=== PATIENT | male | born 1955 | race Caucasian/White ===

== ENCOUNTER 2024-03-26 14:03 | Outpatient (POV) | payer MEDICARE, SELFPAY ==
[2024-03-26 14:49] VITALS: BP 142/85; PULSE 70; RESP 18; O2SAT 97; BMI 36.3
--- NOTE | 2024-03-26 16:33 | EXP.PAIN.OV ---
HPI Data of Consult Patient: new to practice Consult date: 03/26/24 Requesting Physician: Janay Del Rio APRN Consult Narrative Reason for consult: Low back pain, left hip pain History of present illness: Mr. Torres is a 68 year old male who presents today as a new patient. He is a referral from Dr. Mcfadden office. Today he rates his pain a 4 out of 10. Patient does state that he has chronic pain throughout his low back and left hip. Patient does state that this has been going on for approximately 3 to 4 years and that initially it was so bad that he could not even walk. He states that at that time he ended up going to [facility] who started doing injection therapy with lumbar epidurals and it significantly helped and he was able to walk again. Patient does however state that he feels like the pain is a little bit different and that he describes it as an aching, throbbing sensation with occasional sharp shooting pains that does have numbness and tingling. Patient denies any prior surgery. He has tried oral medications, heat and ice, topicals with minimal relief. Patient is currently in physical therapy for his hip and has done chiropractor therapy about 2 months ago and stated it helped some. 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 He states that they really could not determine what initially started this but then thought that it caused pneumonia that went ARDS that then progressed to peripheral neuropathy. He states that he has constant numbness and tingling in his feet. Patient is interested in any help we may be able to provide. He does state that he has had recent x-rays of his low back and left hip however denies any advanced imaging on the hip. Patient did have significant findings on his lumbar MRI. He is prescribed Percocet from an outside provider. His Diego has been reviewed and is appropriate. CC: Janay Del Rio APRN [facility] Disclaimer: The information contained in this section may have been updated after the patient was seen, as this information can be updated by other users. Medical History (Updated 03/26/24 @ 16:38 by Janay Del Rio APRN) Elevated cholesterol Enlarged prostate Hypertension HIT (heparin-induced thrombocytopenia) Surgical History (Updated 03/26/24 @ 14:51 by Elisabeth Vogt, [facility]) H/O colectomy History of heart artery stent Social History (Updated 03/26/24 @ 15:29 by Elisabeth Vogt, [facility]) Smoking Status: Unknown if ever smoked alcohol intake: never current occupational status: retired Travel in the last 8 weeks: None Review of Systems Review of Systems Review of systems:: pertinent systems reviewed and negative unless documented below Review of systems (narrative): Review of Systems: General: No recent weight changes, no fever, no sleep disturbances Respiratory: No cough, no shortness of air, no recurring pulmonary infections Cardiovascular/peripheral vascular: No chest pain, no palpitations, no edema, no shortness of breath Gastrointestinal: No new onset incontinence, normal bowel movements reported Genitourinary: No new onset incontinence Musculoskeletal: Low back pain, left hip pain, bilateral feet neuropathy Psychiatric: [Normal mood/affect] Neurological: [Denies weakness in extremities], [denies balance issues] Meds Home Medications and Allergies Home Medications Medication Instructions Recorded Confirmed Type clopidogrel 75 mg tablet 75 mg PO DAILY heart stents 03/26/24 03/26/24 History doxazosin 8 mg tablet 8 mg PO DAILY prostate 03/26/24 03/26/24 History gabapentin 600 mg tablet 600 mg PO BID 03/26/24 03/26/24 History lisinopril 5 mg tablet 5 mg PO DAILY 03/26/24 03/26/24 History oxycodone-acetaminophen 7.5 mg-325 1 tab PO TID 03/26/24 03/26/24 History mg tablet rosuvastatin 20 mg tablet 20 mg PO DAILY Cholesterol 03/26/24 03/26/24 History New Prescriptions to Start Prescriptions: Allergies Allergy/AdvReac Type Severity Reaction Status Date / Time heparin AdvReac Severe Verified 03/26/24 14:59 Objective Vital signs: Pulse Resp BP Pulse Ox O2 Del Method 70 18 142/85 H 97 Room Air 03/26/24 14:49 03/26/24 14:49 03/26/24 14:49 03/26/24 14:49 03/26/24 14:49 Narrative: Physical Exam: General: Alert and oriented x3, no acute distress, pleasant and cooperative Lungs: Respirations even and unlabored, symmetrical chest expansion Eyes: PERRL Musculoskeletal: Flexion and extension of lumbar [spine] somewhat guarded secondary to pain, [antalgic gait noted] Neurological: Speech clear, no gross sensory deficit Assessment and Plan *Assessment and plan (1) Degenerative disc disease, lumbar: Status: Acute Category: Medical Code(s): M51.36 - Other intervertebral disc degeneration, lumbar region (2) Lumbar radiculopathy: Status: Acute Category: Medical Code(s): M54.16 - Radiculopathy, lumbar region (3) Lumbar spinal stenosis: Status: Acute Qualifiers: Neurogenic claudication status: with neurogenic claudication Qualified Code(s): M48.062 - Spinal stenosis, lumbar region with neurogenic claudication Category: Medical Code(s): M48.061 - Spinal stenosis, lumbar region without neurogenic claudication (4) Left hip pain: Status: Acute Category: Medical Code(s): M25.552 - Pain in left hip (5) Peripheral neuropathy: Status: Acute Qualifiers: Peripheral neuropathy type: polyneuropathy, unspecified Qualified Code(s): G62.9 - Polyneuropathy, unspecified Category: Medical Code(s): G62.9 - Polyneuropathy, unspecified Plan Patient is experiencing significant pain throughout multiple areas. Patient does already get injections for his low back symptoms and leg symptoms with some improvement. I did discuss with the patient in future he may benefit from a intrathecal pain pump or spinal cord stimulator trial. Risk and benefits and educational handouts were given on both of these devices and he would like to proceed forward with the psychological evaluation. I have counseled him if he is deemed an appropriate candidate from this appointment we will proceed forward with a trial at a later date. I will order the patient a compounded cream and I will also order an MRI of his left hip due to his continued worsening pain in this joint. Patient is agreeable to this plan of care. Patient has tried and failed conservative treatment. Patient will return to clinic in 1 month for reevaluation of symptoms and plan of care. Patient has been instructed to contact the clinic with any concerns before the next appointment. Dr. Funez has reviewed this note and agrees with this plan of care. This note was dictated using voice recognition software and make contain errors or omissions.
== END 2024-03-26 23:59 | disposition home or self-care (01) ==
LOC: SC.PAIN 14:11
PROVIDERS: Visit Provider Nurse Practitioner Family
DX: M51.36 Other intervertebral disc degeneration, lumbar region (principal); M54.16 Radiculopathy, lumbar region; M48.062 Spinal stenosis, lumbar region with neurogenic claudication; M25.552 Pain in left hip; G89.29 Other chronic pain
CPT/HCPCS: 99202; G0463

== ENCOUNTER 2024-04-26 13:06 | Outpatient (CLI) | payer MEDICARE, SELFPAY ==
--- NOTE | 2024-04-26 | MR_ITS ---
FINAL REPORT CLINICAL HISTORY: L HIP PAIN. nki COMPARISON: None FINDINGS: Multiplanar MR imaging of the left hip was performed without contrast. The hip joint spaces are preserved. Femoral heads have normal smooth contours. There is no evidence of fracture or dislocation. There is no evidence of avascular necrosis. There are no osteochondral lesions. No bony mass is identified. The acetabular labrum is intact. No labral tear is identified. No significant joint effusion is seen. The tendons are intact. The musculature is intact. No soft tissue mass or cyst is identified. No evidence of localized bursitis. IMPRESSION: Unremarkable exam. Reviewed, Interpreted and Dictated by Tay Romeo MD Transcribed by Dede Echevarria Authenticated and [facility]
== END 2024-04-26 23:59 | disposition home or self-care (01) ==
LOC: RAD 13:07
PROVIDERS: PCP Internal Medicine; Visit Provider Nurse Practitioner Family
DX: M25.552 Pain in left hip (principal)
CPT/HCPCS: 73721

== ENCOUNTER 2024-05-02 13:29 | Outpatient (POV) | payer MEDICARE, SELFPAY ==
[2024-05-02 13:50] VITALS: BP 120/71; PULSE 66; RESP 16; O2SAT 96; BMI 35.6
--- NOTE | 2024-05-02 14:33 | EXP.PAIN.SOA ---
[facility] Disclaimer: The information contained in this section may have been updated after the patient was seen, as this information can be updated by other users. Medical History (Updated 03/26/24 @ 16:38 by Janay Del Rio APRN) Elevated cholesterol Enlarged prostate Hypertension HIT (heparin-induced thrombocytopenia) Surgical History (Updated 03/26/24 @ 14:51 by Elisabeth Vogt RN) H/O colectomy History of heart artery stent Social History (Updated 03/26/24 @ 16:40 by Janay Del Rio APRN) Smoking Status: Unknown if ever smoked alcohol intake: never current occupational status: other Travel in the last 8 weeks: None PM Subjective & Objective Subjective Subjective:: Patient is a pleasant 68-year-old male who presents today for follow-up of left MRI. Today he rates his pain an 8 out of 10. He denies any new trauma or injury. He states he continues to have the chronic pain throughout his low back and does radiate more prominent along the left side down his left leg. He describes this as constant and interferes with his ability to perform activities of daily living such as cooking and cleaning. Patient does get lumbar epidurals from [facility] every 3 months and these do significantly help however he still has the chronic issue. Patient has tried and failed oral medications, heat and ice, topicals, physical therapy and chiropractor therapy. Patient does continue to do at home stretching exercise for longer than 6 weeks. He is prescribed Percocet from an outside provider. His Diego has been reviewed and is appropriate. Review of Systems: General: No recent weight changes, no fever, no sleep disturbances Respiratory: No cough, no shortness of air, no recurring pulmonary infections Cardiovascular/peripheral vascular: No chest pain, no palpitations, no edema, no shortness of breath Gastrointestinal: No new onset incontinence, normal bowel movements reported Genitourinary: No new onset incontinence Musculoskeletal: Low back pain, left hip pain Psychiatric: [Normal mood/affect] Neurological: [Denies weakness in extremities], [denies balance issues] Pain at rest (0-10 scale): 8 Objective Objective:: Physical Exam: General: Alert and oriented x3, no acute distress, pleasant and cooperative Lungs: Respirations even and unlabored, symmetrical chest expansion Eyes: PERRL Musculoskeletal: Flexion and extension of lumbar [spine] somewhat guarded secondary to pain, [antalgic gait noted] Neurological: Speech clear, no gross sensory deficit Has patient had previous pain injection?: No Conservative treatment options previously tried: Home exercise plan Length of treatment: Longer than 6 weeks Meds Home Medications and Allergies Home Medications ?Medication ?Instructions ?Recorded ?Confirmed ?Type clopidogrel 75 mg tablet 75 mg PO DAILY heart stents 03/26/24 05/02/24 History doxazosin 8 mg tablet 8 mg PO DAILY prostate 03/26/24 05/02/24 History gabapentin 600 mg tablet 600 mg PO BID 03/26/24 05/02/24 History lisinopril 5 mg tablet 5 mg PO DAILY 03/26/24 05/02/24 History oxycodone-acetaminophen 7.5 mg-325 1 tab PO TID 03/26/24 05/02/24 History mg tablet rosuvastatin 20 mg tablet 20 mg PO DAILY Cholesterol 03/26/24 05/02/24 History New Prescriptions to Start Prescriptions: Allergies Allergy/AdvReac Type Severity Reaction Status Date / Time heparin AdvReac Severe Verified 03/26/24 14:59 Assessment and Plan *Assessment and plan (1) Peripheral neuropathy: Status: Acute Qualifiers: Peripheral neuropathy type: polyneuropathy, unspecified Qualified Code(s): G62.9 - Polyneuropathy, unspecified Category: Medical Code(s): G62.9 - Polyneuropathy, unspecified (2) Left hip pain: Status: Acute Category: Medical Code(s): M25.552 - Pain in left hip (3) Lumbar spinal stenosis: Status: Acute Qualifiers: Neurogenic claudication status: with neurogenic claudication Qualified Code(s): M48.062 - Spinal stenosis, lumbar region with neurogenic claudication Category: Medical Code(s): M48.061 - Spinal stenosis, lumbar region without neurogenic claudication (4) Lumbar radiculopathy: Status: Acute Category: Medical Code(s): M54.16 - Radiculopathy, lumbar region (5) Degenerative disc disease, lumbar: Status: Acute Category: Medical Code(s): M51.36 - Other intervertebral disc degeneration, lumbar region Plan At our last visit the patient was ordered a psychological evaluation and he does state that he missed their phone call but is still planning on calling them back to proceed forward with this option. We did review over again the risk and benefits of both the pump and stimulator trial and he is stating that he thinks he would like to try the pump first. I have also recommended that this based off of his lumbar imaging would be more beneficial. I will make sure he has refills on his compounded cream as this did seem to improve some of his symptoms. Patient's hip imaging was reviewed over with no acute findings. Patient will return to clinic in 1 month following his psychological evaluation. Patient has been instructed to contact the clinic with any concerns before the next appointment. Dr. Funez has reviewed this note and agrees with this plan of care. This note was dictated using voice recognition software and make contain errors or omissions. All injections are used with Lidocaine or Bupivacaine and Depo Medrol.
== END 2024-05-02 23:59 | disposition home or self-care (01) ==
PROVIDERS: PCP Internal Medicine; Visit Provider Nurse Practitioner Family
DX: G62.9 Polyneuropathy, unspecified (principal); M25.552 Pain in left hip; M48.062 Spinal stenosis, lumbar region with neurogenic claudication; M51.16 Intervertebral disc disorders with radiculopathy, lumbar region; Z95.5 Presence of coronary angioplasty implant and graft; Z73.89 Other problems related to life management difficulty
CPT/HCPCS: 99212; G0463

== ENCOUNTER 2024-06-28 13:12 | Outpatient (POV) | payer MEDICARE, SELFPAY ==
[2024-06-28 14:42] VITALS: BP 134/83; PULSE 67; RESP 18; O2SAT 93; BMI 36.3
--- NOTE | 2024-06-28 14:50 | A.OFFVIS_ITS ---
[facility] Disclaimer: The information contained in this section may have been updated after the patient was seen, as this information can be updated by other users. Medical History (Updated 06/28/24 @ 14:52 by Janay Del Rio APRN) Elevated cholesterol Enlarged prostate Hypertension HIT (heparin-induced thrombocytopenia) Surgical History (Updated 03/26/24 @ 14:51 by Elisabeth Vogt RN) H/O colectomy History of heart artery stent Social History (Updated 03/26/24 @ 16:40 by Janay Del Rio APRN) Smoking Status: Unknown if ever smoked alcohol intake: never current occupational status: other Travel in the last 8 weeks: None PM Subjective & Objective Subjective Subjective:: Patient is a pleasant 68-year-old male who presents today for follow-up. Today he rates his pain a 7 out of 10. He denies any new trauma or injury. He does state that he continues to have the pain that is worse with walking or standing. Patient states overall he does well when he sitting however anytime he does any increased activity the pain is severe and interferes with his ability perform activities of daily living such as cooking and cleaning. Patient does state that he has not yet done his psych eval because he is waiting to decide what he wants to do. He does state that he went to see a neurosurgeon and that they did talk about doing a laminectomy and possible cyst removal on August 07. Patient states he is very hesitant regarding this procedure however is keeping his options open. Patient has tried and failed conservative therapy including ph ysical therapy, chiropractor therapy and continued at home stretching exercise for longer than 12 weeks. His Diego has been reviewed and is appropriate. Review of Systems: General: No recent weight changes, no fever, no sleep disturbances Respiratory: No cough, no shortness of air, no recurring pulmonary infections Cardiovascular/peripheral vascular: No chest pain, no palpitations, no edema, n o shortness of breath Gastrointestinal: No new onset incontinence, normal bowel movements reported Genitourinary: No new onset incontinence Musculoskeletal: Low back pain, leg pain Psychiatric: [Normal mood/affect] Neurological: [Denies weakness in extremities], [denies balance issues] Pain at rest (0-10 scale): 7 Objective Objective:: Physical Exam: General: Alert and oriented x3, no acute distress, pleasant and cooperative Lungs: Respirations even and unlabored, symmetrical chest expansion Eyes: PERRL Musculoskeletal: Flexion and extension of lumbar [spine] somewhat guarded secondary to pain, [antalgic gait noted] Neurological: Speech clear, no gross sensory deficit Has patient had previous pain injection?: No Conservative treatment options previously tried: Home exercise plan Length of treatment: Longer than 12 weeks Meds Home Medications and Allergies Home Medications ?Medication ?Instructions ?Recorded ?Confirmed ?Type clopidogrel 75 mg tablet 75 mg PO DAILY heart stents 03/26/24 06/28/24 History doxazosin 8 mg tablet 8 mg PO DAILY prostate 03/26/24 06/28/24 History gabapentin 600 mg tablet 600 mg PO BID 03/26/24 06/28/24 History lisinopril 5 mg tablet 5 mg PO DAILY 03/26/24 06/28/24 History oxycodone-acetaminophen 7.5 mg-325 1 tab PO TID 03/26/24 06/28/24 History mg tablet rosuvastatin 20 mg tablet 20 mg PO DAILY Cholesterol 03/26/24 06/28/24 History New Prescriptions to Start Prescriptions: Allergies Allergy/AdvReac Type Severity Reaction Status Date / Time heparin AdvReac Severe Verified 03/26/24 14:59 Assessment and Plan *Assessment and plan (1) Lumbar radiculopathy: Status: Acute Category: Medical Code(s): M54.16 - Radiculopathy, lumbar region (2) Degenerative disc disease, lumbar: Status: Acute Category: Medical Code(s): M51.36 - Other intervertebral disc degeneration, lumbar region (3) Lumbar spinal stenosis: Status: Acute Qualifiers: Neurogenic claudication status: with neurogenic claudication Qualified Code(s): M48.062 - Spinal stenosis, lumbar region with neurogenic claudication Category: Medical Code(s): M48.061 - Spinal stenosis, lumbar region without neurogenic claudication (4) Spinal stenosis, lumbar region with neurogenic claudication: Status: Acute Category: Medical Code(s): M48.062 - Spinal stenosis, lumbar region with neurogenic claudication Plan Patient does have symptoms consistent with spinal stenosis with neurogenic claudication symptoms. Patient did have a positive shopping cart sign. I did discuss with the patient in future he may also be a beneficial candidate of a minimally invasive lumbar decompression. Risk and benefits and educational handouts were given at today's visit. We did discuss at length regarding this option and he would like to proceed forward with the lumbar epidural with epidurogram. We will evaluate whether or not he is a potential candidate of the lumbar decompression following this procedure. I did also go over again the risk and benefits of the pump trial and he does state that he will still plan on proceeding forward with a psychological evaluation. We will follow-up with this at future visits. Patient has tried and failed conservative therapy including continued at home stretching exercise for longer than 12 weeks. Patient will be scheduled for an LESI L4-L5 with epidurogram. Patient is on blood thinners and we will reach out to Dr. Levy regarding his Plavix to confirm he can stop this medication prior to this procedure. Patient has been instructed to contact the clinic with any concerns before the next appointment. Dr. Fuenz has reviewed this note and agrees with this plan of care. This note was dictated using voice recognition software and make contain errors or omissions. All injections are used with Lidocaine or Bupivacaine and Depo Medrol.
== END 2024-06-28 23:59 | disposition home or self-care (01) ==
LOC: SC.PAIN 13:17
PROVIDERS: PCP Internal Medicine; Visit Provider Nurse Practitioner Family
DX: M48.062 Spinal stenosis, lumbar region with neurogenic claudication; M51.16 Intervertebral disc disorders with radiculopathy, lumbar region; Z73.89 Other problems related to life management difficulty
CPT/HCPCS: 99212; G0463

== ENCOUNTER 2024-07-24 08:20 | Day surgery (SDC) | payer MEDICARE, SELFPAY ==
[2024-07-24 08:49] VITALS: BP 116/69; BP 120/72; PULSE 65; PULSE 66; PULSE 71; RESP 16; RESP 18; TEMP 36.9; O2SAT 94; BMI 35.6
[2024-07-24] MEDS: IOPAMIDOL-200 (41%);10ML VIAL 10 ML IV (08:50)
[2024-07-24] MEDS: methylPREDNISolone ACETATE 80MG/ML VIAL 80 MG (08:57)
[2024-07-24 09:06] VITALS: BP 117/70; PULSE 64; RESP 16; O2SAT 92
--- NOTE | 2024-07-24 09:06 | EXP.PAIN.PRO ---
Procedure Date: 07/24/24 Time: 08:40 Anesthesiologist:: Keaton Wayne CRNA Complications:: None Pre-procedure Diagnosis:: Degenerative disc lumbar spine multilevels. Lumbar radiculopathy. Lumbar spondylosis. Lumbar spinal stenosis. Post-procedure Diagnosis:: Same. Indications for Procedure:: Patient is a very pleasant 68-year-old male who comes our clinic today for lumbar epidural steroid injection at the L4-5 level with epidurogram. Patient been having low lumbar back pain as well as bilateral hip and leg radicular symptoms. He is being treated at another facility with lumbar epidural steroid injections prior to entering our clinic. He reports having some success with previous injections in the lumbar spine. Procedure Details:: Informed consent was obtained and the risks and benefits of the procedure were explained to the patient. The patient was taken to the procedure room and noninvasive monitors placed, including noninvasive blood pressure cuff and pulse oximeter. The back was viewed using C-arm Fluoroscopy and prepped using Chloraprep as a cleansing solution and the L4-L5 interspace was palpated. Skin and subcutaneous tissues were anesthetized using lidocaine 1.5% and a 25-gauge needle. After this, an 18-gauge Touhy epidural needle was placed into the L4-L5 interspace and advanced using fluoroscopic guidance and loss of resistance to air until the epidural space was encountered. After confirmation of needle placement in the epidural space, with dye, a solution containing normal saline, 3 mL and Depo-Medrol 80 mg were incrementally injected into the lumbar epidural space. The patient tolerated the procedure well with no complications. Plan and Disposition:: Patient was discharged without incident.
== END 2024-07-24 09:06 | disposition home or self-care (01) ==
PROVIDERS: PCP Internal Medicine; Visit Provider Nurse Anesthetist, Certified Registered
DX: M51.16 Intervertebral disc disorders with radiculopathy, lumbar region (principal); M47.26 Other spondylosis with radiculopathy, lumbar region; M48.061 Spinal stenosis, lumbar region without neurogenic claudication
CPT/HCPCS: 62323; J1010; Q9966

== ENCOUNTER 2024-08-10 11:30 | Outpatient (POV) | payer MEDICARE, SELFPAY ==
[2024-08-10 11:51] VITALS: BP 109/60; PULSE 64; RESP 16; O2SAT 95; BMI 36.5
--- NOTE | 2024-08-10 12:20 | A.OFFVIS_ITS ---
[facility] Disclaimer: The information contained in this section may have been updated after the patient was seen, as this information can be updated by other users. Medical History Elevated cholesterol Enlarged prostate Hypertension HIT (heparin-induced thrombocytopenia) Surgical History H/O colectomy History of heart artery stent Social History Smoking Status: Unknown if ever smoked alcohol intake: never current occupational status: other Travel in the last 8 weeks: None PM Subjective & Objective Subjective Subjective:: Patient is a pleasant 68-year-old male who presents today for follow-up of lumbar epidural steroid injection L4-L5 with epidurogram on 07/24/2024. Today he does rate his pain a 4 out of 10. Patient states that he has had at least 60 to 65% improvement following this injection and feels like it is still helping some. Patient states he has been able to increase his activity with overall decreased pain and feels much more functional. Patient does state that he is still interested in proceeding forward with a lumbar decompression procedure. Patient states that most of his pain is all when he goes to stand or walk and does radiate down more prominently on the left side. His Diego has been reviewed and is appropriate. Review of Systems: General: No recent weight changes, no fever, no sleep disturbances Respiratory: No cough, no shortness of air, no recurring pulmonary infections Cardiovascular/peripheral vascular: No chest pain, no palpitations, no edema, no shortness of breath Gastrointestinal: No new onset incontinence, normal bowel movements reported Genitourinary: No new onset incontinence Musculoskeletal: Low back pain Psychiatric: [Normal mood/affect] Neurological: [Denies weakness in extremities], [denies balance issues] Pain at rest (0-10 scale): 4 Objective Objective:: Physical Exam: General: Alert and oriented x3, no acute distress, pleasant and cooperative Lungs: Respirations even and unlabored, symmetrical chest expansion Eyes: PERRL Musculoskeletal: Flexion and extension of lumbar [spine] somewhat guarded secondary to pain, [antalgic gait noted] Neurological: Speech clear, no gross sensory deficit Has patient had previous pain injection?: Yes Percent improvement in pain since last injection: 60 to 65% Conservative treatment options previously tried: Home exercise plan Length of treatment: Longer than 12 weeks Meds Home Medications and Allergies Home Medications ?Medication ?Instructions ?Recorded ?Confirmed ?Type clopidogrel 75 mg tablet 75 mg PO DAILY heart stents 03/26/24 08/10/24 History doxazosin 8 mg tablet 8 mg PO DAILY prostate 03/26/24 08/10/24 History gabapentin 600 mg tablet 600 mg PO BID 03/26/24 08/10/24 History lisinopril 5 mg tablet 5 mg PO DAILY 03/26/24 08/10/24 History oxycodone-acetaminophen 7.5 mg-325 1 tab PO TID 03/26/24 08/10/24 History mg tablet rosuvastatin 20 mg tablet 20 mg PO DAILY Cholesterol 03/26/24 08/10/24 History New Prescriptions to Start Prescriptions: Allergies Allergy/AdvReac Type Severity Reaction Status Date / Time heparin AdvReac Severe Verified 03/26/24 14:59 Assessment and Plan *Assessment and plan (1) Lumbar spinal stenosis: Status: Acute Qualifiers: Neurogenic claudication status: with neurogenic claudication Qualified Code(s): M48.062 - Spinal stenosis, lumbar region with neurogenic claudication Category: Medical Code(s): M48.061 - Spinal stenosis, lumbar region without neurogenic claudication (2) Lumbar radiculopathy: Status: Acute Category: Medical Code(s): M54.16 - Radiculopathy, lumbar region (3) Degenerative disc disease, lumbar: Status: Acute Category: Medical Code(s): M51.36 - Other intervertebral disc degeneration, lumbar region (4) Spinal stenosis, lumbar region with neurogenic claudication: Status: Acute Category: Medical Code(s): M48.062 - Spinal stenosis, lumbar region with neurogenic claudication Plan I did discuss with the patient that although we did do the epidurogram her provider did not make mention whether or not how narrowed the canal spacing was. I have discussed with the patient that I will review over his imaging as well as have requested if he can bring his MRI disc to our clinic so I can review the actual imaging and not just the written report to see if there is ligamentum flavum hypertrophy present. Patient agrees with this plan of care. Patient will return to clinic in 1 month for reevaluation of symptoms and plan of care. Patient has been instructed to contact the clinic with any concerns before the next appointment. Dr. Funez has reviewed this note and agrees with this plan of care. This note was dictated using voice recognition software and make contain errors or omissions. All injections are used with Lidocaine or Bupivacaine and Depo Medrol.
== END 2024-08-10 23:59 | disposition home or self-care (01) ==
PROVIDERS: PCP Internal Medicine; Visit Provider Nurse Practitioner Family
DX: M48.062 Spinal stenosis, lumbar region with neurogenic claudication (principal); M51.16 Intervertebral disc disorders with radiculopathy, lumbar region
CPT/HCPCS: 99212; G0463

== ENCOUNTER 2024-09-28 14:23 | Outpatient (POV) | payer MEDICARE, SELFPAY ==
[2024-09-28 14:33] VITALS: BP 186/72; PULSE 60; RESP 16; O2SAT 95; BMI 36.5
--- NOTE | 2024-09-28 15:33 | XR_ITS ---
FINAL REPORT CLINICAL HISTORY: LBP FINDINGS: LUMBAR SPINE Five views were obtained. There is no acute fracture. The disc spaces are well-preserved. There is moderate to advanced facet hypertrophy in the lower lumbar spine. There is no malalignment. IMPRESSION: Degenerative changes as above. Reviewed, Interpreted and Dictated by Tay Romeo MD Transcribed by Norma Gtz Authenticated and [facility]
--- NOTE | 2024-09-28 16:08 | EXP.PAIN.SOA ---
[facility] Disclaimer: The information contained in this section may have been updated after the patient was seen, as this information can be updated by other users. Medical History Elevated cholesterol Enlarged prostate Hypertension HIT (heparin-induced thrombocytopenia) Surgical History H/O colectomy History of heart artery stent Social History Smoking Status: Unknown if ever smoked alcohol intake: never current occupational status: other Travel in the last 8 weeks: None PM Subjective & Objective Subjective Subjective:: Patient is a pleasant 69-year-old male who presents today for follow-up. He rates his pain today a 5 out of 10. He does state that he overall he feels like the previous epidural that was in July is seeming to still work. Patient did have a LESI L4-L5 with epidurogram and is still very interested in the minimally invasive lumbar decompression procedure. Patient does state today that he did bring his previous MRI disc and to radiology and that they were supposed to downloaded into the system. He does have chronic pain throughout his low back that is fine while he is seated however as soon as he gets up and starts moving around the pain does significantly worsen causing him to stop and take multiple breaks. Patient does state when the pain is severe it does interfere with his ability perform activities of daily living such as cooking and cleaning. His Diego has been reviewed and is appropriate. Review of Systems: General: No recent weight changes, no fever, no sleep disturbances Respiratory: No cough, no shortness of air, no recurring pulmonary infections Cardiovascular/peripheral vascular: No chest pain, no palpitations, no edema, no shortness of breath Gastrointestinal: No new onset incontinence, normal bowel movements reported Genitourinary: No new onset incontinence Musculoskeletal: Low back pain, leg pain Psychiatric: [Normal mood/affect] Neurological: [Denies weakness in extremities], [denies balance issues] Pain at rest (0-10 scale): 5 Objective Objective:: Physical Exam: General: Alert and oriented x3, no acute distress, pleasant and cooperative Lungs: Respirations even and unlabored, symmetrical chest expansion Eyes: PERRL Musculoskeletal: Flexion and extension of lumbar [spine] somewhat guarded secondary to pain, [antalgic gait noted] Neurological: Speech clear, no gross sensory deficit Has patient had previous pain injection?: No Conservative treatment options previously tried: Home exercise plan Length of treatment: Longer than 12 weeks Meds Home Medications and Allergies Home Medications ?Medication ?Instructions ?Recorded ?Confirmed ?Type clopidogrel 75 mg tablet 75 mg PO DAILY heart stents 03/26/24 09/28/24 History doxazosin 8 mg tablet 8 mg PO DAILY prostate 03/26/24 09/28/24 History gabapentin 600 mg tablet 600 mg PO BID 03/26/24 09/28/24 History lisinopril 5 mg tablet 5 mg PO DAILY 03/26/24 09/28/24 History oxycodone-acetaminophen 7.5 mg-325 1 tab PO TID 03/26/24 09/28/24 History mg tablet rosuvastatin 20 mg tablet 20 mg PO DAILY Cholesterol 03/26/24 09/28/24 History New Prescriptions to Start Prescriptions: Allergies Allergy/AdvReac Type Severity Reaction Status Date / Time heparin AdvReac Severe Verified 03/26/24 14:59 Assessment and Plan *Assessment and plan (1) Spinal stenosis, lumbar region with neurogenic claudication: Status: Acute Category: Medical Code(s): M48.062 - Spinal stenosis, lumbar region with neurogenic claudication (2) Lumbar spinal stenosis: Status: Acute Qualifiers: Neurogenic claudication status: with neurogenic claudication Qualified Code(s): M48.062 - Spinal stenosis, lumbar region with neurogenic claudication Category: Medical Code(s): M48.061 - Spinal stenosis, lumbar region without neurogenic claudication (3) Lumbar radiculopathy: Status: Acute Category: Medical Code(s): M54.16 - Radiculopathy, lumbar region (4) Degenerative disc disease, lumbar: Status: Acute Category: Medical Code(s): M51.369 - Other intervertebral disc degeneration, lumbar region without mention of lumbar back pain or lower extremity pain Plan Patient continues to have symptoms consistent with spinal stenosis with neurogenic claudication. Patient's last imaging the radiologist did not specifically look or reference whether or not the patient did have hypertrophy of the ligament. I will order updated imaging. We will order x-ray and lumbar MRI without contrast and evaluate for ligamentum flavum hypertrophy due to the continued worsening pain with increased activity such as walking or standing. Patient does have a positive shopping cart sign. Patient will return to clinic in 1 month for reevaluation of symptoms and plan of care. Patient has been instructed to contact the clinic with any concerns before the next appointment. Dr. Funez has reviewed this note and agrees with this plan of care. This note was dictated using voice recognition software and make contain errors or omissions. All injections are used with Lidocaine, Bupivacaine and Depo Medrol. Occasionally urine drug screen is needed to verify patient's compliance with our office pain contract. This is ordered based off specific treatments related to chronic pain with the potential to abuse certain medications.
== END 2024-09-28 23:59 | disposition home or self-care (01) ==
PROVIDERS: PCP Internal Medicine; Visit Provider Nurse Practitioner Family
DX: M48.062 Spinal stenosis, lumbar region with neurogenic claudication (principal); M51.16 Intervertebral disc disorders with radiculopathy, lumbar region; Z73.89 Other problems related to life management difficulty
CPT/HCPCS: 72110; 99212; G0463

== ENCOUNTER 2024-10-15 16:50 | Outpatient (CLI) | payer MEDICARE, SELFPAY ==
--- NOTE | 2024-10-15 17:02 | MR_ITS ---
PROCEDURE INFORMATION: Exam: MR Lumbar Spine Without Contrast Exam date and time: 10/15/2024 5:15 PM Age: 69 years old Clinical indication: Low back pain; Additional info: Lbp with ble pain TECHNIQUE: Imaging protocol: Magnetic resonance imaging of the lumbar spine without contrast. COMPARISON: MR LUMBAR W/O CONTRAST 01/10/2024 5:15 PM FINDINGS: Bones/joints: The vertebral body heights the vertebral body heights are maintained. There is grade 1 anterolisthesis of L4 on L5. Otherwise alignment is maintained. Spinal cord: Visualized cord, conus medullaris and cauda equina are unremarkable without compression. L1-L2: There is a small left paracentral disc protrusion which partially effaces the anterior thecal sac. There is no significant spinal canal stenosis. There is [id number]-fk-[id number] left and mild right neural foraminal stenosis secondary to foraminal disc bulging and facet hypertrophy. L2-L3: There is mild spinal canal stenosis mainly secondary to prominent posterior epidural fat. There is mild bilateral neural foraminal stenosis secondary to foraminal disc bulging and facet hypertrophy. L3-L4: There is moderate to severe spinal canal stenosis mainly secondary to epidural lipomatosis. There is also a small central disc protrusion identified which causes minimal mass effect on the anterior thecal sac. There is [id number] right and mild left neural foraminal stenosis secondary to foraminal disc bulging and facet hypertrophy. L4-L5: There is severe spinal canal stenosis secondary to anterolisthesis of L4 on L5, epidural lipomatosis, ligamentum flavum/facet hypertrophy, and central disc osteophyte ridging. There is also a left-sided synovial cyst measuring 6 x 4 x 8 mm. Please see image 27 of series 5 and image 10 of series 2. There is moderate right and [id number] left neural foraminal stenosis secondary to foraminal disc osteophyte bulging and facet hypertrophy. L5-S1: There is mild central disc bulging noted and there is epidural lipomatosis which effaces the thecal sac. The neural foramina appear patent. Soft tissues: Unremarkable. IMPRESSION: 1. Grade 1 anterolisthesis of L4 on L5. 2. Multilevel spinal canal and neural foraminal stenosis with severe spinal canal stenosis at L4-L5. Please see above for specific findings at each level.
== END 2024-10-15 23:59 | disposition home or self-care (01) ==
LOC: RAD 16:57
PROVIDERS: PCP Internal Medicine; Visit Provider Nurse Practitioner Family
DX: M51.369 Other intervertebral disc degeneration, lumbar region without mention of lumbar back pain or lower extremity pain (principal); M54.16 Radiculopathy, lumbar region; M48.062 Spinal stenosis, lumbar region with neurogenic claudication
CPT/HCPCS: 72148

== ENCOUNTER 2024-10-29 15:16 | Outpatient (POV) | payer MEDICARE, SELFPAY ==
[2024-10-29 15:43] VITALS: BP 156/96; PULSE 72; RESP 14; O2SAT 94; BMI 37.5
--- NOTE | 2024-10-29 16:25 | A.OFFVIS_ITS ---
[facility] Disclaimer: The information contained in this section may have been updated after the patient was seen, as this information can be updated by other users. Medical History Elevated cholesterol Enlarged prostate Hypertension HIT (heparin-induced thrombocytopenia) Surgical History H/O colectomy History of heart artery stent Social History Smoking Status: Unknown if ever smoked alcohol intake: never current occupational status: other Travel in the last 8 weeks: None PM Subjective & Objective Subjective Subjective:: Patient is a pleasant 69-year-old male who presents today for follow-up of lumbar MRI. Today he rates his pain a 4 out of 10 there in his low back however does state that his feet are constantly a 5 or more. Patient does state that he has had neuropathy for years and it is progressively worsened. He states years ago that he ended up having a blood clot down around in his foot and ended up having allergic reaction to heparin. He states that he ended up waking up with both his feet looking as if he had frostbite and ever since has had worsening numbness and tingling bilaterally. He states it affects the bottom and sides of his feet and is constant and affects his ability perform activities of daily living such as cooking and cleaning. He does also state that he still has worsening pain in his legs that is prominent when he gets up and walks. Patient states that he is still very interested in proceeding forward with the mild procedure in future. He does however state that the low back has eased down just a little bit currently. Patient is prescribed gabapentin and Percocet from an outside provider. His Diego has been reviewed and is appropriate. Review of Systems: General: No recent weight changes, no fever, no sleep disturbances Respiratory: No cough, no shortness of air, no recurring pulmonary infections Cardiovascular/peripheral vascular: No chest pain, no palpitations, no edema, no shortness of breath Gastrointestinal: No new onset incontinence, normal bowel movements reported Genitourinary: No new onset incontinence Musculoskeletal: Bilateral feet pain, leg pain Psychiatric: [Normal mood/affect] Neurological: [Denies weakness in extremities], [denies balance issues] Pain at rest (0-10 scale): 5 Objective Objective:: Physical Exam: General: Alert and oriented x3, no acute distress, pleasant and cooperative Lungs: Respirations even and unlabored, symmetrical chest expansion Eyes: PERRL Musculoskeletal: Flexion and extension of lumbar spine somewhat guarded secondary to pain, [antalgic gait noted] decreased sensation to light touch along his feet bilaterally and decreased reflexes Neurological: Speech clear, no gross sensory deficit Has patient had previous pain injection?: No Conservative treatment options previously tried: Home exercise plan Length of treatment: Longer than 12 weeks Meds Home Medications and Allergies Home Medications ?Medication ?Instructions ?Recorded ?Confirmed ?Type clopidogrel 75 mg tablet 75 mg PO DAILY heart stents 03/26/24 10/29/24 History doxazosin 8 mg tablet 8 mg PO DAILY prostate 03/26/24 10/29/24 History gabapentin 600 mg tablet 600 mg PO BID 03/26/24 10/29/24 History lisinopril 5 mg tablet 5 mg PO DAILY 03/26/24 10/29/24 History oxycodone-acetaminophen 7.5 mg-325 1 tab PO TID 03/26/24 10/29/24 History mg tablet rosuvastatin 20 mg tablet 20 mg PO DAILY Cholesterol 03/26/24 10/29/24 History New Prescriptions to Start Prescriptions: Allergies Allergy/AdvReac Type Severity Reaction Status Date / Time heparin AdvReac Severe Verified 03/26/24 14:59 Assessment and Plan *Assessment and plan (1) Spinal stenosis, lumbar region with neurogenic claudication: Status: Acute Category: Medical Code(s): M48.062 - Spinal stenosis, lumbar region with neurogenic claudication (2) Lumbar spinal stenosis: Status: Acute Qualifiers: Neurogenic claudication status: with neurogenic claudication Qualified Code(s): M48.062 - Spinal stenosis, lumbar region with neurogenic claudication Category: Medical Code(s): M48.061 - Spinal stenosis, lumbar region without neurogenic claudication (3) Degenerative disc disease, lumbar: Status: Acute Category: Medical Code(s): M51.369 - Other intervertebral disc degeneration, lumbar region without mention of lumbar back pain or lower extremity pain (4) Lumbar radiculopathy: Status: Acute Category: Medical Code(s): M54.16 - Radiculopathy, lumbar region (5) Peripheral neuropathy: Status: Acute Qualifiers: Peripheral neuropathy type: polyneuropathy, unspecified Qualified Code(s): G62.9 - Polyneuropathy, unspecified Category: Medical Code(s): G62.9 - Polyneuropathy, unspecified Plan Patient is experiencing constant pain related to his peripheral neuropathy that does affect his feet bilaterally with decreased reflexes and decreased sensation to light touch. I did discuss with the patient that I do believe he would benefit from posterior tibial nerve blocks bilaterally. Risk and benefits were discussed with the patient and he would like to proceed forward with this plan of care. Patient is also a good candidate for the minimally invasive lumbar decompression and has had a lumbar epidural with epidurogram as well as updated lumbar imaging that did show ligamentum flavum hypertrophic present. Patient does have symptoms consistent with spinal stenosis with neurogenic claudication symptoms. I did again review over the risk and benefits of the minimally invasive lumbar decompression procedure and we will follow-up with him regarding this after his posterior tibial nerve blocks. Patient has tried and failed conservative therapy including oral medications, heat and ice, topicals, at home stretching exercise for longer than 12 weeks with minimal changes. Patient will be scheduled for bilateral posterior tibial nerve blocks. Patient has been instructed to contact the clinic with any concerns before the next appointment. Dr. Funez has reviewed this note and agrees with this plan of care. This note was dictated using voice recognition software and make contain errors or omissions. All injections are used with Lidocaine, Bupivacaine and Depo Medrol. Occasionally urine drug screen is needed to verify patient's compliance with our office pain contract. This is ordered based off specific treatments related to chronic pain with the potential to abuse certain medications.
== END 2024-10-29 23:59 | disposition home or self-care (01) ==
LOC: SC.PAIN 15:21
PROVIDERS: PCP Internal Medicine; Visit Provider Nurse Practitioner Family
DX: M48.062 Spinal stenosis, lumbar region with neurogenic claudication (principal); G62.9 Polyneuropathy, unspecified; M51.16 Intervertebral disc disorders with radiculopathy, lumbar region; Z95.5 Presence of coronary angioplasty implant and graft; Z73.89 Other problems related to life management difficulty
CPT/HCPCS: 99212; G0463

== ENCOUNTER 2024-11-20 13:55 | Day surgery (SDC) | payer MEDICARE, SELFPAY ==
[2024-11-20 14:09] VITALS: BP 130/77; PULSE 61; RESP 16; TEMP 37; O2SAT 95; BMI 36.3
[2024-11-20] MEDS: LIDOCAINE 1% 5ML PF VIAL 5 ML (14:39)
[2024-11-20 14:40] VITALS: BP 143/74; PULSE 59; RESP 18; O2SAT 93
[2024-11-20 14:41] VITALS: BP 131/77; PULSE 59; RESP 16; O2SAT 95
[2024-11-20 14:46] VITALS: BP 143/74; PULSE 59; RESP 18; O2SAT 93
--- NOTE | 2024-11-20 14:52 | P.PCN_ITS ---
Procedure Date: 11/20/24 Time: 14:50 Anesthesiologist:: Keaton Wayne CRNA Complications:: None Pre-procedure Diagnosis:: Lumbar neurogenic claudication. Bilateral feet neuropathy. Degenerative disc lumbar spine multilevels. Lumbar radiculopathy. Post-procedure Diagnosis:: Same. Indications for Procedure:: Patient is a very pleasant 69-year-old male who comes our clinic today for bilateral posterior tibial nerve blocks. Patient receives intermittent lumbar epidural steroid injections for lumbar degenerative disc with radicular symptoms. Patient has chronic bilateral feet neuropathy. Patient reports neuropathy pain increases at night. Patient currently taking gabapentin 1200 mg nightly. Patient reports gabapentin helps significantly. Procedure Details:: Details of the procedure explained to the patient. The patient taken procedure room placed in the sitting position. The area over the left lateral malleus was cleaned using chlorhexidine as a cleansing solution. Using a 25-gauge inch and half needle the left posterior tibial nerve was accessed with ease. After negative aspiration 4 cc of 1% lidocaine and 2 cc of 0.25% Marcaine +40 mg Depo- Medrol was injected. The same procedure was carried out on the right posterior tibial nerve. Patient tolerated procedure without difficulty. No complications. Plan and Disposition:: Patient was discharged without incident.
== END 2024-11-20 14:41 | disposition home or self-care (01) ==
LOC: SC.PAINP 13:56
PROVIDERS: PCP Internal Medicine; Visit Provider Nurse Anesthetist, Certified Registered
DX: M48.062 Spinal stenosis, lumbar region with neurogenic claudication (principal); G62.9 Polyneuropathy, unspecified; M51.16 Intervertebral disc disorders with radiculopathy, lumbar region
CPT/HCPCS: 64450; J1010

== ENCOUNTER 2024-12-07 15:31 | Outpatient (POV) | payer MEDICARE, SELFPAY ==
[2024-12-07 15:45] VITALS: BP 107/53; PULSE 68; RESP 14; O2SAT 96; BMI 36.5
--- NOTE | 2024-12-07 16:11 | A.OFFVIS_ITS ---
[facility] Disclaimer: The information contained in this section may have been updated after the patient was seen, as this information can be updated by other users. Medical History Elevated cholesterol Enlarged prostate Hypertension HIT (heparin-induced thrombocytopenia) Surgical History H/O colectomy History of heart artery stent Social History Smoking Status: Unknown if ever smoked alcohol intake: never current occupational status: other Travel in the last 8 weeks: None PM Subjective & Objective Subjective Subjective:: Patient is a pleasant 69-year-old male who presents today for follow-up of bilateral posterior tibial nerve blocks on 11/20/2024. He does rate his pain today as 6 out of 10. He denies any new trauma or injury. He does state his pain is still all related to his bilateral feet numbness and tingling. He states overall currently his back and hips are doing pretty good. Patient does state that the day of the procedure he did have about 70% improvements with the initial numbing medication. He does state that once this wore off he did have 2 days that were just really really painful. He states he was just very sore and tender. Patient does state then it may have helped some after that however he ended up becoming under the weather and is not really sure if he had COVID or the flu or something else. He states he was having bodyaches and other symptoms. Patient does state that he is finally starting to feel better now currently. Patient is prescribed compounded cream from our office and gabapentin from an outside provider. His [place] has been reviewed and is appropriate. Review of Systems: General: No recent weight changes, no fever, no sleep disturbances Respiratory: No cough, no shortness of air, no recurring pulmonary infections Cardiovascular/peripheral vascular: No chest pain, no palpitations, no edema, no shortness of breath Gastrointestinal: No new onset incontinence, normal bowel movements reported Genitourinary: No new onset incontinence Musculoskeletal: Bilateral feet numbness tingling Psychiatric: [Normal mood/affect] Neurological: [Denies weakness in extremities], [denies balance issues] Pain at rest (0-10 scale): 6 Objective Objective:: Physical Exam: General: Alert and oriented x3, no acute distress, pleasant and cooperative Lungs: Respirations even and unlabored, symmetrical chest expansion Eyes: PERRL Musculoskeletal: Flexion and extension of lumbar [spine] somewhat guarded secondary to pain, [antalgic gait noted] Neurological: Speech clear, no gross sensory deficit Has patient had previous pain injection?: Yes Percent improvement in pain since last injection: 70% Conservative treatment options previously tried: Home exercise plan Length of treatment: Longer than 12 weeks Meds Home Medications and Allergies Home Medications ?Medication ?Instructions ?Recorded ?Confirmed ?Type clopidogrel 75 mg tablet 75 mg PO DAILY heart stents 03/26/24 12/07/24 History doxazosin 8 mg tablet 8 mg PO DAILY prostate 03/26/24 12/07/24 History gabapentin 600 mg tablet 600 mg PO BID 03/26/24 12/07/24 History lisinopril 5 mg tablet 5 mg PO DAILY 03/26/24 12/07/24 History oxycodone-acetaminophen 7.5 mg-325 1 tab PO TID 03/26/24 12/07/24 History mg tablet rosuvastatin 20 mg tablet 20 mg PO DAILY Cholesterol 03/26/24 12/07/24 History New Prescriptions to Start Prescriptions: Allergies Allergy/AdvReac Type Severity Reaction Status Date / Time heparin AdvReac Severe Verified 03/26/24 14:59 Assessment and Plan *Assessment and plan (1) Lumbar radiculopathy: Status: Acute Category: Medical Code(s): M54.16 - Radiculopathy, lumbar region (2) Degenerative disc disease, lumbar: Status: Acute Category: Medical Code(s): M51.369 - Other intervertebral disc degeneration, lumbar region without mention of lumbar back pain or lower extremity pain (3) Peripheral neuropathy: Status: Acute Qualifiers: Peripheral neuropathy type: polyneuropathy, unspecified Qualified Code(s): G62.9 - Polyneuropathy, unspecified Category: Medical Code(s): G62.9 - Polyneuropathy, unspecified Plan Patient was counseled that due to his continued peripheral neuropathy that I would recommend we do an EMG bilaterally. Patient did have significant injury years ago when he had a side effect to heparin. I have counseled the patient that I do believe that may be playing a role as well as chronic lumbar radiculopathies due to the spinal stenosis and ligamentum flavum hypertrophy. I will refer him to Dr. Perez for this testing. I did also discuss with the patient that we will increase his concentration of his compounded cream. Patient will return to clinic in 1 month for reevaluation of symptoms and plan of care. I did also discuss with patient in future I do believe he would still benefit from the stimulator as well as the minimally invasive lumbar decompression. We will follow-up with these in future. Patient has been instructed to contact the clinic with any concerns before the next appointment. Dr. Funez has reviewed this note and agrees with this plan of care. This note was dictated using voice recognition software and make contain errors or omissions. All injections are used with Lidocaine, Bupivacaine and Depo Medrol. Occasionally urine drug screen is needed to verify patient's compliance with our office pain contract. This is ordered based off specific treatments related to chronic pain with the potential to abuse certain medications.
== END 2024-12-07 23:59 | disposition home or self-care (01) ==
LOC: SC.PAIN 15:33
PROVIDERS: PCP Internal Medicine; Visit Provider Nurse Practitioner Family
DX: M51.16 Intervertebral disc disorders with radiculopathy, lumbar region (principal); G62.9 Polyneuropathy, unspecified
CPT/HCPCS: 99212; G0463

== ENCOUNTER 2025-02-13 11:21 | Outpatient (POV) | payer MEDICARE, SELFPAY ==
--- OUTSIDE RECORDS SUMMARY | 2024-12-25 15:00 | XMS_ITS | Encounter Summary ---
Author Organization [employer] Address [address] [place] [address] Care Team Providers Care Melter Supervisor Electric Arc Furnace Name Role Phone Yvan Coffey MD Primary Care Provider [phone] Reason for Referral * Durable Medical Equipment (Routine) - Closed Specialty Diagnoses / Procedures Referred By Contjoo t Referred To Contact Respiratory Therapy Diagnoses ADITYA (obstructive sleep apnea) Procedures DME Sleep Supplies Elton Faust MD [address] [place] [address] Phone: tel: fax: Referral ID Status Reason Start Date Expiration Date Visits Re quested Visits Authorized [id number] Closed 12/25/2024 12/25/2025 1 1 Reason for Visit * Reason Comments Sleep Apnea Encounter Details Date Type Department Care Team (Late st Contact Info) Description 12/25/2024 3:00 PM EDT Office Visit [facility] [address] [place] [phone] Elton Faust MD [address] [place] [address] ADITYA (obstructive sleep apnea) (Primary Dx) Social History Tobacco Use Types Packs/Day Years Used Date Smoking Tobacco: Never Smokeless Tobacco: Never Alcohol Use Standard Drinks/Week Comments Not Currently 0 (1 standard drink = 0.6 oz pur e alcohol) Interpersonal Safety Answer Date Record ed Family or friends hurt you Not on file 09/23 Family or friends insult you Not on file Family or friends threaten you Not on file 0 09/23/2023 Family or friends scream or curse at you Not on file 09/23/2023 Housing Stability Answer Date Recorded Living situation today Not on file Living situation problems Not on file 2023 Employment Answer Date Recorded Help finding and keeping a job Not on file 0 09/23/2023 Family and Community Support Answer Jair e Recorded Help with Day to Day Activities Not on file 09/23/2023 Feeling Lonely or Isolated Not on file 09/23 Educational Attainment Answer Date Alejandro rded Speak language other than French at home Not on file 09/23/2023 Want help with school or training Not on file 09/23/2023 Depression Answer Date Recorded PHQ-2 Risk Not on file 09/23/2023 Disabilities Answer Date Recorded Difficulty concentrating Not on file 024 Difficulty doing errands alone Not on file 0 09/23/2023 Substance Use Answer Date Recorded Used prescription meds for non-medical reasons N ot on file 09/23/2023 Used illegal drugs past 12 months Not on file 09/23/2023 Sex and Gender Information Value Date Recorded Sex Assigned at Not on file Legal Sex Male 3:58 PM CDT Gender Identity Not on file Sexual Orientation Not on file documented as of this encounter Last Filed Vital Signs Vital Sign Reading Time Taken Comments Blood Pressure 121/76 12/25/2024 3:48 PM EDT Pulse 58 12/25/2024 3:48 PM EDT Temperature - - Respiratory Rate 20 12/25/2024 3:48 PM EDT Oxygen Saturation 95% 12/25/2024 3:48 PM EDT Inhaled Oxygen Concentration - - Weight 105.6 kg (232 lb 14.4 oz) 12/25/2024 3:48 PM EDT Height 172.7 cm (5' 8 ) 12/25/2024 3:48 PM EDT Body Mass Index 35.41 12/25/2024 3:48 PM EDT documented in this encounter Progress Notes * Elton Faust MD - 12/25/2024 3:00 PM EDT [facility] Follow Up HPI: Patient presents for follow-up of obstructive Sleep Apnea. Patient was last seen 1 year ago on12/20/2023... During that visit his AHI was significantly elevated at 13.1 however it was significantly better than almost all of his previous clinic visits where his AHI had remained significantly elevated. Today in clinic he remains at a fixed CPAP pressure of 11 cm of H2O. He his AHI content has continued to trend down and he is doing well today in clinic is down to 6.9. He reports continued clinical benefit from CPAP therapy. His compliance is nearly 100% he uses it every [facility] with [facility]. No other significant sleep-related complaints today in clinic. Mask: FFM DME: [facility] Current Outpatient Medications on File Prior to Visit Medication Sig Dispense Refill carvediloL (COREG) 12.5 MG tablet TAKE 1 TABLET TWICE DAILY 180 tablet 3 clopidogreL (PLAVIX) 75 mg tablet TAKE 1 TABLET EVERY DAY 90 tablet 3 doxazosin (CARDURA) 4 MG tablet Take 1 tablet (4 mg total) by mouth nightly. gabapentin (NEURONTIN) 600 MG tablet Take 1 tablet (600 mg total) by mouth 2 (two) times daily. lisinopriL (ZESTRIL) 5 MG tablet TAKE 1 TABLET EVERY DAY 90 tablet 3 oxyCODONE-acetaminophen (PERCOCET) 7.5-325 mg per tablet Take 1 tablet by mouth. pantoprazole (PROTONIX) 40 MG tablet Take 1 tablet (40 mg total) by mouth daily. polyethylene glycol (GLYCOLAX) 17 gram packet Miralax 17 gram oral powder packet Take by oral route. promethazine (PHENERGAN) 25 MG tablet Take 1 tablet (25 mg total) by mouth every 8 (eight) hours asneeded. rosuvastatin (CRESTOR) 20 MG tablet TAKE 1 TABLET EVERY NIGHT 90 tablet 3 No current facility-administered medications on file prior to visit. Vitals: 12/25/24 1548 BP: 121/76 Pulse: 58 Resp: 20 SpO2: 95% Weight: 105.6 kg (232 lb 14.4 oz) Height: 1.727 m (5' 8 ) Body mass index is 35.41 kg/m??. EPWORTH SLEEPINESS SCALE: 4 Physical Exam Constitutional: Appearance: Normal appearance. He is obese. HENT: Head: Normocephalic and atraumatic. Eyes: Extraocular Movements: Extraocular movements intact. Conjunctiva/sclera: Conjunctivae normal. Cardiovascular: Rate and Rhythm: Normal rate and regular rhythm. Pulmonary: Effort: Pulmonary effort is normal. Breath sounds: Normal breath sounds. Skin: General: Skin is warm and dry. Neurological: General: No focal deficit present. Mental Status: He is alert. Mental status is at baseline. Psychiatric: Mood and Affect: Mood normal. Assessment/Plan ADITYA: Based on patent's history and download today in clinic their ADITYA is well controlled. Continue Current PAP settings and Mask. I am re-ordering supplies today. The patient knows to contact their DME ifthere is equipment issues or contact the sleep lab if there are other sleep related concerns. Elton Faust MD documented in this encounter Plan of Treatment Upcoming Encounters Date Type Department Care Team (Late st Contact Info) Description 12/24/2025 3:00 PM EDT Office Visit [facility] [address] [place] [phone] Elton Faust MD [address] [place] [phone] documented as of this encounter Visit Diagnoses Diagnosis ADITYA (obstructive sleep apnea)- Primary Obstructive sleep apnea (adult) (pediatric) documented in this encounter Care Teams Melter Supervisor Electric Arc Furnace Relationship Specialty Start Date End Date Yvan Coffey MD [address] [facility] [address] [place] [address] PCP - General Internal Medicine 08/13/22 documented as of this encounter
--- OUTSIDE RECORDS SUMMARY | 2025-02-13 11:27 | XMS_ITS | Encounter Summary ---
Author Organization [employer] Address [address] [place] [address] Care Team Providers Care Buffer Inflated Pad Name Role Phone Yvan Coffey MD Primary Care Provider [phone] Encounter Details Date Type Department Care Team (Late st Contact Info) Description 06/10/2020 Transcribed Document [facility] [place] [facility] [place] [address] ProviderYahir MD [address] [place] [phone] Social History Tobacco Use Types Packs/Day Years Used Date Smoking Tobacco: Never Assessed Sex and Gender Information Value Date Recorded Sex Assigned at Not on file Legal Sex Male 3:58 PM CDT Gender Identity Not on file Sexual Orientation Not on file documented as of this encounter Miscellaneous Notes * Cerner Conversion Note - Yahir ProviderMD - 06/10/2020 12:09 PM CDT Nursing Discharge Summary Entered On: 06/10/2020 12:10 EDT Performed On: 06/10/2020 12:09 EDT by DONOVAN SAMUELS RN Discharge Documentation Discharge Date/Time : 06/10/2020 13:00 EDT Patient Disposition, General : Discharge Discharge To : Home with ambulatory/outpatient follow-up Mode Of Departure, General Discharge : Private vehicle, Wheelchair Accompanied By, Discharge : Other: family IV Discontinued : Yes Personal Belongings With Patient : Yes Discharge Instructions Reviewed With, Opportunity For Questions Given : Patient Patient Education Completed : Yes Teaching Method : Printed materials Teaching Evaluation : Verbalizes understanding Education Comment : DONOVAN Santana RN - 06/10/2020 12:09 EDT documented in this encounter Plan of Treatment Upcoming Encounters Date Type Department Care Team (Late st Contact Info) Description 12/24/2025 3:00 PM EDT Office Visit [address] [phone] Elton Faust MD [address] [place], [place] [phone] documented as of this encounter Visit Diagnoses Not on filedocumented in this encounter Care Teams Buffer Inflated Pad Relationship Specialty Start Date End Date Yvan Coffey MD [address] [address] PCP - General Internal Medicine 08/13/22 documented as of this encounter
--- OUTSIDE RECORDS SUMMARY | 2025-02-13 11:27 | XMS_ITS | Encounter Summary ---
Author Organization [employer] Address [address] [place] [address] Care Team Providers Care Bean Snapper Name Role Phone Yvan Coffey MD Primary Care Provider [phone] Encounter Details Date Type Department Care Team (Late st Contact Info) Description 06/10/2020 Transcribed Document [facility] [place] [address] ProviderYahir MD [address] [place] [phone] Social History Tobacco Use Types Packs/Day Years Used Date Smoking Tobacco: Never Assessed Sex and Gender Information Value Date Recorded Sex Assigned at Not on file Legal Sex Male 3:58 PM CDT Gender Identity Not on file Sexual Orientation Not on file documented as of this encounter Miscellaneous Notes * Cerner Conversion Note - Yahir ProviderMD - 06/10/2020 1:57 PM CDT Nursing Discharge Summary Entered On: 06/10/2020 13:57 EDT Performed On: 06/10/2020 13:57 EDT by ERASMO BLUE, motor racer Documentation Discharge Date/Time : 06/10/2020 13:45 EDT Patient Disposition, General : Discharge Discharge To : Home with ambulatory/outpatient follow-up Education Comment : ERASMO Forde, RN - 06/10/2020 13:57 EDT Electronically signed by [facility] Conversion Assistant Womens Volleyball Coach Cerner at 12/21/2022 4:38 PM CDT documented in this encounter Plan of Treatment Upcoming Encounters Date Type Department Care Team (Late st Contact Info) Description 12/24/2025 3:00 PM EDT Office Visit [address] [phone] Elton Faust MD [address] [place] [address] documented as of this encounter Visit Diagnoses Not on filedocumented in this encounter Care Teams Bean Snapper Relationship Specialty Start Date End Date Yvan Coffey MD [address] [address] PCP - General Internal Medicine 08/13/22 documented as of this encounter
--- OUTSIDE RECORDS SUMMARY | 2025-02-13 11:27 | XMS_ITS | Encounter Summary ---
Author Organization [employer] Address [address] [place] [address] Care Team Providers Care Train Crew Member Name Role Phone Yvan Coffey MD Primary Care Provider [phone] Encounter Details Date Type Department Care Team (Late st Contact Info) Description 06/10/2020 Transcribed Document [facility] [place] [address] ProviderYahir MD [address] [place] [phone] Social History Tobacco Use Types Packs/Day Years Used Date Smoking Tobacco: Never Assessed Sex and Gender Information Value Date Recorded Sex Assigned at Not on file Legal Sex Male 3:58 PM CDT Gender Identity Not on file Sexual Orientation Not on file documented as of this encounter Miscellaneous Notes * Cerner Conversion Note - Historical ProviderMD - 06/10/2020 4:00 AM CDT Height and Weight, Routine Entered On: 06/10/2020 6:30 EDT Performed On: 06/10/2020 4:00 EDT by Elaine Phillips RN Height and Weight, Routine Routine Weight Source : Bed scale Routine Weight Entry Format : Metric Routine Weight, Kilograms : 109 kg(Converted to: 240 lb 5 oz) Routine Weight Calculation : 109 kg Height Source : Stated Height Entry Format : [place] Height, Feet : 5 ft Height, Inches : 8 Inch Clinical Height : 172.72 cm Body Surface Area (BSA), Routine : 2.21 m2 Body Mass Index (BMI), Routine : 36.54 kg/m2 Elaine Phillips RN - 06/10/2020 6:30 EDT Electronically signed by Interface, Sjh Conversion Director Of Sales And Marketing Cerner at 12/21/2022 4:44 PM CDT documented in this encounter Plan of Treatment Upcoming Encounters Date Type Department Care Team (Late st Contact Info) Description 12/24/2025 3:00 PM EDT Office Visit [address] [phone] Elton Faust MD [address] [place], [place] [phone] documented as of this encounter Visit Diagnoses Not on filedocumented in this encounter Care Teams Train Crew Member Relationship Specialty Start Date End Date Yvan Coffey MD [address] [address] PCP - General Internal Medicine 08/13/22 documented as of this encounter
--- OUTSIDE RECORDS SUMMARY | 2025-02-13 11:27 | XMS_ITS | Encounter Summary ---
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 Name Role Phone Tom Coffey MD Primary Care Provider [phone] Encounter Details Date Type Department Care Team (Late st Contact Info) Description 06/10/2020 Transcribed Document [facility] [place] [facility] [place] [address] ProviderYahir MD [address] [place] [id number] Social History Tobacco Use Types Packs/Day Years Used Date Smoking Tobacco: Never Assessed Sex and Gender Information Value Date Recorded Sex Assigned at Not on file Legal Sex Male 3:58 PM CDT Gender Identity Not on file Sexual Orientation Not on file documented as of this encounter Miscellaneous Notes * Cerner Conversion Note - Yahir Bullard MD - 06/10/2020 12:42 PM CDT [facility] [place] [address] CJ TORRES :1955 Visit Time:06/09/2020 Your Visit Summary Your Care Team Admitting Physician - JAMMIE ALVAREZ MD-INT Attending Physician - JAMMIE ALVAREZ MD-INT Primary Care Physician - TOM COFFEY MD-INT Referring Physician - AMAURY JAMES MD-EMR Your Diagnosis Chest pain, Chest pain Chest pain Hypertension Non-ST elevation (NSTEMI) myocardial infarction, Non-ST elevation (NSTEMI) myocardial infarction, Non-ST elevation NJ (NSTEMI) Discharge Vitals Temperature 37.1 ??C Heart Rate (Monitored) 62 Respiratory Rate 16 Blood Pressure 122/66 What to do next Instructions From Your Care Team Please STOP taking the home medication doxazosin. Discharge Activity: Discharge Activity: Activity as tolerated Diet: Discharge Diet: Heart healthy diet Follow-Up Appointments Follow Up with KOFI BAXTER When 07/01/2020 11:00 AM EDT Comments with JENNIFER Hernandez Where: [address] [facility] [address] [place] [address]- Business (1) Follow Up with TOM COFFEY When 06/18/2020 02:15 PM EDT Where: [address] [place] [address]- [phone] Business (1) Follow Up with [facility] When Within 6 weeks Comments Office to call with appoint/instructions Where: [address] [facility] [place] [address]- Medications What How Much When Instructions Next Dose aspirin (aspirin 81 mg oral tablet, chewable) 1 Tablet(s) Oral Every Day Purchase over the counter atorvastatin (atorvastatin 80 mg oral tablet) 1 Tablet(s) Oral At Bedtime Duration: 30 Day(s) Printed Prescription carvedilol (Coreg 12.5 mg oral tablet) 1 Tablet(s) Oral Two Times A Day Duration: 30 Day(s) Printed Prescription clopidogrel (Plavix 75 mg oral tablet) 1 Tablet(s) Oral Every Day Duration: 30 Day(s) Printed Prescription lisinopril (lisinopril 5 mg oral tablet) 1 Tablet(s) Oral Every 12 hours Duration: 30 Day(s) Printed Prescription acetaminophen-oxyCODONE (acetaminophen-oxyCODONE 325 mg-10 mg oral tablet) 1 Tablet(s) Oral Three Times A Day as needed for for pain gabapentin (gabapentin 600 mg oral tablet) 1 Tablet(s) Oral Two Times A Day pantoprazole (pantoprazole 40 mg oral delayed release tablet) 1 Tablet(s) Oral Every Day promethazine (promethazine 25 mg oral tablet) 1 Tablet(s) Oral Every 8 Hours as needed for for nausea/vomiting Take your medications faithfully. Do NOT skip medication. Do NOT stop taking medications without the direction of a physician. Carry a list of your medications with you at all times, and take this medication list with you to your first follow up visit. Report any side effects. Avoid herbal remedies unless discussed with your physician. As part of your treatment plan, your physician may have prescribed a limited course of a controlled substance. This medication may be given to help people with moderate or severe pain or for other medical conditions, but there are risks involved with treatment. Common side effects may include nausea, constipation, drowsiness, sweating, itching, dry mouth, and rash. More serious side effects may include cognitive and motor impairment, like problems with thinking, concentrating, alertness, and movement (e.g. slowed reflexes), and driving and operating heavy machinery can be dangerous. It is important for you to talk to your physician if you have these side effects or questions. These controlled substances can produce physical dependence and be habit-forming if taken for an extended period of time, which means that the body has gotten used to them and may experience withdrawal symptoms if they are abruptly stopped. Withdrawal symptoms can include runny nose, sweating, goose bumps, diarrhea, abdominal cramping, rapid heartbeat, difficulty sleeping, and nervousness. Please dispose of unused and medications per your retail pharmacy guidance. Allergies heparin (Heparin-induced thrombocytopenia with thrombosis, Heparin-induced thrombocytopenia with thrombosis) Brilinta (SOB - Shortness of breath) Immunizations This Visit No Immunizations Found Education Materials Heart Attack The heart is a muscle that needs oxygen to survive. A heart attack is a condition that occurs when your heart does not get enough oxygen. When this happens, the heart muscle begins to . This can cause permanent damage if not treated right away. A heart attack is a medical emergency. This condition may be called a myocardial infarction, or NJ. It is also known as acute coronary syndrome (ACS). ACS is a term used to describe a group of conditions that affect blood flow to the heart. What are the causes? This condition may be caused by: ??? Atherosclerosis. This occurs when a fatty substance called plaque builds up in the arteries and blocks or reduces blood supply to the heart. ??? A blood clot. A blood clot can develop suddenly when plaque breaks up within an artery and blocks blood flow to the heart. ??? Low blood pressure. ??? An abnormal heartbeat (arrhythmia). ??? Conditions that cause a decrease of oxygen to the heart, such as anemiaorrespiratory failure. ??? A spasm, or severe tightening, of a blood vessel that cuts off blood flow to the heart. ??? Tearing of a coronary artery (spontaneous coronary artery dissection). ??? High blood pressure. What increases the risk? The following factors may make you more likely to develop this condition: ??? Aging. The older you are, the higher your risk. ??? Having a personal or family history of chest pain, heart attack, stroke, or narrowing of the arteries in the legs, arms, head, or stomach (peripheral artery disease). ??? Being male. ??? Smoking. ??? Not getting regular exercise. ??? Being overweight or obese. ??? Having high blood pressure. ??? Having high cholesterol (hypercholesterolemia). ??? Having diabetes. ??? Drinking too much alcohol. ??? Using illegal drugs, such as cocaine or methamphetamine. What are the signs or symptoms? Symptoms of this condition may vary, depending on factors like gender and age. Symptoms may include: ??? Chest pain. It may feel like: ? Crushing or squeezing. ? Tightness, pressure, fullness, or heaviness. ??? Pain in the arm, neck, jaw, back, or upper body. ??? Shortness of breath. ??? Heartburn or upset stomach. ??? Nausea. ??? Sudden cold sweats. ??? Feeling tired. ??? Sudden light-headedness. How is this diagnosed? This condition may be diagnosed through tests, such as: ??? Electrocardiogram (ECG) to measure the electrical activity of your heart. ??? Blood tests to check for cardiac markers. These chemicals are released by a damaged heart muscle. ??? A test to evaluate blood flow and heart function (coronary angiogram). ??? CT scan to see the heart more clearly. ??? A test to evaluate the pumping action of the heart (echocardiogram). How is this treated? A heart attack must be treated as soon as possible. Treatment may include: ??? Medicines to: ? Break up or dissolve blood clots (fibrinolytic therapy). ? Thin blood and help prevent blood clots. ? Treat blood pressure. ? Improve blood flow to the heart. ? Reduce pain. ? Reduce cholesterol. ??? Angioplasty and stent placement. These are procedures to widen a blocked artery and keep it open. ??? Coronary artery bypass graft, CABG, or open heart surgery. This enables blood to flow to the heart by going around the blocked part of the artery. ??? Oxygen therapy if needed. ??? Cardiac rehabilitation. This improves your health and well-being through exercise, education, and counseling. Follow these instructions at home: Medicines ??? Take jtks-cif-ppuyolt and prescription medicines only as told by your health care provider. ??? Do not take the following medicines unless your health care provider says it is okay to take them: ? NSAIDs, such as ibuprofen. ? Supplements that contain vitamin A, vitamin E, or both. ? Hormone replacement therapy that contains estrogen with or without progestin. Lifestyle ??? Do not use any products that contain nicotine or tobacco, such as cigarettes, e-cigarettes, and chewing tobacco. If you need help quitting, ask your health care provider. ??? Avoid secondhand smoke. ??? Exercise regularly. Ask your health care provider about participating in a cardiac rehabilitation program that helps you start exercising safely after a heart attack. ??? Eat a heart-healthy diet. Your health care provider will tell you what foods to eat. ??? Maintain a healthy weight. ??? Learn ways to manage stress. ??? Do not use illegal drugs. Alcohol use ??? Do not drink alcohol if: ? Your health care provider tells you not to drink. ? You are , may be , or are planning to become . ??? If you drink alcohol: ? Limit how much you use to: ? 0???1 drink a day for women. ? 0???2 drinks a day for men. ? Be aware of how much alcohol is in your drink. In the [place] one drink equals one 12 oz bottle of beer (355 mL), one 5 oz glass of wine (148 mL), or one 1?? oz glass of hard liquor (44 mL). General instructions ??? Work with your health care provider to manage any other conditions you have, such as high blood pressure or diabetes. These conditions affect your heart. ??? Get screened for depression, and seek treatment if needed. ??? Keep your vaccinations up to date. Get the flu vaccine every year. ??? Keep all follow-up visits as told by your health care provider. This is important. Contact a health care provider if: ??? You feel overwhelmed or sad. ??? You have trouble doing your daily activities. Get help right away if: ??? You have sudden, unexplained discomfort in your chest, arms, back, neck, jaw, or upper body. ??? You have shortness of breath. ??? You suddenly start to sweat or your skin gets clammy. ??? You feel nauseous or you vomit. ??? You have unexplained tiredness or weakness. ??? You suddenly feel light-headed or dizzy. ??? You notice your heart starts to beat fast or feels like it is skipping beats. ??? You have blood pressure that is higher than 180/120. These symptoms may represent a serious problem that is an emergency. Do not wait to see if the symptoms will go away. Get medical help right away. Call your local emergency services (911 in the [place] Do not drive yourself to the hospital. Summary ??? A heart attack, also called myocardial infarction, is a condition that occurs when your heart does not get enough oxygen. This is caused by anything that blocks or reduces blood flow to the heart. ??? Treatment is a combination of medicines and surgeries, if needed, to open the blocked arteries and restore blood flow to the heart. ??? A heart attack is an emergency. Get help right away if you have sudden discomfort in your chest, arms, back, neck, jaw, or upper body. Seek help if you feel nauseous, you vomit, or you feel light-headed or dizzy. This information is not intended to replace advice given to you by your health care provider. Make sure you discuss any questions you have with your health care provider. Document Released: 08/22/2006 Document Revised: 11/29/2019 Document Reviewed: 12/03/2019 [employer] Patient Education ?? 2020 [employer] Angiogram, Care After This sheet gives you information about how to care for yourself after your procedure. Your health care provider may also give you more specific instructions. If you have problems or questions, contact your health care provider. What can I expect after the procedure? After the procedure, it is common to have bruising and tenderness at the catheter insertion area. Follow these instructions at home: Insertion site care ??? Follow instructions from your health care provider about how to take care of your insertion site. Make sure you: ? Wash your hands with soap and water before you change your bandage (dressing). If soap and water are not available, use hand anesthesiology technologist. ? Change your dressing as told by your health care provider. ? Leave stitches (sutures), skin glue, or adhesive strips in place. These skin closures may need to stay in place for 2 weeks or longer. If adhesive strip edges start to loosen and curl up, you may trim the loose edges. Do not remove adhesive strips completely unless your health care provider tells you to do that. ??? Do not take baths, swim, or use a hot tub until your health care provider approves. ??? You may shower 24???48 hours after the procedure or as told by your health care provider. ? Gently wash the site with plain soap and water. ? Pat the area dry with a clean towel. ? Do not rub the site. This may cause bleeding. ??? Do not apply powder or lotion to the site. Keep the site clean and dry. ??? Check your insertion site every day for signs of infection. Check for: ? Redness, swelling, or pain. ? Fluid or blood. ? Warmth. ? Pus or a bad smell. Activity ??? Rest as told by your health care provider, usually for 1???2 days. ??? Do not lift anything that is heavier than 10 lbs. (4.5 kg) or as told by your health care provider. ??? Do not drive for 24 hours if you were given a medicine to help you relax (sedative). ??? Do not drive or use heavy machinery while taking prescription pain medicine. General instructions ??? Return to your normal activities as told by your health care provider, usually in about a week. Ask your health care provider what activities are safe for you. ??? If the catheter site starts bleeding, lie flat and put pressure on the site. If the bleeding does not stop, get help right away. This is a medical emergency. ??? Drink enough fluid to keep your urine clear or pale yellow. This helps flush the contrast dye from your body. ??? Take jpqy-bcx-apvicim and prescription medicines only as told by your health care provider. ??? Keep all follow-up visits as told by your health care provider. This is important. Contact a health care provider if: ??? You have a fever or chills. ??? You have redness, swelling, or pain around your insertion site. ??? You have fluid or blood coming from your insertion site. ??? The insertion site feels warm to the touch. ??? You have pus or a bad smell coming from your insertion site. ??? You have bruising around the insertion site. ??? You notice blood collecting in the tissue around the catheter site (hematoma). The hematoma may be painful to the touch. Get help right away if: ??? You have severe pain at the catheter insertion area. ??? The catheter insertion area swells very fast. ??? The catheter insertion area is bleeding, and the bleeding does not stop when you hold steady pressure on the area. ??? The area near or just beyond the catheter insertion site becomes pale, cool, tingly, or numb. These symptoms may represent a serious problem that is an emergency. Do not wait to see if the symptoms will go away. Get medical help right away. Call your local emergency services (911 in the [place] Do not drive yourself to the hospital. Summary ??? After the procedure, it is common to have bruising and tenderness at the catheter insertion area. ??? After the procedure, it is important to rest and drink plenty of fluids. ??? Do not take baths, swim, or use a hot tub until your health care provider says it is okay to do so. You may shower 24???48 hours after the procedure or as told by your health care provider. ??? If the catheter site starts bleeding, lie flat and put pressure on the site. If the bleeding does not stop, get help right away. This is a medical emergency. This information is not intended to replace advice given to you by your health care provider. Make sure you discuss any questions you have with your health care provider. Document Released: 03/10/2006 Document Revised: 08/04/2018 Document Reviewed: 07/27/2017 [employer] Patient Education ?? 2020 [employer] Heart-Healthy Eating Plan Many factors influence your heart (coronary) health, including eating and exercise habits. Coronary risk increases with abnormal blood fat (lipid) levels. Heart-healthy meal planning includes limiting unhealthy fats, increasing healthy fats, and making other diet and lifestyle changes. What is my plan? Your health care provider may recommend that you: ??? Limit your fat intake to % or less of your total calories each day. ??? Limit your saturated fat intake to % or less of your total calories each day. ??? Limit the amount of cholesterol in your diet to less than mg per day. What are tips for following this plan? Cooking Cook foods using methods other than frying. Baking, boiling, grilling, and broiling are all good options. Other ways to reduce fat include: ??? Removing the skin from poultry. ??? Removing all visible fats from meats. ??? Steaming vegetables in water or broth. Meal planning ??? At meals, imagine dividing your plate into fourths: ? Fill one-half of your plate with vegetables and green salads. ? Fill one-fourth of your plate with whole grains. ? Fill one-fourth of your plate with lean protein foods. ??? Eat 4???5 servings of vegetables per day. One serving equals 1 cup raw or cooked vegetable, or 2 cups raw leafy greens. ??? Eat 4???5 servings of fruit per day. One serving equals 1 medium whole fruit, ?? cup dried fruit, ?? cup fresh, frozen, or canned fruit, or ?? cup 100% fruit juice. ??? Eat more foods that contain soluble fiber. Examples include apples, broccoli, carrots, beans, peas, and barley. Aim to get 25???30 g of fiber per day. ??? Increase your consumption of legumes, nuts, and seeds to 4???5 servings per week. One serving of dried beans or legumes equals ?? cup cooked, 1 serving of nuts is ?? cup, and 1 serving of seeds equals 1 tablespoon. Fats ??? Choose healthy fats more often. Choose monounsaturated and polyunsaturated fats, such as olive and canola oils, flaxseeds, walnuts, almonds, and seeds. ??? Eat more omega-3 fats. Choose salmon, mackerel, sardines, tuna, flaxseed oil, and ground flaxseeds. Aim to eat fish at least 2 times each week. ??? Check food labels carefully to identify foods with trans fats or high amounts of saturated fat. ??? Limit saturated fats. These are found in animal products, such as meats, butter, and cream. Plant sources of saturated fats include palm oil, palm kernel oil, and coconut oil. ??? Avoid foods with partially hydrogenated oils in them. These contain trans fats. Examples are stick margarine, some tub margarines, cookies, crackers, and other baked goods. ??? Avoid fried foods. General information ??? Eat more home-cooked food and less restaurant, buffet, and fast food. ??? Limit or avoid alcohol. ??? Limit foods that are high in starch and sugar. ??? Lose weight if you are overweight. Losing just 5???10% of your body weight can help your overall health and prevent diseases such as diabetes and heart disease. ??? Monitor your salt (sodium) intake, especially if you have high blood pressure. Talk with your health care provider about your sodium intake. ??? Try to incorporate more vegetarian meals weekly. What foods can I eat? Fruits All fresh, canned (in natural juice), or frozen fruits. Vegetables Fresh or frozen vegetables (raw, steamed, roasted, or grilled). Green salads. Grains Most grains. Choose whole wheat and whole grains most of the time. Rice and pasta, including brown rice and pastas made with whole wheat. Meats and other proteins Lean, well-trimmed beef, veal, pork, and falcon. Chicken and turkey without skin. All fish and shellfish. Wild duck, rabbit, pheasant, and venison. Egg whites or low-cholesterol egg substitutes. Dried beans, peas, lentils, and tofu. Seeds and most nuts. Dairy Low-fat or nonfat cheeses, including ricotta and mozzarella. Skim or 1% milk (liquid, powdered, or evaporated). Buttermilk made with low-fat milk. Nonfat or low-fat yogurt. Fats and oils Non-hydrogenated (trans-free) margarines. Vegetable oils, including soybean, sesame, sunflower, olive, peanut, safflower, corn, canola, and cottonseed. Salad dressings or mayonnaise made with a vegetable oil. Beverages Water (mineral or sparkling). Coffee and tea. Diet carbonated beverages. Sweets and desserts Sherbet, gelatin, and fruit ice. Small amounts of dark chocolate. Limit all sweets and desserts. Seasonings and condiments All seasonings and condiments. The items listed above may not be a complete list of foods and beverages you can eat. Contact a dietitian for more options. What foods are not recommended? Fruits Canned fruit in heavy syrup. Fruit in cream or butter sauce. Fried fruit. Limit coconut. Vegetables Vegetables cooked in cheese, cream, or butter sauce. Fried vegetables. Grains Breads made with saturated or trans fats, oils, or whole milk. Croissants. Sweet rolls. Donuts. High-fat crackers, such as cheese crackers. Meats and other proteins Fatty meats, such as hot dogs, ribs, sausage, hernandez, rib-eye roast or steak. High-fat deli meats, such as salami and bologna. Caviar. Domestic duck and goose. Organ meats, such as liver. Dairy Cream, sour cream, cream cheese, and creamed cottage cheese. Whole milk cheeses. Whole or 2% milk (liquid, evaporated, or condensed). Whole buttermilk. Cream sauce or high-fat cheese sauce. Whole-milk yogurt. Fats and oils Meat fat, or shortening. Chandler butter, hydrogenated oils, palm oil, coconut oil, palm kernel oil. Solid fats and shortenings, including hernandez fat, salt pork, lard, and butter. Nondairy cream substitutes. Salad dressings with cheese or sour cream. Beverages Regular sodas and any drinks with added sugar. Sweets and desserts Frosting. Pudding. Cookies. Cakes. Pies. Milk chocolate or white chocolate. Buttered syrups. Full-fat ice cream or ice cream drinks. The items listed above may not be a complete list of foods and beverages to avoid. Contact a dietitian for more information. Summary ??? Heart-healthy meal planning includes limiting unhealthy fats, increasing healthy fats, and making other diet and lifestyle changes. ??? Lose weight if you are overweight. Losing just 5???10% of your body weight can help your overall health and prevent diseases such as diabetes and heart disease. ??? Focus on eating a balance of foods, including fruits and vegetables, low-fat or nonfat dairy, lean protein, nuts and legumes, whole grains, and heart-healthy oils and fats. This information is not intended to replace advice given to you by your health care provider. Make sure you discuss any questions you have with your health care provider. Document Released: 05/31/2009 Document Revised: 09/29/2018 Document Reviewed: 09/29/2018 [employer] Patient Education ?? 2020 [employer]. Radial Site Care This sheet gives you information about how to care for yourself after your procedure. Your health care provider may also give you more specific instructions. If you have problems or questions, contact your health care provider. What can I expect after the procedure? After the procedure, it is common to have: ??? Bruising and tenderness at the catheter insertion area. Follow these instructions at home: Medicines ??? Take tewe-rrs-txdzjsx and prescription medicines only as told by your health care provider. Insertion site care ??? Follow instructions from your health care provider about how to take care of your insertion site. Make sure you: ? Wash your hands with soap and water before you change your bandage (dressing). If soap and water are not available, use hand anesthesiology technologist. ? Change your dressing as told by your health care provider. ? Leave stitches (sutures), skin glue, or adhesive strips in place. These skin closures may need to stay in place for 2 weeks or longer. If adhesive strip edges start to loosen and curl up, you may trim the loose edges. Do not remove adhesive strips completely unless your health care provider tells you to do that. ??? Check your insertion site every day for signs of infection. Check for: ? Redness, swelling, or pain. ? Fluid or blood. ? Pus or a bad smell. ? Warmth. ??? Do not take baths, swim, or use a hot tub until your health care provider approves. ??? You may shower 24???48 hours after the procedure, or as directed by your health care provider. ? Remove the dressing and gently wash the site with plain soap and water. ? Pat the area dry with a clean towel. ? Do not rub the site. That could cause bleeding. ??? Do not apply powder or lotion to the site. Activity ??? For 24 hours after the procedure, or as directed by your health care provider: ? Do not flex or bend the affected arm. ? Do not push or pull heavy objects with the affected arm. ? Do not drive yourself home from the hospital or clinic. You may drive 24 hours after the procedure unless your health care provider tells you not to. ? Do not operate machinery or power tools. ??? Do not lift anything that is heavier than 10 lb (4.5 kg), or the limit that you are told, until your health care provider says that it is safe. ??? Ask your health care provider when it is okay to: ? Return to work or school. ? Resume usual physical activities or sports. ? Resume sexual activity. General instructions ??? If the catheter site starts to bleed, raise your arm and put firm pressure on the site. If the bleeding does not stop, get help right away. This is a medical emergency. ??? If you went home on the same day as your procedure, a responsible adult should be with you for the first 24 hours after you arrive home. ??? Keep all follow-up visits as told by your health care provider. This is important. Contact a health care provider if: ??? You have a fever. ??? You have redness, swelling, or yellow drainage around your insertion site. Get help right away if: ??? You have unusual pain at the radial site. ??? The catheter insertion area swells very fast. ??? The insertion area is bleeding, and the bleeding does not stop when you hold steady pressure on the area. ??? Your arm or hand becomes pale, cool, tingly, or numb. These symptoms may represent a serious problem that is an emergency. Do not wait to see if the symptoms will go away. Get medical help right away. Call your local emergency services (911 in the [place] Do not drive yourself to the hospital. Summary ??? After the procedure, it is common to have bruising and tenderness at the site. ??? Follow instructions from your health care provider about how to take care of your radial site wound. Check the wound every day for signs of infection. ??? Do not lift anything that is heavier than 10 lb (4.5 kg), or the limit that you are told, until your health care provider says that it is safe. This information is not intended to replace advice given to you by your health care provider. Make sure you discuss any questions you have with your health care provider. Document Released: 09/24/2011 Document Revised: 09/27/2018 Document Reviewed: 09/27/2018 [employer] Patient Education ?? 2020 [employer]. carvedilol (DIANA ve dil ole) Coreg, Coreg CR What is the most important information I should know about carvedilol? You should not take carvedilol if you have asthma, bronchitis, emphysema, severe liver disease, or a serious heart condition such as heart block, 'sick sinus syndrome,' or slow heart rate (unless you have a pacemaker). What is carvedilol? Carvedilol is a beta-reji that is used to treat heart failure and hypertension (high blood pressure). Carvedilol is also used after a heart attack that has caused your heart not to pump as well. Carvedilol may also be used for purposes not listed in this medication guide. What should I discuss with my healthcare provider before taking carvedilol? You should not take carvedilol if you are allergic to it, or if you have: ?? asthma, bronchitis, emphysema; ?? severe liver disease; or ?? a serious heart condition such as severe heart failure, heart block, 'sick sinus syndrome,' or slow heart rate (unless you have a pacemaker). Tell your doctor if you have ever had: ?? coronary artery disease (clogged arteries); ?? slow heartbeats that have caused you to faint; ?? fluid retention; ?? asthma or other lung problems; ?? angina (chest pain); ?? diabetes (taking carvedilol can make it harder for you to tell when you have low blood sugar); ?? a thyroid disorder; ?? kidney disease; ?? circulation problems (such as Raynaud's syndrome); or ?? pheochromocytoma (tumor of the adrenal gland). Tell your doctor if you are or . Carvedilol is not approved for use by anyone younger than 18 years old. How should I take carvedilol? Follow all directions on your prescription label and read all medication guides or instruction sheets. Your doctor may occasionally change your dose. Use the medicine exactly as directed. Carvedilol works best if you take it with food, at the same time every day. Swallow the extended-release capsule whole and do not crush, chew, break, or open it. If you cannot swallow a capsule whole, open it and sprinkle the medicine into a spoonful of cold applesauce. Swallow the mixture right away without chewing. Do not save it for later use. If you are switched from carvedilol tablets to carvedilol extended-release capsules (Coreg CR), your daily total dose of this medicine may be higher or lower than before. Older adults may be more likely to become dizzy or feel faint when switching from tablets to extended-release capsules. Follow your doctor's instructions. Your blood pressure will need to be checked often. If you need surgery (including cataract surgery), tell your surgeon you currently use this medicine. You may need to stop for a short time. You should not stop using carvedilol suddenly. Stopping suddenly may cause chest pain or a heart attack. Follow your doctor's instructions about tapering your dose. If you are being treated for high blood pressure, keep using this medication even if you feel well. High blood pressure often has no symptoms. You may need to use blood pressure medication for the rest of your life. Carvedilol is only part of a complete treatment program that may also include diet, exercise, and weight control. Follow your doctor's instructions very closely. Store at room temperature away from moisture and heat. What happens if I miss a dose? Take the medicine as soon as you can, but skip the missed dose if it is almost time for your next dose. Do not take two doses at one time. What happens if I overdose? Seek emergency medical attention or call the Poison Help line at . Overdose symptoms may include uneven heartbeats, shortness of breath, bluish-colored fingernails, dizziness, weakness, fainting, and seizure (convulsions). What should I avoid while taking carvedilol? Avoid driving or hazardous activity until you know how this medicine will affect you. Your reactions could be impaired. Avoid getting up too fast from a sitting or lying position, or you may feel dizzy. What are the possible side effects of carvedilol? Get emergency medical help if you have signs of an allergic reaction: hives; difficulty breathing; swelling of your face, lips, tongue, or throat. Call your doctor at once if you have: ?? a light-headed feeling, like you might pass out; ?? slow or uneven heartbeats; ?? cold feeling or numbness in your fingers or toes; ?? chest pain, dry cough, wheezing, chest tightness; ?? heart problems--swelling, rapid weight gain, feeling short of breath; or ?? high blood sugar--increased thirst, increased urination, dry mouth, fruity breath odor. Common side effects may include: ?? dizziness; ?? slow heartbeats; ?? diarrhea; ?? weight gain; ?? dry eyes; or ?? problems wearing contact lenses. This is not a complete list of side effects and others may occur. Call your doctor for medical advice about side effects. You may report side effects to FDA at 5-799-JRA-8938. What other drugs will affect carvedilol? Sometimes it is not safe to use certain medications at the same time. Some drugs can affect your blood levels of other drugs you take, which may increase side effects or make the medications less effective. Other drugs may affect carvedilol, including prescription and peed-izl-lshotmq medicines, vitamins, and herbal products. Tell your doctor about all your current medicines and any medicine you start or stop using. Where can I get more information? Your pharmacist can provide more information about carvedilol. Remember, keep this and all other medicines out of the reach of children, never share your medicines with others, and use this medication only for the indication prescribed. Every effort has been made to ensure that the information provided by [employer]. ('[employer]') is accurate, up-to-date, and complete, but no guarantee is made to that effect. Drug information contained herein may be time sensitive. [employer] information has been compiled for use by healthcare practitioners and consumers in the [place] and therefore [employer] does not warrant that uses outside of the [place] are appropriate, unless specifically indicated otherwise. [employer] drug information does not endorse drugs, diagnose patients or recommend therapy. [employer] drug information is an informational resource designed to assist licensed healthcare practitioners in caring for their patients and/or to serve consumers viewing this service as a supplement to, and not a substitute for, the expertise, skill, knowledge and judgment of healthcare practitioners. The absence of a warning for a given drug or drug combination in no way should be construed to indicate that the drug or drug combination is safe, effective or appropriate for any given patient. [employer] does not assume any responsibility for any aspect of healthcare administered with the aid of information [employer] provides. The information contained herein is not intended to cover all possible uses, directions, precautions, warnings, drug interactions, allergic reactions, or adverse effects. If you have questions about the drugs you are taking, check with your doctor, nurse or pharmacist. Copyright 7255-2930 [employer]. Version: 16.01. Revision Date: 12/28/2018. lisinopril (lyse [place] oh pril) Blessing, Silvia, Zestril What is the most important information I should know about lisinopril? Do not use if you are , and tell your doctor right away if you become . If you have diabetes, do not use lisinopril together with any medication that contains aliskiren (a blood pressure medicine). Do not take lisinopril within 36 hours before or after taking medicine that contains sacubitril (such as Entresto). What is lisinopril? Lisinopril is an YEHUDA inhibitor that is used to treat high blood pressure (hypertension) in adults and children who are at least 6 years old. Lisinopril is also used to treat congestive heart failure in adults, or to improve survival after a heart attack. Lisinopril may also be used for purposes not listed in this medication guide. What should I discuss with my healthcare provider before taking lisinopril? You should not use lisinopril if you are allergic to it, or if you: ?? have a history of angioedema; ?? recently took a heart medicine called sacubitril; or ?? are allergic to any other YEHUDA inhibitor, such as benazepril, captopril, enalapril, fosinopril, moexipril, perindopril, quinapril, ramipril, or trandolapril. Do not take lisinopril within 36 hours before or after taking medicine that contains sacubitril (such as Entresto). If you have diabetes, do not use lisinopril together with any medication that contains aliskiren (a blood pressure medicine). You may also need to avoid taking lisinopril with aliskiren if you have kidney disease. Tell your doctor if you have ever had: ?? kidney disease (or if you are on dialysis); ?? liver disease; or ?? high levels of potassium in your blood. Do not use if you are , and tell your doctor right away if you become . Lisinopril can cause injury or to the unborn baby if you take the medicine during your second or third trimester. You should not breastfeed while using this medicine. How should I take lisinopril? Follow all directions on your prescription label and read all medication guides or instruction sheets. Your doctor may occasionally change your dose. Use the medicine exactly as directed. Drink plenty of water each day while you are taking this medicine. Lisinopril can be taken with or without food. Measure liquid medicine carefully. Use the dosing syringe provided, or use a medicine dose-measuring device (not a kitchen spoon). Your blood pressure will need to be checked often. Your kidney function and electrolytes may also need to be checked. Call your doctor if you are sick with vomiting or diarrhea, or if you are sweating more than usual. You can easily become dehydrated while taking lisinopril. This can lead to very low blood pressure, a serious electrolyte imbalance, or kidney failure. If you need surgery, tell the surgeon ahead of time that you are using lisinopril. If you have high blood pressure, keep using this medicine even if you feel well. High blood pressure often has no symptoms. You may need to use blood pressure medicine for the rest of your life. Store at room temperature away from moisture and heat. Do not freeze the oral liquid. What happens if I miss a dose? Take the medicine as soon as you can, but skip the missed dose if it is almost time for your next dose. Do not take two doses at one time. What happens if I overdose? Seek emergency medical attention or call the Poison Help line at . What should I avoid while taking lisinopril? Drinking alcohol can further lower your blood pressure and may increase certain side effects of lisinopril. Avoid becoming overheated or dehydrated during exercise, in hot weather, or by not drinking enough fluids. Lisinopril can decrease sweating and you may be more prone to heat stroke. Do not use potassium supplements or salt substitutes, unless your doctor has told you to. Avoid getting up too fast from a sitting or lying position, or you may feel dizzy. What are the possible side effects of lisinopril? Get emergency medical help if you have signs of an allergic reaction: hives; severe stomach pain; difficulty breathing; swelling of your face, lips, tongue, or throat. You may be more likely to have an allergic reaction if you are -[place]. Call your doctor at once if you have: ?? a light-headed feeling, like you might pass out; ?? fever, sore throat; ?? high potassium--nausea, weakness, tingly feeling, chest pain, irregular heartbeats, loss of movement; ?? kidney problems--little or no urination, swelling in your feet or ankles, feeling tired or short of breath; or ?? liver problems--nausea, upper stomach pain, itching, tired feeling, loss of appetite, dark urine, sofia-colored stools, jaundice (yellowing of the skin or eyes). Common side effects may include: ?? headache, dizziness; ?? cough; or ?? chest pain. This is not a complete list of side effects and others may occur. Call your doctor for medical advice about side effects. You may report side effects to FDA at 0-213-KYG-4889. What other drugs will affect lisinopril? Tell your doctor about all your other medicines, especially: ?? a diuretic or 'water pill'; ?? lithium; ?? gold injections to treat arthritis; ?? insulin or oral diabetes medicine; ?? a potassium supplement; ?? medicine to prevent organ transplant rejection--everolimus, sirolimus, tacrolimus, temsirolimus; or ?? NSAIDs (nonsteroidal anti-inflammatory drugs)--aspirin, ibuprofen (Advil, Motrin), naproxen (Aleve), celecoxib, diclofenac, indomethacin, meloxicam, and others. This list is not complete. Other drugs may affect lisinopril, including prescription and eaqa-glx-cnrwydr medicines, vitamins, and herbal products. Not all possible drug interactions are listed here. Where can I get more information? Your pharmacist can provide more information about lisinopril. Remember, keep this and all other medicines out of the reach of children, never share your medicines with others, and use this medication only for the indication prescribed. Every effort has been made to ensure that the information provided by [employer]. [employer]') is accurate, up-to-date, and complete, but no guarantee is made to that effect. Drug information contained herein may be time sensitive. [employer] information has been compiled for use by healthcare practitioners and consumers in the [place] and therefore [employer] does not warrant that uses outside of the [place] are appropriate, unless specifically indicated otherwise. [employer] drug information does not endorse drugs, diagnose patients or recommend therapy. [employer] drug information is an informational resource designed to assist licensed healthcare practitioners in caring for their patients and/or to serve consumers viewing this service as a supplement to, and not a substitute for, the expertise, skill, knowledge and judgment of healthcare practitioners. The absence of a warning for a given drug or drug combination in no way should be construed to indicate that the drug or drug combination is safe, effective or appropriate for any given patient. [employer] does not assume any responsibility for any aspect of healthcare administered with the aid of information [employer] provides. The information contained herein is not intended to cover all possible uses, directions, precautions, warnings, drug interactions, allergic reactions, or adverse effects. If you have questions about the drugs you are taking, check with your doctor, nurse or pharmacist. Copyright 0660-9676 [employer]. Version: 15.03. Revision Date: 06/26/2019. atorvastatin (a TOR va sta tin) Lipitor What is the most important information I should know about atorvastatin? You should not take atorvastatin if you are or breast-feeding, or if you have liver disease. Stop taking this medication and tell your doctor right away if you become . Tell your doctor about all your current medicines and any you start or stop using. Many drugs can interact, and some drugs should not be used together. Atorvastatin can cause the breakdown of muscle tissue, which can lead to kidney failure. Call your doctor right away if you have unexplained muscle pain, tenderness, or weakness especially if you also have fever, unusual tiredness, or dark urine. What is atorvastatin? Atorvastatin is used together with diet to lower blood levels of 'bad' cholesterol (low-density lipoprotein, or LDL), to increase levels of 'good' cholesterol (high-density lipoprotein, or HDL), and to lower triglycerides (a type of fat in the blood). Atorvastatin is used to treat high cholesterol, and to lower the risk of stroke, heart attack, or other heart complications in people with type 2 diabetes, coronary heart disease, or other risk factors. Atorvastatin is used in adults and children who are at least 10 years old. Atorvastatin may also be used for purposes not listed in this medication guide. What should I discuss with my healthcare provider before taking atorvastatin? You should not use atorvastatin if you are allergic to it, or if you have: ?? liver disease; or ?? if you are or breast-feeding. This medicine can harm an unborn baby or cause defects. Do not use if you are . Stop taking atorvastatin and tell your doctor right away if you become Use effective control to prevent while you are taking this medicine. Do not breast-feed while you are taking atorvastatin. Tell your doctor if you have ever had: ?? liver problems; ?? muscle pain or weakness; ?? kidney disease; ?? diabetes; ?? a thyroid disorder; or ?? if you drink more than 2 alcoholic beverages daily. Atorvastatin can cause the breakdown of muscle tissue, which can lead to kidney failure. This happens more often in women, in older adults, or people who have kidney disease or poorly controlled hypothyroidism (underactive thyroid). Atorvastatin is not approved for use by anyone younger than 10 years old. How should I take atorvastatin? Follow all directions on your prescription label and read all medication guides or instruction sheets. Your doctor may occasionally change your dose. Use the medicine exactly as directed. Take the medicine at the same time each day, with or without food. Do not break an atorvastatin tablet before taking it. You may need to stop using atorvastatin for a short time if you have: ?? uncontrolled seizures; ?? an electrolyte imbalance (such as high or low potassium levels in your blood); ?? severely low blood pressure; ?? a severe infection or illness; or ?? surgery or a medical emergency. It may take up to 2 weeks before your cholesterol levels improve, and you may need frequent blood tests. Even if you have no symptoms, tests can help your doctor determine if this medicine is effective. Atorvastatin is only part of a complete treatment program that may also include diet, exercise, and weight control. Follow your doctor's instructions very closely. Store at room temperature away from moisture, heat, and light. What happens if I miss a dose? Use the medicine as soon as you can, but skip the missed dose if you are more than 12 hours late for the dose. Do not use two doses at one time. What happens if I overdose? Seek emergency medical attention or call the Poison Help line at . What should I avoid while taking atorvastatin? Avoid eating foods high in fat or cholesterol, or atorvastatin will not be as effective. Avoid drinking alcohol. It can raise triglyceride levels and may increase your risk of liver damage. Grapefruit may interact with atorvastatin and lead to unwanted side effects. Avoid drinking more than 1 liter of grapefruit juice while taking atorvastatin. What are the possible side effects of atorvastatin? Get emergency medical help if you have signs of an allergic reaction: hives; difficulty breathing; swelling of your face, lips, tongue, or throat. In rare cases, atorvastatin can cause a condition that results in the breakdown of skeletal muscle tissue, leading to kidney failure. Call your doctor right away if you have unexplained muscle pain, tenderness, or weakness especially if you also have fever, unusual tiredness, and dark colored urine. Also call your doctor at once if you have: ?? pain or burning when you urinate; ?? liver problems--upper stomach pain, weakness, tired feeling, loss of appetite, dark urine, jaundice (yellowing of the skin or eyes); or ?? kidney problems--little or no urinating, swelling in your feet or ankles, feeling tired or short of breath. Common side effects may include: ?? joint pain; ?? stuffy nose, sore throat; ?? diarrhea; or ?? pain in your arms or legs. This is not a complete list of side effects and others may occur. Call your doctor for medical advice about side effects. You may report side effects to FDA at 0-133-OYP-2855. What other drugs will affect atorvastatin? Certain other drugs can increase your risk of serious muscle problems, and it is very important that your doctor knows if you are using any of them. Tell your doctor about all your current medicines and any you start or stop using, especially: ?? antibiotic or antifungal medicine; ?? control pills; ?? other cholesterol-lowering medication; ?? heart medication; or ?? medicine to treat HIV or AIDS. This list is not complete. Other drugs may affect atorvastatin, including prescription and athf-rze-uxyoszz medicines, vitamins, and herbal products. Not all possible drug interactions are listed here. Where can I get more information? Your pharmacist can provide more information about atorvastatin. Remember, keep this and all other medicines out of the reach of children, never share your medicines with others, and use this medication only for the indication prescribed. Every effort has been made to ensure that the information provided by [employer]. ('[employer]') is accurate, up-to-date, and complete, but no guarantee is made to that effect. Drug information contained herein may be time sensitive. [employer] information has been compiled for use by healthcare practitioners and consumers in the [place] and therefore [employer] does not warrant that uses outside of the [place] are appropriate, unless specifically indicated otherwise. [employer] drug information does not endorse drugs, diagnose patients or recommend therapy. [employer] drug information is an informational resource designed to assist licensed healthcare practitioners in caring for their patients and/or to serve consumers viewing this service as a supplement to, and not a substitute for, the expertise, skill, knowledge and judgment of healthcare practitioners. The absence of a warning for a given drug or drug combination in no way should be construed to indicate that the drug or drug combination is safe, effective or appropriate for any given patient. [employer] does not assume any responsibility for any aspect of healthcare administered with the aid of information [employer] provides. The information contained herein is not intended to cover all possible uses, directions, precautions, warnings, drug interactions, allergic reactions, or adverse effects. If you have questions about the drugs you are taking, check with your doctor, nurse or pharmacist. Copyright 2990-6921 [employer]. Version: 20.02. Revision Date: 06/01/2019. clopidogrel (kloe PID oh grel) Plavix What is the most important information I should know about clopidogrel? You should not use this medicine if you have any active bleeding such as a stomach ulcer or bleeding in the brain. Clopidogrel increases your risk of bleeding, which can be severe or life-threatening. Call your doctor or seek emergency medical attention if you have bleeding that will not stop, if you have blood in your urine, black or bloody stools, or if you cough up blood or vomit that looks like coffee grounds. Do not stop taking clopidogrel without first talking to your doctor, even if you have signs of bleeding. Stopping clopidogrel may increase your risk of a heart attack or stroke. What is clopidogrel? Clopidogrel is used to lower your risk of having a stroke, blood clot, or serious heart problem after you've had a heart attack, severe chest pain (angina), or circulation problems. Clopidogrel may also be used for purposes not listed in this medication guide. What should I discuss with my healthcare provider before taking clopidogrel? You should not use clopidogrel if you are allergic to it, or if you have: ?? any active bleeding; or ?? a stomach ulcer or bleeding in the brain (such as from a head injury). Tell your doctor if you have ever had: ?? an ulcer in your stomach or intestines; or ?? a bleeding disorder or blood clotting disorder. Clopidogrel may not work as well if you have certain genetic factors that affect the breakdown of this medicine in your body. Your doctor may perform a blood test to make sure clopidogrel is right for you. This medicine is not expected to harm an unborn baby. However, taking clopidogrel within 1 week before childbirth can cause bleeding in the mother. Tell your doctor if you are or plan to become . You should not breastfeed while using this medicine. How should I take clopidogrel? Follow all directions on your prescription label and read all medication guides or instruction sheets. Use these medicines exactly as directed. Clopidogrel can be taken with or without food. Clopidogrel is sometimes taken together with aspirin. Take aspirin only if your doctor tells you to. Clopidogrel keeps your blood from coagulating (clotting) and can make it easier for you to bleed, even from a minor injury. Contact your doctor or seek emergency medical attention if you have any bleeding that will not stop. You may need to stop using clopidogrel for a short time before a surgery, medical procedure, or dental work. Any healthcare provider who treats you should know that you are taking clopidogrel. Do not stop taking clopidogrel without first talking to your doctor, even if you have signs of bleeding. Stopping the medicine could increase your risk of a heart attack or stroke. Store at room temperature away from moisture and heat. What happens if I miss a dose? Take the medicine as soon as you can, but skip the missed dose if it is almost time for your next dose. Do not take two doses at one time. What happens if I overdose? Seek emergency medical attention or call the Poison Help line at . Overdose can cause excessive bleeding. What should I avoid while taking clopidogrel? Avoid alcohol. It can increase your risk of stomach bleeding. Avoid activities that may increase your risk of bleeding or injury. Use extra care to prevent bleeding while shaving or brushing your teeth. If you also take aspirin: Ask a doctor or pharmacist before using medicines for pain, fever, swelling, or cold/flu symptoms. They may contain ingredients similar to aspirin (such as salicylates, ibuprofen, ketoprofen, or naproxen). Taking these products together can increase your risk of bleeding. What are the possible side effects of clopidogrel? Get emergency medical help if you have signs of an allergic reaction: hives; difficult breathing; swelling of your face, lips, tongue, or throat. Clopidogrel increases your risk of bleeding, which can be severe or life-threatening. Call your doctor or seek emergency medical attention if you have bleeding that will not stop, if you have blood in your urine, black or bloody stools, or if you cough up blood or vomit that looks like coffee grounds. Also call your doctor at once if you have: ?? nosebleeds, pale skin, easy bruising, purple spots under your skin or in your mouth; ?? jaundice (yellowing of your skin or eyes); ?? fast heartbeats, shortness of breath; ?? headache, fever, weakness, feeling tired; ?? little or no urination; ?? a seizure; ?? low blood sugar--headache, hunger, sweating, irritability, dizziness, fast heart rate, and feeling anxious or shaky; or ?? signs of a blood clot--sudden numbness or weakness, confusion, problems with vision or speech. Common side effects may include: ?? bleeding. This is not a complete list of side effects and others may occur. Call your doctor for medical advice about side effects. You may report side effects to FDA at 7-788-DWZ-6691. What other drugs will affect clopidogrel? Certain other medicines may increase your risk of bleeding, including aspirin. Avoid taking aspirin unless your doctor tells you to. Tell your doctor about all your other medicines, especially: ?? any other medicines to treat or prevent blood clots; ?? a stomach acid flight attendant inflight services such as omeprazole, Nexium, or Prilosec; ?? an antidepressant; ?? an opioid medication; ?? a blood thinner--warfarin, Coumadin, Jantoven; or ?? NSAIDs (nonsteroidal anti-inflammatory drugs)--ibuprofen (Advil, Motrin), naproxen (Aleve), celecoxib, diclofenac, indomethacin, meloxicam, and others. This list is not complete. Other drugs may affect clopidogrel, including prescription and sddh-vev-eepjusk medicines, vitamins, and herbal products. Not all possible drug interactions are listed here. Where can I get more information? Your pharmacist can provide more information about clopidogrel. Remember, keep this and all other medicines out of the reach of children, never share your medicines with others, and use this medication only for the indication prescribed. Every effort has been made to ensure that the information provided by [employer]. ('[employer]') is accurate, up-to-date, and complete, but no guarantee is made to that effect. Drug information contained herein may be time sensitive. [employer] information has been compiled for use by healthcare practitioners and consumers in the [place] and therefore [employer] does not warrant that uses outside of the [place] are appropriate, unless specifically indicated otherwise. [employer] drug information does not endorse drugs, diagnose patients or recommend therapy. [employer] drug information is an informational resource designed to assist licensed healthcare practitioners in caring for their patients and/or to serve consumers viewing this service as a supplement to, and not a substitute for, the expertise, skill, knowledge and judgment of healthcare practitioners. The absence of a warning for a given drug or drug combination in no way should be construed to indicate that the drug or drug combination is safe, effective or appropriate for any given patient. [employer] does not assume any responsibility for any aspect of healthcare administered with the aid of information [facility] provides. The information contained herein is not intended to cover all possible uses, directions, precautions, warnings, drug interactions, allergic reactions, or adverse effects. If you have questions about the drugs you are taking, check with your doctor, nurse or pharmacist. Copyright 7904-5975 [employer], [employer]. Version: 17.01. Revision Date: 09/27/2019. Emergency Awareness and Preventative Care STROKE is an EMERGENCY Every Minute Counts Act FAST and Check for these signs: FACE Does the face look uneven? ARM Does one arm drift down? SPEECH Does their speech sound strange? TIME Call at any sign of stroke Stroke Risk Factors Atrial Fibrillation (irregular heartbeat) Diabetes Family history of stroke Heart Disease Heavy alcohol use High Blood Pressure High Cholesterol Physical inactivity and obesity Smoking Cigarette Smoking The facts are clear, cigarette smoking will shorten your life. Smoking can cause many illnesses along the way. As a healthcare provider, we recommend that you stop smoking. Assistance with quitting is available by contacting 3-333-DGAVMyDentistNOW. This is a free resource providing counseling, support, and referral. Or you may contact your personal physician. National Suicide Prevention Lifeline: The National Suicide Prevention Lifeline is a national network of local crisis centers that provides free and confidential emotional support to people in suicidal crisis or emotional distress 24 hours a day, 7 days a week. Don't Wait! Stop a Heart Attack Before it Starts What is a heart attack? documented in this encounter Plan of Treatment Upcoming Encounters Date Type Department Care Team (Late st Contact Info) Description 12/24/2025 3:00 PM EDT Office Visit [facility] [address] [place] [phone] Elton Faust MD [address] [place] [address] documented as of this encounter Visit Diagnoses Not on filedocumented in this encounter Care Teams Newborn Hearing Screener Relationship Specialty Start Date End Date Tom Coffey MD [address] [place] [address] PCP - General Internal Medicine 08/13/22 documented as of this encounter
--- OUTSIDE RECORDS SUMMARY | 2025-02-13 11:27 | XMS_ITS | Encounter Summary ---
Author Organization [employer] Address [address] [place] [address] Care Team Providers Care Chute Puller Name Role Phone Yvan Coffey MD Primary Care Provider [phone] Encounter Details Date Type Department Care Team (Late st Contact Info) Description 06/10/2020 Transcribed Document [facility] Family Medicine [facility] [place] [address] ProviderYahir MD [address] [place] [address] Social History Tobacco Use Types Packs/Day Years Used Date Smoking Tobacco: Never Assessed Sex and Gender Information Value Date Recorded Sex Assigned at Not on file Legal Sex Male 3:58 PM CDT Gender Identity Not on file Sexual Orientation Not on file documented as of this encounter Miscellaneous Notes * Cerner Conversion Note - Yahir ProviderMD - 06/10/2020 12:17 PM CDT Final Discharge Planning Entered On: 06/10/2020 12:18 EDT Performed On: 06/10/2020 12:17 EDT by MAKENNA HANKINS RN-Continuity Manager Final Discharge Planning Discharge Arrangements : Patient Post-Acute Information Patient Name: JAY TORRES Gender: Male : [birth year] Age: 64 Years [place] Referral(s): Service: Organization: Business Address: Phone Number: [facility] [address] [place], [address] Important Medicare Message Reviewed With : Patient Important Medicare Message Reviewed D/T : 06/09/2020 15:45 EDT Transportation Needs : Family/Friend Follow Up Appointment Scheduled : Yes Is Patient High/Moderate Readmission Risk? : No Patient/Family Notified of Plan : Yes Support Person/Pt Rep Notified of Plan : Yes Is Patient Ready for Discharge? : Yes Physician Notified Patient is Ready for Discharge? : Yes Discharge To Care Management : Home/Residential/Shelter or Self Care -01 MAKENNA HANKINS RN-Continuity Manager - 06/10/2020 12:17 EDT Final Narrative Note Final Narrative Note : cardiac rehab referral made to [facility] no other dc needs. pt will dc home with . MAKENNA HANKINS RN-Continuity Manager - 06/10/2020 12:17 EDT Electronically signed by [facility] Conversion Production Control Analyst Cerner at 12/21/2022 4:59 PM CDT documented in this encounter Plan of Treatment Upcoming Encounters Date Type Department Care Team (Late st Contact Info) Description 12/24/2025 3:00 PM EDT Office Visit [address] [phone] Elton Faust MD [address] [place] [address] documented as of this encounter Visit Diagnoses Not on filedocumented in this encounter Care Teams Chute Puller Relationship Specialty Start Date End Date Yvan Coffey MD [address] [facility] [address] [place], [place] [id number] PCP - General Internal Medicine 08/13/22 documented as of this encounter
--- OUTSIDE RECORDS SUMMARY | 2025-02-13 11:27 | XMS_ITS | Encounter Summary ---
Author Organization [employer] Address [address] [place] [address] Care Team Providers Care Stone Processing Machine Operator Name Role Phone Yvan Coffey MD Primary Care Provider [phone] Encounter Details Date Type Department Care Team (Late st Contact Info) Description 10/16/2021 Transcribed Document [facility] Family Medicine [facility] [place] [address] ProviderYahir MD [facility] [place] [address] Social History Tobacco Use Types Packs/Day Years Used Date Smoking Tobacco: Never Assessed Sex and Gender Information Value Date Recorded Sex Assigned at Not on file Legal Sex Male 3:58 PM CDT Gender Identity Not on file Sexual Orientation Not on file documented as of this encounter Miscellaneous Notes * Cerner Conversion Note - Yahir ProviderMD - 10/16/2021 11:10 PM TELECOM BILLING ANALYST ED Assessment Entered On: 10/16/2021 23:56 EST Performed On: 10/16/2021 23:49 EST by Brina Lee RN-PATIENT CARE BEDSIDE NON-EXEMPT ED Quick Look Assessment Level of Consciousness : Alert, Awake Affect/Behavior : Appropriate, Calm, Cooperative Orientation : Oriented x 4 Skin Temperature : Warm Skin Description : Normal for ethnicity Brina Lee RN-PATIENT CARE BEDSIDE NON-EXEMPT - 10/16/2021 23:49 EST ED General-Functional Assess Information Obtained From : Patient Preferred Communication Mode : Verbal Communication Barrier : None Primary Language : Malian Any Spiritual/Cultural Needs or Requests : No Currently in Unsafe Situation : No Brina Lee RN-PATIENT CARE BEDSIDE NON-EXEMPT - 10/16/2021 23:49 EST Social Habits Smoking Status : Never (less than 100 in lifetime; none in last 30 days) Smokeless Tobacco Status : Never Desires Tobacco Cessation Calc : 0 Brina Lee RN-PATIENT CARE BEDSIDE NON-EXEMPT - 10/16/2021 23:49 EST Social History (As Of: 10/16/2021 23:56:35 EST) Tobacco: Use in Last 12 Months: No. (Last Updated: 12/01/2015 09:21:29 EDT by DANIEL BRANCH, RN) Alcohol: Use in Last 12 Months: No. (Last Updated: 04/26/2013 05:55:45 EDT by VASILIY FLORES, ISIS) Substance Abuse: Drug Use Hx: No. Use in Last 12 Months: No. (Last Updated: 04/26/2013 05:56:12 EDT by VASILIY FLORES, ISIS) Cardiovascular ASMT, ED Cardiovascular Assessment WDL : WDL Cardiovascular Symptoms : None Brina Lee RN-PATIENT CARE BEDSIDE NON-EXEMPT - 10/16/2021 23:49 EST Respiratory Respiratory Assessment WDL : WDL Cough : None Respiratory Pattern Description : Regular Brina Lee RN-PATIENT CARE BEDSIDE NON-EXEMPT - 10/16/2021 23:49 EST Gastrointestinal ED Gastrointestinal Assessment WDL : WDL Brina Lee RN-PATIENT CARE BEDSIDE NON-EXEMPT - 10/16/2021 23:49 EST Genitourinary Assessment, ED Genitourinary Assessment WDL : WDL with exceptions (Comment: Patient is alert and oriented, presents to ED with c/o hematuria and urinary retention since a prostate biopsy this AM. Patient states when is able to urinate he has been passing clood clots. No acute distress noted. at bedside. VSS. [Brina Lee RN-PATIENT CARE BEDSIDE NON-EXEMPT - 10/16/2021 23:49 EST] ) Genitourinary Symptoms : Hematuria Urine Description : Blood clots, Bloody Urine Color : Red Brian Lee RN-PATIENT CARE BEDSIDE NON-EXEMPT - 10/16/2021 23:49 EST Musculoskeletal Musculoskeletal Assessment WDL : WDL Brina Lee RN-PATIENT CARE BEDSIDE NON-EXEMPT - 10/16/2021 23:49 EST Integumentary Assessment Skin Description : Normal for ethnicity Skin Temperature : Warm Integumentary Assessment WDL : WDBrina Andres RN-PATIENT CARE BEDSIDE NON-EXEMPT - 10/16/2021 23:49 EST Neurologic ASMT, ED Neurologic Assessment WDL : WDL Neurological Symptoms : None Level of Consciousness : Alert, Awake Affect/Behavior : Appropriate, Calm, Cooperative Orientation : Oriented x 4 Brina Lee RN-PATIENT CARE BEDSIDE NON-EXEMPT - 10/16/2021 23:49 EST Electronically signed by [facility] [facility], [facility] Conversion Level Vial Inspector Cerner at 12/21/2022 4:43 PM CDT documented in this encounter Plan of Treatment Upcoming Encounters Date Type Department Care Team (Late st Contact Info) Description 12/24/2025 3:00 PM EDT Office Visit [address] [phone] Elton Faust MD [address] [place] [address] documented as of this encounter Visit Diagnoses Not on filedocumented in this encounter Care Teams Stone Processing Machine Operator Relationship Specialty Start Date End Date Yvan Coffey MD [address] [facility] [address] [place] [address] PCP - General Internal Medicine 08/13/22 documented as of this encounter
--- OUTSIDE RECORDS SUMMARY | 2025-02-13 11:27 | XMS_ITS | Encounter Summary ---
Author Organization [employer] Address [address] [place] [address] Care Team Providers Care Quality Control Associate Name Role Phone Yvan Coffey MD Primary Care Provider [phone] Encounter Details Date Type Department Care Team (Late Contact Info) Description 10/16/2021 Transcribed Document [facility] [place] [address] ProviderYahir MD [place] [address] Social History Tobacco Use Types Packs/Day Years Used Date Smoking Tobacco: Never Assessed Sex and Gender Information Value Date Recorded Sex Assigned at Not on file Legal Sex Male 3:58 PM CDT Gender Identity Not on file Sexual Orientation Not on file documented as of this encounter Miscellaneous Notes * Cerner Conversion Note - Historical ProviderMD - 10/16/2021 11:10 PM LOG HAUL CHAIN FEEDER Broset Violence Assessment Entered On: 10/16/2021 23:36 EST Performed On: 10/16/2021 23:36 EST by Brina Lee RN-PATIENT CARE BEDSIDE NON-EXEMPT Broset Violence Assessment Broset Violence Checklist of Symptoms : None Broset Violence Symptoms Subtotal : 0 Broset Violence Symptoms Indicator : Low risk (0) Brina Lee RN-PATIENT CARE BEDSIDE NON-EXEMPT - 10/16/2021 23:36 EST documented in this encounter Plan of Treatment Upcoming Encounters Date Type Department Care Team (Late st Contact Info) Description 12/24/2025 3:00 PM EDT Office Visit [address] [phone] Elton Faust MD [address] [place] [address] documented as of this encounter Visit Diagnoses Not on filedocumented in this encounter Care Teams Quality Control Associate Relationship Specialty Start Date End Date Yvan Coffey MD [address] [address] PCP - General Internal Medicine 08/13/22 documented as of this encounter
--- OUTSIDE RECORDS SUMMARY | 2025-02-13 11:27 | XMS_ITS | Encounter Summary ---
Author Organization [email or web address] Address [address] [place] [address] Care Team Providers Care Admittance Attendant Name Role Phone Yvan Coffey MD Primary Care Provider [phone] Encounter Details Date Type Department Care Team (Late st Contact Info) Description 06/17/2020 Transcribed Document [facility] [facility] [place] [address] ProviderYahir MD [address] [place] [address] Social History Tobacco Use Types Packs/Day Years Used Date Smoking Tobacco: Never Assessed Sex and Gender Information Value Date Recorded Sex Assigned at Not on file Legal Sex Male 3:58 PM CDT Gender Identity Not on file Sexual Orientation Not on file documented as of this encounter Miscellaneous Notes * Cerner Conversion Note - Yahir ProviderMD - 06/17/2020 10:08 AM CDT Cardiac and Pulmonary Outpatient [place] Entered On: 06/17/2020 10:09 EDT Performed On: 06/17/2020 10:08 EDT by MARKELL DESAI Cardiac and Pulmonary Outpatient [place] Cardiac Outpatient Rehab Evaluation Comment : Cardiac Rehab Order faxed to [facility]. MARKELL DESAI - 06/17/2020 10:08 EDT Electronically signed by Kate Gibson Conversion Regional Dedicated Truck Driver Albertinaner at 12/21/2022 4:36 PM CDT documented in this encounter Plan of Treatment Upcoming Encounters Date Type Department Care Team (Late st Contact Info) Description 12/24/2025 3:00 PM EDT Office Visit [address] [phone] Elton Faust MD [address] [facility] [address] [place] [address] documented as of this encounter Visit Diagnoses Not on filedocumented in this encounter Care Teams Admittance Attendant Relationship Specialty Start Date End Date Yvan Coffey MD [address] [facility] [address] [place] [address] PCP - General Internal Medicine 08/13/22 documented as of this encounter
--- OUTSIDE RECORDS SUMMARY | 2025-02-13 11:27 | XMS_ITS | Encounter Summary ---
Author Organization [employer] Address [address] [facility] [place] [address] Care Team Providers Care Tip Bander Name Role Phone Yvan Coffey MD Primary Care Provider [phone] Encounter Details Date Type Department Care Team (Late Contact Info) Description 06/10/2020 Transcribed Document [facility] [place] [facility] [place] [address] ProviderYahir MD [address] [place] [address] Social History Tobacco Use Types Packs/Day Years Used Date Smoking Tobacco: Never Assessed Sex and Gender Information Value Date Recorded Sex Assigned at Not on file Legal Sex Male 3:58 PM CDT Gender Identity Not on file Sexual Orientation Not on file documented as of this encounter Miscellaneous Notes * Cerner Conversion Note - Historical ProviderMD - 06/10/2020 2:00 AM CDT Turbine Blade Assembler Details Entered On: 06/10/2020 4:39 EDT Performed On: 06/10/2020 2:00 EDT by Elaine Phillips RN Order Details Transport Mode Order Detail : Stretcher/Gurney Order Detail : N/A IV Order Detail : 1 Oxygen Order Detail : 0 Nurse Collect Order Detail : 0 Lift/Transfer : Independent Central Line Order Detail : No Room Service : Appropriate Arterial Line : No Elaine Phillips RN - 06/10/2020 4:39 EDT documented in this encounter Plan of Treatment Upcoming Encounters Date Type Department Care Team (Late st Contact Info) Description 12/24/2025 3:00 PM EDT Office Visit [address] [address] Elton Faust MD [address] [place] [address] documented as of this encounter Visit Diagnoses Not on filedocumented in this encounter Care Teams Tip Bander Relationship Specialty Start Date End Date Yvan Coffey MD [address] [facility] [address] [place] [address] PCP - General Internal Medicine 08/13/22 documented as of this encounter
--- OUTSIDE RECORDS SUMMARY | 2025-02-13 11:27 | XMS_ITS | Encounter Summary ---
Author Organization [employer] Address [address] [place] [address] Care Team Providers Care Wanigan Clerk Name Role Phone Yvan Coffey MD Primary Care Provider [phone] Encounter Details Date Type Department Care Team (Late st Contact Info) Description 10/16/2021 Transcribed Document [facility] [place] [address] ProviderYahir MD [address] [place] [address] Social History Tobacco Use Types Packs/Day Years Used Date Smoking Tobacco: Never Assessed Sex and Gender Information Value Date Recorded Sex Assigned at Not on file Legal Sex Male 3:58 PM CDT Gender Identity Not on file Sexual Orientation Not on file documented as of this encounter Miscellaneous Notes * Cerner Conversion Note - Yahir ProviderMD - 10/16/2021 11:10 PM STAFF ELECTRONIC WARFARE OFFICER ED Triage Entered On: 10/16/2021 23:19 EST Performed On: 10/16/2021 23:15 EST by Caro Bay NEUROLOGY PHYSICIAN ASSISTANT Triage Across the Room Chief Complaint : Pt from home with c/o hematuria. States he had prostate biopsy today and got home and has been having difficulty urinating, reports passing clots when he is able to void anything. Triage Date/Time : 10/16/2021 23:15 EST Caro Bay RN - 10/16/2021 23:15 EST DCP GENERIC CODE Tracking Acuity : 3 - Urgent Tracking Group : [facility] ED Caro Bay RN - 10/16/2021 23:15 EST Mode of Arrival : Ambulatory Transported to ED by : Private vehicle To Room Via : Ambulate Accompanied By : Spouse ED Vital Signs : Document Height & Weight : Document ED Allergies : Document ED Reason for Visit : Document Tetanus Immunization : Unknown Real Estate Transaction Coordinator Needed : No Caro Bay RN - 10/16/2021 23:15 EST Infectious Disease History Does patient have symptoms of COVID-19? : No Has the Patient Been Tested for COVID-19 in the last 14 days? : Yes, Patient stated results Negative Does the Patient state known exposure to a COVID-19 positive case in the last 14 days? : No Patient Vaccinated for COVID-19 : Not vaccinated Does Patient want a COVID-19 Vaccine? : No Caro Bay RN - 10/16/2021 23:15 EST Infectious Disease Risk Screening Grid Cough < 2 wks of unknown origin : NO Cough > 2 weeks : NO Blood in Sputum : NO Fever or self-reported Fever : NO Rash of unknown origin : NO Headache : NO Stiff neck : NO Night Sweats : NO Unexplained Weight Loss : NO Diarrhea (3 episode per day) : NO Caro Bay RN - 10/16/2021 23:15 EST Physical contact outside [place] in the last 30 days : No Hospitalized in [place] : No Infectious Disease History : Chicken pox/Shingles, Measles, Mumps INF Disease TB Screening Calc : 0 INF Disease Recent Travel Calc : 0 Caro Bay RN - 10/16/2021 23:15 EST Vital Signs ED Temperature Source : Temporal artery scanning Temperature Mode : Fahrenheit Temperature, Fahrenheit : 98.4 Deg F Clinical Temperature, C : 36.9 Deg C Oxygen Therapy Mode : Room air Peripheral Pulse Rate : 80 bpm Respiratory Rate : 14 Breaths/Min Blood Pressure Location : Arm, right upper Blood Pressure Source : Non-Invasive BP Device Systolic Blood Pressure : 129 mmHg Diastolic Blood Pressure : 80 mmHg Oxygen Saturation : 96 % Caro Bay RN - 10/16/2021 23:15 EST Allergy (As Of: 10/16/2021 23:19:22 EST) Allergies (Active) Brilinta Estimated Onset Date: Unspecified ; Reactions: SOB - Shortness of breath ; Created By: Elaine Phillips RN; Reaction Status: Active ; Category: Drug ; Substance: Brilinta ; Type: Allergy ; Updated By: Elaine Phillips RN; Reviewed Date: 06/08/2020 22:47 EDT heparin Estimated Onset Date: Unspecified ; Reactions: Heparin-induced thrombocytopenia with thrombosis, Heparin-induced thrombocytopenia with thrombosis ; Created By: FRED_LJ REESE; Reaction Status: Active ; Category: Drug ; Substance: heparin ; Type: Allergy ; Severity: Severe ; Updated By: LJ DUGGAN; Reviewed Date: 06/08/2020 11:08 EDT Diagnosis Control ED (As Of: 10/16/2021 23:19:22 EST) Problems(Active) ARDS - Adult respiratory distress syndrome (SNOMED CT :962002652 ) Name of Problem: ARDS - Adult respiratory distress syndrome ; Recorder: SADIE AGOSTO RN; Confirmation: Confirmed ; Classification: Medical ; Code: [id number] ; Contributor System: SurfingbirdChart ; Last Updated: 02/21/2014 15:18 EDT ; Life Cycle Date: 04/26/2013 ; Life Cycle Status: Active ; Vocabulary: SNOMED CT Diverticula, colon (SNOMED CT :3801295305 ) Name of Problem: Diverticula, colon ; Recorder: DANIEL BRANCH RN; Confirmation: Confirmed ; Classification: Patient Stated ; Code: [id number] ; Contributor System: PowerChart ; Last Updated: 12/01/2015 9:12 EDT ; Life Cycle Date: 12/01/2015 ; Life Cycle Status: Active ; Vocabulary: SNOMED CT DVT - Deep vein thrombosis (SNOMED CT :3879833331 ) Name of Problem: DVT - Deep vein thrombosis ; Recorder: SADIE AGOSTO RN; Confirmation: Confirmed ; Classification: Medical ; Code: [id number] ; Contributor System: PowerChart ; Last Updated: 02/19/2014 11:29 EDT ; Life Cycle Date: 04/26/2013 ; Life Cycle Status: Active ; Vocabulary: SNOMED CT Cory filter, device (SNOMED CT :7378937744 ) Name of Problem: [place] filter, device ; Recorder: SADIE AGOSTO RN; Confirmation: Confirmed ; Classification: Medical ; Code: [id number] ; Contributor System: PowerChart ; Last Updated: 02/21/2014 14:44 EDT ; Life Cycle Date: 04/26/2013 ; Life Cycle Status: Active ; Vocabulary: SNOMED CT 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 (SNOMED CT :3766940399 ) Name of Problem: 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 ; Recorder: SADIE AGOSTO, ISIS; Confirmation: Confirmed ; Classification: Medical ; Code: [id number] ; Contributor System: SurfingbirdChart ; Last Updated: 02/21/2014 14:56 EDT ; Life Cycle Date: 04/26/2013 ; Life Cycle Status: Active ; Vocabulary: SNOMED CT History of obstructive sleep apnea (IMO :59779221 ) Name of Problem: History of obstructive sleep apnea ; Recorder: SYSTEM, SYSTEM; Confirmation: Confirmed ; Classification: Medical ; Code: [id number] ; Last Updated: 06/08/2020 22:53 EDT ; Life Cycle Date: 06/08/2020 ; Life Cycle Status: Active ; Vocabulary: IMO Patient requiring acute dialysis (SNOMED CT :3881276771 ) Name of Problem: Patient requiring acute dialysis ; Recorder: DANIEL BRANCH RN; Confirmation: Confirmed ; Classification: Patient Stated ; Code: [id number] ; Contributor System: SurfingbirdChart ; Last Updated: 12/01/2015 9:23 EDT ; Life Cycle Date: 12/01/2015 ; Life Cycle Status: Active ; Vocabulary: SNOMED CT ; Comments: 12/01/2015 9:23 - DANIEL BRANCH RN 5 years Pneumonia (SNOMED CT :330494451 ) Name of Problem: Pneumonia ; Recorder: SADIE AGOSTO RN; Confirmation: Confirmed ; Classification: Medical ; Code: [id number] ; Contributor System: RayV ; Last Updated: 02/14/2014 19:26 EDT ; Life Cycle Date: 04/26/2013 ; Life Cycle Status: Active ; Vocabulary: SNOMED CT Diagnoses(Active) Hematuria Date: 10/16/2021 ; Diagnosis Type: Reason For Visit ; Confirmation: Complaint of ; Clinical Dx: Hematuria ; Classification: Medical ; Clinical Service: Non-Specified ; Code: PNED ; Probability: 0 ; Diagnosis Code: [id number] ED Height and Weight Height Source : Stated Height Entry Format : [place] Height, Feet : 5 ft(Converted to: 152 cm, 60 Inch) Height, Inches : 7 Inch(Converted to: 0 ft 7 Inch, 17.78 cm) Clinical Height : 170.18 cm Weight Source, ED : Critical estimated dosing weight Weight Entry Format : [place] Weight, Pounds : 234 lb Clinical Dosing Weight : 106.36 kg Body Surface Area (BSA) : 2.16 m2 Body Mass Index : 36.7 kg/m2 (HI) [place] Body Weight (IBW) : 65.16 kg Caro Bay, RN - 10/16/2021 23:15 EST Electronically signed by [facility] Conversion Riddler Operator Cerner at 12/21/2022 4:30 PM CDT documented in this encounter Plan of Treatment Upcoming Encounters Date Type Department Care Team (Late st Contact Info) Description 12/24/2025 3:00 PM EDT Office Visit [address] [address] Elton Faust MD [address] [place] [address] documented as of this encounter Visit Diagnoses Not on filedocumented in this encounter Care Teams Wanigan Clerk Relationship Specialty Start Date End Date Yvan Coffey MD [address] [facility] [address] [place] [address] PCP - General Internal Medicine 08/13/22 documented as of this encounter
--- OUTSIDE RECORDS SUMMARY | 2025-02-13 11:27 | XMS_ITS | Encounter Summary ---
Author Organization [employer] Address [address] [place] [address] Care Team Providers Care Brass Wind Instruments Tube Bender Name Role Phone Yvan Coffey MD Primary Care Provider [phone] Encounter Details Date Type Department Care Team (Late st Contact Info) Description 06/10/2020 Transcribed Document [facility] [place] [facility] [place] [address] ProviderYahir MD [address] [place] [address] Social History Tobacco Use Types Packs/Day Years Used Date Smoking Tobacco: Never Assessed Sex and Gender Information Value Date Recorded Sex Assigned at Not on file Legal Sex Male 3:58 PM CDT Gender Identity Not on file Sexual Orientation Not on file documented as of this encounter Miscellaneous Notes * Cerner Conversion Note - Historical ProviderMD - 06/10/2020 5:00 AM CDT Chart Check - Review Order Profile Entered On: 06/10/2020 6:12 EDT Performed On: 06/10/2020 5:00 EDT by Elaine Phillips RN Chart Check Powerplans Initiated/Discontinued as Appropriate : Yes All Active Orders Reviewed : Yes Elaine Phillips RN - 06/10/2020 6:12 EDT documented in this encounter Plan of Treatment Upcoming Encounters Date Type Department Care Team (Late st Contact Info) Description 12/24/2025 3:00 PM EDT Office Visit [address] [address] Elton Faust MD [address] [facility] 4[address] [place] [address] documented as of this encounter Visit Diagnoses Not on filedocumented in this encounter Care Teams Brass Wind Instruments Tube Bender Relationship Specialty Start Date End Date Yvan Coffey MD [address] [facility] [address] [place] [address] PCP - General Internal Medicine 08/13/22 documented as of this encounter
--- OUTSIDE RECORDS SUMMARY | 2025-02-13 11:27 | XMS_ITS | Encounter Summary ---
Author Organization [employer] Address [address] [place] [address] Care Team Providers Care Candy Catcher Name Role Phone Yvan Coffey MD Primary Care Provider [phone] Encounter Details Date Type Department Care Team (Late st Contact Info) Description 06/10/2020 Transcribed Document [facility] [place] [facility] [place] [address] ProviderYahir MD [address] [place] [address] Social History Tobacco Use Types Packs/Day Years Used Date Smoking Tobacco: Never Assessed Sex and Gender Information Value Date Recorded Sex Assigned at Not on file Legal Sex Male 3:58 PM CDT Gender Identity Not on file Sexual Orientation Not on file documented as of this encounter Miscellaneous Notes * Cerner Conversion Note - Yahir Bullard MD - 06/10/2020 12:09 PM CDT Patient Education Materials Follows: Angiogram, Care After This sheet gives you [...] and water are not available, use hand tube depatcher. ? Change your dressing as told by [...] care provider approves. ??? You may shower 24?48 hours after the procedure or as told [...] by your health care provider, usually for 1?2 days. ??? Do not lift anything that [...] contrast dye from your body. ??? Take okld-toq-cvivbjf and prescription medicines only as told by [...] okay to do so. You may shower 24?48 hours after the procedure or as told [...] 03/10/2006 Document Revised: 08/04/2018 Document Reviewed: 07/27/2017 [employer] Patient Education ? 2020 [employer] Heart-Healthy Eating Plan Many factors influence [...] plate with lean protein foods. ??? Eat 4?5 servings of vegetables per day. One serving equals 1 cup raw or cooked vegetable, or 2 cups raw leafy greens. ??? Eat 4?5 servings of fruit per day. One serving equals 1 medium whole fruit, ? cup dried fruit, ? cup fresh, frozen, or canned fruit, or ? cup 100% fruit juice. ??? Eat more foods that contain soluble fiber. Examples include apples, broccoli, carrots, beans, peas, and barley. Aim to get 25?30 g of fiber per day. ??? Increase your consumption of legumes, nuts, and seeds to 4?5 servings per week. One serving of dried beans or legumes equals ? cup cooked, 1 serving of nuts is ? cup, and 1 serving of seeds equals [...] weight if you are overweight. Losing just 5?10% of your body weight can help your [...] Fats and oils Meat fat, or shortening. [place] butter, hydrogenated oils, palm oil, coconut oil, [...] weight if you are overweight. Losing just 5?10% of your body weight can help your [...] 05/31/2009 Document Revised: 09/29/2018 Document Reviewed: 09/29/2018 [employer] Patient Education ? 2020 [employer]. Emergency Medicine Heart Attack The heart is a muscle that needs oxygen to survive. A heart attack is a condition that occurs when your heart does not get enough oxygen. When this happens, the heart muscle begins to . This can cause permanent damage if not treated right away. A heart attack is a medical emergency. This condition may be called a myocardial infarction, or DE. It is also known as acute coronary [...] these instructions at home: Medicines ??? Take pfxs-ibe-feqvvsb and prescription medicines only as told by [...] Limit how much you use to: ? 0?1 drink a day for women. ? 0?2 drinks a day for men. ? Be aware of how much alcohol is in your drink. In the [place] one drink equals one 12 oz bottle of beer (355 mL), one 5 oz glass of wine (148 mL), or one 1? oz glass of hard liquor (44 mL). [...] 08/22/2006 Document Revised: 11/29/2019 Document Reviewed: 12/03/2019 [employer] Patient Education ? 2020 [employer]. Neurology Radial Site Care This sheet gives you [...] these instructions at home: Medicines ??? Take pkbp-egm-qxcapif and prescription medicines only as told by your health care provider. Insertion site care ??? Follow instructions from your health care provider about how to take care of your insertion site. Make sure you: ? Wash your hands with soap and water before you change your bandage (dressing). If soap and water are not available, use hand tube depatcher. ? Change your dressing as told by [...] care provider approves. ??? You may shower 24?48 hours after the procedure, or as directed [...] 09/24/2011 Document Revised: 09/27/2018 Document Reviewed: 09/27/2018 [employer] Patient Education ? 2020 [employer]. documented in this encounter Plan of Treatment Upcoming Encounters Date Type Department Care Team (Late st Contact Info) Description 12/24/2025 3:00 PM EDT Office Visit [address] [address] Elton Faust MD [address] [place] [address] documented as of this encounter Visit Diagnoses Not on filedocumented in this encounter Care Teams Candy Catcher Relationship Specialty Start Date End Date Yvan Coffey MD [address] [facility] [address] [place] [address] PCP - General Internal Medicine 08/13/22 documented as of this encounter
--- OUTSIDE RECORDS SUMMARY | 2025-02-13 11:27 | XMS_ITS | Encounter Summary ---
Author Organization [employer] Address [address] [place] [address] Care Team Providers Care Clinic Receptionist Name Role Phone Yvan Coffey MD Primary Care Provider [phone] Encounter Details Date Type Department Care Team (Late st Contact Info) Description 06/10/2020 Transcribed Document [facility] [place] [facility] [place] [address] ProviderYahir MD [address] [place] [address] Social History Tobacco Use Types Packs/Day Years Used Date Smoking Tobacco: Never Assessed Sex and Gender Information Value Date Recorded Sex Assigned at Not on file Legal Sex Male 3:58 PM CDT Gender Identity Not on file Sexual Orientation Not on file documented as of this encounter Miscellaneous Notes * Cerner Conversion Note - Historical ProviderMD - 06/10/2020 12:09 PM CDT Stroke/Warfarin Instructions Entered On: 06/10/2020 12:09 EDT Performed On: 06/10/2020 12:09 EDT by DONOVAN SAMUELS RN Stroke/Warfarin Instructions Stroke/TIA Discharge Ins : N/A Warfarin Discharge Ins : N/A DONOVAN SAMUELS RN - 06/10/2020 12:09 EDT documented in this encounter Plan of Treatment Upcoming Encounters Date Type Department Care Team (Late st Contact Info) Description 12/24/2025 3:00 PM EDT Office Visit [address] [phone] Elton Faust MD [address] [address] documented as of this encounter Visit Diagnoses Not on filedocumented in this encounter Care Teams Clinic Receptionist Relationship Specialty Start Date End Date Yvan Coffey MD [address] [facility] [address] [place] [address] PCP - General Internal Medicine 08/13/22 documented as of this encounter
--- OUTSIDE RECORDS SUMMARY | 2025-02-13 11:28 | XMS_ITS | Encounter Summary ---
Author Organization [employer] Address [address] [place] [address] Care Team Providers Care Corn Sheller Operator Name Role Phone Yvan Coffey MD Primary Care Provider [phone] Encounter Details Date Type Department Care Team (Late st Contact Info) Description 06/08/2020 Transcribed Document [facility] [place] [address] ProviderYahir MD [address] [place] [address] Social History Tobacco Use Types Packs/Day Years Used Date Smoking Tobacco: Never Assessed Sex and Gender Information Value Date Recorded Sex Assigned at Not on file Legal Sex Male 3:58 PM CDT Gender Identity Not on file Sexual Orientation Not on file documented as of this encounter Miscellaneous Notes * Cerner Conversion Note - Yahir ProviderMD - 06/08/2020 5:05 AM CDT Pain Assessment Entered On: 06/08/2020 5:11 EDT Performed On: 06/08/2020 5:09 EDT by NAIF ALVARADO RN Intervention Information: nitroglycerin Performed by NAIF ALVARADO RN on 06/08/2020 05:04:00 EDT nitroglycerin,0.4mg SubLINgual,Chest Pain Pain Assessment Pain Assessment : Follow-up assessment Pain Scale Used : 0-10 Scale Onset : Acute NAIF ALVARADO RN - 06/08/2020 5:11 EDT Pain Scale Intensity : 3 NAIF ALVARADO RN - 06/08/2020 5:11 EDT Image 4 - Images currently included in the form version of this document have not been included in the text rendition version of the form. documented in this encounter Plan of Treatment Upcoming Encounters Date Type Department Care Team (Late st Contact Info) Description 12/24/2025 3:00 PM EDT Office Visit [address] [phone] Elton Faust MD [address] [place], [place] [phone] documented as of this encounter Visit Diagnoses Not on filedocumented in this encounter Care Teams Corn Sheller Operator Relationship Specialty Start Date End Date Yvan Coffey MD [address] [address] PCP - General Internal Medicine 08/13/22 documented as of this encounter
--- OUTSIDE RECORDS SUMMARY | 2025-02-13 11:28 | XMS_ITS | Referral Summary ---
Author Organization [employer] Address [address] [place] [address] Care Team Providers Care Sleeve Ironer Name Role Phone Yvan Coffey MD Primary Care Provider [phone] Encounters Date Type Department Care Team Description 12/25/2024 Travel 12/25/2024 3:00 PM EDT Office Visit [facility] [address] [place] [address] Elton Faust MD ADITYA (obstructive sleep apnea) (Primary Dx) 12/05/2024 Refill [facility] [address] [place] [address] [address] Oscar Hodge MD Coronary artery disease involving [place] apache coronary artery of [place] apache heart without angina pectoris from Last 3 Months Allergies Active Allergy Reactions Criticality Noted Date Comments Heparin Other (See Comments) High 02/09/2016 Other reaction(s): Heparin-induced thrombocytopenia with thrombosis, Other (See Comments) HIT, nerve damage to feet Other Itching Low 02/09/2016 Ticagrelor Shortness Of Breath High 08/16/2022 Medications doxazosin (CARDURA) 4 MG tablet Take 1 tablet (4 mg total) by mouth nightly. Active gabapentin (NEURONTIN) 600 MG tablet Take 1 tablet (600 mg total) by mouth 2 (two) times daily. Active pantoprazole (PROTONIX) 40 MG tablet Take 1 tablet (40 mg total) by mouth daily. Active promethazine (PHENERGAN) 25 MG tablet Take 1 tablet (25 mg total) by mouth every 8 (eight) hours as needed. 3 Active polyethylene glycol (GLYCOLAX) 17 gram packet Miralax 17 gram oral powder packet Take by oral route. Active oxyCODONE-acetami nophen (PERCOCET) 7.5-325 mg per tablet Take 1 tablet by mouth. 3 Active rosuvastatin (CRESTOR) 20 MG tabletIndications :Stable angina pectoris (HCC) TAKE 1 TABLET EVERY NIGHT 90 tablet 3 4 Active lisinopriL (ZESTRIL) 5 MG tabletIndications :Essential hypertension TAKE 1 TABLET EVERY DAY 90 tablet 3 4 Active carvediloL (COREG) 12.5 MG tabletIndications :Essential hypertension TAKE 1 TABLET TWICE DAILY 180 tablet 3 4 Active clopidogreL (PLAVIX) 75 mg tabletIndications :Coronary artery disease involving [place] apache coronary artery of [place] apache heart without angina pectoris TAKE 1 TABLET EVERY DAY 90 tablet 3 5 Active Active Problems Problem Noted Date Diagnosed Date Preop cardiovascular exam 06/08/2024 Obesity 08/16/2022 Coronary artery disease invo lving [place] apache coronary artery of [place] apache heart without angina pectoris 08/13/2022 History of non-ST elevation myocardial infarctio n (NSTEMI) 08/13/2022 History of heparin-induced thrombocytopenia 05/2022 History of DVT (deep vein thrombosis) 08/13/2022 ADITYA on CPAP 08/13/2022 Essential hypertension 08/13/2022 Mixed hyperlipidemia 08/13/2022 Social History Tobacco Use Types Packs/Day Years Used Date Smoking Tobacco: Never Smokeless Tobacco: Never Tobacco Cessation:Counseling Given: Not Answered Alcohol Use Standard Drinks/Week Comments Not Currently [...] Date Alejandro rded Speak language other than Central African at home Not on file 09/23/2023 Want [...] on file Sexual Orientation Not on file Last Filed Vital Signs Vital Sign Reading Time Taken Comments Blood Pressure 121/76 12/25/2024 3:48 PM EDT Pulse 58 12/25/2024 3:48 PM EDT Temperature 36.2 C (97.2 F) 12/20/2023 3:13 PM EDT Respiratory Rate 20 12/25/2024 3:48 PM EDT Oxygen Saturation 95% 12/25/2024 3:48 PM EDT Inhaled Oxygen Concentration - - Weight 105.6 kg (232 lb 14.4 oz) 12/25/2024 3:48 PM EDT Height 172.7 cm (5' 8 ) 12/25/2024 3:48 PM EDT Body Mass Index 35.41 12/25/2024 3:48 PM EDT Plan of Treatment Upcoming Encounters Date Type Department Care Team (Late st Contact Info) Description 12/24/2025 3:00 PM EDT Office Visit [address] [address] Elton Faust MD [address] [place] [address] [address] [place] [place] [address] [place] [address] Care Teams Sleeve Ironer Relationship Specialty Start Date End Date Yvan Coffey MD [address] [facility] [address] [place] [address] PCP - General Internal Medicine 08/13/22
--- OUTSIDE RECORDS SUMMARY | 2025-02-13 11:28 | XMS_ITS | Encounter Summary ---
Author Organization [employer] Address [address] [place] [address] Care Team Providers Care Pre Billing Specialist Name Role Phone Yvan Coffey MD Primary Care Provider [phone] Encounter Details Date Type Department Care Team (Late st Contact Info) Description 06/09/2020 Transcribed Document [facility] Family [place] [address] ProviderYahir MD [address] [place] [address] Social History Tobacco Use Types Packs/Day Years Used Date Smoking Tobacco: Never Assessed Sex and Gender Information Value Date Recorded Sex Assigned at Not on file Legal Sex Male 3:58 PM CDT Gender Identity Not on file Sexual Orientation Not on file documented as of this encounter Miscellaneous Notes * Cerner Conversion Note - Yahir ProviderMD - 06/09/2020 2:53 PM CDT On Going Discharge Planning Entered On: 06/09/2020 14:54 EDT Performed On: 06/09/2020 14:53 EDT by DARRELL DIOR Rn-Qa LeadSite Safety Manager Progress Note Discharge Arrangements : Patient Post-Acute Information Patient Name: JAY TORRES Gender: Male : [birth year] Age: 64 Years No Post-Acute Placement(s) Listed No Post-Acute Service(s) Listed No Curaspan Referral(s) Listed Discharge Options Discussed with Patient : Discharge transportation, DME, Home Health, Outpatient services Barriers to Discharge Identified : Clinical Condition of Patient Barriers to Discharge Unresolved : Clinical Condition of Patient Is the Patient Meeting Medical Necessity : Yes Did you Attend Multidisciplinary Rounds? : No DARRELL DIOR, Rn-Qa Lead - 06/09/2020 14:53 EDT Narrative Progress Note Narrative Progress Note : DEYVI to LAD, ready for dc when cleared by Cards, home when BP controlled. DARRELL DIOR Rn-Qa Lead - 06/09/2020 14:53 EDT Electronically signed by [facility] Conversion Tamper Operator Cerner at 12/21/2022 4:49 PM CDT documented in this encounter Plan of Treatment Upcoming Encounters Date Type Department Care Team (Late st Contact Info) Description 12/24/2025 3:00 PM EDT Office Visit [address] [address] Elton Faust MD [address] [place] [address] documented as of this encounter Visit Diagnoses Not on filedocumented in this encounter Care Teams Pre Billing Specialist Relationship Specialty Start Date End Date Yvan Coffey MD [address] [facility] [address] [place] [address] PCP - General Internal Medicine 08/13/22 documented as of this encounter
--- OUTSIDE RECORDS SUMMARY | 2025-02-13 11:28 | XMS_ITS | Data Portability ---
Author Organization [facility] [place] ADMIN Address [address] [place] [phone] Assessment No assessment recorded. Plan of Treatment Reminders Order Date Submit Date Provider Last Modified By Organization Details Last Modified Time Details Appointments None recorded. Lab influenza virus A + B + SARS-CoV-2 (COVID19) Ag panel, rapid IA, upper respiratory specimen 2021 022 [email or web address] [facility], [address], [address], [place], [address], 17:50:13 Referral None recorded. Procedures None recorded. Surgeries None recorded. Imaging None recorded. Medication Orders ondansetron 4 mg disintegrat ing tablet 2021 [facility] [id number], [address] [place] [address], [address], 14:03:53 Patient TargetsNo targets recorded. Patient Instructions Encounter Date Encounter Id Patient Instructions Last Modified By Organization Details Last Modified Time 08/05/2022 [id number] coronavirus (covid-19): care instructions [email or web address] Not available 08/05/2022 14:03:57 Reason for Referral None Reported. Results Created Date Observation Date Name Description Value Unit Range Abnormal Flag Note LastModifiedBy Organization Detail LastModifiedTime 08/05/20 22 08/05/2022 influ paz virus A + B + SARS- CoV-2 (COVI D19) Ag panel , rapid IA, upper respi rator y speci men FLU A negati ve Not Available [facility] [address], [place], [address], 08/05/2022 13:43:39 08/05/20 22 08/05/2022 influ paz virus A + B + SARS- CoV-2 (COVI D19) Ag panel , rapid IA, upper respi rator y speci men FLU B negati ve Not Available [facility] [address], [place], [address], 08/05/2022 13:43:39 08/05/20 22 08/05/2022 influ paz virus A + B + SARS- CoV-2 (COVI D19) Ag panel , rapid IA, upper respi rator y speci men SARS COV + SARS OV 2 positi ve Not Available [facility] [address], [place], [address], 08/05/2022 13:43:39 Result Notes None recorded. Medical Equipment None Reported. Allergies No known drug allergies Medications Name Sig Start Date Stop Date Status Note LastModified by Organization Details LastModified Time ondansetron 4 mg disintegrati ng tablet Place 1 tablet every 4-6 hours by translingua l route as needed for 3 days. 2021 active Not Available Not Available Not Avai lable Vitals Date Recorded Body weight Body temperature Oxygen saturation Oxygen saturation in Arterial blood by Pulse oximetry Heart rate Provider Name and Address Organization Details Last Updated DateTime 2 874369. 49 g 101.1 [degF] 98 % 98 % 112 /min Ness LAUGHLIN [facility] [place] 2 13:43:14 Social History None recorded. Functional Status None recorded. Mental Status None recorded. Family History Nothing Reported. Medical History No medical history recorded. Past Encounters Encounter ID Performer Location Encounter Start Date Encounter Closed Date Diagnosis/Indication Diagnosis SNOMED-CT Code Diagnosis ICD10 Code Diagnosis Note [id number] Sumi Johnson, BARTOLO, OPTICAL INSTRUMENT ASSEMBLY SUPERVISOR-C, TUGGER OPERATOR [facility] [address] [facility] [place],[address] [place] [address] 08/05/2022 12:05:28 08/05/2022 14:03:47 Fever 382215798 R50.9 COVID-19 449150323 U07.1 Health Concerns Section Related Observation LastModified by Organization Detai ls LastModified Time None Recorded Concern Status LastModified by Organization Details LastModified Time None Recorded Advance Directives Directive None Recorded Payers Insurance Date Sequence Insurance Name Policy Number Policy Richey Covered Member ID Richey Member ID Guarantor Name 08/05/2022 2 [employer] [id number] Cj Fragoso Brian [id number] Cj Fragoso Brian 08/05/2022 1 [place]ICARE[place] Cj Englishwin [id number] Cj Fragoso Torres Notes Date Note Type Note Provider Name and Address Organization Details Recorded Time 08/05/2022 text/html Per patient he started feeling ill yesterday. Patient has had body aches, chills and fever. patient has headache and sore throat. Patient has not ate anything all day. Patient has had nasal congestion and post nasal drip. Patient denies cough. Patient has had nausea but no vomiting or diarrhea. patient has not had any sick contacts that he knows of. Sumi Johnson, BARTOLO, OPTICAL INSTRUMENT ASSEMBLY SUPERVISOR-C, TUGGER OPERATOR [address] [facility], [place], [address], [facility] [place] [facility] [place] 08/05/2022 14:04:08
--- OUTSIDE RECORDS SUMMARY | 2025-02-13 11:28 | XMS_ITS | Encounter Summary ---
Author Organization [employer] Address [address] [place] [address] Care Team Providers Care Gizzard Peeler Name Role Phone Yvan Coffey MD Primary Care Provider [phone] Encounter Details Date Type Department Care Team (Late st Contact Info) Description 10/16/2021 Transcribed Document [facility] Family [place] [facility] [place] [address] ProviderYahir MD [facility] [place] [address] Social History Tobacco Use Types Packs/Day Years Used Date Smoking Tobacco: Never Assessed Sex and Gender Information Value Date Recorded Sex Assigned at Not on file Legal Sex Male 3:58 PM CDT Gender Identity Not on file Sexual Orientation Not on file documented as of this encounter Miscellaneous Notes * Cerner Conversion Note - Historical ProviderMD - 10/16/2021 11:10 PM EPIC CADENCE ANALYST [place] Suicide Severity Rating Scale (C-SSRS) Entered On: 10/16/2021 23:37 EST Performed On: 10/16/2021 23:36 EST by Brina Lee RN-PATIENT CARE BEDSIDE NON-EXEMPT [place] Suicide Severity Rating Scale (C-SSRS) CSSRS Past Month Wish to be : No CSSRS Past Month Suicidal Thoughts : No CSSRS Lifetime Suicide Behavior : No Suicide Severity Rating Score : 0 Suicide Severity Rating : No Additional Care Required at this time Brina Lee RN-PATIENT CARE BEDSIDE NON-EXEMPT - 10/16/2021 23:36 EST documented in this encounter Plan of Treatment Upcoming Encounters Date Type Department Care Team (Late st Contact Info) Description 12/24/2025 3:00 PM EDT Office Visit [address] [phone] Elton Faust MD [address] [place] [address] documented as of this encounter Visit Diagnoses Not on filedocumented in this encounter Care Teams Gizzard Peeler Relationship Specialty Start Date End Date Yvan Coffey MD [address] [facility] [address] [place] [address] PCP - General Internal Medicine 08/13/22 documented as of this encounter
--- OUTSIDE RECORDS SUMMARY | 2025-02-13 11:28 | XMS_ITS | Encounter Summary ---
Author Organization [employer] Address [address] [place] [address] Care Team Providers Care Thermodynamics Engineer Name Role Phone Yvan Coffey MD Primary Care Provider [phone] Encounter Details Date Type Department Care Team (Late st Contact Info) Description 06/08/2020 Transcribed Document [facility] Family Medicine [facility] [place] [address] ProviderYahir MD [address] [place] [address] Social History Tobacco Use Types Packs/Day Years Used Date Smoking Tobacco: Never Assessed Sex and Gender Information Value Date Recorded Sex Assigned at Not on file Legal Sex Male 3:58 PM CDT Gender Identity Not on file Sexual Orientation Not on file documented as of this encounter Miscellaneous Notes * Cerner Conversion Note - Yahir ProviderMD - 06/08/2020 4:48 AM CDT [place] Suicide Severity Rating Scale (C-SSRS) Entered On: 06/08/2020 5:04 EDT Performed On: 06/08/2020 5:01 EDT by NAIF ALVARADO RN [place] Suicide Severity Rating Scale (C-SSRS) CSSRS Past Month Wish to be : No CSSRS Past Month Suicidal Thoughts : No CSSRS Lifetime Suicide Behavior : No Suicide Severity Rating Score : 0 Suicide Severity Rating : No Additional Care Required at this time NAIF ALVARADO RN - 06/08/2020 5:01 EDT documented in this encounter Plan of Treatment Upcoming Encounters Date Type Department Care Team (Late st Contact Info) Description 12/24/2025 3:00 PM EDT Office Visit [address] [phone] Elton Faust MD [address] [place] [address] documented as of this encounter Visit Diagnoses Not on filedocumented in this encounter Care Teams Thermodynamics Engineer Relationship Specialty Start Date End Date Yvan Coffey MD [address] [facility] [address] [place] [address] PCP - General Internal Medicine 08/13/22 documented as of this encounter
--- OUTSIDE RECORDS SUMMARY | 2025-02-13 11:28 | XMS_ITS | Encounter Summary ---
Author Organization [employer] Address [address] [facility] [place] [address] Care Team Providers Care Engineering Designer Name Role Phone Yvan Coffey MD Primary Care Provider [phone] Encounter Details Date Type Department Care Team (Late st Contact Info) Description 06/10/2020 Transcribed Document [facility] [address] [place] [address] Janeen [place] MD [address] [place] [address] [address] [place] [address] Social History Tobacco Use Types Packs/Day Years Used Date Smoking Tobacco: Never Assessed Sex and Gender Information Value Date Recorded Sex Assigned at Not on file Legal Sex Male 3:58 PM CDT Gender Identity Not on file Sexual Orientation Not on file documented as of this encounter Miscellaneous Notes * Cerner Conversion Note - Janeen [place] MD - 06/10/2020 2:28 PM EDT Patient: JAY TORRES Age: 64 Years Sex: Male : 1955 Admit Date 06/09/2020 12:20 Discharge Date 06/10/2020 Primary Care Provider YVAN COFFEY MD-INT Discharge Diagnosis NSTEMI S/P C DEYVI to LAD 06/08/2020 Hypertension 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 Patient presents to ER with complaints of acute onset midsternal chest pain with radiation to the left shoulder blade. He began experiencing pain a few days ago which subsided and pain returned around 2 AM. Patient presented to the ER for evaluation and was given SL NTG x2 which remedied his pain. Patient also given large dose of ASA. Per hospital records, in 2012 patient was being considered for IVC filter secondary to lower extremity DVTs in setting of ARDS and was placed on heparin in preparation for the procedure. Patient's platelets dropped into the 30,000's and there were evidence of lower extremity bruising and suspicion of emboli in the feet/toes and work-up was positive for HIT. Patient denies cardiovascular history. He denies dizziness, SOA, palpitations or edema. -------- Patient underwent left heart catheter with DEYVI to LAD on June 08, 2020. Patient started on aspirin , Plavix and statin. Lisinopril as well as Coreg was increased. Blood pressure better controlled. Physical therapy evaluate the patient during this hospitalization. Patient tolerated physical therapy very well. Cardiology recommend okay to discharge home with close follow-up after one to 2 weeks. 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 Baxter Disposition. Discharge home when okay with cardiology Vital Signs T: 37.1 ??C TMIN: 36.5 ??C TMAX: 37.1 ??C HR: 62(Monitored) RR: 16 BP: 122/66 SpO2: 97% HT: 172.72 cm WT: 109 kg BMI: 36.54 Oxygen Settings (Last) Oxygen Therapy Mode: Room air (06/10/20 08:58:00) Physical Exam Chest clear to auscultation bilaterally Discharge Disposition Home Discharge Follow Up YVAN COFFEY - 02:15 PM KOFI BAXTER - 11:00 AM [facility] [place] - Within 6 weeks Discharge Medications (9) Active acetaminophen-oxyCODONE 325 mg-10 mg oral tablet 1 Tab, PRN, Oral, TID aspirin 81 mg oral tablet, chewable 81 mg = 1 Tab, Oral, Daily atorvastatin 80 mg oral tablet 80 mg = 1 Tab, Oral, At Bedtime Coreg 12.5 mg oral tablet 12.5 mg = 1 Tab, Oral, BID gabapentin 600 mg oral tablet 600 mg = 1 Tab, Oral, BID lisinopril 5 mg oral tablet 5 mg = 1 Tab, Oral, Q12H pantoprazole 40 mg oral delayed release tablet 40 mg = 1 Tab, Oral, Daily Plavix 75 mg oral tablet 75 mg = 1 Tab, Oral, Daily promethazine 25 mg oral tablet 25 mg = 1 Tab, PRN, Oral, Q8H Code Status Start: 06/08/20 12:37:00 EDT, Full Code, Continuous Order Condition on Discharge Stable Consulting Physicians No Consulting Physician on Record. Current Diet Order Diet, Adult - Ordered -- Start: 06/08/20 12:48:00 EDT, Cardiac Diet, Isolation: Standard Precautions Patient Discharge Summary Orders Discharge Activity: Discharge Activity: Activity as tolerated Diet: Discharge Diet: Heart healthy diet Time Spent on Discharge 45 MIN documented in this encounter Plan of Treatment Upcoming Encounters Date Type Department Care Team (Late st Contact Info) Description 12/24/2025 3:00 PM EDT Office Visit [facility] [address] [address] Elton Faust MD [address] [place] [address] documented as of this encounter Visit Diagnoses Not on filedocumented in this encounter Care Teams Engineering Designer Relationship Specialty Start Date End Date Yvan Cfofey MD [address] [address] PCP - General Internal Medicine 08/13/22 documented as of this encounter
--- OUTSIDE RECORDS SUMMARY | 2025-02-13 11:28 | XMS_ITS | Encounter Summary ---
Author Organization [email or web address] Address [address] [place] [address] Care Team Providers Care Sail Repair Person Name Role Phone Yvan Coffey MD Primary Care Provider [phone] Encounter Details Date Type Department Care Team (Late st Contact Info) Description 06/09/2020 Transcribed Document [facility] [place] [address] ProviderYahir MD [address] [place] [address] Social History Tobacco Use Types Packs/Day Years Used Date Smoking Tobacco: Never Assessed Sex and Gender Information Value Date Recorded Sex Assigned at Not on file Legal Sex Male 3:58 PM CDT Gender Identity Not on file Sexual Orientation Not on file documented as of this encounter Miscellaneous Notes * Cerner Conversion Note - Historical ProviderMD - 06/09/2020 4:00 AM CDT Height and Weight, Routine Entered On: 06/09/2020 6:44 EDT Performed On: 06/09/2020 4:00 EDT by Elaine Phillips RN Height and Weight, Routine Routine Weight Source : Bed scale Routine Weight Entry Format : Metric Routine Weight, Kilograms : 109 kg(Converted to: 240 lb 5 oz) Routine Weight Calculation : 109 kg Height Source : Stated Height Entry Format : [place] Height, Feet : 5 ft Height, Inches : 8 Inch Clinical Height : 172.72 cm Body Surface Area (BSA), Routine : 2.21 m2 Body Mass Index (BMI), Routine : 36.54 kg/m2 Elaine Phillips RN - 06/09/2020 6:44 EDT documented in this encounter Plan of Treatment Upcoming Encounters Date Type Department Care Team (Late st Contact Info) Description 12/24/2025 3:00 PM EDT Office Visit [address] [phone] Elton Faust MD [address] [place], [place] [phone] documented as of this encounter Visit Diagnoses Not on filedocumented in this encounter Care Teams Sail Repair Person Relationship Specialty Start Date End Date Yvan Coffey MD [address] [address] PCP - General Internal Medicine 08/13/22 documented as of this encounter
--- OUTSIDE RECORDS SUMMARY | 2025-02-13 11:28 | XMS_ITS | Encounter Summary ---
Author Organization [employer] Address [address] [facility] [place] [address] Care Team Providers Care Information Technology Architect Name Role Phone Yvan Coffey MD Primary Care Provider [phone] Encounter Details Date Type Department Care Team (Late st Contact Info) Description 06/09/2020 Transcribed Document [facility] [place] Family Medicine [facility] [place] [address] ProviderYahir MD [address] [place] [address] Social History Tobacco Use Types Packs/Day Years Used Date Smoking Tobacco: Never Assessed Sex and Gender Information Value Date Recorded Sex Assigned at Not on file Legal Sex Male 3:58 PM CDT Gender Identity Not on file Sexual Orientation Not on file documented as of this encounter Miscellaneous Notes * Cerner Conversion Note - Yahir ProviderMD - 06/09/2020 2:00 AM CDT Supervisor Picking Crew Details Entered On: 06/09/2020 3:35 EDT Performed On: 06/09/2020 2:00 EDT by Elaine Phillips RN Order Details Order Detail : N/A IV Order Detail : 1 Oxygen Order Detail : 0 Nurse Collect Order Detail : 0 Lift/Transfer : Independent Central Line Order Detail : No Room Service : Appropriate Arterial Line : No Elaine Phillips RN - 06/09/2020 3:34 EDT documented in this encounter Plan of Treatment Upcoming Encounters Date Type Department Care Team (Late st Contact Info) Description 12/24/2025 3:00 PM EDT Office Visit [address] [address] Elton Faust MD [address] [place] [address] documented as of this encounter Visit Diagnoses Not on filedocumented in this encounter Care Teams Information Technology Architect Relationship Specialty Start Date End Date Yvan Coffey MD [address] [address] PCP - General Internal Medicine 08/13/22 documented as of this encounter
--- OUTSIDE RECORDS SUMMARY | 2025-02-13 11:28 | XMS_ITS | Clinical Summary ---
Author Organization [facility] Address [address] [facility] [address] [place] [address] Phone Care Team Providers Care Supervisory Training Specialist Name Role Phone Milan Paze MD [ ] Conditions or Problems No information available. Medications No information available. Medications Administered No information available. Allergies, Adverse Reactions, Alerts No information available. Results No information available. Plan of Care No information available. Procedures No information available. Vital Signs No information available. Immunizations No information available. Advance Directives No information available.
--- OUTSIDE RECORDS SUMMARY | 2025-02-13 11:28 | XMS_ITS | Encounter Summary ---
Author Organization [employer] Address [address] [place] [address] Care Team Providers Care Enterprise Project Manager Name Role Phone Yvan Coffey MD Primary Care Provider Encounter Details Date Type Department Care Team (Late st Contact Info) Description 06/09/2020 Transcribed Document [facility] [place] [place] Family Medicine [facility] [place] [address] ProviderYahir MD [address] [place] [id number] Social History Tobacco Use Types Packs/Day Years Used Date Smoking Tobacco: Never Assessed Sex and Gender Information Value Date Recorded Sex Assigned at Not on file Legal Sex Male 3:58 PM CDT Gender Identity Not on file Sexual Orientation Not on file documented as of this encounter Miscellaneous Notes * Cerner Conversion Note - Yahir ProviderMD - 06/09/2020 2:52 PM CDT Initial Discharge Planning Entered On: 06/09/2020 14:53 EDT Performed On: 06/09/2020 14:52 EDT by DARRELL DIOR Rn-Public Health Dentist Initial Assessment I Previously Documented Living Environment : No qualifying data available. Living Situation : Home Patient Lives With : Spouse Is the Patient a Caregiver at Home? : No Emergency Contact #1 : Sherry Emergency Contact #1 Phone Number : [phone] Emergency Contact #1 Relationship : Emergency Contact #2 : x Emergency Contact #2 Phone Number : x Emergency Contact #2 Relationship : x Enter Doctors Name : Yvan Coffey Does Patient have PCP Listed? : Yes Legal Guardian : No DARRELL DIOR Rn-Public Health Dentist - 06/09/2020 14:52 EDT Initial Assessment II Sensory and Motor Deficits : None Current Home Treatments and Equipment : CPAP DARRELL DIOR Rn-Public Health Dentist - 06/09/2020 14:52 EDT Discharge Needs I Anticipated Discharge Date : 06/10/2020 EDT Anticipated Discharge To, CM : Home with family care Current Home Treatment/Equipment : Current Home Treatment/Equipment No qualifying data available. Post Acute/Home Treatments : None Documentation Status Complete : Yes DARRELL DIOR Rn-Public Health Dentist - 06/09/2020 14:52 EDT Discharge Needs II Professional Skilled Services : Professional Skilled Services No qualifying data available. Services and Community Resources : Outpatient Cardiac Rehab Needs Assistance with Transportation : No Discharge Options Discussed with Patient : Discharge transportation, DME, Home Health, Outpatient services DARRELL DIOR Rn-Public Health Dentist - 06/09/2020 14:52 EDT Narrative Note Narrative Note : I-ADL, preference for Cardiac Rehab is [place], [place], new inpatient status DARRELL DIOR Rn-Public Health Dentist - 06/09/2020 14:52 EDT Electronically signed by [facility] Conversion Fittings Tightener Cerner at 12/21/2022 4:57 PM CDT documented in this encounter Plan of Treatment Upcoming Encounters Date Type Department Care Team (Late st Contact Info) Description 12/24/2025 3:00 PM EDT Office Visit [address] [address] Elton Faust MD [address] [place] [address] documented as of this encounter Visit Diagnoses Not on filedocumented in this encounter Care Teams Enterprise Project Manager Relationship Specialty Start Date End Date Yvan Coffey MD [address] [facility] [address] [place] [address] PCP - General Internal Medicine 08/13/22 documented as of this encounter
--- OUTSIDE RECORDS SUMMARY | 2025-02-13 11:28 | XMS_ITS | Encounter Summary ---
Author Organization [employer] Address [address] [place] [address] Care Team Providers Care Rocket Motor Mechanic Name Role Phone Yvan Coffey MD Primary Care Provider [phone] Encounter Details Date Type Department Care Team (Latest Contact Info) Description 12/25/2024 Travel Social History Tobacco Use Types Packs/Day Years [...] Date Alejandro rded Speak language other than Tajik at home Not on file 09/23/2023 Want [...] on file documented as of this encounter Plan of Treatment Upcoming Encounters Date Type Department Care Team (Late st Contact Info) Description 12/24/2025 3:00 PM EDT Office Visit [address] [phone] Elton Faust MD [address] [place] [address] documented as of this encounter Visit Diagnoses Not on filedocumented in this encounter Care Teams Rocket Motor Mechanic Relationship Specialty Start Date End Date Yvan Coffey MD [address] [facility] [address] [place] [address] PCP - General Internal Medicine 08/13/22 documented as of this encounter
--- OUTSIDE RECORDS SUMMARY | 2025-02-13 11:28 | XMS_ITS | Encounter Summary ---
Author Organization [employer] Address [address] [place] [address] Care Team Providers Care Manifest/Order Organizer Print Orders Name Role Phone Yvan Coffey MD Primary Care Provider [phone] Encounter Details Date Type Department Care Team (Late st Contact Info) Description 06/08/2020 Transcribed Document [facility] [place] [facility] [place] [address] ProviderYahir MD [address] [place] [address] Social History Tobacco Use Types Packs/Day Years Used Date Smoking Tobacco: Never Assessed Sex and Gender Information Value Date Recorded Sex Assigned at Not on file Legal Sex Male 3:58 PM CDT Gender Identity Not on file Sexual Orientation Not on file documented as of this encounter Miscellaneous Notes * Cerner Conversion Note - Historical ProviderMD - 06/08/2020 10:50 AM CDT ED Discharge Entered On: 06/08/2020 10:51 EDT Performed On: 06/08/2020 10:50 EDT by HARJINDER [facility] RN Discharge Process Patient Disposition : Admit/Observe Personal Belongings With Patient : Yes HARJINDER [facility]CE[facility] RN - 06/08/2020 10:50 EDT Admission, ED Nurse Report Accepted By : ISIS Kitchen Nurse Report Acceptance Time : 06/08/2020 10:51 EDT `Nurse Report (Hand Off) : Called HARJINDER PURCELL RN - 06/08/2020 10:50 EDT Electronically signed by [facility] Conversion Offset Plate Preparation Supervisor Cerner at 12/21/2022 4:46 PM CDT documented in this encounter Plan of Treatment Upcoming Encounters Date Type Department Care Team (Late st Contact Info) Description 12/24/2025 3:00 PM EDT Office Visit [address] [address] Elton Faust MD [address] [place] [address] documented as of this encounter Visit Diagnoses Not on filedocumented in this encounter Care Teams Manifest/Order Organizer Print Orders Relationship Specialty Start Date End Date Yvan Coffey MD [address] [facility] [address] [place] [address] PCP - General Internal Medicine 08/13/22 documented as of this encounter
--- OUTSIDE RECORDS SUMMARY | 2025-02-13 11:28 | XMS_ITS | Encounter Summary ---
Author Organization [employer] Address [address] [place] [address] Care Team Providers Care Manager Dental Name Role Phone Yvan Coffey MD Primary Care Provider Reason for Visit * Reason Comments Medication Refill Encounter Details Date Type Department Care Team (Late st Contact Info) Description 07/06/2023 Refill [facility] Cardiology [address] [facility] [address] [place] [phone] Oscar Hodge MD [address] [facility] [address] [place] [address] Coronary artery disease involving mi'kmaq coronary artery of mi'kmaq heart without angina pectoris (Primary Dx); Essential hypertension Social History Tobacco Use Types Packs/Day Years Used Date Smoking Tobacco: Never Smokeless Tobacco: Never Alcohol Use Standard Drinks/Week Comments Not Currently 0 (1 standard drink = 0.6 oz pur e alcohol) Sex and Gender Information Value Date Recorded Sex Assigned at Not on file Legal Sex Male 3:58 PM CDT Gender Identity Not on file Sexual Orientation Not on file documented as of this encounter Miscellaneous Notes * Telephone Encounter - Sari England - 07/11/2023 1:36 PM EST Patient states pharmacy did not receive these SUPPORT SPECIALIST documented in this encounter Plan of Treatment Upcoming Encounters Date Type Department Care Team (Late st Contact Info) Description 12/24/2025 3:00 PM EDT Office Visit [address] [place] [phone] Elton Faust MD [address] [address] documented as of this encounter Visit Diagnoses Diagnosis Coronary artery disease involving mi'kmaq coronary artery of mi'kmaq heart without angina pectoris- Primary Essential hypertension Unspecified essential hypertension documented in this encounter Care Teams Manager Dental Relationship Specialty Start Date End Date Yvan Coffey MD [address] [id number] PCP - General Internal Medicine 08/13/22 documented as of this encounter
--- OUTSIDE RECORDS SUMMARY | 2025-02-13 11:28 | XMS_ITS | Encounter Summary ---
Author Organization [employer] Address [address] [place] [address] Care Team Providers Care Protection Chief Industrial Plant Name Role Phone Yvan Coffey MD Primary Care Provider [phone] Reason for Visit * Reason Comments Medication Refill Encounter Details Date Type Department Care Team (Late st Contact Info) Description 09/30/2023 [address]ill [facility] Cardiology [address] [facility] [address] [place] [address] Oscar Hodge MD [address] [facility] [address] [place] [address] Essential hypertension Social History Tobacco Use Types [...] Date Alejandro rded Speak language other than Somali at home Not on file 09/23/2023 Want [...] Description 12/24/2025 3:00 PM EDT Office Visit [address] [phone] Elton Faust MD [address] [place] [address] documented as of this encounter Visit Diagnoses Diagnosis Essential hypertension Unspecified essential hypertension documented in this encounter Care Teams Protection Chief Industrial Plant Relationship Specialty Start Date End Date Yvan Coffey MD [address] [address] PCP - General Internal Medicine 08/13/22 documented as of this encounter
--- OUTSIDE RECORDS SUMMARY | 2025-02-13 11:28 | XMS_ITS | Encounter Summary ---
Author Organization [email or web address] Address [address] [place] [address] Care Team Providers Care Sales Representative Church Furniture Name Role Phone Yvan Coffey MD Primary Care Provider [phone] Encounter Details Date Type Department Care Team (Late st Contact Info) Description 10/16/2021 Transcribed Document [facility] [place] [facility] [place] [address] ProviderYahir MD [address] [place] [address] Social History Tobacco Use Types Packs/Day Years Used Date Smoking Tobacco: Never Assessed Sex and Gender Information Value Date Recorded Sex Assigned at Not on file Legal Sex Male 3:58 PM CDT Gender Identity Not on file Sexual Orientation Not on file documented as of this encounter Miscellaneous Notes * Cerner Conversion Note - Yahir Bullard MD - 10/16/2021 11:40 PM BAGGAGE SECURITY CHECKER Patient: JAY TORRES Age: 66 years Sex: Male : 1955 Associated Diagnoses: Urinary obstruction; Hematuria Author: AGUILA HUBER MD Basic Information Additional information: Chief Complaint from Nursing Triage Note : Chief Complaint 10/16/2021 23:15 EST Chief Complaint Pt from home with c/o hematuria. States he had prostate biopsy today and got home and has been having difficulty urinating, reports passing clots when he is able to void anything. . History of Present Illness The patient presents with hematuria. The onset was just prior to arrival. The course/duration of symptoms is constant. Character of hematuria red. The degree at onset was moderate. The degree at present is moderate. The exacerbating factor is none. The relieving factor is none. Risk factors consist of none. Prior episodes: none. Therapy today: none. Associated symptoms: dysuria. Additional history: 66-year-old male presenting with some hematuria and bladder spasms. The patient states that he had a prostate biopsy done earlier today. Since then he has been having some significant spasms in the bladder area. He started passing some clots. He has been having difficulty voiding. He feels very full.. Review of Systems Constitutional symptoms: No fever, no weakness. Skin symptoms: No rash, Eye symptoms: Vision unchanged. Respiratory symptoms: No shortness of breath, Cardiovascular symptoms: No chest pain, no syncope. Gastrointestinal symptoms: No abdominal pain, no nausea, no vomiting. Genitourinary symptoms: Hematuria. Musculoskeletal symptoms: No Muscle pain, no Joint pain. Neurologic symptoms: No headache, no dizziness. 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 Severity Not Documented Brilinta- Sob - shortness of breath.. Medications: (Selected) Inpatient Medications Ordered Normal Saline Flush: 10 mL, IV Push, See Comment Prescriptions Prescribed Coreg 12.5 mg oral tablet: 1 Tab, Oral, BID, for 30 Day(s), 60 Tab, 0 Refill(s) Plavix 75 mg oral tablet: 1 Tab, Oral, Daily, for 30 Day(s), 30 Tab, 0 Refill(s) atorvastatin 80 mg oral tablet: 1 Tab, Oral, At Bedtime, for 30 Day(s), 30 Tab, 0 Refill(s) lisinopril 5 mg oral tablet: 1 Tab, Oral, Q12H, for 30 Day(s), 60 Tab, 0 Refill(s) Documented Medications Documented acetaminophen-oxyCODONE 325 mg-10 mg oral tablet: 1 Tab, Oral, TID, PRN: for pain, 0 Refill(s) aspirin 81 mg oral tablet, chewable: 1 Tab, Oral, Daily, 0 Refill(s) gabapentin 600 mg oral tablet: 1 Tab, Oral, BID, 0 Refill(s) pantoprazole 40 mg oral delayed release tablet: 1 Tab, Oral, Daily, 30 Tab, 0 Refill(s) promethazine 25 mg oral tablet: 1 Tab, Oral, Q8H, PRN: for nausea/vomiting, 60 Tab, 0 Refill(s). Past Medical/ Family/ Social History Surgical history: IVC filter placement. approx. 12 in of colon removed. left knee surgery. colonscopy.. Family history: No family history items have been selected or recorded.. Social history: Social & Psychosocial Habits Alcohol 04/26/2013 Alcohol Use in Last Twelve Months No Substance Abuse 04/26/2013 Recreational Drug Use History No Recreational Drug Use Last 12 Months No Tobacco 12/01/2015 Tobacco Use Within Last Twelve Months No . 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 Physical Examination Vital Signs Vital Signs/Vital Measures 10/16/2021 23:15 EST Blood Pressure Location Arm, right upper Blood Pressure Source Non-Invasive BP Device Systolic Blood Pressure 129 mmHg Diastolic Blood Pressure 80 mmHg Temperature Source Temporal artery scanning Temperature Mode Fahrenheit Temperature, Fahrenheit 98.4 Deg F Clinical Temperature, C 36.9 Deg C Peripheral Pulse Rate 80 bpm Respiratory Rate 14 Breaths/Min Oxygen Saturation 96 % Oxygen Therapy Mode Room air . General: Alert, no acute distress. Skin: Warm, no rash. Cardiovascular: Regular rate and rhythm, No murmur. Respiratory: Lungs are clear to auscultation, breath sounds are equal. Gastrointestinal: Soft, Nontender, Non distended, Normal bowel sounds. Musculoskeletal: Normal ROM. Neurological: Alert and oriented to person, place, time, and situation, No focal neurological deficit observed. Medical Decision Making Differential Diagnosis: Cystitis, hematuria, prostatitis, urinary retention. Documents reviewed: Emergency department nurses' notes. Results review: Lab results : Lab Results 10/16/2021 23:48 EST Sodium Level 137 mmol/L Potassium Level 4.2 mmol/L Chloride Level 105 mmol/L Carbon Dioxide Level 28 mmol/L Anion Gap 8 LOW Glucose Level 104 mg/dL Blood Urea Nitrogen 19 mg/dL Creatinine Level 1.10 mg/dL eGFR >60 mL/min/1.73m2 eGFR NonAfrican >60 mL/min/1.73m2 Bun/Creatinine 17.3 Calcium Level 8.9 mg/dL Protein Total 7.0 Gram/dL Albumin Level 3.5 Gram/dL Globulin 3.5 Gram/dL A/G Ratio 1.0 LOW Bilirubin Total 0.3 mg/dL Alk Phos 66 Units/Liter AST 15 Units/Liter ALT 24 Units/Liter WBC 11.4 K/uL HI RBC 4.56 Million/uL Hgb 14.0 g/dL Hct 42.4 % MCV 93.0 fL MCH 30.7 pg MCHC 33.0 Gram/dL Platelet Count 240 K/uL MPV 10.1 fL RDW 12.5 % Neut % 66.3 % Neut # 7.59 K/uL HI Lymph % 21.5 % Lymph # 2.46 x10(3)/uL [place] % 9.9 % HI [place] # 1.13 K/uL HI Eos % 1.0 % Eos # 0.12 x10(3)/uL Baso % 0.6 % Baso # 0.07 x10(3)/uL Slide Review No IG# 0.08 x10(3)/uL HI IG% 0.70 % HI 10/16/2021 23:36 EST Urine Type. U CleanCatch Urine Color Red Urine Appearance Turbid Urine Specific Alsey 1.013 Urine pH Dipstick 5.5 LOW Urine Leukocyte Esterase Small Urine Nitrite Negative Urine Protein Dipstick >=300 Urine Glucose Dipstick Negative Urine Ketones Dipstick Trace Urine Urobilinogen Dipstick 0.2 EU/dL Urine Bilirubin Dipstick Moderate Urine Blood Dipstick Large Ur RBC TNTC /HPF Ur WBC None Seen /HPF Urine Culture if Indicated Not Indicated . Reexamination/ Reevaluation Time: 10/17/2021 00:38:00 . Notes: Patient tolerated Goodrich placement by nursing staff under sterile conditions. Is draining some blood at this time. We did flush it multiple times until the urine cleared. We will apply leg med. Patient be discharged with short course antibiotics. Needs to follow-up with primary urologist in 48 hours. Given strict return precautions. Verbalized understanding.. Impression and Plan Diagnosis Urinary obstruction - Discharge, Medical Hematuria - Discharge, Medical Plan Condition: Improved. Disposition: Discharged Admit/Transfer/Discharge: Discharge (Order): Start: 10/17/2021 0:39 EST, Discharge to: Home. Prescriptions: Prescription [facility]: Keflex 500 mg oral capsule (Prescribe): 1 Cap, Oral, Q12H, for 7 Day(s), 14 Cap, 0 Refill(s). Patient was given the following educational materials: Hematuria, Adult. Follow up with: YVAN COFFEY Within 2 to 3 days; LASHA BELTRÁN Within 2 to 3 days. Counseled: Patient, Family, Regarding diagnosis, Regarding diagnostic results, Regarding treatment plan, Regarding prescription, Patient indicated understanding of instructions. Electronically signed by [facility] Conversion Door Closer Mechanic Cerner at 12/21/2022 4:56 PM CDT documented in this encounter Plan of Treatment Upcoming Encounters Date Type Department Care Team (Late st Contact Info) Description 12/24/2025 3:00 PM EDT Office Visit [address] [address] Elton Faust MD [address] [place] [address] documented as of this encounter Visit Diagnoses Not on filedocumented in this encounter Care Teams Sales Representative Church Furniture Relationship Specialty Start Date End Date Yvan Coffey MD [address] [facility] [address] [place] [address] PCP - General Internal Medicine 08/13/22 documented as of this encounter
--- OUTSIDE RECORDS SUMMARY | 2025-02-13 11:28 | XMS_ITS | Encounter Summary ---
Author Organization [employer] Address [address] [place] [address] Care Team Providers Care Room Server Name Role Phone Yvan Coffey MD Primary Care Provider [phone] Encounter Details Date Type Department Care Team (Late st Contact Info) Description 06/09/2020 Transcribed Document [facility] Radiology [address] [place] [address] Jewel Fontana MD [address] [place] [address] [address] [place] [address] Social History Tobacco Use Types Packs/Day Years Used Date Smoking Tobacco: Never Assessed Sex and Gender Information Value Date Recorded Sex Assigned at Not on file Legal Sex Male 3:58 PM CDT Gender Identity Not on file Sexual Orientation Not on file documented as of this encounter Miscellaneous Notes * Cerner Conversion Note - Jewel Fontana MD - 06/09/2020 1:36 PM EDT Patient: CJ TORRES Age: 64 years Sex: Male : 1955 Associated Diagnoses: None Author: JEWEL FONTANA MD-INT Subjective Patient feeling better today. No chest pain or palpitations Review of Systems Constitutional: No fever, No chills. Eye: Negative. Ear/Nose/Mouth/Throat: Negative. Respiratory: Negative. Cardiovascular: No chest pain. Gastrointestinal: No nausea, No vomiting, No diarrhea. Genitourinary: No dysuria. Hematology/Lymphatics: Negative. Endocrine: Negative. Immunologic: No recurrent fevers. Musculoskeletal: No back pain. Integumentary: No rash. Neurologic: Alert and oriented X4. Psychiatric: Negative. 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 Severity Not Documented Brilinta- Sob - shortness of breath., Allergies (1) Active Reaction Brilinta SOB - Shortness of breath Current medications: (Selected) Inpatient Medications Ordered Ativan: 1 mg, IV Push, Q4H, PRN: Anxiety Core.25 mg, Oral, BID Cymbalta: 20 mg, Oral, Daily DuoNeb 0.5 mg-2.5 mg/3 mL inhalation solution: 3 mL, Nebulized Inhalation, RT_Q6H, PRN: Shortness of Breath MiraLax: 17 Gram, Oral, Daily, PRN: Constipation Mylanta: 30 mL, Oral, Q6H, PRN: Heartburn Normal Saline Flush: 10 mL, IV Push, Q12H Normal Saline Flush: 10 mL, IV Push, Q12H Normal Saline Flush: 10 mL, IV Push, Q12H Normal Saline Flush: 10 mL, IV Push, See Comment, PRN: IV Use Normal Saline Flush: 10 mL, IV Push, See Comment, PRN: IV Use Percocet 10/325: 1 Tab, Oral, Q6H, PRN: Pain (Moderate 4-6) Phenergan: 6.25 mg, IntraVENous, Q6H, PRN: Nausea Plavix: 75 mg, Oral, Daily Protonix: 40 mg, Oral, Daily Sodium Chloride 0.9% intravenous solution 1,000 mL: 50 mL/Hr, IntraVENous Tylenol: 650 mg, Oral, Q4H, PRN: Pain (Mild 1-3) aspirin: 81 mg, Oral, Daily atorvastatin: 80 mg, Oral, At Bedtime cloNIDine: 0.1 mg, Oral, Q4H, PRN: Hypertension gabapentin: 600 mg, Oral, BID hydrALAZINE: 10 mg, IV Push, Q4H, PRN: Hypertension lisinopril: 5 mg, Oral, Daily tamsulosin: 0.4 mg, Oral, At Bedtime Documented Medications Documented acetaminophen-oxyCODONE 325 mg-10 mg oral tablet: 1 Tab, Oral, TID, PRN: for pain, 0 Refill(s) doxazosin 4 mg oral tablet: 1 Tab, Oral, At Bedtime, 0 Refill(s) gabapentin 600 mg oral tablet: 1 Tab, Oral, BID, 0 Refill(s) pantoprazole 40 mg oral delayed release tablet: 1 Tab, Oral, Daily, 30 Tab, 0 Refill(s) promethazine 25 mg oral tablet: 1 Tab, Oral, Q8H, PRN: for nausea/vomiting, 60 Tab, 0 Refill(s), Medications (24) Active Scheduled: (12) #NaCl 0.9% *FLUSH* inj 10 mL 10 mL, IV Push, Q12H #NaCl 0.9% *FLUSH* inj 10 mL 10 mL, IV Push, Q12H #NaCl 0.9% *FLUSH* inj 10 mL 10 mL, IV Push, Q12H aspirin 81 mg chew tab 81 mg 1 Tab, Oral, Daily atorvastatin 40 mg tab 80 mg 2 Tab, Oral, At Bedtime carvedilol 6.25 mg tab 6.25 mg 1 Tab, Oral, BID clopidogrel 75 mg tab 75 mg 1 Tab, Oral, Daily DULoxetine DR 20 mg cap 20 mg 1 Cap, Oral, Daily gabapentin 600 mg tab 600 mg 1 Tab, Oral, BID lisinopril 5 mg tab 5 mg 1 Tab, Oral, Daily pantoprazole EC 40 mg tab 40 mg 1 Tab, Oral, Daily tamsulosin CR 0.4 mg cap 0.4 mg 1 Cap, Oral, At Bedtime Continuous: (1) NaCl 0.9% 1,000 mL 1,000 mL, IntraVENous, 50 mL/Hr PRN: (11) #NaCl 0.9% *FLUSH* inj 10 mL 10 mL, IV Push, See Comment #NaCl 0.9% *FLUSH* inj 10 mL 10 mL, IV Push, See Comment acetaminophen 325 mg tab 650 mg 2 Tab, Oral, Q4H acetaminophen/oxyCODONE 325/10 mg tab 1 Tab, Oral, Q6H al hydrox/mag hydrox/simeth 30 mL liq 30 mL, Oral, Q6H albuterol-ipratropium inh 3 mL 3 mL, Nebulized Inhalation, RT_Q6H cloNIDine 0.1 mg tab 0.1 mg 1 Tab, Oral, Q4H hydrALAZINE 20 mg/1 mL inj 10 mg 0.5 mL, IV Push, Q4H LORazepam 2 mg/mL inj 1 mg 0.5 mL, IV Push, Q4H polyethylene glycol 3350 pwd 17 g pkt 17 Gram 1 Packet, Oral, Daily promethazine 25 mg/1 mL inj 6.25 mg 0.25 mL, IntraVENous, Q6H Problem list: Medical ARDS - Adult respiratory distress syndrome / SNOMED CT 920667867 / Confirmed DVT - Deep vein thrombosis / SNOMED CT 0603240605 / Confirmed [place] filter, device / SNOMED CT 0142979987 / Confirmed 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 / SNOMED CT 1992786121 / Confirmed History of obstructive sleep apnea / IMO [id number] / Confirmed Pneumonia / SNOMED CT 525059298 / Confirmed, Active Problems (8) ARDS - Adult respiratory distress syndrome Diverticula, colon DVT - Deep vein thrombosis Cory filter, device 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 History of obstructive sleep apnea Patient requiring acute dialysis Pneumonia Objective VS/Measurements Vitals Signs (last 24 hrs) Last Charted Minimum Maximum Temp 97.8 (JUN 09 09:48) 97.8 (JUN 09 09:48) 98.4 (JUN 08 18:52) Apical HR 72 (JUN 09 12:23) 72 (JUN 09 12:23) 72 (JUN 09 12:23) Mon HR 75 (JUN 09 12:19) 55 (JUN 08 12:55) 83 (JUN 09 09:48) Resp Rate 20 (JUN 09 12:19) 16 (JUN 09 06:00) 20 (JUN 09 09:48) SBP H 160 (JUN 09 12:19) 123 (JUN 08 12:55) H 168 (JUN 09 02:00) DBP H 104 (JUN 09 12:19) 80 (JUN 08 13:19) H 107 (JUN 08 16:04) MAP 126 (JUN 09 12:19) 93 (JUN 08 12:47) 133 (JUN 08 21:40) SpO2 98 (JUN 09 12:19) L 93 (JUN 08 15:10) 100 (JUN 08 13:40) General: Alert and oriented, No acute distress. Eye: Pupils are equal, round and reactive to light, Extraocular movements are intact, Normal conjunctiva. HENT: Normocephalic. Neck: Supple, Non-tender. Respiratory: Lungs are clear to auscultation, Breath sounds are equal. Cardiovascular: Normal rate, Regular rhythm, No murmur. Gastrointestinal: Soft, Non-tender, Non-distended. Genitourinary: No costovertebral angle tenderness. Musculoskeletal: Normal range of motion, No tenderness. Integumentary: Warm, No rash. Neurologic: Alert, Oriented, No focal deficits. Psychiatric: Cooperative, Appropriate mood & affect. Review / Management JUN 09 02:40 139 105 16 / 97 3.7 27 1.20 \ JUN 09 02:40 \ 15.8 / H 10.5 196 / 47.0 \ Radiology Results (Last 48 hours) [id number] -- 06/08/2020 09:09 CR Chest 1 Vw Portable (06/08/2020 05:10) Result: PORTABLE CHEST 06/08/2020 4:58 AMHISTORY: Precordial chest painCOMPARISON: December 2013FINDINGS: The cardiac silhouette is normal in size. The mediastinaland hilar contours are unremarkable. Chronic changes are noted in thelungs. The lungs are otherwise clear. There is no pneumothorax. Thevisualized osseous structures demonstrate no acute abnormalities.IMPRESSION: No acute cardiopulmonary process. Images reviewed, interpreted, and dictated by Dr. Mohinder Martin.Transcribed by Benoit Ceja (R).I have personally viewed, interpreted and dictated the examination. Ihave read and agree with the above final transcribed report. Results review: Labs (Last four charted values) WBC H 10.5 (JUN 09) 8.3 (JUN 08) HB 15.8 (JUN 09) 16.4 (JUN 08) HCT 47.0 (JUN 09) 48.5 (JUN 08) Plt 196 (JUN 09) 183 (JUN 08) Na 139 (JUN 09) 139 (JUN 08) K 3.7 (JUN 09) 4.1 (JUN 08) Cl 105 (JUN 09) 107 (JUN 08) CO2 27 (JUN 09) 26 (JUN 08) BUN 16 (JUN 09) 19 (JUN 08) Cr 1.20 (JUN 09) 1.30 (JUN 08) Glu R 97 (JUN 09) 98 (JUN 08) Ca 9.1 (JUN 09) 9.6 (JUN 08) PT 10.8 (JUN 08) INR 1.0 (JUN 08) PTT 27.2 (JUN 08) AST 30 (JUN 08) ALT 39 (JUN 08) ALK P 79 (JUN 08) T Bili 0.4 (JUN 08) PTN 8.0 (JUN 08) ALB 4.1 (JUN 08) Troponin C 3.120 (JUN 08) C 0.767 (JUN 08) <0.015 (JUN 08) . Medication Changes from Previous Midnight to Current New Medications: acetaminophen (Tylenol) 650 mg, Oral, Tab, Q4H, PRN for Pain (Mild 1-3), Routine, Start 06/08/20 9:46:00 EDT, 06/08/20 9:46:00 EDT EUGENIA HERNANDEZ MD acetaminophen-oxyCODONE (Percocet 10/325) 1 Tab, Oral, Tab, Q6H, PRN for Pain (Moderate 4-6), Routine, Start 06/08/20 14:19:00 EDT EUGENIA HERNANDEZ MD Al hydroxide/Mg hydroxide/simethicone (Mylanta) 30 mL, Oral, Liquid, Q6H, PRN for Heartburn, Routine, Start 06/08/20 9:46:00 EDT EUGENIA HERNANDEZ MD albuterol-ipratropium (DuoNeb 0.5 mg-2.5 mg/3 mL inhalation solution) 3 mL, Nebulized Inhalation, Inh, RT_Q6H, PRN for Shortness of Breath, Routine, Start 06/08/20 9:46:00 EDT EUGENIA HERNANDEZ MD aspirin 81 mg, Oral, Tab, Daily, Routine, Start 06/09/20 9:00:00 EDT, 06/09/20 9:00:00 EDT JONO FRAZIER JR, PA-C atorvastatin 80 mg, Oral, Tab, At Bedtime, Routine, Start 06/08/20 21:00:00 EDT, 06/08/20 9:50:00 EDT KOFI HODGE MD-CAR carvedilol (Coreg) 6.25 mg, Oral, Tab, BID, NOW, Start 06/09/20 9:48:00 EDT MARKELL ARMSTRONG APRN-INT cloNIDine 0.1 mg, Oral, Tab, Q4H, PRN for Hypertension, Routine, Start 06/08/20 9:46:00 EDT EUGENIA HERNANDEZ MD clopidogrel (Plavix) 75 mg, Oral, Tab, Daily, Routine, Start 06/08/20 14:11:00 EDT, 06/08/20 14:11:00 EDT KOFI HODGE MD-CAR DULoxetine (Cymbalta) 20 mg, Oral, Cap, Daily, Routine, Start 06/08/20 9:47:00 EDT EUGENIA HERNANDEZ MD gabapentin 600 mg, Oral, Tab, BID, Routine, Start 06/08/20 9:47:00 EDT EUGENIA HERNANDEZ MD hydrALAZINE 10 mg, IV Push, Inj, Q4H, PRN for Hypertension, Routine, Start 06/08/20 9:46:00 EDT EUGENIA HERNANDEZ MD lisinopril 5 mg, Oral, Tab, Daily, NOW, Start 06/09/20 9:49:00 EDT MARKELL ARMSTRONG, RIK-INT LORazepam (Ativan) 1 mg, IV Push, Inj, Q4H, PRN for Anxiety, NOW, Start 06/09/20 1:45:00 EDT, 06/09/20 1:45:00 EDT RON PUTNAM MD-FAM pantoprazole (Protonix) 40 mg, Oral, EC Tab, Daily, Start 06/08/20 11:04:00 EDT EUGENIA HERNANDEZ MD polyethylene glycol 3350 (MiraLax) 17 Gram, Oral, Powder, Daily, PRN for Constipation, Routine, Start 06/08/20 9:46:00 EDT EUGENIA HERNANDEZ MD promethazine (Phenergan) 6.25 mg, IntraVENous, Inj, Q6H, PRN for Nausea, Routine, Start 06/08/20 9:46:00 EDT EUGENIA HERNANDEZ MD sodium chloride (Normal Saline Flush) 10 mL, IV Push, Inj, Q12H, Routine, Start 06/08/20 10:13:00 EDT JONO FRAZIER JR, PA-C sodium chloride (Normal Saline Flush) 10 mL, IV Push, Inj, Q12H, Routine, Start 06/08/20 9:46:00 EDT EUGENIA HERNANDEZ MD sodium chloride (Normal Saline Flush) 10 mL, IV Push, Inj, See Comment, PRN for IV Use, Routine, Start 06/08/20 10:13:00 EDT JONO FRAZIER JR, PA-C sodium chloride (Normal Saline Flush) 10 mL, IV Push, Inj, Q12H, Routine, Start 06/08/20 12:37:00 EDT JONO FRAZIER JR, PA-C sodium chloride (Normal Saline Flush) 10 mL, IV Push, Inj, See Comment, PRN for IV Use, Routine, Start 06/08/20 12:37:00 EDT JONO FRAZIER JR, PA-C Sodium Chloride 0.9% intravenous solution 1,000 mL 1,000 mL, Bag Volume (mL) = 1,000, IntraVENous, Rate = 50 mL/Hr, start date 06/08/20 9:46:00 EDT, Routine, 2.29, m2 EUGENIA HERNANDEZ MD tamsulosin 0.4 mg, Oral, CR Cap, At Bedtime, Routine, Start 06/08/20 21:00:00 EDT EUGENIA HERNANDEZ MD Discontinued Medications: acetaminophen-hydrocodone ([place] 10 mg-325 mg oral tablet) 1 Tab, Oral, Tab, Q4H, PRN for Pain, Routine, Start 06/08/20 9:47:00 EDT EUGENIA HERNANDEZ MD argatroban 50 mg + NaCl 0.9% Premix Diluent 50 mL (argatroban injection 50 mg + Premix Diluent NaCl 0.9% for Drip 50 mL) Bag Volume (mL) = 50, Initial Rate: 0.01 mcg/kg/Min, IntraVENous, TITRATE, PTT Greater Than 55, PTT Less Than 75, Start 06/08/20 10:23:00 EDT JONO FRAZIER JR, PA-C carvedilol (Coreg) 3.125 mg, Oral, Tab, BID, Routine, Start 06/08/20 9:51:00 EDT, 06/08/20 9:51:00 EDT KOFI HODGE MD-GISELA carvedilol (Coreg) 3.125 mg, Oral, Tab, BID, Routine, Start 06/08/20 9:51:00 EDT, 06/08/20 9:51:00 EDT MARKELL ARMSTRONG, PREPRESS MANAGER-INT famotidine (Pepcid) 20 mg, Oral, Tab, BID, Routine, Start 06/08/20 9:46:00 EDT, 06/08/20 9:46:00 EDT EUGENIA HERNANDEZ MD lisinopril 5 mg, Oral, Tab, Daily, Routine, Start 06/08/20 10:05:00 EDT, 06/08/20 10:05:00 EDT JONO FRAZIER JR, PA-C lisinopril 2.5 mg, Oral, Tab, Daily, Routine, Start 06/09/20 9:00:00 EDT, 06/09/20 9:00:00 EDT MARKELL ARMSTRONG, PREPRESS MANAGER-INT ticagrelor (Brilinta) 90 mg, Oral, Tab, BID, Routine, Start 06/08/20 12:33:00 EDT, 06/08/20 12:33:00 EDT KOFI HODGE MD-GISELA Impression and Plan NSTEMI +trop, persistent cp-->UA, ekg noted no previous cardiac history S/P LHC DEYVI to LAD 06/08/2020 ASA, coreg, lisinopril, cont statin Started on Plavix NO heparin; Cardiology plans for L cath today echo noted Hypertension -Uncontrolled -Contine home meds - Increase Coreg -Hydralazine IV as needed 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 Hodge Disposition. Discharge home when okay with cardiology Time spent: 25 min documented in this encounter Plan of Treatment Upcoming Encounters Date Type Department Care Team (Late st Contact Info) Description 12/24/2025 3:00 PM EDT Office Visit [address] [address] Elton Faust MD [address] [place] [phone] documented as of this encounter Visit Diagnoses Not on filedocumented in this encounter Care Teams Room Server Relationship Specialty Start Date End Date Yvan Coffey MD [address] [facility] [address] [place] [address] PCP - General Internal Medicine 08/13/22 documented as of this encounter
--- OUTSIDE RECORDS SUMMARY | 2025-02-13 11:28 | XMS_ITS | Encounter Summary ---
Author Organization [employer] Address [address] [place] [address] Care Team Providers Care Pediatrician Name Role Phone Yvan Coffey MD Primary Care Provider [phone] Encounter Details Date Type Department Care Team (Late st Contact Info) Description 06/09/2020 Transcribed Document [facility] Cardiology [address] [place] [address] [address] [place] [address] [place] [address] [place] [address] [address] [place] [address] Social History Tobacco Use Types Packs/Day Years Used Date Smoking Tobacco: Never Assessed Sex and Gender Information Value Date Recorded Sex Assigned at Not on file Legal Sex Male 3:58 PM CDT Gender Identity Not on file Sexual Orientation Not on file documented as of this encounter Miscellaneous Notes * Cerner Conversion Note - Carleen Robertson MD - 06/09/2020 6:26 AM EDT Patient: JAY TORRES Age: 64 years Sex: Male : 1955 Associated Diagnoses: None Author: CARLEEN ROBERTSON MD-CAR Basic Information PCP: YVAN COFFEY MD-INT Loan Administrator: None Subjective NAD. No complaints of chest pain or SOA. Was complaining of SOA after Brilinta but this has resolved. He remains hypertensive. Health Status Current medications: Home Medications (4) Active gabapentin 600 mg, Oral, BID pantoprazole 20 mg, Oral, Daily Percocet 10/325 , Oral, TID tamsulosin 0.4 mg oral capsule 0.4 mg = 1 Cap, Oral, At Bedtime , Medications (24) Active Scheduled: (12) #NaCl 0.9% *FLUSH* inj 10 mL 10 mL, IV Push, Q12H #NaCl 0.9% *FLUSH* inj 10 mL 10 mL, IV Push, Q12H #NaCl 0.9% *FLUSH* inj 10 mL 10 mL, IV Push, Q12H aspirin 81 mg chew tab 81 mg 1 Tab, Oral, Daily atorvastatin 40 mg tab 80 mg 2 Tab, Oral, At Bedtime carvedilol 3.125 mg tab 3.125 mg 1 Tab, Oral, BID clopidogrel 75 mg tab 75 mg 1 Tab, Oral, Daily DULoxetine DR 20 mg cap 20 mg 1 Cap, Oral, Daily gabapentin 600 mg tab 600 mg 1 Tab, Oral, BID lisinopril 5 mg tab 2.5 mg 0.5 Tab, Oral, Daily pantoprazole EC 40 mg [...] mg 0.25 mL, IntraVENous, Q6H Problem list: Active Problems (8) ARDS - Adult respiratory distress syndrome Diverticula, colon DVT - Deep vein thrombosis [place] filter, device 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 History of obstructive sleep apnea Patient requiring acute dialysis Pneumonia Objective Intake and Output 24 hour intake: Total 270 ml 24 hour output: Total 1,000 ml VS/Measurements Vitals Signs (last 24 hrs) Last Charted Minimum Maximum Temp 97.8 (JUN 09 02:00) 97.8 (JUN 09 02:00) 98.4 (JUN 08 18:52) Mon HR 56 (JUN 09 02:00) 55 (JUN 08 12:55) 81 (JUN 08 18:52) Resp Rate 20 (JUN 08 10:30) 16 (JUN 08 09:30) H 27 (JUN 08 07:30) SBP H 168 (JUN 09 02:00) 108 (JUN 08 08:00) H 168 (JUN 09 02:00) DBP H 101 (JUN 09 02:00) 74 (JUN 08 09:30) H 107 (JUN 08 16:04) MAP 121 (JUN 09 02:00) 88 (JUN 08 08:00) 133 (JUN 08 21:40) SpO2 100 (JUN 09 02:00) L 93 (JUN 08 15:10) 100 (JUN 08 13:40) General: Alert and oriented, No acute distress. Eye: Vision unchanged. HENT: Normocephalic. Neck: Supple, No jugular venous distention. Respiratory: Lungs are clear to auscultation, Respirations are non-labored, Breath sounds are equal, Symmetrical chest wall expansion. Cardiovascular: Normal rate, Regular rhythm, No murmur, Good pulses equal in all extremities, Normal peripheral perfusion, No edema. Gastrointestinal: Soft, Non-distended. Genitourinary: Exam deferred. Musculoskeletal: Normal range of motion, Normal strength, No deformity. Integumentary: Warm, Dry, [place], Intact, No rash. Neurologic: Alert, Oriented, No focal deficits. Psychiatric: Cooperative, Appropriate mood & affect. Results Review JUN 09 02:40 139 105 16 / 97 3.7 27 1.20 \ JUN 05 02:40 \ 15.8 / H 10.5 196 / 47.0 \ Cardiac Markers (Current Encounter/Past 24 Hours) CK MB 10.50 ng/mL HI 06/08/2020 22:04 CK 191 Units/Liter 06/08/2020 22:04 ProBNP 35 pg/mL 06/08/2020 05:27 Radiology Results (Last 48 hours) [id number] -- 06/08/2020 09:09 CR Chest 1 Vw [...] agree with the above final transcribed report. [facility] 06/08/2020 - Oscar Hodge MD PERCUTANEOUS INTERVENTION: The left coronary artery was already engaged using CLS 3.5-guide catheter. The circumflex lesion was crossed using a Whisper wire. Angioplasty was initially performed using a 2.25 x 12 Emerge balloon with inflation to 12 atmospheres. A 2.5 x 24 Synergy stent was then successfully deployed with inflation to 12 atmospheres. No residual stenosis. Intracoronary nitroglycerin was used to optimize vessel sizing. The LAD lesion was then crossed using a Whisper wire. Angioplasty was initially performed using a 2.25 x 12 Emerge balloon with inflation to 20 atmospheres. The 3.5 x 16 Synergy stent was then successfully deployed with inflation to 12 atmospheres. No residual stenosis. Intracoronary nitroglycerin was administered to optimize vessel sizing. The patient received 180 mg Brilinta in the flower shop laborer/designer. Aggrastat bolus and infusion were also administered. The Angiomax infusion was continued. The radial artery sheath was removed and the access site successfully compressed using TR band. ECHO - Report Pending Impression and Plan IMPRESSION: NSTEMI in setting of acute onset chest pain x 2 to 3 days. s/p LHC 06/08/2020; DEYVI to LAD No known CV history. No cardiac meds. Allergic to Heparin. Hx of HIT 2012 Echo 2013 EF 60%, valves ok Hx of ARDS (2012) complicated by HIT with DVT IVC Filter- removed 2015 HTN Uncontrolled HLD Obesity PLAN: 06/09/2020 Agree with increasing Coreg to 12.5mg BID. I will increase his Lisinopril to 5mg BID with holding parameters. Okay to discharge home once his BP is better controlled. Continue DAPT with ASA and Plavix. He should follow up with Dr. Oscar Hodge in 3-4 weeks. We will sign off. 06/08/2020 [facility] +/- PCI via R radial approach today. Risks and benefits discussed and pt wishes to proceed. Avoid heparin. Echo. Add ASA, statin, BB and ACEi. documented in this encounter Plan of Treatment Upcoming Encounters Date Type Department Care Team (Late st Contact Info) Description 12/24/2025 3:00 PM EDT Office Visit [address] [address] Elton Faust MD [address] [place] [address] [phone] documented as of this encounter Visit Diagnoses Not on filedocumented in this encounter Care Teams Pediatrician Relationship Specialty Start Date End Date Yvan Coffey MD [address] [facility] [address] [place] [address] PCP - General Internal Medicine 08/13/22 documented as of this encounter
--- OUTSIDE RECORDS SUMMARY | 2025-02-13 11:28 | XMS_ITS | Encounter Summary ---
Author Organization [employer] [facility] [employer] Address [address] [facility] [place] [address] Care Team Providers Care Advanced Developer Name Role Phone Yvan Coffey MD Primary Care Provider [phone] Encounter Details Date Type Department Care Team (Late st Contact Info) Description 06/09/2020 Transcribed Document [facility] [place] [address] ProviderYahir MD [address] [place] [address] Social History Tobacco Use Types Packs/Day Years Used Date Smoking Tobacco: Never Assessed Sex and Gender Information Value Date Recorded Sex Assigned at Not on file Legal Sex Male 3:58 PM CDT Gender Identity Not on file Sexual Orientation Not on file documented as of this encounter Miscellaneous Notes * Cerner Conversion Note - Yahir ProviderMD - 06/09/2020 2:54 PM CDT Final Discharge Planning Entered On: 06/09/2020 14:55 EDT Performed On: 06/09/2020 14:54 EDT by DARRELL DIOR Rn-Sign Poster Final Discharge Planning Discharge Arrangements : Patient Post-Acute Information Patient Name: JAY TORRES Gender: Male : [birth year] Age: 64 Years No Post-Acute Placement(s) Listed No Post-Acute Service(s) Listed No [place] Referral(s) Listed Important Medicare Message Reviewed With : Patient Important Medicare Message Reviewed D/T : 06/09/2020 15:45 EDT DARRELL DIOR, Rn-Sign Poster - 06/09/2020 14:54 EDT Electronically signed by Arthur, [facility] Conversion Cloth Washer Cerner at 12/21/2022 4:52 PM CDT documented in this encounter Plan of Treatment Upcoming Encounters Date Type Department Care Team (Late st Contact Info) Description 12/24/2025 3:00 PM EDT Office Visit [address] [phone] Elton Faust MD [address] [place] [phone] documented as of this encounter Visit Diagnoses Not on filedocumented in this encounter Care Teams Advanced Developer Relationship Specialty Start Date End Date Yvan Coffey MD [address] [facility] [address] [place] [address] PCP - General Internal Medicine 08/13/22 documented as of this encounter
--- OUTSIDE RECORDS SUMMARY | 2025-02-13 11:28 | XMS_ITS | Encounter Summary ---
Author Organization [employer] Address [address] [place] [address] Care Team Providers Care Flight Engineer Inspector Name Role Phone Yvan Coffey MD Primary Care Provider [phone] Encounter Details Date Type Department Care Team ( Contact Info) Description 06/08/[address] [facility] Medicine On [facility] [place] [facility] [address] ProviderYahir MD [address] [place] [id number] Social History Tobacco Use Types Packs/Day Years Used Date Smoking Tobacco: Never Assessed Sex and Gender Information Value Date Recorded Sex Assigned at Not on file Legal Sex Male 3:58 PM CDT Gender Identity Not on file Sexual Orientation Not on file documented as of this encounter Miscellaneous Notes * [employer]ner Conversion Note - Yahir ProviderMD - 06/08/2020 2:19 PM CDT Pain Assessment Entered On: 06/08/2020 17:40 EDT Performed On: 06/08/2020 15:29 EDT by IRINA FORREST, RN Intervention Information: acetaminophen-oxyCODONE Performed by IRINA FORREST RN on 06/08/2020 14:29:00 EDT acetaminophen-oxyCODONE,1Tab Oral,Pain (Moderate 4-6) Pain Assessment Pain Assessment : Follow-up assessment Pain Scale Goal : 2 IRINA FORREST, ISIS - 06/08/2020 17:39 EDT Electronically signed by [facility] Conversion Lockstitch Lining Setter Cerner at 12/26/2022 2:01 PM CDT documented in this encounter Plan of Treatment Upcoming Encounters Date Type Department Care Team (Late st Contact Info) Description 12/24/2025 3:00 PM EDT Office Visit [address] [phone] Elton Faust MD [address] [place] [id number] documented as of this encounter Visit Diagnoses Not on filedocumented in this encounter Care Teams Flight Engineer Inspector Relationship Specialty Start Date End Date Yvan Coffey MD [address] [facility] [address] [place] [id number] PCP - General Internal Medicine 08/13/22 documented as of this encounter
--- OUTSIDE RECORDS SUMMARY | 2025-02-13 11:28 | XMS_ITS | Data Portability ---
Author Organization [facility] [place] [facility] Address [address] [place] [address] Care Team Providers Care Molding Engineer Name Role Phone ERINN YIFAN Primary Care Provider KOFI BAXTER Mixing And Dispensing Supervisor BABAR TALBOT General Surgeon AMY QUINN Hand Frame Surgical Elastic Knitter Assessment Encounter Date Assessment Date Assessment LastModified by Organization Details LastModified Time 02/10/2024 02/10/2024 Cj Torres is a 68-year-old man with obesity and a history of myocardial infarction on Plavix who presents with back and left hip pain. I studied his MRI L-spine from 01/10/2024 as well as his flexion/extension x-rays from 12/27/2023. He has epidural lipomatosis with significant stenosis from L3 to the sacrum. There is grade 1 spondylolisthesis at L4/5 with a left synovial cyst and severe left L4/5 foraminal stenosis. There is 4 mm of instability at L4/5 and 7 mm of instability at L3/4 when comparing his x-rays to his MRI. I extensively discussed his symptoms and image findings with him. I discussed instrumentation and arthrodesis with him given his significant instability and synovial cyst, but his primary symptoms are low back pain and left hip pain. He lacks radicular symptoms. I explained that lumbar pain responds unreliably to surgery, and the goal of surgery would be to improve symptoms of radiculopathy or neurogenic claudication, which he doesn't currently have. He is certainly at risk of developing these symptoms in the future, therefore I recommended him to follow-up in several months. He should return sooner if he develops new radicular or neurogenic claudication symptoms. [email or web address] Not available 02/10/2024 16:31:08 Plan of Treatment Reminders Order Date Submit Date Provider Last Modified By Organization Details Last Modified Time Details Appointments MALE RECHECK 2024 02:30P M LASHA BELTRÁN MD Not available Not available Not available Lab None recorded. Referral physical therapist referral 2023 024 [facility], [address] [place] [address] , Mahesh Flores, [place], [address], 05/24/2024 11:11:59 Procedures None recorded. Surgeries None recorded. Imaging None recorded. Medication Orders Medrol (Ty) 4 mg tablets in a dose pack 2023 [facility] [id number], [address] [place] [address], [address], 02/16/2024 14:31:59 Patient TargetsNo targets recorded. Patient Instructions Encounter Date Encounter Id Patient Instructions Last Modified By Organization Details Last Modified Time 07/23/2024 [id number] He would like to do prostate MRI prior to repeating. Not available 07/23/2024 18:24:56 09/24/2024 [id number] I offered him MRI/US fusion biopsy and recommended that actually. He would like to take a conservative tack and follow his PSA and repeat MRI in a year. Not available 09/24/2024 16:19:01 Reason for Referral Physical Therapist Referral for Left-sided piriformis syndrome Referring Physician: Jessica Mitchell, Orthopedic Surgery, Encounter Date: 02/16/2024 Results Created Date Observation Date Name Description Value Unit Range Abnormal Flag Note LastModifiedBy Organization Detail LastModifiedTime 12/27/19 24 12/27/2023 XR, lumbo sacra l spine , 4 or more view [facility] [address] [place] [address], [place] [address] Scott corrigan Name: FE corrigan : 1954 Scott corrigan Orderi ng Provid er: BARBIE CROSS T EXAM DATE: 2023 EXAM: XR LUMBAR SPINE AP/LAT /FLEX/ EXT HISTOR Y: Low back pain COMPAR FABI: None. FINDIN GS: There is diffus e dextro curvat ure of the lumbar spine. There is anteri or listhe sis of L4 on L5 which measur es 4 mm in flexio n and reduce s with extens ion. There is mild door puller ior listhe sis of L1 on L2, L2 on L3 and L3 on L4 which is stable with flexio n and extens ion. There is mild anteri or margin al spurri ng. No fractu re is identi fied. IMPRES CHAD: 1. There are mild degene rative change s in the lumbar spine. Interp reted By: Nyla nicole MD Electr onical ly Signed By: Nyla nicole MD on 9:51 AM [email or web address] [facility] Radiology [facility] [address] [place] [address], [phone], 01/23/2024 17:02:02 12/28/19 24 12/16/2023 CT, lumba r spine , w/o contr ast No observ ation record ed. BARCODE Not Available 2023 10:58:47 12/30/19 24 12/28/2023 CT, abdom en + pelvi s, w/ contr ast No observ ation record ed. [email or web address] Not Available 2023 10:21:08 01/10/20 24 01/10/2024 MRI, lumba r spine , w/o contr ast [address] [address] Patien t Name: FE Guidry Paticydney t : 1954 Paticydney t Orderi ng Provid er: BARBIE Corrigan EXAM DATE: 2023 EXAM: MR LUMBAR W/O CONTRA ST HISTOR Y: 68-yea r-old male with low back pain and left hip pain. COMPAR FABI: 024 FINDIN GS: There is transi tional anatom y at the lumbos acral juncti on with sacral izatio n of L5 on the right. There is mild dextro curvat ure from T12 throug h L4, and mild focal levocu rvatur e at L4-L5. There is minima l anteri or listhe sis of L4 on L5, and minima l door puller ior listhe sis of L1 on L2 and L3 on L4. There is no fractu re. There is mild anteri or margin al osteop hytic spurri ng. No pathol ogic lesion is identi fied in the lumbar spine. There are small Schmor l's nodes. The conus medull lucy is normal in appear ance at the T12-L1 level. T12-L1 : There is a small disc bulge. There is no centra l canal narrow ing or neural forami nal narrow ing. L1-L2: There is a focal left parace ntral disc protru chad, a protru chad extend ing into the left neural forame n, a mild disc bulge, mild facet arthro anitha and promin ence of the epidur al fat. There is mild centra l canal stenos is. There is modera te left neural forami nal stenos is. L2-L3: There is a broad- based disc bulge and modera te endpla te spurri ng extend ing into the neural forami na. There is mild facet arthro anitha and promin ence of the epidur al fat. There is modera te centra l canal stenos is. There is modera te bilate ral neural forami nal stenos is. L3-L4: There is a broad- based disc protru chad extend ing into the neural forami na, mild endpla te spurri ng, modera te facet arthro anitha and promin ence of the epidur al fat. There is severe centra l canal stenos is. There is modera te/sev ere right and modera te left neural forami nal stenos is. L4-L5: There is a broad- based disc protru chad and endpla te spurri ng extend ing into the neural forami na, severe right and modera te left facet arthro anitha, a synovi al cyst extend ing from the medial margin of the left facet, and promin ence of the epidur al fat. There is stenos is of the left and right latera l recess and severe centra l canal stenos is. There is severe bilate ral neural forami nal stenos is. L5-S1: There is a mild disc bulge with a possib le small protru chad in the right latera l recess , mild endpla te spurri ng and mild facet arthro anitha. There is promin ence of the epidur al fat. There is severe centra l canal stenos is. There is no neural forami nal stenos is. The parasp inous muscul ature is mildly atroph ic. IMPRES CHAD: 1. There is severe centra l canal stenos is from L3-L4 throug h L5-S1, modera te centra l canal narrow ing at L2-L3, and mild centra l canal narrow ing at L1-L2. This is second layne to degene rative change s and epidur al lipoma tosis. 2. There is severe bilate ral neural forami nal stenos is at L4-L5, modera te to severe neural forami nal narrow ing at L2-L3 and L3-L4, and modera te left neural forami nal narrow ing at L1-L2. Interp reted By: Nyla nicole MD Electr onical ly Signed By: Nyla nicole MD on 01/10/20 24 7:06 PM [email or web address] [facility] Radiology [facility] [address] [facility], [place], [address], 02/07/2024 12:27:37 01/20/20 24 12/28/2023 CT, abdom en + pelvi s, w/ contr ast No observ ation record ed. BARCODE Not Available 2023 13:58:55 02/16/20 24 02/16/2024 XR, hip, unila teral , 2 or 3 view [place] Nnamdi id [id number] [address] Scott corrigan Name: FE corrigan : 1954 Scott corrigan Orderi ng Provid er: JESSICA MITCHELL EXAM DATE: 2023 EXAM: XR LT HIP UNILAT ERAL, 2 OR 3 VWS COMPAR FABI: None. HISTOR Y: Left hip pain. FINDIN GS: No fractu re is identi fied. There is minima l degene rative change in the left hip. There is minima l medial joint space loss. There is minima l margin al spurri ng. Limite d visual izatio n of the contra latera l hip demons trates minima l degene rative change . IMPRES CHAD: 1. There are minima l degene rative change s in the left hip. Interp reted By: Nyla nicole MD Electr onical ly Signed By: Nyla nicole MD on 024 3:00 PM [email or web address] [facility]iology [place] [address], [place], [address], 02/16/2024 15:54:57 08/27/20 24 08/27/2024 MRI, pelvi s, w/wo contr ast [facility] [address] [place] [address] [facility] [place] [address] Patien t Name: FE Mark Richmond JONATANDANIEL Brea Scott t : 1954 Paticydney t Orderi ng Provid er: EARLENE BELTRÁN EXAM DATE: 2023 EXAM: MR PELVIS ATTN PROSTA TE W/WO CONTRA ST CLINIC AL INFORM ATION: Elevat ed PSA TECHNI QUE: A baseli ne serum creati nine with eGFR was obtain ed prior to inject ion of contra st medium due to the patien ts risk factor s for KENZIE. Calcul ated eGFR at time of exam was GFR >90 Tripla ruby T2, axial DWI, ADC map, axial T1 pre- and dynami c postco ntrast -enhan anh images as well as axial T1 fat-sa t imagin g was perfor med after inject ion of [address] (1 x 10 mL bottle of [facility] 02536- 325-02 ) IV. The patien t did not requir e sedati on for this exam. COMPAR FABI: None. FINDIN GS: PROSTA TE SIZE MEASUR EMENTS : Prosta te dimens ions = 5 x 4.1 x 6.1 cm (T x AP x CC). QUALIT Y: Good PERIPH ERAL ZONE: Overal l, periph eral zone is normal in size and backgr ound signal charac terist ics, A suspic ious focal lesion is seen as decibe d below. PI-RAD S catego ry = 4/5 locate d in door puller ior latera l right periph eral zone at inferi or gland level. Measur ement = 12 mm. Seen best in image 18 of series 8001, 7006, 7007, and image 180 of series 8000. It is positi ve on T2 WI, ADC, DWI and DCE images . Descri ption TRANSI TION ZONE: Multip le, well deline ated encaps ulated nodule s are seen consis tent with BPH. No suspic ious focal lesion is seen. CAPSUL E AND NEIGHB ORING STRUCT URES: No capsul ar invasi on is identi fied. Neuro- vascul ar bundle s are normal bilate rally. Semina l vesicl es are normal . PELVIC LYMPH NODES: No pelvic lympha denopa thy. PELVIC BONES: No suspic ious osseou s lesion is seen. IMPRES CHAD: 1. Change s of BPH 2. PI-RAD S 4/5 lesion involv ing the door puller ior latera l right inferi or gland periph eral zone 3. Semina l vesicl es unrema rkable 4. No defini te extrap rostat ic diseas e is noted Interp reted By: Babar Fernández MD Electr onical ly Signed By: Babar Fernández MD on 2023 3:08 PM INTERFACE [facility] Radiology [facility] [address] [place], [address], 08/27/2024 15:13:46 Result Notes None recorded. Problems Name Problem SNOMED Code Status Onset Date Resolution Date Notes Provider Name and Address Organization Details Recorded Time Abdominal bloating 305057189 Active Mary Beth Vega [facility] 4 11:26:09 Prostate specific antigen above reference range 469350783 Active 024 Mary Beth Vega [facility] 4 11:26:09 Problem Notes None recorded. Procedures Surgical History Date Name Laterality Status Provider Name and Address Organization Details Recorded Time 2 Bladder Irrigation completed LASHA BELTRÁN MD [address] [place] [address], [address] [place] [address] 10/20/2021 08:52:34 2 biopsy of prostate completed LASHA BELTRÁN MD [address] [place] [id number] 10/20/2021 08:51:48 0 Cerumen removal - Instruments, Bilateral completed ENEDELIA CUI MD [address] [place] [address] 10/16/2019 14:57:23 [facility] 02/[facility]2017 15:35:15 Other completed LASHA BELTRÁN MD [address] [place] [address] 05/24/2022 16:52:34 [facility]2017 15:35:53 Heart Surgery completed LASHA BELTRÁN MD [address] [place] [address], [address] [place] [address] 08/17/2021 17:05:44 colonoscopy completed LASHA BELTRÁN MD [address] [place] [id number] 05/24/2022 16:51:14 Imaging Results None recorded. Procedure Notes None recorded. Medical Equipment None Reported. Allergies Allergen ID Allergen Name Allergen Category Reaction Reaction Severity Criticality Documentation Date Start Date Code Code System Note Provider Name and Address Organization Details Recorded Time 943930 heparin medicatio n Not available Not available Not available 02/03/2017 5224 RxNorm Belkis [facility] 7 15:25:15 Medications Name Sig Start Date Stop Date Status Note LastModified by Organization Details LastModified Time Miralax 17 gram oral powder packet Take by oral route. active Not Available Not Available No t Available cyclobenzap rine 10 mg tablet active Not Available Not Available Not Available amoxicillin 500 mg capsule 10/16 completed Not Available Not Available Not Available atorvastati n 80 mg tablet 08/17 completed Not Available Not Available Not Available gabapentin 600 mg tablet active Not Available Not Available Not Available doxycycline hyclate 100 mg capsule 02/03 completed Not Available Not Available Not Available carvedilol 12.5 mg tablet active Not Available Not Available Not Available azithromyci n 250 mg tablet 02/03 completed Not Available Not Available Not Available pravastatin 40 mg tablet 02/03 completed Not Available Not Available Not Available hydrocodone 5 mg-acetamin ophen 325 mg tablet 02/03 completed Not Available Not Available Not Available clopidogrel 75 mg tablet active Not Available Not Available Not Available doxazosin 8 mg tablet active Not Available Not Available No t Available amitriptyli ne 25 mg tablet 02/03 completed Not Available Not Available Not Available methocarbam ol 750 mg tablet active Not Available Not Available Not Available oxycodone-a cetaminophe n 10 mg-325 mg tablet active Not Available Not Available No t Available tamsulosin 0.4 mg capsule 10/16 completed Not Available Not Available Not Available benzonatate 100 mg capsule 02/03 completed Not Available Not Available Not Available doxycycline monohydrate 100 mg capsule active Not Available Not Available Not Available cephalexin 500 mg capsule active Not Available Not Available Not Available pantoprazol e 40 mg tablet,toya yed release active Not Available Not Available Not Available promethazin e 25 mg tablet active Not Available Not Available Not Available polymyxin B sulfate 10,000 unit-trimet hoprim 1 mg/mL eye drops 02/03 completed Not Available Not Available Not Available doxazosin 4 mg tablet active Not Available Not Available No t Available lisinopril 5 mg tablet active Not Available Not Available Not Available mupirocin 2 % topical ointment active Not Available Not Available Not Available oxycodone-a cetaminophe n 7.5 mg-325 mg tablet Take 1 tablet every 6 hours by oral route as needed. active Not Available Not Available No t Available methylpredn isolone 4 mg tablets in a dose pack take as directed active Not Available Not Available No t Available albuterol sulfate HFA 90 mcg/actuati on aerosol inhaler active Not Available Not Available Not Available ipratropium bromide 42 mcg (0.06 %) nasal spray Hallie 2 sprays 3 times a day by intranasa l route. 2019 active Not Available Not Available Not Avai lable fluticasone propionate 50 mcg/actuati on nasal spray,suspe nsion active Not Available Not Available Not Available Sea Kelp tablet Take by oral route. active Not Available Not Available No t Available rosuvastati n 20 mg tablet active Not Available Not Available Not Available Green Tea capsule Take by oral route. active Not Available Not Available No t Available duloxetine 30 mg capsule,del ayed release active Not Available Not Available Not Available tizanidine 4 mg capsule 02/03 completed Not Available Not Available Not Available calcium-mag nesium-zinc active Not Available Not Available Not Available Suprep Bowel Prep Kit 17.5 gram-3.13 gram-1.6 gram oral solution active Not Available Not Available Not Available Linzess 145 mcg capsule active Not Available Not Available Not Available Vitals Date Recorded Body height Body mass index (BMI) Body weight Provider Name and Address Organization Details Last Updated DateTime 09/24/2024 172.72 cm 36.3 kg/m2 563592.58 g Ginette Gustavo [facility] 09/24/2024 13:02:11 Date Recorded Body height Body mass index (BMI) Body weight Provider Name and Address Organization Details Last Updated DateTime 01/19/2024 172.72 cm 36.3 kg/m2 756748.58 g Alicia Araya [facility] 01/19/2024 11:28:42 Date Recorded Body height Body mass index (BMI) Body weight Systolic blood pressure Diastolic blood pressure Provider Name and Address Organization Details Last Updated DateTime 02/10/2024 172.72 cm 36.3 kg/m2 437103.5 8 g 122 mm[Hg] 72 mm[Hg] Abeba Cabrera [facility] 10:20:26 Date Recorded Body height Body mass index (BMI) Body weight Provider Name and Address Organization Details Last Updated DateTime 02/16/2024 172.72 cm 36.3 kg/m2 270885.58 g Lolis Horowitz [facility] 02/16/2024 14:13:50 Date Recorded Body height Body mass index (BMI) Body weight Provider Name and Address Organization Details Last Updated DateTime 07/23/2024 172.72 cm 36.3 kg/m2 476257.58 g Mary Beth Vega [facility] 07/23/2024 11:26:14 Social History Question Answer Notes LastModified by Organizat ion Details LastModified Time Tobacco Smoking Status Never Smoker Belkis salcedo [facility] 02/03/2017 15:34:14 Marital Status Informatio n not available 02/03/2017 What Was The Date Of Your Most Recent Tobacco Screening? 07/23/2024 [email or web address] Information not available 07/23/2024 Sex: Male Functional Status Question Answer Note LastModified by Organizat ion Details LastModified Time What is your level of alcohol consumption? None Information not available 02/03/2017 What is your occupation? retired from [employer] Information not available 02/03/2017 Mental Status None recorded. Family History Relationship Description Onset Age of this Age Resolved Age Notes LastModified by Organization Details LastModified Time Mother Family history of malignant neoplasm breast hstrang Not available 2016 15:33:44 Mother Diabetes mellitus hstrang Not available 2016 15:33:50 Father Family history of malignant neoplasm neck hstrang Not available 2016 15:33:44 Father Heart disease hstrang Not available 2016 15:34:05 Medical History Condition Response Coronary Artery Disease N Other N Gout N Kidney Stones N Kidney Cyst N Enlarged Prostate Y Heart Arrhythmia N Emphysema N Erectile Dysfunction Y Head Trauma/Injury N Sexually Transmitted Disease N Depression N Pneumonia N Incontinence N Prostate Problems N Cancer Prostate N Paralysis N Anxiety Disorder N Hemorrhoids N Obesity N Arthritis Y Infertility N Acid Reflux (GERD) N Cancer N Hematuria N Stroke N Neck Injury N Previous Radiation Therapy? N Neurologic Disorder N Kidney Disease N Heart Conditions Y Kidney or Bladder Problems N Urinary Problems N Constipation Y Brain Injury N Ulcers N Prostate Hypertrophy N Low Testosterone N Tuberculosis N Previous Chemotherapy? N AIDS/HIV N BPH Y Urinary Tract Infection N Asthma N Cardiac Disease N Thyroid Disorder N Hepatitis N PCOS N Colon Cancer N Hernia N Colon/Rectal Disorders N Ostomy N Glaucoma N Pacemaker N Anesthesia Complications N Genitourinary Disease N Chronic Kidney Disease N Radiation Therapy N Bladder or Kidney Problems N Back Injury N High Cholesterol N High PSA Y Liver Disease N Nervous System Disorder N Organ Transplant N Dialysis N Allergies/Hayfever N False Teeth N Chronic Obstructive Pulmonary Disease N Parkinson's Disease N Chemotherapy N Anemia N Transplant N Chest Pain N Back Pain Y Multiple Sclerosis N Proteinuria N Heart Attack ([place]) Y Mental Illness N Diabetes N Ovarian Cancer N Seizures/Epilepsy N Genitourinary problem(s) N Congestive Heart Failure (CHF) N Kidney Failure N Sleep Apnea Y Bronchitis N Heart Disease N Hypertension N Past Encounters Encounter ID Performer Location Encounter Start Date Encounter Closed Date Diagnosis/Indication Diagnosis SNOMED-CT Code Diagnosis ICD10 Code Diagnosis Note [id number] LASHA BELTRÁN [facility] [address] [place] [address] 02/03/2017 13:25:04 02/04/2017 08:56:42 Prostate specific antigen above reference range 281509393 R97.20 I recommend he has TRUS Bx, but he is reluctant to do. So we will check his free:total PSA. [id number] ENEDELIA CUI MD [place] [facility] CLOSED [address] [place] [address] 10/16/2019 14:11:13 10/21/2019 17:06:16 Impacted cerumen of bilateral ears 7286795419 961516 H61.23 Dysfunctio n of bilateral eustachian tubes 6330096450 814304 H69.93 Chronic rhinitis 1470911 6 J31.0 [id number] LASHA BELTRÁN [facility] [address] [place] [address] 08/17/2021 13:51:17 08/17/2021 14:56:49 Prostate specific antigen above reference range 289166542 R97.20 I recommed TRUS Bx and he consents to proceed, under MAC. [id number] LASHA BELTRÁN MD SURGERY SCHEDULE [address] [place] [address] 10/16/2021 12:00:06 10/16/2021 12:00:36 [id number] LASHA BELTRÁN [facility] [address] [place] [address] 10/19/2021 13:00:21 10/19/2021 13:37:32 Retention of urine 040339306 R33.9 [id number] LASHA BELTRÁN MD UROLOGY [facility] [address] [place] [address] 05/24/2022 13:51:44 05/24/2022 14:46:47 Screening for malignant neoplasm of prostate 970328863 Z12.5 [id number] BARBIE COYNE APRN [facility] CLOSED [address] [facility] [place] [address] 12/27/2023 08:00:37 12/28/2023 05:13:53 Lumbar radiculopathy 170757938 M54.16 Lumbar spondylosis 53657 0009 M47.896 [id number] LASHA BELTRÁN MD UROLOGY [facility] [address] [place] [address] 01/19/2024 10:58:32 01/19/2024 14:01:51 Prostate specific antigen above reference range 543839128 R97.20 Doesn't seem to be increasing , but slightly decreasing . WIll send biopsy for COnfirm MDx testing. Abdominal bloating 55232 9008 R14.0 I don't find a cause for this. [id number] CIRO GRIFFITH MD [facility] CLOSED [address] [facility] [place] [address] 02/10/2024 09:57:17 02/11/2024 05:05:34 Low back pain 561770565 M54.50 [id number] JESSICA MITCHELL PA-C [facility] CLOSED [address] [place] [address] 02/16/2024 13:51:20 02/17/2024 04:42:48 Left-sided piriformis syndrome 9007160364 81008 M54.32 Assessment : left sided piriformis syndrome Plan: medrol dose pack, no NSAIDs due to plavix, formal PT referral faxed, we discussed piriformis syndrome extensivel y, discussed if no improvemen t with PT and home exercises I will have him follow up with Dr. Rangel for ultrasound piriformis injection if appropriat e based on her findingsf/ u as needed [id number] LASHA BELTRÁN MD UROLOGY ON [facility] [address] [place] [address] 07/23/2024 11:00:49 07/23/2024 13:05:25 Prostate specific antigen above reference range 671506009 R97.20 rising, needs repeat Bx. [id number] LASHA BELTRÁN MD UROLOGY [facility] [address] [place] [address] 09/24/2024 12:54:40 09/24/2024 13:29:28 Prostate specific antigen above reference range [id number] R97.20 Health Concerns Section Related Observation LastModified by Organization Detai ls LastModified Time None Recorded Concern Status LastModified by Organization Details LastModified Time None Recorded Advance Directives Directive None Recorded Payers Insurance Date Sequence Insurance Name Policy Number Policy Richey Covered Member ID Richey Member ID Guarantor Name 09/24/2024 2 AETNA (MEDICARE SUPPLEMENT) [id number] Cj Richmond Brian [id number] Cj Fragoso Brian 09/18/2024 1 [place] Cj Fragoso Brian [id number] Cj Fragoso Brian 01/19/2024 2 AETNA (POS) [id number] Cj Fragoso Brian [id number] Cj Fragoso Brian Notes Date Note Type Note Provider Name and Address Organization Details Recorded Time 4 text/html Cj is a 68 yo male here today after a 2 year absence referred back by DR Coffey. He had prostate biopsy 07/27 that was not malignant but not entirel benign. SInce then his PSAs have gradually declined, most recently in 07/28 was 5.6. Lately he complains of abdominal bloating and swelling and GI workup has been unrevealing.He had recent CT scan done and is here to discuss results, Otherwise he is doing well with no other complaints or concerns. LASHA BELTRÁN MD [address] [place] [address], [phone], [facility] 01/19/2024 20:02:09 06/07/202 4 text/html Cj Torres is a 68-year-old man with obesity and a history of myocardial infarction on Plavix who presents with back and left hip pain. His symptoms began spontaneously approximately 3 months ago. He has had significant pain in the lower back as well as the left hip without clear radicular symptoms down the legs. He has been having injections for hip pain for several years and has done physical therapy in the past without improvement. He has significant mechanical low back pain as well and will occasionally have some mild pain in his thigh without persistent radicular pain. He has taken gabapentin, Percocet, and muscle relaxers without significant improvement. His primary symptom is his left hip pain. CIRO GRIFFITH MD [address] [place] [address], [phone], [facility] 02/10/2024 16:31:33 4 text/html 02/16/24 1 2 3 4 5 6 7 8 9 Sever al 3-4 month history of LEFT hip pain. No specific trauma or other inciting event. No groin pain. No thigh pain. Occasional trochanteric pain. Frequent mechanical symptoms.Low back pain: frequentRadicular symptoms: none Rates the overall complement of pain at /10. Pain daily. Denies night/rest pain. Prior treatment:Provider: noneNSAIDs: OTC no relief. ibuprophenNarcotic medication: yes Dose: Percocet 7.5 mg-325 mg tablet Prescriber: PCP Percocet for free- gives minimal reliefSteroid injections: no had steroid injection in lower back about 2 months agoPT: NoAmbulatory aids/assistive device: nonePrior surgery on hip: none Mr. Torres is here for an evaluation of left hip pain. He states he also has lower back pain that started the same time as when hip pain started. He has been seeing a neuro specialist for his back as well as a chiropractor. He mentioned he has a steriod injection in back as well as does PT for it. He wants to know if the hip pain is from the hip or if it because of his back. JESSICA MITCHELL PA-C [address] [place] [address], [phone], [facility] 02/16/2024 14:39:31 4 text/html Vacne is a 68 yo male who returns today after 6mos. He had an equivocal prostate biopsy 07/27. H is PSA has fluctuated in the interim, but most recently was 9.1 on 04/18/24. He is asymptomatic. COnfirm MDx is positive for methylation. LASHA BELTRÁN MD [address] [place] [address], [phone], [facility] 07/23/2024 18:25:15 5 text/html Vance is a 69 yo male who returns today for follow up with h/o elevated PSA, s/p one benign biopsy. His most recent PSA was down to 6. HIs MRI prostate shows PiRads 4 lesion 12 mm on right lateral inferior portion. Confirm MDx is positive. He has no new complaints or concerns today. He denies any dysuria or gross hematuria. LASHA BELTRÁN MD [address] [place] [address], [phone], [facility] 09/24/2024 16:19:13
--- OUTSIDE RECORDS SUMMARY | 2025-02-13 11:28 | XMS_ITS | Clinical Summary ---
Author Organization [facility] Address [address] [id number] Care Team Providers Care Datapower Developer Name Role Phone Uli Coffey MD Primary Care Provider [phone] Social History Tobacco Use Types Packs/Day Years Used Date Smoking Tobacco: Never Alcohol Use Standard Drinks/Week Comments No 0 (1 standard drink = 0.6 oz pure alcohol) Alcoholic Drinks/day: Never Drank Alcohol Sex and Gender Information Value Date Recorded Sex Assigned at Not on file Legal Sex Male 7:59 PM EDT Gender Identity Not on file Sexual Orientation Not on file Last Filed Vital Signs Vital Sign Reading Time Taken Comments Blood Pressure - - Pulse - - Temperature - - Respiratory Rate - - Oxygen Saturation - - Inhaled Oxygen Concentration - - Weight 107 kg (236 lb 2.2 oz) 12/03/2016 10:32 A M EDT Height 170.2 cm (5' 7 ) 12/03/2016 10:32 AM EDT Body Mass Index 36.98 12/03/2016 10:32 AM EDT Plan of Treatment Health Maintenance Due Date Last Done Comments [facility]-Depression Screening 1957 [facility]-Infant/Child/Adol SDOH Screenings 1957 [facility]- SDOH Screenings 1975 [facility]-Adult SDOH Screenings 1975 [facility]-DTaP,Tdap,and Td Vaccine s (1 - Tdap) 1976 CT Colonography 2002 Colonoscopy 2002 FIT-DNA 2002 FIT 2002 FOBT 2002 Sigmoidoscopy 2002 [facility]-Colorectal Cancer Screening 2002 [facility]-Pneumococcal Vaccine: 50 + Years (1 of 1 - PCV) 2007 [facility]Y-Zoster Vaccines (1 of 2) 2007 [id number]-04 Vaccine (1 - 20 24-25 season) 2024 [facility]-Influenza Vaccine (Seaso n Ended) 2025 [facility]Y-RSV Vaccine: 60+ Years o r (1 - 1-dose 75+ series) 2032 HPV Vaccines Aged Out No longer eligi ble based on patient's age to complete this topic [facility]-HIB Vaccines Aged Out No longer e ligible based on patient's age to complete this topic [facility]-Hepatitis A Vaccines Aged Out No longer eligible based on patient's age to complete this topic [facility]-IPV Vaccines Aged Out No longer e ligible based on patient's age to complete this topic UKY-Rotavirus Vaccines Aged Out No lo nger eligible based on patient's age to complete this topic Insurance MEDICARE Care Teams Datapower Developer Relationship Specialty Start Date End Date Uli Coffey MD [facility] [place] [address] [place] [address] PCP - General 01/16/21
--- OUTSIDE RECORDS SUMMARY | 2025-02-13 11:28 | XMS_ITS | Clinical Summary ---
Author Organization [employer] [facility] Address [address] [place] [address] Care Team Providers Care Garbage Pick Up Man Name Role Phone Yvan Coffey MD Primary Care Provider [phone] Allergies Active Allergy Reactions Criticality Noted Date [...] 75 mg tabletIndications :Coronary artery disease involving chitina coronary artery of chitina heart without angina pectoris TAKE 1 TABLET EVERY DAY 90 tablet 3 5 Active Active Problems Problem Noted Date Diagnosed Date Preop cardiovascular exam 06/08/2024 Obesity 08/16/2022 Coronary artery disease invo lving chitina coronary artery of chitina heart without angina pectoris 08/13/2022 History of non-ST elevation myocardial infarctio n (NSTEMI) 08/13/2022 History of heparin-induced thrombocytopenia 05/2022 History of DVT (deep vein thrombosis) 08/13/2022 ADITYA on CPAP 08/13/2022 Essential hypertension 08/13/2022 Mixed hyperlipidemia 08/13/2022 Encounters Date Type Department Care Team Description 12/25/2024 3:00 PM EDT Office Visit [facility] [address] [place] [address] [address] [place] [address] Elton Faust MD ADITYA (obstructive sleep apnea) (Primary Dx) 12/25/2024 Travel 12/05/2024 [facility] [address] [place] [address] [address] Oscar Hodge MD Coronary artery disease involving chitina coronary artery of chitina heart without angina pectoris from Last 3 Months Family History Medical History Relation Name Comments Hypertension Father Breast cancer Mother Diabetes Mother Relation Name Status Comments Father Mother Social History Tobacco Use Types Packs/Day Years [...] Date Alejandro rded Speak language other than Comoran at home Not on file 09/23/2023 Want [...] Description 12/24/2025 3:00 PM EDT Office Visit [address] [address] Elton Faust MD [address] [place] [address] Health Maintenance Due Date Last Done Comments CT Colonography 1957 Colonoscopy 1957 Colorectal Cancer Screening 1957 FOBT/FIT 1957 Fit-DNA (Cologuard) 1957 Sigmoidoscopy 1957 Depression Screening (12+) 1969 Hepatitis C Screening 1975 DTAP/TDAP/TD VACCINES (1 - Tdap) 1976 Pneumococcal 50+ years (1 of 2 - PCV) 1976 Shingles Vaccine (Zoster) (1 of 2) 2007 Medicare Initial AWV [id number] 05/07/2016 Respiratory Syncytial Virus (RSV) Adult or (1 - Risk 60-74 years 1-dose series) 2017 COVID-19 VACCINE ( - season) 2024 Falls Risk Screening 09/05/2024 Influenza Vaccine (Season Ended) 2025 Tobacco Cessation Counseling and Screening (12+) 06/0806/08/2024 Insurance MEDICARE PART A B AETNA SR SUPP Care Teams Garbage Pick Up Man Relationship Specialty Start Date End Date Yvan Coffey MD [address] [facility] [address] [place] [address] PCP - General Internal Medicine 08/13/22
--- OUTSIDE RECORDS SUMMARY | 2025-02-13 11:28 | XMS_ITS | Encounter Summary ---
Author Organization [employer] [facility] Address [address] [facility] [place] [address] Care Team Providers Care Strategic Alliances Manager Name Role Phone Yvan Coffey MD Primary Care Provider [phone] Encounter Details Date Type Department Care Team (Late st Contact Info) Description 06/09/2020 Transcribed Document [facility] [place] [address] ProviderYahir MD [address] [place] [address] Social History Tobacco Use Types Packs/Day Years Used Date Smoking Tobacco: Never Assessed Sex and Gender Information Value Date Recorded Sex Assigned at Not on file Legal Sex Male 3:58 PM CDT Gender Identity Not on file Sexual Orientation Not on file documented as of this encounter Miscellaneous Notes * Cerner Conversion Note - Yahir ProviderMD - 06/09/2020 12:23 PM CDT UM Authorization Entered On: 06/09/2020 12:23 EDT Performed On: 06/09/2020 12:23 EDT by Colleen Carranza Rn-Utilization Review Primary Insurance Authorization Authorization and Policy Numbers : Insurance 1 Health Plan: MEDICARE Policy Number: [id number] Authorization Number: Insurance 2 Health Plan: AETNA Policy Number: [id number] Authorization Number: Insurance Primary Name : MEDICARE Authorized Service Begin Date-Primary : 06/08/2020 EDT Historical Authorization Comments-Primary : No Authorization Comments Found Colleen Carranza Rn-Utilization Review - 06/09/2020 12:23 EDT Electronically signed by [facility] Sjh Conversion Route Process Administrator Cerner at 12/21/2022 4:33 PM CDT documented in this encounter Plan of Treatment Upcoming Encounters Date Type Department Care Team (Late st Contact Info) Description 12/24/2025 3:00 PM EDT Office Visit [address] [address] Elton Faust MD [address] [place] [address] documented as of this encounter Visit Diagnoses Not on filedocumented in this encounter Care Teams Strategic Alliances Manager Relationship Specialty Start Date End Date Yvan Coffey MD [address] [facility] [address] [place] [address] PCP - General Internal Medicine 08/13/22 documented as of this encounter
--- OUTSIDE RECORDS SUMMARY | 2025-02-13 11:28 | XMS_ITS | Encounter Summary ---
Author Organization [employer] [facility] Address [address] [place] [address] Care Team Providers Care Security Public Safety Officer Name Role Phone Yvan Coffey MD Primary Care Provider [phone] Encounter Details Date Type Department Care Team (Late st Contact Info) Description 06/09/2020 Transcribed Document [facility] [place] [facility] [place] [address] ProviderYahir MD [address] [place] [address] Social History Tobacco Use Types Packs/Day Years Used Date Smoking Tobacco: Never Assessed Sex and Gender Information Value Date Recorded Sex Assigned at Not on file Legal Sex Male 3:58 PM CDT Gender Identity Not on file Sexual Orientation Not on file documented as of this encounter Miscellaneous Notes * Cerner Conversion Note - Yahir ProviderMD - 06/09/2020 5:00 AM CDT Chart Check - Review Order Profile Entered On: 06/09/2020 6:44 EDT Performed On: 06/09/2020 5:00 EDT by Elaine Phillips RN Chart Check Powerplans Initiated/Discontinued as Appropriate : Yes All Active Orders Reviewed : Yes Elaine Phillips RN - 06/09/2020 6:44 EDT documented in this encounter Plan of Treatment Upcoming Encounters Date Type Department Care Team (Late st Contact Info) Description 12/24/2025 3:00 PM EDT Office Visit [address] [address] Elton Faust MD [address] [facility] 4th [place] [address] documented as of this encounter Visit Diagnoses Not on filedocumented in this encounter Care Teams Security Public Safety Officer Relationship Specialty Start Date End Date Yvan Coffey MD [address] [facility] [address] [place] [address] PCP - General Internal Medicine 08/13/22 documented as of this encounter
--- OUTSIDE RECORDS SUMMARY | 2025-02-13 11:29 | XMS_ITS | Encounter Summary ---
Author Organization [employer] [facility] Address [address] [place] [address] Care Team Providers Care Enterostomal Nurse Name Role Phone Yvan Coffey MD Primary Care Provider [phone] Encounter Details Date Type Department Care Team (Late st Contact Info) Description 03/28/2022 Transcribed Document [facility] [place] [facility] [place] [address] ProviderYahir MD [address] [place] [address] Social History Tobacco Use Types Packs/Day Years Used Date Smoking Tobacco: Never Assessed Sex and Gender Information Value Date Recorded Sex Assigned at Not on file Legal Sex Male 3:58 PM CDT Gender Identity Not on file Sexual Orientation Not on file documented as of this encounter Miscellaneous Notes * Cerner Conversion Note - Yahir ProviderMD - 03/28/2022 5:00 AM CDT ED Triage Entered On: 03/28/2022 5:08 EDT Performed On: 03/28/2022 5:05 EDT by NAIF ALVARADO, ROTARY DRIER Triage Across the Room Chief Complaint : pt reports midsternal chest tightness wrapping arund to back & sob x 2 days. worse tonight. h/o stents. also c//o bloating. Triage Date/Time : 03/28/2022 5:05 EDT NAIF ALVARADO RN - 03/28/2022 5:05 EDT DCP GENERIC CODE Tracking Acuity : 3 - Urgent Tracking Group : [facility] NAIF ALVARADO RN - 03/28/2022 5:05 EDT Mode of Arrival : Ambulatory Transported to ED by : Walk in To Room Via : Ambulate Accompanied By : Spouse ED Vital Signs : Document Height & Weight : Document ED Allergies : Document ED Reason for Visit : Document Tetanus Immunization : Unknown NAIF ALVARADO RN - 03/28/2022 5:05 EDT Infectious Disease History Does patient have symptoms of COVID-19? : No Tested for COVID19 in the past 14 days : No, Patient stated Does the Patient state known exposure to a COVID-19 positive case in the last 14 days? : No Patient Vaccinated for COVID-19 : Fully vaccinated NAIF ALVARADO RN - 03/28/2022 5:05 EDT Infectious Disease Risk Screening Grid Cough < 2 wks of unknown origin : NO Cough > 2 weeks : NO Blood in Sputum : NO Fever or self-reported Fever : NO Rash of unknown origin : NO Headache : NO Stiff neck : NO Night Sweats : NO Unexplained Weight Loss : NO Diarrhea (3 episode per day) : NO NAIF ALVARADO RN - 03/28/2022 5:05 EDT Physical contact outside [place] in the last 30 days : No Hospitalized in Foreign Country : No Infectious Disease History : Chicken pox/Shingles, Measles, Mumps INF Disease TB Screening Calc : 0 INF Disease Recent Travel Calc : 0 NAIF ALVARADO RN - 03/28/2022 5:05 EDT Vital Signs ED Temperature Source : Oral Temperature Mode : Fahrenheit Oxygen Therapy Mode : Room air Peripheral Pulse Rate : 65 bpm Respiratory Rate : 18 Breaths/Min Systolic Blood Pressure : 155 mmHg (HI) Diastolic Blood Pressure : 82 mmHg Oxygen Saturation : 97 % NAIF ALVARADO RN - 03/28/2022 5:05 EDT Allergy (As Of: 03/28/2022 05:08:15 EDT) Allergies (Active) Brilinta Estimated Onset Date: Unspecified ; Reactions: SOB - Shortness of breath ; Created By: Elaine Phillips RN; Reaction Status: Active ; Category: Drug ; Substance: Brilinta ; Type: Allergy ; Updated By: Elaine Phillips RN; Reviewed Date: 03/28/2022 5:07 EDT heparin Estimated Onset Date: Unspecified ; Reactions: Heparin-induced thrombocytopenia with thrombosis, Heparin-induced thrombocytopenia with thrombosis ; Created By: Contributor_system, HIST_CERNER; Reaction Status: Active ; Category: Drug ; Substance: heparin ; Type: Allergy ; Severity: Severe ; Updated By: Contributor_system HISTMESHA; Reviewed Date: 03/28/2022 5:07 EDT Diagnosis Control ED (As Of: 03/28/2022 05:08:15 EDT) Problems(Active) ARDS - Adult respiratory distress syndrome (SNOMED CT :071795035 ) Name of Problem: ARDS - Adult respiratory distress syndrome ; Recorder: SADIE AGOSTO RN; Confirmation: Confirmed ; Classification: Medical ; Code: [id number] ; Contributor System: PowerChart ; Last Updated: 02/21/2014 15:18 EDT ; Life Cycle Date: 04/26/2013 ; Life Cycle Status: Active ; Vocabulary: SNOMED CT Diverticula, colon (SNOMED CT :3870747883 ) Name of Problem: Diverticula, colon ; Recorder: DANIEL BRANCH RN; Confirmation: Confirmed ; Classification: Patient Stated ; Code: [id number] ; Contributor System: PowerChart ; Last Updated: 12/01/2015 9:12 EDT ; Life Cycle Date: 12/01/2015 ; Life Cycle Status: Active ; Vocabulary: SNOMED CT DVT - Deep vein thrombosis (SNOMED CT :7113562345 ) Name of Problem: DVT - Deep vein thrombosis ; Recorder: SADIE AGOSTO RN; Confirmation: Confirmed ; Classification: Medical ; Code: [id number] ; Contributor System: PowerChart ; Last Updated: 02/19/2014 11:29 EDT ; Life Cycle Date: 04/26/2013 ; Life Cycle Status: Active ; Vocabulary: SNOMED CT [place] filter, device (SNOMED CT :9380472084 ) Name of Problem: [place] filter, device ; Recorder: SADIE AGOSTO RN; Confirmation: Confirmed ; Classification: Medical ; Code: [id number] ; Contributor System: PowerChart ; Last Updated: 02/21/2014 14:44 EDT ; Life Cycle Date: 04/26/2013 ; Life Cycle Status: Active ; Vocabulary: SNOMED CT 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 (SNOMED CT :6193585435 ) Name of Problem: 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 ; Recorder: SADIE AGOSTO RN; Confirmation: Confirmed ; Classification: Medical ; Code: [id number] ; Contributor System: PowerChart ; Last Updated: 02/21/2014 14:56 EDT ; Life Cycle Date: 04/26/2013 ; Life Cycle Status: Active ; Vocabulary: SNOMED CT History of obstructive sleep apnea (IMO :30416112 ) Name of Problem: History of obstructive sleep apnea ; Recorder: SYSTEM, SYSTEM; Confirmation: Confirmed ; Classification: Medical ; Code: [id number] ; Last Updated: 06/08/2020 22:53 EDT ; Life Cycle Date: 06/08/2020 ; Life Cycle Status: Active ; Vocabulary: IMO Patient requiring acute dialysis (SNOMED CT :8971708232 ) Name of Problem: Patient requiring acute dialysis ; Recorder: DANIEL BRANCH, RN; Confirmation: Confirmed ; Classification: Patient Stated ; Code: [id number] ; Contributor System: [employer] ; Last Updated: 12/01/2015 9:23 EDT ; Life Cycle Date: 12/01/2015 ; Life Cycle Status: Active ; Vocabulary: SNOMED CT ; Comments: 12/01/2015 9:23 - DANIEL BRANCH, RN 3 years Pneumonia (SNOMED CT :468454845 ) Name of Problem: Pneumonia ; Recorder: SADIE AGOSTO RN; Confirmation: Confirmed ; Classification: Medical ; Code: [id number] ; Contributor System: [employer] ; Last Updated: 02/14/2014 19:26 EDT ; Life Cycle Date: 04/26/2013 ; Life Cycle Status: Active ; Vocabulary: SNOMED CT Diagnoses(Active) Chest pain Date: 03/28/2022 ; Diagnosis Type: Reason For Visit ; Confirmation: Complaint of ; Clinical Dx: Chest pain ; Classification: Medical ; Clinical Service: Non-Specified ; Code: PNED ; Probability: 0 ; Diagnosis Code: [id number] ED Height and Weight Height Source : Stated Height Entry Format : [place] Height, Feet : 5 ft(Converted to: 152 cm, 60 Inch) Height, Inches : 8 Inch(Converted to: 0 ft 8 Inch, 20.32 cm) Clinical Height : 172.72 cm Weight Source, ED : Critical estimated dosing weight Weight Entry Format : [place] Weight, Pounds : 234 lb Clinical Dosing Weight : 106.36 kg Body Surface Area (BSA) : 2.19 m2 Body Mass Index : 35.7 kg/m2 (HI) [place] Body Weight (IBW) : 67.45 kg NAIF ALVARADO, ISIS - 03/28/2022 5:05 EDT documented in this encounter Plan of Treatment Upcoming Encounters Date Type Department Care Team (Late st Contact Info) Description 12/24/2025 3:00 PM EDT Office Visit [address] [address] Elton Faust MD [address] [place] [address] documented as of this encounter Visit Diagnoses Not on filedocumented in this encounter Care Teams Enterostomal Nurse Relationship Specialty Start Date End Date Yvan Coffey MD [address] [facility] [address] [place] [address] PCP - General Internal Medicine 08/13/22 documented as of this encounter
--- OUTSIDE RECORDS SUMMARY | 2025-02-13 11:29 | XMS_ITS | Encounter Summary ---
Author Organization [employer] Address [address] [place] [address] Care Team Providers Care Horticulture Worker Name Role Phone Yvan Coffey MD Primary Care Provider [phone] Encounter Details Date Type Department Care Team (Late st Contact Info) Description 06/08/2020 Transcribed Document [facility] [place] [address] ProviderYahir MD [address] [place] [address] Social History Tobacco Use Types Packs/Day Years Used Date Smoking Tobacco: Never Assessed Sex and Gender Information Value Date Recorded Sex Assigned at Not on file Legal Sex Male 3:58 PM CDT Gender Identity Not on file Sexual Orientation Not on file documented as of this encounter Miscellaneous Notes * Cerner Conversion Note - Yahir ProviderMD - 06/08/2020 4:48 AM CDT ED Triage Entered On: 06/08/2020 4:59 EDT Performed On: 06/08/2020 4:52 EDT by NAIF ALVARADO, DETECTIVE BUREAU CHIEF Triage Across the Room Chief Complaint : c/o cp that radiates to back and right arm @ 0200 upon waking up. ems arrived and BP was in the 200's systolic. h/o ARDS, DVT. Triage Date/Time : 06/08/2020 4:52 EDT NAIF ALVARADO RN - 06/08/2020 4:52 EDT DCP GENERIC CODE Tracking Acuity : 2 - Emergent Tracking Group : [facility] ED NAIF ALVARADO RN - 06/08/2020 4:52 EDT Mode of Arrival : Ambulatory Transported to ED by : Walk in To Room Via : Wheelchair Accompanied By : Spouse TAR AND AMMONIA PUMP OPERATOR Medications and Interventions : Document ED Vital Signs : Document Height & Weight : Document ED Allergies : Document ED Reason for Visit : Document Tetanus Immunization : Unknown NAIF ALVARADO RN - 06/08/2020 4:52 EDT Infectious Disease History Has the patient ever been tested for COVID-19? : No, Patient stated Does patient have symptoms of COVID-19? : No COVID19 Screening : No Experiencing Infectious Disease Symptoms : Difficulty breathing Physical contact outside [place] in the last 30 days : No Infectious Disease History : Chicken pox/Shingles, Measles, Mumps Tuberculosis Symptoms : None NAIF ALVARADO RN - 06/08/2020 4:52 EDT Vital Signs ED Temperature Source : Oral Temperature Mode : Fahrenheit Temperature, Fahrenheit : 97.2 Deg F ED Pain : Yes Clinical Temperature, C : 36.2 Deg C Oxygen Therapy Mode : Room air Peripheral Pulse Rate : 68 bpm Respiratory Rate : 22 Breaths/Min (HI) Systolic Blood Pressure : 183 mmHg (HI) Diastolic Blood Pressure : 107 mmHg (HI) Oxygen Saturation : 98 % NAIF ALVARADO RN - 06/08/2020 4:52 EDT Allergy (As Of: 06/08/2020 04:59:16 EDT) Allergies (Active) heparin Estimated Onset Date: Unspecified ; Reactions: Heparin-induced thrombocytopenia with thrombosis, Heparin-induced thrombocytopenia with thrombosis ; Created By: CONTRIBUTOR_SYSTEMLJ; Reaction Status: Active ; Category: Drug ; Substance: heparin ; Type: Allergy ; Severity: Severe ; Updated By: CONTRIBUTOR_SYSTEMLJ; Reviewed Date: 06/08/2020 4:54 EDT Diagnosis Control ED (As Of: 06/08/2020 04:59:16 EDT) Problems(Active) ARDS - Adult respiratory distress syndrome (SNOMED CT :810777946 ) Name of Problem: ARDS - Adult respiratory distress syndrome ; Recorder: SADIE AGOSTO RN; Confirmation: Confirmed ; Classification: Medical ; Code: [id number] ; Contributor System: [employer] ; Last Updated: 02/21/2014 15:18 EDT ; Life Cycle Date: 04/26/2013 ; Life Cycle Status: Active ; Vocabulary: SNOMED CT Diverticula, colon (SNOMED CT :6479009564 ) Name of Problem: Diverticula, colon ; Recorder: DANIEL BRANCH RN; Confirmation: Confirmed ; Classification: Patient Stated ; Code: [id number] ; Contributor System: [employer] ; Last Updated: 12/01/2015 9:12 EDT ; Life Cycle Date: 12/01/2015 ; Life Cycle Status: Active ; Vocabulary: SNOMED CT DVT - Deep vein thrombosis (SNOMED CT :2912451131 ) Name of Problem: DVT - Deep vein thrombosis ; Recorder: SADIE AGOSTO RN; Confirmation: Confirmed ; Classification: Medical ; Code: [id number] ; Contributor System: [employer] ; Last Updated: 02/19/2014 11:29 EDT ; Life Cycle Date: 04/26/2013 ; Life Cycle Status: Active ; Vocabulary: SNOMED CT Chloe filter, device (SNOMED CT :4288385688 ) Name of Problem: Cory filter, device ; Recorder: SADIE AGOSTO RN; Confirmation: Confirmed ; Classification: Medical ; Code: [id number] ; Contributor System: [employer] ; Last Updated: 02/21/2014 14:44 EDT ; Life Cycle Date: 04/26/2013 ; Life Cycle Status: Active ; Vocabulary: SNOMED CT 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 (SNOMED CT :3671067968 ) Name of Problem: 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 ; Recorder: SADIE AGOSTO RN; Confirmation: Confirmed ; Classification: Medical ; Code: 2107321175 ; Contributor System: Power[employer] ; Last Updated: 02/21/2014 14:56 EDT ; Life Cycle Date: 04/26/2013 ; Life Cycle Status: Active ; Vocabulary: SNOMED CT Patient requiring acute dialysis (SNOMED CT :9116421436 ) Name of Problem: Patient requiring acute dialysis ; Recorder: DANIEL BRANCH RN; Confirmation: Confirmed ; Classification: Patient Stated ; Code: [id number] ; Contributor System: Power[employer] ; Last Updated: 12/01/2015 9:23 EDT ; Life Cycle Date: 12/01/2015 ; Life Cycle Status: Active ; Vocabulary: SNOMED CT ; Comments: 12/01/2015 9:23 - DANIEL BRANCH RN 5 years Pneumonia (SNOMED CT :709834610 ) Name of Problem: Pneumonia ; Recorder: SADIE AGOSTO RN; Confirmation: Confirmed ; Classification: Medical ; Code: [id number] ; Contributor System: [employer] ; Last Updated: 02/14/2014 19:26 EDT ; Life Cycle Date: 04/26/2013 ; Life Cycle Status: Active ; Vocabulary: SNOMED CT Diagnoses(Active) Chest pain Date: 06/08/2020 ; Diagnosis Type: Reason For Visit ; Confirmation: Complaint of ; Clinical Dx: Chest pain ; Classification: Medical ; Clinical Service: Non-Specified ; Code: PNED ; Probability: 0 ; Diagnosis Code: [id number] ED Height and Weight Height Source : Stated Height Entry Format : [place] Height, Feet : 5 ft(Converted to: 152 cm, 60 Inch) Height, Inches : 8 Inch(Converted to: 0 ft 8 Inch, 20.32 cm) Clinical Height : 172.72 cm Weight Source, ED : Critical estimated dosing weight Weight Entry Format : [place] Weight, Pounds : 240 lb Clinical Dosing Weight : 109.09 kg Body Surface Area (BSA) : 2.21 m2 Body Mass Index : 36.6 kg/m2 (HI) [place] Body Weight (IBW) : 67.45 kg NAIF ALVARADO RN - 06/08/2020 4:52 EDT Pain Assessment Pain Assessment : Initial assessment Pain Scale Used : 0-10 Scale Location : Chest Onset : Acute Quality : Pressure, Sharp Pain Radiation : Yes Pain Radiation Location : Arm, right, Back, upper NAIF ALVARADO RN - 06/08/2020 4:52 EDT Pain Scale Intensity : 9 NAIF ALVARADO RN - 06/08/2020 4:52 EDT Image 4 - Images currently included in the form version of this document have not been included in the text rendition version of the form. documented in this encounter Plan of Treatment Upcoming Encounters Date Type Department Care Team (Late st Contact Info) Description 12/24/2025 3:00 PM EDT Office Visit [address] [address] Elton Faust MD [address] [place] [address] documented as of this encounter Visit Diagnoses Not on filedocumented in this encounter Care Teams Horticulture Worker Relationship Specialty Start Date End Date Yvan Coffey MD [address] [place] [address] PCP - General Internal Medicine 08/13/22 documented as of this encounter
--- OUTSIDE RECORDS SUMMARY | 2025-02-13 11:29 | XMS_ITS | Encounter Summary ---
Author Organization [employer] Address [address] [place] [address] Care Team Providers Care Ceiling Insulation Blower Name Role Phone Yvan Coffey MD Primary Care Provider [phone] Encounter Details Date Type Department Care Team (Late st Contact Info) Description 03/28/2022 Transcribed Document [facility] [place] [address] ProviderYahir MD [address] [place] [address] Social History Tobacco Use Types Packs/Day Years Used Date Smoking Tobacco: Never Assessed Sex and Gender Information Value Date Recorded Sex Assigned at Not on file Legal Sex Male 3:58 PM CDT Gender Identity Not on file Sexual Orientation Not on file documented as of this encounter Miscellaneous Notes * Cerner Conversion Note - Yahir ProviderMD - 03/28/2022 11:19 AM CDT Electronically signed by [facility] Conversion Trim Operator Cerner at 12/21/2022 4:34 PM CDT documented in this encounter Plan of Treatment Upcoming Encounters Date Type Department Care Team (Late st Contact Info) Description 12/24/2025 3:00 PM EDT Office Visit [address] [address] Elton Faust MD [address] [place] [id number] documented as of this encounter Visit Diagnoses Not on filedocumented in this encounter Care Teams Ceiling Insulation Blower Relationship Specialty Start Date End Date Yvan Coffey MD [address] [facility] [address] [place] [address] PCP - General Internal Medicine 08/13/22 documented as of this encounter
--- OUTSIDE RECORDS SUMMARY | 2025-02-13 11:29 | XMS_ITS | Encounter Summary ---
Author Organization [employer] Address [address] [place] [address] Care Team Providers Care Shactor Helper Name Role Phone Yvan Coffey MD Primary Care Provider [phone] Encounter Details Date Type Department Care Team (Late st Contact Info) Description 10/17/2021 Transcribed Document [facility] [place] [facility] [place] [address] ProviderYahir MD [address] [place] [address] Social History Tobacco Use Types Packs/Day Years Used Date Smoking Tobacco: Never Assessed Sex and Gender Information Value Date Recorded Sex Assigned at Not on file Legal Sex Male 3:58 PM CDT Gender Identity Not on file Sexual Orientation Not on file documented as of this encounter Miscellaneous Notes * Cerner Conversion Note - Yahir ProviderMD - 10/17/2021 12:41 AM FLAT SCREEN WORKER ED Discharge Entered On: 10/17/2021 0:41 EST Performed On: 10/17/2021 0:41 EST by Najma [place] NON EMP pigment pusher Process Patient Disposition : Discharge Personal Belongings With Patient : Yes Patient Education Completed : Yes Teaching Evaluation : Verbalizes understanding IV Discontinued : Yes Najma [place] NON EMP RN - 10/17/2021 0:41 EST ED Discharge Discharge To : Home with ambulatory/outpatient follow-up Mode Of Departure : Private vehicle Discharge Instructions Reviewed With, Opportunity For Questions Given : Patient Najma [place] NON EMP RN - 10/17/2021 0:41 EST Electronically signed by [facility] Conversion Bobtailer Cerner at 12/21/2022 5:00 PM CDT documented in this encounter Plan of Treatment Upcoming Encounters Date Type Department Care Team (Late st Contact Info) Description 12/24/2025 3:00 PM EDT Office Visit [address] [address] Elton Faust MD [address] [place] [address] documented as of this encounter Visit Diagnoses Not on filedocumented in this encounter Care Teams Shactor Helper Relationship Specialty Start Date End Date Yvan Coffey MD [address] [facility] [address] [place] [address] PCP - General Internal Medicine 08/13/22 documented as of this encounter
--- OUTSIDE RECORDS SUMMARY | 2025-02-13 11:29 | XMS_ITS | Encounter Summary ---
Author Organization [employer] Address [address] [place] [address] Care Team Providers Care Geologic Technician Name Role Phone Yvan Coffey MD Primary Care Provider [phone] Encounter Details Date Type Department Care Team (Late st Contact Info) Description 06/08/2020 Transcribed Document [facility] [place] [facility] [place] [address] ProviderYahir MD [address] [place] [address] Social History Tobacco Use Types Packs/Day Years Used Date Smoking Tobacco: Never Assessed Sex and Gender Information Value Date Recorded Sex Assigned at Not on file Legal Sex Male 3:58 PM CDT Gender Identity Not on file Sexual Orientation Not on file documented as of this encounter Miscellaneous Notes * Cerner Conversion Note - Historical ProviderMD - 06/08/2020 8:38 AM CDT Consult Phone Call Documentation Entered On: 06/08/2020 12:47 EDT Performed On: 06/08/2020 8:38 EDT by Leslie Blair Phone Call for Consults Consult Phone Call/Page Attempt : First call Leslie Blair - 06/08/2020 12:47 EDT Electronically signed by Kate Gibson Conversion Director Of Market Intelligence Cerner at 12/21/2022 4:33 PM CDT documented in this encounter Plan of Treatment Upcoming Encounters Date Type Department Care Team (Late st Contact Info) Description 12/24/2025 3:00 PM EDT Office Visit [address] [address] Elton Faust MD [address] [facility] [address] [place] [address] documented as of this encounter Visit Diagnoses Not on filedocumented in this encounter Care Teams Geologic Technician Relationship Specialty Start Date End Date Yvan Coffey MD [address] [address] PCP - General Internal Medicine 08/13/22 documented as of this encounter
--- OUTSIDE RECORDS SUMMARY | 2025-02-13 11:29 | XMS_ITS | Encounter Summary ---
Author Organization [employer] Address [address] [place] [address] Care Team Providers Care Productivity Engineer Name Role Phone Yvan Coffey MD Primary Care Provider Encounter Details Date Type Department Care Team (Late st Contact Info) Description 06/08/2020 Transcribed Document [facility] [place] [facility] [place] [address] ProviderYahir MD [address] [place] [address] Social History Tobacco Use Types Packs/Day Years Used Date Smoking Tobacco: Never Assessed Sex and Gender Information Value Date Recorded Sex Assigned at Not on file Legal Sex Male 3:58 PM CDT Gender Identity Not on file Sexual Orientation Not on file documented as of this encounter Miscellaneous Notes * Cerner Conversion Note - Yahir ProviderMD - 06/08/2020 4:48 AM CDT ED Assessment Entered On: 06/08/2020 5:04 EDT Performed On: 06/08/2020 5:01 EDT by NAIF ALVARADO RN ED Quick Look Assessment Level of Consciousness : Alert, Awake Affect/Behavior : Appropriate, Calm, Cooperative Orientation : Oriented x 4 Skin Temperature : Warm Skin Description : Normal for ethnicity NAIF ALVARADO RN - 06/08/2020 5:01 EDT ED General-Functional Assess Information Obtained From : Patient Preferred Communication Mode : Verbal Communication Barrier : None Primary Language : Nauruan Any Spiritual/Cultural Needs or Requests : No Currently in Unsafe Situation : No NAIF ALVARADO RN - 06/08/2020 5:01 EDT Social Habits Smoking Status : Never (less than 100 in lifetime; none in last 30 days) Smokeless Tobacco Status : Never Desires Tobacco Cessation Calc : 0 NAIF ALVARADO RN - 06/08/2020 5:01 EDT Social History (As Of: 06/08/2020 05:04:33 EDT) Tobacco: Use in Last 12 Months: No. (Last Updated: 12/01/2015 09:21:29 EDT by DANIEL BRANCH, RN) Alcohol: Use in Last 12 Months: No. (Last Updated: 04/26/2013 05:55:45 EDT by VASILIY FLORES, [employer]) Substance Abuse: Drug Use Hx: No. Use in Last 12 Months: No. (Last Updated: 04/26/2013 05:56:12 EDT by VASILIY FLORES, [employer]) Cardiovascular ASMT, ED Cardiovascular Assessment WDL : WDL with exceptions (Comment: pt reports cp that radiates to R arm and shoulder blade/back that started at 0200 this morning upon waking up. [place] [facility] [place]. pt hypertensive on arrival. pt denies n/v. pt reports sob that is aassociated with cp. h/o DVT, htn. [NAIF ALVARADO RN - 06/08/2020 5:01 EDT] ) Cardiovascular Symptoms : Chest discomfort at rest, Chest pain at rest, Pressure at rest Chest Pain : Yes NAIF ALVARADO RN - 06/08/2020 5:01 EDT Pulses Grid Radial Pulse, Left : 2+ normal Radial Pulse, Right : 2+ normal NAIF ALVARADO RN - 06/08/2020 5:01 EDT Respiratory Breath Sounds Auscultated : Posterior, Anterior NAIF ALVARADO RN - 06/08/2020 5:01 EDT Respiratory Assessment WDL : WDL with exceptions (Comment: sob. pt reports sob c cp. h/o ARDS. [NAIF ALVARADO RN - 06/08/2020 5:07 EDT] ) NAIF ALVARADO RN - 06/08/2020 5:07 EDT NAIF ALVARADO RN - 06/08/2020 5:07 EDT Breath Sounds Assessment Grid All Lobes Breath Sounds : Clear NAIF ALVARADO RN - 06/08/2020 5:01 EDT documented in this encounter Plan of Treatment Upcoming Encounters Date Type Department Care Team (Late st Contact Info) Description 12/24/2025 3:00 PM EDT Office Visit [address] [address] Elton Faust MD [address] [place] [address] documented as of this encounter Visit Diagnoses Not on filedocumented in this encounter Care Teams Productivity Engineer Relationship Specialty Start Date End Date Yvan Coffey MD [address] [facility] [address] [place] [address] PCP - General Internal Medicine 08/13/22 documented as of this encounter
--- OUTSIDE RECORDS SUMMARY | 2025-02-13 11:29 | XMS_ITS | Encounter Summary ---
Author Organization [employer] Address [address] [place] [address] Care Team Providers Care Import Clerk Name Role Phone Yvan Coffey MD Primary Care Provider [phone] Encounter Details Date Type Department Care Team (Late st Contact Info) Description 03/29/2022 Transcribed Document [facility] [place] [facility] [place] [address] ProviderYahir MD [address] [place] [address] Social History Tobacco Use Types Packs/Day Years Used Date Smoking Tobacco: Never Assessed Sex and Gender Information Value Date Recorded Sex Assigned at Not on file Legal Sex Male 3:58 PM CDT Gender Identity Not on file Sexual Orientation Not on file documented as of this encounter Miscellaneous Notes * Cerner Conversion Note - Historical ProviderMD - 03/29/2022 3:12 PM CDT CR Chest 1 Vw Portable Ordered: 03/28/2022 Modified Reason for Exam: cp 03/28/2022 12:25 03/29/2022 15:12 (RANDY VALLE PA-C) Reviewed by Provider, No further action required X1CTA chest on this exam day?? show no infiltrate. documented in this encounter Plan of Treatment Upcoming Encounters Date Type Department Care Team (Late st Contact Info) Description 12/24/2025 3:00 PM EDT Office Visit [address] [address] Elton Faust MD [address] [facility] [address] [place] [address] documented as of this encounter Visit Diagnoses Not on filedocumented in this encounter Care Teams Import Clerk Relationship Specialty Start Date End Date Yvan Coffey MD [address] [address] PCP - General Internal Medicine 08/13/22 documented as of this encounter
--- OUTSIDE RECORDS SUMMARY | 2025-02-13 11:29 | XMS_ITS | Encounter Summary ---
Author Organization [employer] Address [address] [place] [address] Care Team Providers Care Licensing Coordinator Name Role Phone Yvan Coffey MD Primary Care Provider [phone] Reason for Visit * Reason Comments Medication Refill Encounter Details Date Type Department Care Team (Late st Contact Info) Description 10/20/2022 Refill [facility] Cardiology [address] [facility] [address] [place] [address] Oscar Hodge MD [address] [facility] [address] [place] [address] Social History Tobacco Use Types Packs/Day Years [...] Description 12/24/2025 3:00 PM EDT Office Visit [address] [address] Elton Faust MD [address] [place] [address] documented as of this encounter Visit Diagnoses Not on filedocumented in this encounter Care Teams Licensing Coordinator Relationship Specialty Start Date End Date Yvan Coffey MD [address] [facility] [address] [place] [address] PCP - General Internal Medicine 08/13/22 documented as of this encounter
--- OUTSIDE RECORDS SUMMARY | 2025-02-13 11:29 | XMS_ITS | Encounter Summary ---
Author Organization [employer] Address [address] [place] [address] Care Team Providers Care Scheduling Manager Name Role Phone Yvan Coffey MD Primary Care Provider [phone] Encounter Details Date Type Department Care Team (Late st Contact Info) Description 06/08/2020 Transcribed Document [facility] [place] Family Medicine [facility] [place] [address] ProviderYahir MD [address] [place] [address] Social History Tobacco Use Types Packs/Day Years Used Date Smoking Tobacco: Never Assessed Sex and Gender Information Value Date Recorded Sex Assigned at Not on file Legal Sex Male 3:58 PM CDT Gender Identity Not on file Sexual Orientation Not on file documented as of this encounter Miscellaneous Notes * Cerner Conversion Note - Yahir ProviderMD - 06/08/2020 9:17 AM CDT Admission History, Adult Entered On: 06/08/2020 22:50 EDT Performed On: 06/08/2020 9:17 EDT by Elaine Phillips RN Advance Directive Patient has Advance Directive *Q : No, patient refuses Advance Directive information Elaine Phillips RN - 06/08/2020 22:50 EDT Anesthesia/Transfusion History Family History of Anesthesia Reaction : Prior transfusion without reaction Transfusion History : Prior anesthesia without reaction Family History of Anesthesia Reaction : None Elaine Phillips RN - 06/08/2020 22:50 EDT Functional Assessment Living Situation : Home Current Home Treatments : CPAP Elaine Phillips RN - 06/08/2020 22:50 EDT General Info Emergency Contact #1 : Sherry Emergency Contact #1 Phone Number : [phone] Emergency Contact #1 Relationship : Emergency Contact #2 : x Emergency Contact #2 Phone Number : x Emergency Contact #2 Relationship : x Sander Portable Machine Needed : No Elaine Phillips RN - 06/08/2020 23:15 EDT Mode of Arrival on Unit : Ambulatory Legal Guardian : Spouse Support Person/Patient Wallboard Worker : Yes Support Person/Pt Rep Name : Sherry Support Person/Pt Rep Contact Information : [phone] Want Family/Rep/Phys Notified of Admit : No Chief Complaint : c/o cp that radiates to back and right arm @ 0200 upon waking up. ems arrived and BP was in the 200's systolic. h/o ARDS, DVT. Information Obtained From : Patient Primary Language : Mongolian Preferred Communication Mode : Verbal Communication Barrier : None Elaine Phillips RN - 06/08/2020 22:50 EDT Fall Risk Scales ABCs Fall Injury Risk Identification : None DUNLAP Hx Falls Immediate/Within 3 Months : No Dunlap Secondary Diagnosis : Yes GERMÁN Use of Ambulatory Aid : None DUNLAP IV Therapy or IV Access : Yes Germán Gait/Transferring : Normal, bedrest, immobile Dunlap Mental Status : Oriented to own ability Dunlap Fall Risk Score : 35 DUNLAP Fall Scale Risk Level : 25-45 Medium Risk Alpha Fall Interventions : Adequate lighting, Assistive devices within reach, Bed in low position, Call device within reach, Fall prevention handout/education per facility policy, Frequent orientation to call device, Frequent orientation to surroundings, Non-slip footwear, Personal items within reach, Reinforced to call for assistance before getting out of bed, Room free of clutter/spills, Upper side-rails up, Wheels locked, Wires/Cords secured Elaine Phillips RN - 06/08/2020 22:52 EDT Health Histories Smoking Status : Never (less than 100 in lifetime; none in last 30 days) Smokeless Tobacco Status : Never Elaine Phillips RN - 06/08/2020 22:52 EDT Social History (As Of: 06/08/2020 22:53:28 EDT) Tobacco: Use in Last 12 Months: No. (Last Updated: 12/01/2015 09:21:29 EDT by DANIEL BRANCH, RN) Alcohol: Use in Last 12 Months: No. (Last Updated: 04/26/2013 05:55:45 EDT by VASILIY FLORES RN) Substance Abuse: Drug Use Hx: No. Use in Last 12 Months: No. (Last Updated: 04/26/2013 05:56:12 EDT by VASILIY FLORES RN) Height and Weight, Clinical Dosing Height Source : Stated Height Entry Format : [place] Height, Feet : 5 ft(Converted to: 152 cm, 60 Inch) Height, Inches : 8 Inch(Converted to: 0 ft 8 Inch, 20.32 cm) Clinical Height : 172.72 cm Weight Source : Bed scale Weight Entry Format : [place] Clinical Dosing Weight : 109.09 kg Weight, Pounds : 240 lb Body Surface Area (BSA) : 2.21 m2 Body Mass Index : 36.6 kg/m2 (HI) [place] Body Weight : 67 kg Elaine Phillips RN - 06/08/2020 22:52 EDT Infectious Disease History Has the patient ever been tested for COVID-19? : No, Patient stated Does patient have symptoms of COVID-19? : No COVID19 Screening : No Experiencing Infectious Disease Symptoms : Difficulty breathing Physical contact outside [place] in the last 30 days : No Infectious Disease History : Chicken pox/Shingles, Measles, Mumps Tuberculosis Symptoms : None Elaine Phillips RN - 06/08/2020 22:52 EDT Influenza Vaccine Asmt, Adult Previous Vaccines from Immunization Schedule : No qualifying data available. Influenza Immunization, Current Season : No Inactivated Flu Vaccine Contraindications : No contraindications to inactivated influenza vaccine Transplant Workup/Recent Transplant : No Order for Influenza Vaccine : Declined Vaccination Elaine Phillips RN - 06/08/2020 22:52 EDT Pneumococcal Vaccine Previous Vaccines from Immunization Schedule : No qualifying data available. Pneumonia Immunization Received : No Pneumococcal Risk Assessment < Age 65 : None Elaine Phillips RN - 06/08/2020 22:52 EDT Nutrition History Adaptive Feeding Equipment : Vegetarian Oral Medication Administration : By mouth Eating Poorly Due to Decreased Appetite : No Unplanned Weight Loss in Past 3-6 Months : No Malnutrition Screening Tool Total(mal) : 0 Malnutrition Screening Tool Risk Level : Patient not at risk Elaine Phillips RN - 06/08/2020 22:52 EDT [place] Suicide Severity Rating Scale (C-SSRS) CSSRS Past Month Wish to be : No CSSRS Past Month Suicidal Thoughts : No CSSRS Lifetime Suicide Behavior : No Suicide Severity Rating Score : 0 Suicide Severity Rating : No Additional Care Required at this time Elaine Phillips RN - 06/08/2020 22:52 EDT Psychosocial History Do You Have a History of the Following? : Anxiety, Depression Currently in Unsafe Situation : No Elaine Phillips RN - 06/08/2020 22:52 EDT Sleep Apnea Risk Assmt BiPAP/CPAP Ordered for Home Use : Yes Hx of Obstructive Sleep Apnea Diagnosis : Yes BiPAP/CPAP Used at Home : Yes Age over 50 Years Old : Yes Gender Male : Yes Elaine Phillips RN - 06/08/2020 22:52 EDT Valuables and Belongings Valuables and Belongings : Clothing Clothing : Common streetwear Clothing Disposition : With patient Elaine Phillips RN - 06/08/2020 22:52 EDT Electronically signed by Arthur [facility] Conversion Metal Fabricator Helper Cerner at 12/21/2022 4:58 PM CDT documented in this encounter Plan of Treatment Upcoming Encounters Date Type Department Care Team (Late st Contact Info) Description 12/24/2025 3:00 PM EDT Office Visit [address] [address] Elton Faust MD [address] [place] [address] documented as of this encounter Visit Diagnoses Not on filedocumented in this encounter Care Teams Scheduling Manager Relationship Specialty Start Date End Date Yvan Coffey MD [address] [facility] [address] [place] [address] PCP - General Internal Medicine 08/13/22 documented as of this encounter
--- OUTSIDE RECORDS SUMMARY | 2025-02-13 11:29 | XMS_ITS | Encounter Summary ---
Author Organization [employer] Address [address] [place] [address] Care Team Providers Care Operations Manager Assistant Name Role Phone Yvan Coffey MD Primary Care Provider [phone] Encounter Details Date Type Department Care Team (Late st Contact Info) Description 03/28/2022 Transcribed Document [facility] [place] [facility] [address] ProviderYahir MD [address] [place] [address] Social History Tobacco Use Types Packs/Day Years Used Date Smoking Tobacco: Never Assessed Sex and Gender Information Value Date Recorded Sex Assigned at Not on file Legal Sex Male 3:58 PM CDT Gender Identity Not on file Sexual Orientation Not on file documented as of this encounter Miscellaneous Notes * Cerner Conversion Note - Yahir ProviderMD - 03/28/2022 5:00 AM CDT ED Assessment Entered On: 03/28/2022 5:51 EDT Performed On: 03/28/2022 5:50 EDT by NIAF ALVARADO RN ED Quick Look Assessment Level of Consciousness : Alert, Awake Affect/Behavior : Appropriate, Calm, Cooperative Orientation : Oriented x 4 Skin Temperature : Warm Skin Description : Normal for ethnicity NAIF ALVARADO RN - 03/28/2022 5:50 EDT ED General-Functional Assess Information Obtained From : Patient Preferred Communication Mode : Verbal Communication Barrier : None Primary Language : German Any Spiritual/Cultural Needs or Requests : No Currently in Unsafe Situation : No NAIF ALVARADO RN - 03/28/2022 5:50 EDT Social Habits Smoking Status : Never (less than 100 in lifetime; none in last 30 days) Smokeless Tobacco Status : Never Desires Tobacco Cessation Calc : 0 NAIF ALVARADO RN - 03/28/2022 5:50 EDT Social History (As Of: 03/28/2022 05:51:49 EDT) Tobacco: Use in Last 12 Months: No. (Last Updated: 12/01/2015 09:21:29 EDT by DANIEL BRANCH, RN) Alcohol: Use in Last 12 Months: No. (Last Updated: 04/26/2013 05:55:45 EDT by VASILIY FLORES, [employer]) Substance Abuse: Drug Use Hx: No. Use in Last 12 Months: No. (Last Updated: 04/26/2013 05:56:12 EDT by VASILIY FLORES RN) Cardiovascular ASMT, ED Cardiovascular Assessment WDL : WDL with exceptions Cardiovascular Symptoms : Dyspnea at rest, Dyspnea with activity, Tightness at rest, Tightness with activity Heart Rhythm : Regular Nail Bed Color : Milligan Chest Pain : Yes NAIF ALVARADO RN - 03/28/2022 5:50 EDT Pulses Grid Radial Pulse, Left : 2+ normal Radial Pulse, Right : 2+ normal NAIF ALVARADO RN - 03/28/2022 5:50 EDT Capillary Refill, Left Hand : Less than/Equal to (</=) 2 seconds Capillary Refill, Right Hand : Less than/Equal to (</=) 2 seconds Capillary Refill, Left Foot : Less than/Equal to (</=) 2 seconds Capillary Refill, Right Foot : Less than/Equal to (</=) 2 seconds Heart Sounds : S1/S2 NAIF ALVARADO RN - 03/28/2022 5:50 EDT Respiratory Breath Sounds Auscultated : Posterior, Anterior Respiratory Assessment WDL : WDL with exceptions NAIF ALVARADO RN - 03/28/2022 5:50 EDT Breath Sounds Assessment Grid All Lobes Breath Sounds : Clear NAIF ALVARADO RN - 03/28/2022 5:50 EDT Electronically signed by Kate Gibson Conversion Presser And Shaper Knitted Goods Cerner at 12/21/2022 4:51 PM CDT documented in this encounter Plan of Treatment Upcoming Encounters Date Type Department Care Team (Late st Contact Info) Description 12/24/2025 3:00 PM EDT Office Visit [address] [phone] Elton Faust MD [address] [place] [address] documented as of this encounter Visit Diagnoses Not on filedocumented in this encounter Care Teams Operations Manager Assistant Relationship Specialty Start Date End Date Yvan Coffey MD [address] [address] PCP - General Internal Medicine 08/13/22 documented as of this encounter
--- OUTSIDE RECORDS SUMMARY | 2025-02-13 11:29 | XMS_ITS | Encounter Summary ---
Author Organization [employer] Address [address] [place] [address] Care Team Providers Care Acetylene Operator Name Role Phone Yvan Coffey MD Primary Care Provider [phone] Encounter Details Date Type Department Care Team ( Contact Info) Description 06/08/2020 Transcribed Document [facility] [place] Family Medicine [facility] [place] [address] ProviderYahir MD [address] [place] [address] Social History Tobacco Use Types Packs/Day Years Used Date Smoking Tobacco: Never Assessed Sex and Gender Information Value Date Recorded Sex Assigned at Not on file Legal Sex Male 3:58 PM CDT Gender Identity Not on file Sexual Orientation Not on file documented as of this encounter Miscellaneous Notes * Cerner Conversion Note - Yahir Bullard MD - 06/08/2020 8:28 AM CDT Provider Notification Entered On: 06/08/2020 8:28 EDT Performed On: 06/08/2020 8:28 EDT by Clarence Downs Paramedic Provider Notification Provider Notified of Concerns/Results : Critical value result Critical Result Details : troponin 0.767 Critical Result Read Back and Verified : Yes Provider Response : No new orders Provider Notified Name : AGUILA HUBER MD Provider Notified Time : 06/08/2020 8:28 EDT Clarence Downs Paramedic - 06/08/2020 8:28 EDT Electronically signed by Arthur [facility] Conversion Agency Development Manager Cerner at 12/21/2022 4:51 PM CDT documented in this encounter Plan of Treatment Upcoming Encounters Date Type Department Care Team (Late st Contact Info) Description 12/24/2025 3:00 PM EDT Office Visit [address] [address] Elton Faust MD [address] [place] [address] documented as of this encounter Visit Diagnoses Not on filedocumented in this encounter Care Teams Acetylene Operator Relationship Specialty Start Date End Date Yvan Coffey MD [address] [facility] [address] [place] [address] PCP - General Internal Medicine 08/13/22 documented as of this encounter
--- OUTSIDE RECORDS SUMMARY | 2025-02-13 11:29 | XMS_ITS | Encounter Summary ---
Author Organization [employer] Address [address] [place] [address] Care Team Providers Care Glass Beveller Name Role Phone Yvan Coffey MD Primary Care Provider [phone] Encounter Details Date Type Department Care Team (Late st Contact Info) Description 10/17/2021 Transcribed Document [facility] [place] Family Medicine [facility] [place] [address] ProviderYahir MD [address] [place] [address] Social History Tobacco Use Types Packs/Day Years Used Date Smoking Tobacco: Never Assessed Sex and Gender Information Value Date Recorded Sex Assigned at Not on file Legal Sex Male 3:58 PM CDT Gender Identity Not on file Sexual Orientation Not on file documented as of this encounter Miscellaneous Notes * Cerner Conversion Note - Yahir ProviderMD - 10/17/2021 12:40 AM LIBRARY CIRCULATION DEPARTMENT CHIEF Electronically signed by Arthur [facility] Conversion Positive Printer Operator Cerner at 12/21/2022 4:50 PM CDT documented in this encounter Plan of Treatment Upcoming Encounters Date Type Department Care Team (Late st Contact Info) Description 12/24/2025 3:00 PM EDT Office Visit [address] [address] Elton Faust MD [address] [place] [address] documented as of this encounter Visit Diagnoses Not on filedocumented in this encounter Care Teams Glass Beveller Relationship Specialty Start Date End Date Yvan Coffey MD [address] [facility] [address] [place] [address] PCP - General Internal Medicine 08/13/22 documented as of this encounter
--- OUTSIDE RECORDS SUMMARY | 2025-02-13 11:29 | XMS_ITS | Encounter Summary ---
Author Organization [employer] Address [address] [place] [address] Care Team Providers Care Returner Name Role Phone Yvan Coffey MD Primary Care Provider [phone] Encounter Details Date Type Department Care Team (Late st Contact Info) Description 06/08/2020 Transcribed Document [facility] [place] [facility] [place] [address] ProviderYahir MD [address] [place] [address] Social History Tobacco Use Types Packs/Day Years Used Date Smoking Tobacco: Never Assessed Sex and Gender Information Value Date Recorded Sex Assigned at Not on file Legal Sex Male 3:58 PM CDT Gender Identity Not on file Sexual Orientation Not on file documented as of this encounter Miscellaneous Notes * Cerner Conversion Note - Yahir ProviderMD - 06/08/2020 4:58 AM CDT Pain Assessment Entered On: 06/08/2020 5:05 EDT Performed On: 06/08/2020 5:05 EDT by NAIF ALVARADO RN Intervention Information: nitroglycerin Performed by NAIF ALVARADO RN on 06/08/2020 05:00:00 EDT nitroglycerin,0.4mg SubLINgual,Chest Pain Pain Assessment Pain Assessment : Follow-up assessment Pain Scale Used : 0-10 Scale Location : Chest Onset : Acute NAIF ALVARADO RN - 06/08/2020 5:05 EDT Pain Scale Intensity : 4 NAIF ALVARADO RN - 06/08/2020 5:05 EDT Image 4 - Images currently included in the form version of this document have not been included in the text rendition version of the form. Electronically signed by Arthur, Kate Conversion Adhesive Bonding Machine Operator Cerner at 12/21/2022 4:51 PM CDT documented in this encounter Plan of Treatment Upcoming Encounters Date Type Department Care Team (Late st Contact Info) Description 12/24/2025 3:00 PM EDT Office Visit [address] [phone] Elton Faust MD [address] [place] [address] documented as of this encounter Visit Diagnoses Not on filedocumented in this encounter Care Teams Returner Relationship Specialty Start Date End Date Yvan Coffey MD [address] [address] PCP - General Internal Medicine 08/13/22 documented as of this encounter
--- OUTSIDE RECORDS SUMMARY | 2025-02-13 11:29 | XMS_ITS | Encounter Summary ---
Author Organization [employer] Address [address] [place] [address] Care Team Providers Care Family Program Specialist Name Role Phone Yvan Coffey MD Primary Care Provider [phone] Encounter Details Date Type Department Care Team (Late st Contact Info) Description 06/08/2020 Transcribed Document [facility] [place] [facility] [place] [address] ProviderYahir MD [address] [place] [address] Social History Tobacco Use Types Packs/Day Years Used Date Smoking Tobacco: Never Assessed Sex and Gender Information Value Date Recorded Sex Assigned at Not on file Legal Sex Male 3:58 PM CDT Gender Identity Not on file Sexual Orientation Not on file documented as of this encounter Miscellaneous Notes * Cerner Conversion Note - Yahir Bullard MD - 06/08/2020 5:13 AM CDT Patient: JAY TORRES Age: 64 years Sex: Male : 1955 Associated Diagnoses: Hypertension; Chest pain; Non-ST elevation VA (NSTEMI) Author: AMAURY JAMES MD-EMR Basic Information Time seen: Date 06/08/2020, Immediately upon arrival. History source: Patient. Arrival mode: Private vehicle, wheelchair. History limitation: None. Additional information: Chief Complaint from Nursing Triage Note : Chief Complaint 06/08/2020 4:52 EDT Chief Complaint c/o cp that radiates to back and right arm @ 0200 upon waking up. ems arrived and BP was in the 200's systolic. h/o ARDS, DVT. . History of Present Illness The patient presents with chest pain. The onset was 2.5 hours ago and abrupt. The course/duration of symptoms is constant. Location: substernal. Radiating pain: right arm. right side of the back. The character of symptoms is tightness and pressure. The degree at onset was moderate. The degree at maximum was moderate. The degree at present is moderate. The exacerbating factor is exertion. The relieving factor is none. Risk factors consist of obesity, deep vein thrombosis and family history of coronary artery disease. Prior episodes: none. Therapy today None. Associated symptoms: shortness of breath. Pt reports called EMS - BP in 200s systolic. Has been having intermittent chest pain for past 2-3d, worse tonight and occurred during sleep. Review of Systems Constitutional symptoms: Negative except as documented in HPI. Skin symptoms: Negative except as documented in HPI. Eye symptoms: Negative except as documented in HPI. ENMT symptoms: Negative except as documented in HPI. Respiratory symptoms: Shortness of breath. Cardiovascular symptoms: Chest pain. Gastrointestinal symptoms: Negative except as documented in HPI. Genitourinary symptoms: Negative except as documented in HPI. Musculoskeletal symptoms: Negative except as documented in HPI. Neurologic symptoms: Negative except as documented in HPI. Psychiatric symptoms: Negative except as documented in HPI. Endocrine symptoms: Negative except as documented in HPI. Hematologic/Lymphatic symptoms: Negative except as documented in HPI. Allergy/immunologic symptoms: Negative except as documented in HPI. Additional review of systems information: All other systems reviewed and otherwise negative. 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 Medications: (Selected) Documented Medications Documented Cymbalta: 20 mg, Oral, Daily, 0 Refill(s) Whiteface 10 mg-325 mg oral tablet: 1 Tab, Oral, Q4H, PRN: for pain, 0 Refill(s) gabapentin: 600 mg, Oral, BID, 0 Refill(s) pantoprazole: 20 mg, Oral, Daily, 0 Refill(s) tamsulosin 0.4 mg oral capsule: 1 Cap, Oral, At Bedtime, 30 Cap, 0 Refill(s). Past Medical/ Family/ Social History [...] Months No . 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 Physical Examination Vital Signs Vital Signs/Vital Measures 06/08/2020 5:11 EDT Systolic Blood Pressure 144 mmHg HI Diastolic Blood Pressure 88 mmHg Mean Arterial Pressure (MAP)-BMDI 110 Heart Rate Monitored 78 bpm Respiratory Rate 20 Breaths/Min Oxygen Saturation 94 % Oxygen Therapy Mode Room air 06/08/2020 5:05 EDT Systolic Blood Pressure 155 mmHg HI Diastolic Blood Pressure 93 mmHg HI Mean Arterial Pressure (MAP)-BMDI 117 Heart Rate Monitored 80 bpm Respiratory Rate 21 Breaths/Min HI Oxygen Saturation 94 % Oxygen Therapy Mode Room air 06/08/2020 5:00 EDT Systolic Blood Pressure 162 mmHg HI Diastolic Blood Pressure 92 mmHg HI Mean Arterial Pressure (MAP)-BMDI 123 Heart Rate Monitored 70 bpm Respiratory Rate 15 Breaths/Min Oxygen Saturation 99 % Oxygen Therapy Mode Room air 06/08/2020 4:55 EDT Systolic Blood Pressure 183 mmHg HI Diastolic Blood Pressure 107 mmHg HI Mean Arterial Pressure (MAP)-BMDI 138 Heart Rate Monitored 66 bpm Respiratory Rate 12 Breaths/Min LOW Oxygen Saturation 99 % Oxygen Therapy Mode Room air 06/08/2020 4:52 EDT Systolic Blood Pressure 183 mmHg HI Diastolic Blood Pressure 107 mmHg HI Temperature Source Oral Temperature Mode Fahrenheit Temperature, Fahrenheit 97.2 Deg F Clinical Temperature, C 36.2 Deg C Peripheral Pulse Rate 68 bpm Respiratory Rate 22 Breaths/Min HI Oxygen Saturation 98 % Oxygen Therapy Mode Room air . Measurements 06/08/2020 4:52 EDT Height Source Stated Height Entry Format Titus Height/Length, VENEZUELAN (ft) 5 ft Height/Length VENEZUELAN 8 Inch CLINICALHEIGHT 172.72 cm Sperry Body Weight 67.45 kg Weight Source, ED Critical estimated dosing weight Weight Entry Format Titus Weight Singaporean lb 240 lb CLINICALWEIGHT 109.09 kg Body Surface Area (BSA) 2.21 m2 Body Mass Index 36.6 kg/m2 HI . Oxygen Saturation 06/08/2020 5:11 EDT Oxygen Saturation 94 % 06/08/2020 5:05 EDT Oxygen Saturation 94 % 06/08/2020 5:00 EDT Oxygen Saturation 99 % 06/08/2020 4:55 EDT Oxygen Saturation 99 % 06/08/2020 4:52 EDT Oxygen Saturation 98 % . General: Alert, mild distress. Skin: Warm, dry, pink, intact. Head: Normocephalic, atraumatic. Neck: Supple, trachea midline, no tenderness, no JVD, no carotid bruit. Cardiovascular: Regular rate and rhythm, No murmur, Normal peripheral perfusion, No edema. Respiratory: Lungs are clear to auscultation, respirations are non-labored, breath sounds are equal, Symmetrical chest wall expansion. Chest wall: No tenderness, No deformity. Gastrointestinal: Soft, Nontender, Non distended, Normal bowel sounds, No organomegaly. Neurological: Alert and oriented to person, place, time, and situation, No focal neurological deficit observed. Lymphatics: No lymphadenopathy. Psychiatric: Cooperative. Medical Decision Making Differential Diagnosis: Non-ST elevation myocardial infarction, unstable angina, pulmonary embolism, atypical chest pain, aortic dissection. Documents reviewed: Emergency department nurses' notes. Electrocardiogram: Time 06/08/2020 04:54:00, rate 64, normal sinus rhythm, No ST changes, no ectopy, normal IA & QRS intervals, EP Interp. Results review: Lab results : Lab Results 06/08/2020 8:05 EDT Troponin I Ultra 0.767 ng/mL CRIT 06/08/2020 5:20 EDT PT 10.8 Second(s) INR 1.0 PTT 27.2 Second(s) D Dimer Quant see comment mg/L FEU 06/08/2020 5:11 EDT Sodium Level 139 mmol/L Potassium Level 4.1 mmol/L Chloride Level 107 mmol/L Carbon Dioxide Level 26 mmol/L Anion Gap 10 Glucose Level 98 mg/dL Blood Urea Nitrogen 19 mg/dL Creatinine Level 1.30 mg/dL eGFR >60 mL/min/1.73m2 eGFR NonAfrican 56 mL/min/1.73m2 LOW Bun/Creatinine 14.6 Calcium Level 9.6 mg/dL Protein Total 8.0 Gram/dL Albumin Level 4.1 Gram/dL Globulin 3.9 Gram/dL A/G Ratio 1.1 Bilirubin Total 0.4 mg/dL Alk Phos 79 Units/Liter AST 30 Units/Liter ALT 39 Units/Liter Troponin I Ultra <0.015 ng/mL ProBNP 35 pg/mL 06/08/2020 4:58 EDT WBC 8.3 K/uL RBC 5.15 Million/uL Hgb 16.4 g/dL Hct 48.5 % MCV 94.2 fL MCH 31.8 pg MCHC 33.8 Gram/dL Platelet Count 183 K/uL MPV 11.2 fL RDW 12.4 % Neut % 48.9 % Neut # 4.04 K/uL Lymph % 34.6 % Lymph # 2.86 x10(3)/uL [place] % 11.7 % HI [place] # 0.97 K/uL Eos % 3.7 % Eos # 0.31 x10(3)/uL Baso % 0.7 % Baso # 0.06 x10(3)/uL Slide Review No IG# 0.03 x10(3)/uL IG% 0.40 % Chest X-Ray: Time reported 06/08/2020 05:18:00, no acute disease process, interpretation by Emergency Physician. Reexamination/ Reevaluation Time: 06/08/2020 06:13:00 . Notes: D-dimer negative, htn improved and CP resolved after nitroglycerin x2. Initial troponin negative. Time: 06/08/2020 09:08:00 . Notes: On reevaluation, patient remains chest pain-free. However he did have significant elevation in troponin. Patient was given Plavix as well. Cardiology notified. 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 Heparin was avoided at this time. Patient will be admitted to the hospital.. Impression and Plan Diagnosis Hypertension - Discharge, Medical Chest pain - Discharge, Medical Non-ST elevation VA (NSTEMI) - Admitting, Medical Plan Condition: Guarded. Disposition: Admit Admit/Transfer/Discharge: Place in Observation (Order): Start: 06/08/2020 9:09 EDT, Observation Reason: NSTEMI, Unit type: Med-Surg with telemetry, Admitting: JAMMIE ALVAREZ MD-INT, Attending: JAMMIE ALVAREZ MD-INT , Patient care transitioned to: Time: 06/08/2020 07:00:00, AGUILA HUBER MD, pending repeat troponin. Counseled: Patient, Family, Regarding diagnosis, Regarding diagnostic results, Regarding treatment plan, Patient indicated understanding of instructions. documented in this encounter Plan of Treatment Upcoming Encounters Date Type Department Care Team (Late st Contact Info) Description 12/24/2025 3:00 PM EDT Office Visit [address] [address] Elton Faust MD [address] [place] [address] documented as of this encounter Visit Diagnoses Not on filedocumented in this encounter Care Teams Family Program Specialist Relationship Specialty Start Date End Date Yvan Coffey MD [address] [facility] [address] [place] [address] PCP - General Internal Medicine 08/13/22 documented as of this encounter
--- OUTSIDE RECORDS SUMMARY | 2025-02-13 11:29 | XMS_ITS | Encounter Summary ---
Author Organization [employer] Address [address] [place] [address] Care Team Providers Care Wellness Director Name Role Phone Yvan Coffey MD Primary Care Provider [phone] Encounter Details Date Type Department Care Team (Late st Contact Info) Description 06/08/2020 Transcribed Document [facility] [place] [facility] [place] [address] ProviderYahir MD [address] [place] [address] Social History Tobacco Use Types Packs/Day Years Used Date Smoking Tobacco: Never Assessed Sex and Gender Information Value Date Recorded Sex Assigned at Not on file Legal Sex Male 3:58 PM CDT Gender Identity Not on file Sexual Orientation Not on file documented as of this encounter Miscellaneous Notes * Cerner Conversion Note - Historical ProviderMD - 06/08/2020 12:37 PM CDT Valuables and Belongings Entered On: 06/08/2020 22:49 EDT Performed On: 06/08/2020 12:37 EDT by Elaine Phillips RN Valuables and Belongings Valuables and Belongings : Clothing Clothing : Common streetwear Clothing Disposition : With patient Elaine Phillips RN - 06/08/2020 22:49 EDT documented in this encounter Plan of Treatment Upcoming Encounters Date Type Department Care Team (Late st Contact Info) Description 12/24/2025 3:00 PM EDT Office Visit [address] [place] [address] Elton Faust MD [address] [place] [address] documented as of this encounter Visit Diagnoses Not on filedocumented in this encounter Care Teams Wellness Director Relationship Specialty Start Date End Date Yvan Coffey MD [address] [facility] [address] [place] [address] PCP - General Internal Medicine 08/13/22 documented as of this encounter
--- OUTSIDE RECORDS SUMMARY | 2025-02-13 11:29 | XMS_ITS | Encounter Summary ---
Author Organization [employer] Address [address] [place] [address] Care Team Providers Care Loom Repairer Name Role Phone Yvan Coffey MD Primary Care Provider [phone] Encounter Details Date Type Department Care Team (Late st Contact Info) Description 05/14/2022 Transcribed Document [facility] [place] [facility] [place] [address] ProviderYahir MD [address] [place] [address] Social History Tobacco Use Types Packs/Day Years Used Date Smoking Tobacco: Never Assessed Sex and Gender Information Value Date Recorded Sex Assigned at Not on file Legal Sex Male 3:58 PM CDT Gender Identity Not on file Sexual Orientation Not on file documented as of this encounter Miscellaneous Notes * Cerner Conversion Note - Yahir ProviderMD - 05/14/2022 9:00 AM CDT [facility] Gonzalo PreOp Summary Primary Physician: BABAR TALBOT MD-JASMIN Finalized Date/Time: 05/14/22 08:46:07 Pt. Name: JAY TORRES /Sex: 1955 Male Med Rec #: [id number] Physician: BABAR TALBOT MD-JASMIN Financial #: [id number] Pt. Type: O Room/Bed: END/ Admit/Disch: 05/14/22 08:15:00 - Institution: [facility] Gonzalo PreOp Case Times Entry 1 In Preop 05/14/22 08:33:00 Ready for Holding n/a Room Patient Ready for 05/14/22 08:46:00 Surgery Patient Out of Preop 05/14/22 08:46:00 Patient Out of n/a Holding Room Last Modified By: DNOOVAN PANTOJA RN 05/14/22 08:46:05 [facility] Endo PreOp Case Times Audit 05/14/22 08:46:05 Foam Dispenser: VICTOR MANUEL Modifier: MILLERMA <+> 1 Patient Out of Preop <+> 1 Patient Ready for Surgery Finalized By: DONOVAN PANTOJA RN Document Signatures Signed By: DONOVAN PANTOJA RN 05/14/22 08:46 Electronically signed by [facility] Conversion Shovel Log Loader Operator Cerner at 12/21/2022 4:50 PM CDT documented in this encounter Plan of Treatment Upcoming Encounters Date Type Department Care Team (Late st Contact Info) Description 12/24/2025 3:00 PM EDT Office Visit [address] [address] Elton Faust MD [address] [place] [address] documented as of this encounter Visit Diagnoses Not on filedocumented in this encounter Care Teams Loom Repairer Relationship Specialty Start Date End Date Yvan Coffey MD [address] [address] PCP - General Internal Medicine 08/13/22 documented as of this encounter
--- OUTSIDE RECORDS SUMMARY | 2025-02-13 11:29 | XMS_ITS | Encounter Summary ---
Author Organization [employer] Address [address] [place] [address] Care Team Providers Care Zipper Joiner Name Role Phone Yvan Coffey MD Primary Care Provider [phone] Encounter Details Date Type Department Care Team (Late st Contact Info) Description 10/17/2021 Transcribed Document [facility] [place] [address] ProviderYahir MD [address] [place] [address] Social History Tobacco Use Types Packs/Day Years Used Date Smoking Tobacco: Never Assessed Sex and Gender Information Value Date Recorded Sex Assigned at Not on file Legal Sex Male 3:58 PM CDT Gender Identity Not on file Sexual Orientation Not on file documented as of this encounter Miscellaneous Notes * Cerner Conversion Note - Historical ProviderMD - 10/17/2021 1:01 AM DIRECTOR INFORMATICS ED Event Note Entered On: 10/17/2021 1:02 EST Performed On: 10/17/2021 1:01 EST by Najma Harrison NON EMP ENGINE WATCHMAN Event Note ED Event Date/Time : 10/17/2021 1:01 EST ED Description of Event : three way catheter irrigated and switched over to leg bag. no clots seen, cabrera draining, pale red/pink in color. Najma Harrison NON EMP RN - 10/17/2021 1:01 EST Electronically signed by [facility] Conversion Incident Response Specialist Cerner at 12/21/2022 4:57 PM CDT documented in this encounter Plan of Treatment Upcoming Encounters Date Type Department Care Team (Late st Contact Info) Description 12/24/2025 3:00 PM EDT Office Visit [address] [address] Elton Faust MD [address] [place] [address] documented as of this encounter Visit Diagnoses Not on filedocumented in this encounter Care Teams Zipper Joiner Relationship Specialty Start Date End Date Yvan Coffey MD [address] [facility] [address] [place] [address] PCP - General Internal Medicine 08/13/22 documented as of this encounter
--- OUTSIDE RECORDS SUMMARY | 2025-02-13 11:29 | XMS_ITS | Encounter Summary ---
Author Organization [employer] Address [address] [place] [address] Care Team Providers Care Personal Coach Name Role Phone Yvan Coffey MD Primary Care Provider [phone] Encounter Details Date Type Department Care Team (Late st Contact Info) Description 05/14/2022 Transcribed Document [facility] [place] [facility] [place] [address] ProviderYahir MD [facility] [place] [address] Social History Tobacco Use Types Packs/Day Years Used Date Smoking Tobacco: Never Assessed Sex and Gender Information Value Date Recorded Sex Assigned at Not on file Legal Sex Male 3:58 PM CDT Gender Identity Not on file Sexual Orientation Not on file documented as of this encounter Miscellaneous Notes * Cerner Conversion Note - Yahir Bullard MD - 05/14/2022 10:07 AM CDT Patient Education Materials Follows: Instructions for after Colonoscopy 1. Try sips of water first. If tolerated, resume your regular diet or one recommended by your physician. 2. Do not drive, operate machinery, make critical decisions, drink alcoholic beverages, or do activities that require coordination or balance for 24 hours. 3. Because air was put into your colon during the procedure, expelling large amounts of air from your rectum is normal. 4. You may not have a bowel movement for 1-3 days because of the colonoscopy prep. This is normal. 5. Go directly to the emergency room if you notice any of the following: Chills and/or fever over 101 Persistent vomiting Severe abdominal pain, other than gas cramps Severe chest pain Black, tarry stools Any bleeding - exceeding one tablespoon Please see Discharge paperwork for additional instructions from your physician. If you have any questions on the above instructions, call the GI Lab and ask for an endoscopy nurse. Tuesday-Tuesday 7:00 am to 3:00 pm at Pharmacology General Anesthesia, Adult General anesthesia is the use of medicines to make a person go to sleep (unconscious) for a medical procedure. General anesthesia must be used for certain procedures, and is often recommended for procedures that: ??? Last a long time. ??? Require you to be still or in an unusual position. ??? Are major and can cause blood loss. The medicines used for general anesthesia are called general anesthetics. As well as making you unconscious for a certain amount of time, these medicines: ??? Prevent pain. ??? Control your blood pressure. ??? Relax your muscles. Tell a health care provider about: ??? Any allergies you have. ??? All medicines you are taking, including vitamins, herbs, eye drops, creams, and jzon-kch-ujwwqdf medicines. ??? Any problems you or family members have had with anesthetic medicines. ??? Types of anesthetics you have had in the past. ??? Any blood disorders you have. ??? Any surgeries you have had. ??? Any medical conditions you have. ??? Any recent upper respiratory, chest, or ear infections. ??? Any history of: ? Heart or lung conditions, such as heart failure, sleep apnea, asthma, or chronic obstructive pulmonary disease (COPD). ? service. ? Depression or anxiety. ??? Any tobacco or drug use, including marijuana or alcohol use. ??? Whether you are or may be . What are the risks? Generally, this is a safe procedure. However, problems may occur, including: ??? Allergic reaction. ??? Lung and heart problems. ??? Inhaling food or liquid from the stomach into the lungs (aspiration). ??? Nerve injury. ??? Dental injury. ??? Air in the bloodstream, which can lead to stroke. ??? Extreme agitation or confusion (delirium) when you wake up from the anesthetic. ??? Waking up during your procedure and being unable to move. This is rare. These problems are more likely to develop if you are having a major surgery or if you have an advanced or serious medical condition. You can prevent some of these complications by answering all of your health care provider's questions thoroughly and by following all instructions before your procedure. General anesthesia can cause side effects, including: ??? Nausea or vomiting. ??? A sore throat from the breathing tube. ??? Hoarseness. ??? Wheezing or coughing. ??? Shaking chills. ??? Tiredness. ??? Body aches. ??? Anxiety. ??? Sleepiness or drowsiness. ??? Confusion or agitation. What happens before the procedure? Staying hydrated Follow instructions from your health care provider about hydration, which may include: ??? Up to 2 hours before the procedure ? you may continue to drink clear liquids, such as water, clear fruit juice, black coffee, and plain tea. Eating and drinking restrictions Follow instructions from your health care provider about eating and drinking, which may include: ??? 8 hours before the procedure ? stop eating heavy meals or foods such as meat, fried foods, or fatty foods. ??? 6 hours before the procedure ? stop eating light meals or foods, such as toast or cereal. ??? 6 hours before the procedure ? stop drinking milk or drinks that contain milk. ??? 2 hours before the procedure ? stop drinking clear liquids. Medicines Ask your health care provider about: ??? Changing or stopping your regular medicines. This is especially important if you are taking diabetes medicines or blood thinners. ??? Taking medicines such as aspirin and ibuprofen. These medicines can thin your blood. Do not take these medicines unless your health care provider tells you to take them. ??? Taking wjzx-zzq-tvbocvz medicines, vitamins, herbs, and supplements. Do not take these during the week before your procedure unless your health care provider approves them. General instructions ??? Starting 3?6 weeks before the procedure, do not use any products that contain nicotine or tobacco, such as cigarettes and e-cigarettes. If you need help quitting, ask your health care provider. ??? If you brush your teeth on the morning of the procedure, make sure to spit out all of the toothpaste. ??? Tell your health care provider if you become ill or develop a cold, cough, or fever. ??? If instructed by your health care provider, bring your sleep apnea device with you on the day of your surgery (if applicable). ??? Ask your health care provider if you will be going home the same day, the following day, or after a longer hospital stay. ? Plan to have a responsible adult take you home from the hospital or clinic. ? Plan to have a responsible adult care for you for the time you are told after you leave the hospital or clinic. This is important. What happens during the procedure? You will be given anesthetics through both of the following: ? A mask placed over your nose and mouth. ? An IV in one of your veins. ??? You may receive a medicine to help you relax (sedative). ??? After you are unconscious, a breathing tube may be inserted down your throat to help you breathe. This will be removed before you wake up. ??? An anesthesia specialist will stay with you throughout your procedure. He or she will: ? Keep you comfortable and safe by continuing to give you medicines and adjusting the amount of medicine that you get. ? Monitor your blood pressure, pulse, and oxygen levels to make sure that the anesthetics do not cause any problems. The procedure may vary among health care providers and hospitals. What happens after the procedure? Your blood pressure, temperature, heart rate, breathing rate, and blood oxygen level will be monitored until the medicines you were given have worn off. ??? You will wake up in a recovery area. You may wake up slowly. ??? If you feel anxious or agitated, you may be given medicine to help you calm down. ??? If you will be going home the same day, your health care provider may check to make sure you can walk, drink, and urinate. ??? Your health care provider will treat any pain or side effects you have before you go home. ??? Do not drive or operate machinery until your health care provider says that it is safe. Summary ??? General anesthesia is used to keep you still and prevent pain during a procedure. ??? It is important to tell your health care provider about your medical history and any surgeries you have had, and previous experience with anesthesia. ??? Follow your health care provider's instructions about when to stop eating, drinking, or taking certain medicines before your procedure. ??? Plan to have a responsible adult take you home from the hospital or clinic. This information is not intended to replace advice given to you by your health care provider. Make sure you discuss any questions you have with your health care provider. Document Revised: 05/04/2021 Document Reviewed: 12/03/2020 Elsevier Patient Education ? 2021 [employer] documented in this encounter Plan of Treatment Upcoming Encounters Date Type Department Care Team (Late st Contact Info) Description 12/24/2025 3:00 PM EDT Office Visit [address] [address] Elton Faust MD [address] [place] [id number] documented as of this encounter Visit Diagnoses Not on filedocumented in this encounter Care Teams Personal Coach Relationship Specialty Start Date End Date Yvan Coffey MD [address] [address] PCP - General Internal Medicine 08/13/22 documented as of this encounter
--- OUTSIDE RECORDS SUMMARY | 2025-02-13 11:29 | XMS_ITS | Encounter Summary ---
Author Organization [employer] Address [address] [place] [address] Care Team Providers Care Illuminator Name Role Phone Yvan Coffey MD Primary Care Provider [phone] Encounter Details Date Type Department Care Team (Late st Contact Info) Description 06/08/2020 Transcribed Document [facility] [place] [address] ProviderYahir MD [address] [place] [id number] Social History Tobacco Use Types Packs/Day Years Used Date Smoking Tobacco: Never Assessed Sex and Gender Information Value Date Recorded Sex Assigned at Not on file Legal Sex Male 3:58 PM CDT Gender Identity Not on file Sexual Orientation Not on file documented as of this encounter Miscellaneous Notes * Cerner Conversion Note - Yahir Bullard MD - 06/08/2020 9:44 AM CDT Patient: JAY TORRES Age: 64 years Sex: Male : 1955 Associated Diagnoses: None Author: KOFI BAXTER MD-CAR Basic Information PCP: YVAN COFFEY MD-INT Chemistry Intern: None Chief Complaint Acute onset chest pain x2 to 3 days History of Present Illness 64-year-old male with an unremarkable cardiovascular history [...] He denies dizziness, SOA, palpitations or edema. Currently, patient is in stable condition in NAD with mild chest discomfort. Review of Systems Constitutional: Negative except as documented in history of present illness. Eye: Negative except as documented in history of present illness. Ear/Nose/Mouth/Throat: Negative except as documented in history of present illness. Respiratory: Negative except as documented in history of present illness. Cardiovascular: Negative except as documented in history of present illness. Gastrointestinal: Negative except as documented in history of present illness. Genitourinary: Negative except as documented in history of present illness. Hematology/Lymphatics: Negative except as documented in history of present illness. Endocrine: Negative except as documented in history of present illness. Immunologic: Negative except as documented in history of present illness. Musculoskeletal: Negative except as documented in history of present illness. Integumentary: Negative except as documented in history of present illness. Neurologic: Negative except as documented in history of present illness. Psychiatric: Negative except as documented in history of present illness. 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., No qualifying data available Current medications: (Selected) Documented Medications Documented Cymbalta: 20 mg, Oral, Daily, 0 Refill(s) [place] 10 mg-325 mg oral tablet: 1 Tab, Oral, Q4H, PRN: for pain, 0 Refill(s) gabapentin: 600 mg, Oral, BID, 0 Refill(s) pantoprazole: 20 mg, Oral, Daily, 0 Refill(s) tamsulosin 0.4 mg oral capsule: 1 Cap, Oral, At Bedtime, 30 Cap, 0 Refill(s), No qualifying data available Problem list: All Problems ARDS - Adult respiratory distress syndrome / SNOMED CT 632699444 / Confirmed Patient requiring acute dialysis / SNOMED CT 0434615884 / Confirmed 3 years Diverticula, colon / SNOMED CT 6667192323 / Confirmed DVT - Deep vein thrombosis / SNOMED CT 7312577980 / Confirmed Touchet filter, device / SNOMED CT 8419010481 / Confirmed 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 Procedure history: IVC filter placement. approx. 12 in of colon removed. left knee surgery. colonscopy. Social History Social & Psychosocial Habits Alcohol 04/26/2013 Alcohol Use in Last Twelve Months No Substance Abuse 04/26/2013 Recreational Drug Use History No Recreational Drug Use Last 12 Months No Tobacco 12/01/2015 Tobacco Use Within Last Twelve Months No . Physical Examination VS/Measurements Vitals Signs (last 24 hrs) Last Charted Minimum Maximum Temp 97.2 (JUN 08 04:52) 97.2 (JUN 08 04:52) 97.2 (JUN 08 04:52) Mon HR 64 (JUN 08 07:06) 62 (JUN 08 06:00) 80 (JUN 08 05:05) Periph HR 68 (JUN 08 04:52) 68 (JUN 08 04:52) 68 (JUN 08 04:52) Resp Rate 20 (JUN 08 07:06) L 12 (JUN 08 04:55) H 22 (JUN 08 04:52) SBP 116 (JUN 08 07:06) 116 (JUN 08 07:06) H 183 (JUN 08 04:52) DBP 82 (JUN 08 07:06) 81 (JUN 08 06:00) H 107 (JUN 08 04:52) MAP 94 (JUN 08 07:06) 94 (JUN 08 07:06) 138 (JUN 08 04:55) SpO2 95 (JUN 08 07:06) 94 (JUN 08 05:05) 99 (JUN 08 04:55) General: Alert and oriented, No acute distress. Eye: Pupils are equal, round and reactive to light. HENT: Normocephalic. Neck: Supple, Non-tender, No carotid bruit, No jugular venous distention. Respiratory: Lungs are clear to auscultation, Respirations are non-labored, Breath sounds are equal, Symmetrical chest wall expansion. Cardiovascular: Normal rate, Regular rhythm, No murmur, No gallop, Good pulses equal in all extremities. Gastrointestinal: Soft, Non-tender, Non-distended, Normal bowel sounds. Musculoskeletal: Normal range of motion, Normal strength. Integumentary: Warm, Dry, [place]. Neurologic: Alert, Oriented. Psychiatric: Cooperative, Appropriate mood & affect. Review / Management JUN 08 05:11 139 107 19 / 98 4.1 26 1.30 \ JUN 08 05:11 \ 16.4 / 8.3 183 / 48.5 \ Cardiac Markers (Current Encounter/Past 24 Hours) ProBNP 35 pg/mL 06/08/2020 05:27 Blood Gases (Current Encounter/Past 24 Hours) No Blood Gas Results Found (Past 24 Hours) Radiology Results (Last 48 hours) [id number] -- 06/08/2020 09:09 CR Chest 1 Vw [...] by Dr. Mohinder Martin.Transcribed by Benoit Ceja (R). Results review: Labs (Last four charted values) WBC 8.3 (JUN 08) HB 16.4 (JUN 08) HCT 48.5 (JUN 08) Plt 183 (JUN 08) Na 139 (JUN 08) K 4.1 (JUN 08) Cl 107 (JUN 08) CO2 26 (JUN 08) BUN 19 (JUN 08) Cr 1.30 (JUN 08) Glu R 98 (JUN 08) Ca 9.6 (JUN 08) PT 10.8 (JUN 08) INR 1.0 (JUN 08) PTT 27.2 (JUN 08) AST 30 (JUN 08) ALT 39 (JUN 08) ALK P 79 (JUN 08) T Bili 0.4 (JUN 08) PTN 8.0 (JUN 08) ALB 4.1 (JUN 08) Troponin C 0.767 (JUN 08) <0.015 (JUN 08) . Impression and Plan IMPRESSION: NSTEMI in setting of acute onset chest pain x 2 to 3 days. No known CV history. No cardiac meds. Allergic to Heparin. 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 Risks and benefits discussed and pt wishes to proceed. Avoid heparin. Echo. Add ASA, statin, BB and ACEi. documented in this encounter Plan of Treatment Upcoming Encounters Date Type Department Care Team (Late st Contact Info) Description 12/24/2025 3:00 PM EDT Office Visit [address] [address] Elton Faust MD [address] [place] [id number] documented as of this encounter Visit Diagnoses Not on filedocumented in this encounter Care Teams Illuminator Relationship Specialty Start Date End Date Yvan Coffey MD [address] [place] [address] PCP - General Internal Medicine 08/13/22 documented as of this encounter
--- OUTSIDE RECORDS SUMMARY | 2025-02-13 11:29 | XMS_ITS | Encounter Summary ---
Author Organization [employer] Address [address] [place] [address] Care Team Providers Care Window And Siding Craftsman Name Role Phone Yvan Coffey MD Primary Care Provider [phone] Encounter Details Date Type Department Care Team (Late st Contact Info) Description 03/28/2022 Transcribed Document [facility] [place] [address] ProviderYahir MD [address] [place] [id number] Social History Tobacco Use Types Packs/Day Years Used Date Smoking Tobacco: Never Assessed Sex and Gender Information Value Date Recorded Sex Assigned at Not on file Legal Sex Male 3:58 PM CDT Gender Identity Not on file Sexual Orientation Not on file documented as of this encounter Miscellaneous Notes * Cerner Conversion Note - Yahir Bullard MD - 03/28/2022 6:38 AM CDT Patient: JAY TORRES Age: 66 years Sex: Male : 1955 Associated Diagnoses: Chest pain; Epigastric pain; SOB (shortness of breath); Pleural thickening Author: ANNE MARIE RICKETTS MD Basic Information Additional information: Chief Complaint from Nursing Triage Note : Chief Complaint 03/28/2022 5:05 EDT Chief Complaint pt reports midsternal chest tightness wrapping arund to back & sob x 2 days. worse tonight. h/o stents. also c//o bloating. . History of Present Illness The patient presents with chest pain. The onset was 2 days ago. Location: Substernal epigastric. Radiating pain: none. The character of symptoms is tightness. The degree at onset was minimal. The degree at maximum was moderate. The degree at present is minimal. The exacerbating factor is none. The relieving factor is none. Risk factors consist of coronary artery disease and diverticulitis. Associated symptoms: shortness of breath, denies nausea, denies vomiting, denies diaphoresis, denies anxiety and denies palpitations. Review of Systems Constitutional symptoms: No fever, no chills, no sweats, no weakness, no fatigue. Skin symptoms: No rash, Eye symptoms: Vision unchanged, no pain, no discharge, no blurred vision. ENMT symptoms: No ear pain, no sore throat, no nasal congestion. Respiratory symptoms: Shortness of breath, No cough, Cardiovascular symptoms: Chest pain, no palpitations, no syncope. Gastrointestinal symptoms: Abdominal pain, no nausea, no vomiting, no diarrhea. Genitourinary symptoms: No dysuria, no hematuria. Musculoskeletal symptoms: No back pain, no Joint pain. Neurologic symptoms: No headache, no dizziness, no numbness, no weakness. 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 Severity Not Documented Brilinta- Sob - shortness of breath.. Medications: (Selected) Inpatient Medications Ordered Normal Saline Flush: 10 mL, IV Push, 1-Time, PRN: IV Use Prescriptions Prescribed Coreg 12.5 mg oral tablet: [...] in of colon removed. left knee surgery. colonscopy., Reviewed as documented in chart. Family history: No family history items have been selected or recorded., Reviewed as documented in chart. Social history: Social & Psychosocial Habits Alcohol 04/26/2013 Alcohol Use in Last Twelve Months No Substance Abuse 04/26/2013 Recreational Drug Use History No Recreational Drug Use Last 12 Months No Tobacco 12/01/2015 Tobacco Use Within Last Twelve Months No , Reviewed as documented in chart. 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 Physical Examination Vital Signs Vital Signs/Vital Measures 03/28/2022 6:18 EDT Heart Rate Monitored 72 bpm Respiratory Rate 17 Breaths/Min Oxygen Saturation 95 % Oxygen Therapy Mode Room air 03/28/2022 5:59 EDT Systolic Blood Pressure 144 mmHg HI Diastolic Blood Pressure 80 mmHg Mean Arterial Pressure (MAP)-BMDI 103 Heart Rate Monitored 68 bpm Respiratory Rate 11 Breaths/Min LOW Oxygen Saturation 96 % Oxygen Therapy Mode Room air 03/28/2022 5:30 EDT Systolic Blood Pressure 155 mmHg HI Diastolic Blood Pressure 82 mmHg Mean Arterial Pressure (MAP)-BMDI 111 Heart Rate Monitored 68 bpm Respiratory Rate 15 Breaths/Min Oxygen Saturation 95 % Oxygen Therapy Mode Room air 03/28/2022 5:06 EDT Temperature Source Oral Temperature Mode Fahrenheit Temperature, Fahrenheit 98.1 Deg F Clinical Temperature, C 36.7 Deg C 03/28/2022 5:05 EDT Systolic Blood Pressure 155 mmHg HI Diastolic Blood Pressure 82 mmHg Temperature Source Oral Temperature Mode Fahrenheit Peripheral Pulse Rate 65 bpm Respiratory Rate 18 Breaths/Min Oxygen Saturation 97 % Oxygen Therapy Mode Room air . Measurements 03/28/2022 5:05 EDT Height Source Stated Height Entry Format [place] Height/Length, CZECH (ft) 5 ft Height/Length CZECH 8 Inch CLINICALHEIGHT 172.72 cm [place] Body Weight 67.45 kg Weight Source, ED Critical estimated dosing weight Weight Entry Format Donnell Weight [place] Islander lb 234 lb CLINICALWEIGHT 106.36 kg Body Surface Area (BSA) 2.19 m2 Body Mass Index 35.7 kg/m2 HI . Oxygen Saturation 03/28/2022 6:18 EDT Oxygen Saturation 95 % 03/28/2022 5:59 EDT Oxygen Saturation 96 % 03/28/2022 5:30 EDT Oxygen Saturation 95 % 03/28/2022 5:05 EDT Oxygen Saturation 97 % . General: Alert, no acute distress. Skin: Warm. Head: Normocephalic. Neck: Supple. Eye: Sclera: not icteric. Ears, nose, mouth and throat: Oral mucosa moist. Cardiovascular: Regular rate and rhythm, No murmur, Normal peripheral perfusion, No edema. Respiratory: Lungs are clear to auscultation, respirations are non-labored, breath sounds are equal. Chest wall: No tenderness. Back: Nontender. Gastrointestinal: Soft, Non distended, Normal bowel sounds, Tenderness: Mild, epigastric, Guarding: Negative, Rebound: Negative. Neurological: No focal neurological deficit observed. Lymphatics: No lymphadenopathy. Psychiatric: Cooperative. Medical Decision Making Documents reviewed: Emergency department nurses' notes. Electrocardiogram: Time 03/28/2022 05:10:00, rate 66, normal sinus rhythm, No ST changes, no ectopy, normal VA & QRS intervals, EP Interp. Reexamination/ Reevaluation Time: 03/28/2022 11:17:00 . Vital signs results included from flowsheet : Vital Measurements 03/28/2022 8:56 EDT Heart Rate Monitored 82 bpm Respiratory Rate 19 Breaths/Min Oxygen Saturation 93 % LOW Oxygen Therapy Mode Room air 03/28/2022 8:00 EDT Heart Rate Monitored 60 bpm Respiratory Rate 11 Breaths/Min LOW Oxygen Saturation 97 % 03/28/2022 7:30 EDT Heart Rate Monitored 72 bpm Respiratory Rate 16 Breaths/Min Oxygen Saturation 95 % 03/28/2022 7:00 EDT Systolic Blood Pressure 135 mmHg Diastolic Blood Pressure 89 mmHg Mean Arterial Pressure (MAP)-BMDI 110 Heart Rate Monitored 66 bpm Respiratory Rate 15 Breaths/Min Oxygen Saturation 96 % 03/28/2022 6:30 EDT Systolic Blood Pressure 143 mmHg HI Diastolic Blood Pressure 92 mmHg HI Mean Arterial Pressure (MAP)-BMDI 110 Heart Rate Monitored 68 bpm Respiratory Rate 18 Breaths/Min Oxygen Saturation 96 % 03/28/2022 6:18 EDT Heart Rate Monitored 72 bpm Respiratory Rate 17 Breaths/Min Oxygen Saturation 95 % Oxygen Therapy Mode Room air 03/28/2022 5:59 EDT Systolic Blood Pressure 144 mmHg HI Diastolic Blood Pressure 80 mmHg Mean Arterial Pressure (MAP)-BMDI 103 Heart Rate Monitored 68 bpm Respiratory Rate 11 Breaths/Min LOW Oxygen Saturation 96 % Oxygen Therapy Mode Room air 03/28/2022 5:30 EDT Systolic Blood Pressure 155 mmHg HI Diastolic Blood Pressure 82 mmHg Mean Arterial Pressure (MAP)-BMDI 111 Heart Rate Monitored 68 bpm Respiratory Rate 15 Breaths/Min Oxygen Saturation 95 % Oxygen Therapy Mode Room air 03/28/2022 5:06 EDT Temperature Source Oral Temperature Mode Fahrenheit Temperature, Fahrenheit 98.1 Deg F Clinical Temperature, C 36.7 Deg C 03/28/2022 5:05 EDT Systolic Blood Pressure 155 mmHg HI Diastolic Blood Pressure 82 mmHg Temperature Source Oral Temperature Mode Fahrenheit Peripheral Pulse Rate 65 bpm Respiratory Rate 18 Breaths/Min Oxygen Saturation 97 % Oxygen Therapy Mode Room air Course: improving. Pain status: resolved. Assessment: exam improved. Notes: I received this patient in signout from Dr. Ricketts with CT abdomen and pelvis, EKG, and troponin pending. I added the CTA of the chest because when I spoke to general laborer at 0706 machine to perform D-dimer was not working. D-dimer did come back elevated at 0.62. CT abdomen pelvis as well as CTA chest show right greater than left pleural thickening and reviewed CT chest has been recommended in 6 months. Patient had an ambulatory pulse ox of 91%. He then received a DuoNeb and felt better. Patient discharged with a prescription for ProAir inhaler. He will be referred to PCP and pulmonology. Patient given incentive spirometer here and educated on proper use. Patient well-appearing and comfortable at time of discharge. He and his significant other are agreeable with plan of care.. Impression and Plan Diagnosis Chest pain - Discharge, Medical Epigastric pain - Discharge, Medical SOB (shortness of breath) - Discharge, Medical Pleural thickening - Discharge, Emergency medicine, Medical Plan Condition: Improved, Stable. Disposition: Discharged Admit/Transfer/Discharge: Discharge (Order): Start: 03/28/2022 11:20 EDT, Discharge to: Home , Patient care transitioned to: Time: 03/28/2022 07:00:00, PATO CAVANAUGH, DO-EMR. Prescriptions: Prescription [facility] Pharm[facility]: ProAir HFA 90 mcg/inh inhalation aerosol (Prescribe): 2 Puff, Inhalation, Q6H, PRN: Shortness of Breath, 18 Gram, 0 Refill(s) . Patient was given the following educational materials: Pleurodynia, How to Use an Incentive Spirometer. Follow up with: YVAN COFFEY Within 2 to 3 days Call for follow up appointment Call in the AM Return if condition worsens; DEN QUIÑONEZ Within 2 to 3 days Call for follow up appointment Call in the AM Return if condition worsens. Counseled: Patient, Family, Regarding diagnosis, Regarding diagnostic results, Regarding treatment plan, Regarding prescription, Patient indicated understanding of instructions. documented in this encounter Plan of Treatment Upcoming Encounters Date Type Department Care Team (Late st Contact Info) Description 12/24/2025 3:00 PM EDT Office Visit [address] [id number] Elton Faust MD [address] [place] [phone] documented as of this encounter Visit Diagnoses Not on filedocumented in this encounter Care Teams Window And Siding Craftsman Relationship Specialty Start Date End Date Yvan Coffey MD [address] [facility] [address] [place] [address] PCP - General Internal Medicine 08/13/22 documented as of this encounter
--- OUTSIDE RECORDS SUMMARY | 2025-02-13 11:29 | XMS_ITS | Encounter Summary ---
Author Organization [employer] Address [address] [place] [address] Care Team Providers Care Performance Architect Name Role Phone Yvan Coffey MD Primary Care Provider [phone] Encounter Details Date Type Department Care Team (Late st Contact Info) Description 10/17/2021 Transcribed Document [facility] [place] [facility] [place] [address] ProviderYahir MD [address] [place] [address] Social History Tobacco Use Types Packs/Day Years Used Date Smoking Tobacco: Never Assessed Sex and Gender Information Value Date Recorded Sex Assigned at Not on file Legal Sex Male 3:58 PM CDT Gender Identity Not on file Sexual Orientation Not on file documented as of this encounter Miscellaneous Notes * Cerner Conversion Note - Yahir Bullard MD - 10/17/2021 12:41 AM MEDICAL DATA ANALYST [facility] [place] [address] JAY TORRES :1955 Visit Time:10/16/2021 Your Visit Summary Your Care Team Primary Provider: AGUILA HUBER Secondary Provider: Your Diagnosis Hematuria, Hematuria Hematuria Urinary obstruction Medical Information You may obtain a copy of your Emergency Department visit from Medical Records by calling the hospital phone number listed above and asking to be directed to the Medical Records Department. If you had special tests, such as EKG???s or X-rays, the interpretation of your tests given to you by the Emergency Department Physician is a preliminary report. Some fractures and illnesses fail to show up on preliminary tests. These will be reviewed again and we will call you if there are any new suggestions. If your symptoms continue notify your physician. After you leave, you should follow the instructions provided. What to do next Follow-Up Appointments Follow Up with LASAH BELTRÁN When Within 2 to 3 days Where: [address] [place] [address] Business (1) Follow Up with YVAN COFFEY When Within 2 to 3 days Where: [address] [place] [phone] [facility] (1) Allergies heparin (Heparin-induced thrombocytopenia with thrombosis, Heparin-induced thrombocytopenia with thrombosis) Brilinta (SOB - Shortness of breath) Immunizations This Visit No Immunizations Found Medications What How Much When Instructions Next Dose cephalexin (Keflex 500 mg oral capsule) 1 Capsule(s) Oral Every 12 hours Duration: 7 Day(s) Pickup at [place] [address] acetaminophen-oxyCODONE (acetaminophen-oxyCODONE 325 mg-10 mg oral tablet) 1 Tablet(s) Oral Three Times A Day as needed for for pain aspirin (aspirin 81 mg oral tablet, chewable) 1 Tablet(s) Oral Every Day atorvastatin (atorvastatin 80 mg oral tablet) 1 Tablet(s) Oral At Bedtime Duration: 30 Day(s) carvedilol (Coreg 12.5 mg oral tablet) 1 Tablet(s) Oral Two Times A Day Duration: 30 Day(s) clopidogrel (Plavix 75 mg oral tablet) 1 Tablet(s) Oral Every Day Duration: 30 Day(s) gabapentin (gabapentin 600 mg oral tablet) 1 Tablet(s) Oral Two Times A Day lisinopril (lisinopril 5 mg oral tablet) 1 Tablet(s) Oral Every 12 hours Duration: 30 Day(s) pantoprazole (pantoprazole 40 mg oral delayed release tablet) 1 Tablet(s) Oral Every Day promethazine (promethazine 25 mg oral tablet) 1 Tablet(s) Oral Every 8 Hours as needed for for nausea/vomiting Pharmacy Information [place] [address]: [address] [place], [place] [id number] [phone] The home medications listed are only as accurate as the information you provided. Please continue taking all of your medications prescribed by your Primary Care Provider unless specifically told to change or discontinue the medication. Please direct any questions regarding your home medications to your Primary Care Provider. Take your medications faithfully. Do NOT skip [...] Please dispose of unused and medications per pharmacy guidance. Test Results Laboratory or Other Results This Visit (last charted value for your 10/16/2021 visit) Hematology 10/16/2021 11:48 PM WBC: 11.4 K/uL -- Normal range between ( 3.6 and 9.5 ) RBC: 4.56 Million/uL -- Normal range between ( 4.20 and 5.70 ) Hct: 42.4 % -- Normal range between ( 40.1 and 51.0 ) Hgb: 14.0 g/dL -- Normal range between ( 13.5 and 17.3 ) Platelet Count: 240 K/uL -- Normal range between ( 163 and 369 ) MCH: 30.7 pg -- Normal range between ( 25.6 and 32.2 ) MCHC: 33.0 Gram/dL -- Normal range between ( 32.2 and 36.5 ) MCV: 93.0 fL -- Normal range between ( 79.0 and 94.8 ) Slide Review: No Eos %: 1.0 % -- Normal range between ( 0.0 and 7.0 ) [place] #: 1.13 K/uL -- Normal range between ( 0.16 and 1.00 ) Eos #: 0.12 x10(3)/uL -- Normal range between ( 0.00 and 0.80 ) [place] %: 9.9 % -- Normal range between ( 3.0 and 9.0 ) Baso %: 0.6 % -- Normal range between ( 0.0 and 1.5 ) Baso #: 0.07 x10(3)/uL -- Normal range between ( 0.00 and 0.20 ) RDW: 12.5 % -- Normal range between ( 11.7 and 14.9 ) Neut %: 66.3 % -- Normal range between ( 34.0 and 71.0 ) Neut #: 7.59 K/uL -- Normal range between ( 1.56 and 6.13 ) Lymph %: 21.5 % -- Normal range between ( 19.3 and 53.1 ) Lymph #: 2.46 x10(3)/uL -- Normal range between ( 1.00 and 3.90 ) MPV: 10.1 fL -- Normal range between ( 9.4 and 12.4 ) IG#: 0.08 x10(3)/uL -- Normal range between ( 0.00 and 0.05 ) IG%: 0.70 % -- Normal range between ( 0.00 and 0.60 ) Urinalysis 10/16/2021 11:36 PM Ur RBC: TNTC /HPF Urine Nitrite: Negative Urine Leukocyte Esterase: Small Urine Appearance: Turbid Urine Glucose Dipstick: Negative Urine Blood Dipstick: Large Urine Urobilinogen Dipstick: 0.2 EU/dL Urine Protein Dipstick: >=300 Urine Color: Red Ur WBC: None Seen /HPF Urine Ketones Dipstick: Trace Urine pH Dipstick: 5.5 -- Normal range between ( 6.0 and 8.0 ) Urine Bilirubin Dipstick: Moderate Urine Specific [place]: 1.013 -- Normal range between ( 1.005 and 1.030 ) Urine Type.: U CleanCatch Urine Culture if Indicated: Not Indicated General Chemistry 10/16/2021 11:48 PM Creatinine Level: 1.10 mg/dL -- Normal range between ( 0.70 and 1.30 ) Sodium Level: 137 mmol/L -- Normal range between ( 136 and 146 ) Potassium Level: 4.2 mmol/L -- Normal range between ( 3.5 and 5.1 ) Chloride Level: 105 mmol/L -- Normal range between ( 102 and 112 ) Carbon Dioxide Level: 28 mmol/L -- Normal range between ( 21 and 32 ) Anion Gap: 8 -- Normal range between ( 9 and 20 ) Bilirubin Total: 0.3 mg/dL -- Normal range between ( 0.2 and 1.2 ) A/G Ratio: 1.0 -- Normal range between ( 1.1 and 2.5 ) ALT: 24 Units/Liter -- Normal range between ( 16 and 61 ) AST: 15 Units/Liter -- Normal range between ( 5 and 37 ) Globulin: 3.5 Gram/dL -- Normal range between ( 1.5 and 4.5 ) Alk Phos: 66 Units/Liter -- Normal range between ( 27 and 136 ) Bun/Creatinine: 17.3 -- Normal range between ( 8.0 and 20.0 ) Calcium Level: 8.9 mg/dL -- Normal range between ( 8.4 and 10.1 ) eGFR : >60 mL/min/1.73m2 eGFR NonAfrican: >60 mL/min/1.73m2 Glucose Level: 104 mg/dL -- Normal range between ( 74 and 106 ) Blood Urea Nitrogen: 19 mg/dL -- Normal range between ( 7 and 22 ) Protein Total: 7.0 Gram/dL -- Normal range between ( 6.4 and 8.2 ) Albumin Level: 3.5 Gram/dL -- Normal range between ( 3.4 and 5.0 ) Education Materials Hematuria, Adult Hematuria is blood in the urine. Blood may be visible in the urine, or it may be identified with a test. This condition can be caused by infections of the bladder, urethra, kidney, or prostate. Other possible causes include: ??? Kidney stones. ??? Cancer of the urinary tract. ??? Too much calcium in the urine. ??? Conditions that are passed from parent to child (inherited conditions). ??? Exercise that requires a lot of energy. Infections can usually be treated with medicine, and a kidney stone usually will pass through your urine. If neither of these is the cause of your hematuria, more tests may be needed to identify the cause of your symptoms. It is very important to tell your health care provider about any blood in your urine, even if it is painless or the blood stops without treatment. Blood in the urine, when it happens and then stops and then happens again, can be a symptom of a very serious condition, including cancer. There is no pain in the initial stages of many urinary cancers. Follow these instructions at home: Medicines ??? Take kovb-cnf-ezmwepx and prescription medicines only as told by your health care provider. ??? If you were prescribed an antibiotic medicine, take it as told by your health care provider. Do not stop taking the antibiotic even if you start to feel better. Eating and drinking ??? Drink enough fluid to keep your urine clear or pale yellow. It is recommended that you drink 3???4 quarts (2.8???3.8 L) a day. If you have been diagnosed with an infection, it is recommended that you drink cranberry juice in addition to large amounts of water. ??? Avoid caffeine, tea, and carbonated beverages. These tend to irritate the bladder. ??? Avoid alcohol because it may irritate the prostate (men). General instructions ??? If you have been diagnosed with a kidney stone, follow your health care provider's instructions about straining your urine to catch the stone. ??? Empty your bladder often. Avoid holding urine for long periods of time. ??? If you are female: ? After a bowel movement, wipe from front to back and use each piece of toilet paper only once. ? Empty your bladder before and after sex. ??? Pay attention to any changes in your symptoms. Tell your health care provider about any changes or any new symptoms. ??? It is your responsibility to get your test results. Ask your health care provider, or the department performing the test, when your results will be ready. ??? Keep all follow-up visits as told by your health care provider. This is important. Contact a health care provider if: ??? You develop back pain. ??? You have a fever. ??? You have nausea or vomiting. ??? Your symptoms do not improve after 3 days. ??? Your symptoms get worse. Get help right away if: ??? You develop severe vomiting and are unable take medicine without vomiting. ??? You develop severe pain in your back or abdomen even though you are taking medicine. ??? You pass a large amount of blood in your urine. ??? You pass blood clots in your urine. ??? You feel very weak or like you might faint. ??? You faint. Summary ??? Hematuria is blood in the urine. It has many possible causes. ??? It is very important that you tell your health care provider about any blood in your urine, even if it is painless or the blood stops without treatment. ??? Take rrel-wfr-moactaw and prescription medicines only as told by your health care provider. ??? Drink enough fluid to keep your urine clear or pale yellow. This information is not intended to replace advice given to you by your health care provider. Make sure you discuss any questions you have with your health care provider. Document Revised: 01/16/2020 Document Reviewed: 09/24/2017 [employer] Patient Education ?? 2020 [employer] Emergency Awareness and Preventative Care STROKE is [...] Assistance with quitting is available by contacting 5-079-PFXL-NOW. This is a free resource providing counseling, [...] it Starts What is a heart attack? A heart attack is damage or to a part of the heart from severely decreased or lack of blood flow to the heart. Over time, arteries can become narrow from the buildup of fat and cholesterol, which is called plaque. The plaque can rupture causing a blood clot to form. When the blood clot forms, the artery can become severely narrowed or completely blocked, causing a heart attack. Heart attack is the leading cause of in the [place]. 85% of muscle damage occurs within the first 2 hours. Delay in the recognition of heart attack symptoms increases the chances of . Know the early symptoms of a heart attack: Nausea Feeling of fullness in chest Jaw Pain Pain that travels down one or both arms Fatigue/being tired Anxiety Back Pain Chest pressure, squeezing, or discomfort Shortness of breath Sweating, or a cold sweat Feeling of impending doom There are unusual signs of a heart attack, too! Women, the elderly, and diabetics may present with atypical symptoms: Fainting/dizziness Weakness Confusion Risk Factors for a Heart Attack Some heart disease risk factors, such as age and family history, cannot be changed. Others, like smoking and lack of exercise, can be changed. Smoking High Cholesterol High Blood Pressure Family History Obesity Age Gender (Males are at higher risk) Lack of Exercise Diabetes Diet Stress Excessive Alcohol Intake If you or someone you know is experiencing the signs and symptoms of a heart attack, DON???T DELAY. Call immediately and seek help. If someone collapses, perform CPR! Do not attempt to drive if you are having symptoms of heart attack. Hands-Only CPR Why Hands-Only CPR? Hands-Only CPR has been shown to be as effective as conventional CPR for cardiac arrests that occur outside of a hospital. Survival depends on immediately receiving CPR from someone nearby. How do you perform Hands-Only CPR? There are two easy steps: Call if you see a teen or adult collapse Push hard and fast in the center of the chest at a beat of 100 beats per minute. Save a life! 4 WAYS TO GET AHEAD OF SEPSIS SEPSIS is a MEDICAL EMERGENCY. Time matters! Infections put you and your family at risk for a life-threatening condition called sepsis. Sepsis is the body's extreme response to an infection. It is life-threatening, and without timely treatment, sepsis can rapidly lead to tissue damage, organ failure, and . Sepsis happens when an infection you already have-in your skin, lungs, urinary tract or somewhere else-triggers a chain reaction throughout your body. 1 PREVENT INFECTIONS Take good care of chronic conditions. Talk to your doctor about getting the recommended vaccines. 2 PRACTICE GOOD HYGIENE Wash your hands frequently. Keep cuts or open sores clean and covered until they are healed. 3 KNOW THE SYMPTOMS Confusion or disorientation Shortness of breath High heart rate Fever, shivering, or feeling very cold Extreme pain or discomfort Clammy or sweaty skin 4 ACT FAST Get medical care IMMEDIATELY if you suspect sepsis or if you have an infection that is not getting better or is getting worse. To learn more about sepsis and how to prevent infections, visit www.cdc.gov/sepsis. The examination and treatment you have received in the Emergency Department has been done to provide an appropriate evaluation and stabilizing treatment on an emergency basis only. Given the limited resources, it is not meant to be a substitute for complete medical care. The follow-up doctor you named will receive a copy of your records and all test reports. IT IS IMPORTANT THAT YOU SCHEDULE A FOLLOW-UP APPOINTMENT AND ARE RE-EVALUATED. You should report any new complaints, symptoms, or remaining problems at that time. IT IS IMPOSSIBLE FOR THE EMERGENCY DEPARTMENT TO RECOGNIZE AND TREAT ALL ELEMENTS OF INJURY OR ILLNESS IN A SINGLE VISIT. If you have been referred to a specialist physician, it means that we believe you may have a condition that requires the expertise of a specialist. These physicians work in partnership with the hospital and have agreed to see referred patients in their office for further evaluation. KEEP IN MIND THAT THE SPECIALIST HAS HIS/HER OWN OFFICE POLICIES WHICH MAY REQUIRE PROPER INSURANCE OR PAYMENT UP FRONT BEFORE THE SPECIALIST WILL SEE YOU. It is your responsibility to call the specialist physician to make an appointment. We do not have the ability to refer patients to specialists/physicians that work with specific insurance companies. Please be advised that all financial charges or billing practices are determined by that practice, not the hospital. If your insurance company requires that you see a specialist from their approved list, it is your responsibility to contact your insurance company to make those arrangements. It is also your responsibility to follow any other requirements of your insurance company necessary to obtain coverage for claims submitted. We will bill your insurance; however, you are responsible today for any co-pay amounts. You will receive a separate bill for any services you may have received including: emergency, radiology, or pathology physicians. Patient Name:JAY TORRES I have received this information and was given the opportunity to ask questions. Patient/Relations Liaison Name: Patient/Relations Liaison Signature: Relationship to Patient: Clinician/Hospital Relations Liaison Signature: Please Provide a Telephone Number Where You Can Be Reached: Is it Permissible To Leave a Message? Date: documented in this encounter Plan of Treatment Upcoming Encounters Date Type Department Care Team (Late st Contact Info) Description 12/24/2025 3:00 PM EDT Office Visit [address] [phone] Elton Faust MD [address] [facility] [address] [place] [address] documented as of this encounter Visit Diagnoses Not on filedocumented in this encounter Care Teams Performance Architect Relationship Specialty Start Date End Date Yvan Coffey MD [address] [address] PCP - General Internal Medicine 08/13/22 documented as of this encounter
--- OUTSIDE RECORDS SUMMARY | 2025-02-13 11:29 | XMS_ITS | Encounter Summary ---
Author Organization [employer] Address [address] [place] [address] Care Team Providers Care Muck Boss Name Role Phone Yvan Coffey MD Primary Care Provider [phone] Encounter Details Date Type Department Care Team (Late st Contact Info) Description 03/28/2022 Transcribed Document [facility] [place] [facility] [place] [address] ProviderYahir MD [address] [place] [address] Social History Tobacco Use Types Packs/Day Years Used Date Smoking Tobacco: Never Assessed Sex and Gender Information Value Date Recorded Sex Assigned at Not on file Legal Sex Male 3:58 PM CDT Gender Identity Not on file Sexual Orientation Not on file documented as of this encounter Miscellaneous Notes * Cerner Conversion Note - Yahir ProviderMD - 03/28/2022 11:31 AM CDT ED Discharge Entered On: 03/28/2022 11:31 EDT Performed On: 03/28/2022 11:31 EDT by SYLVIA MOLINA RN Discharge Process Patient Disposition : Discharge Personal Belongings With Patient : Yes Patient Education Completed : Yes Teaching Evaluation : Verbalizes understanding IV Discontinued : Yes Nursing Documentation Completed : Yes SYLVIA MOLINA RN - 03/28/2022 11:31 EDT ED Discharge Discharge To : Home with ambulatory/outpatient follow-up Mode Of Departure : Ambulatory Accompanied By : Spouse Discharge Instructions Reviewed With, Opportunity For Questions Given : Patient Prescriptions Given to Patient : Yes Number of Prescriptions Given : 1 Medications Given to Patient : No SYLVIA MOLINA RN - 03/28/2022 11:31 EDT Electronically signed by Arthur, [facility] Conversion [employer] Leader Cerner at 12/21/2022 4:33 PM CDT documented in this encounter Plan of Treatment Upcoming Encounters Date Type Department Care Team (Late st Contact Info) Description 12/24/2025 3:00 PM EDT Office Visit [address] [phone] Elton Faust MD [address] [place] [address] documented as of this encounter Visit Diagnoses Not on filedocumented in this encounter Care Teams Muck Boss Relationship Specialty Start Date End Date Yvan Coffey MD [address] [address] PCP - General Internal Medicine 08/13/22 documented as of this encounter
--- OUTSIDE RECORDS SUMMARY | 2025-02-13 11:29 | XMS_ITS | Encounter Summary ---
Author Organization [employer] Address [address] [place] [address] Care Team Providers Care Search Engine Marketing Strategist Name Role Phone Yvan Coffey MD Primary Care Provider [phone] Encounter Details Date Type Department Care Team (Late st Contact Info) Description 06/08/2020 Transcribed Document [facility] [place] [facility] [place] [address] ProviderYahir MD [address] [place] [id number] Social History Tobacco Use Types Packs/Day Years Used Date Smoking Tobacco: Never Assessed Sex and Gender Information Value Date Recorded Sex Assigned at Not on file Legal Sex Male 3:58 PM CDT Gender Identity Not on file Sexual Orientation Not on file documented as of this encounter Miscellaneous Notes * [employer]ner Conversion Note - Yahir Bullard MD - 06/08/2020 12:26 PM CDT DATE OF SERVICE: 06/08/2020 LEFT HEART CATHETERIZATION, PERCUTANEOUS INTERVENTION REPORT INDICATIONS: Non-ST AL. PROCEDURE PERFORMED: Standard left heart catheterization. TECHNIQUE: A 5/6-Bulgarian sheath was placed in the right radial artery. Isaías catheter was used for selective angiography of right coronary artery and obtaining pressures in left ventricle. A CLS 3.5 guide catheter was used for selective angiography of the left coronary artery. Following diagnostic catheterization, successful percutaneous intervention to the proximal LAD and distal circumflex artery was performed. No complications. 5 mg verapamil was administered via the right radial artery sheath. The patient received Angiomax bolus and infusion for the intravenous antithrombotic therapy. 3 mg Versed and 100 mcg of fentanyl were administered for moderate conscious sedation. The patient was monitored for approximately 1 hour. HEMODYNAMICS: Left ventricle 130/20 mmHg, aorta 130/100 mmHg. DIAGNOSES: 1. Severe two-vessel coronary artery disease. 2. Mildly elevated left ventricular filling pressure without gradient across the aortic valve. CORONARY ANATOMY: 1. Left main trunk: Distal narrowing of 10%. 2. LAD: Large caliber vessel which gives rise to a small caliber first diagonal branch, moderate caliber second diagonal branch before extending to the distal anterior wall. There is a severe lesion of 70% stenosis in the proximal LAD. Mild atherosclerosis of 20% to 30% narrowing present in the remaining portion of the LAD and diagonal branches. 3. Ramus intermedius branch: Long moderate caliber vessel with a borderline lesion of 60% to 70% narrowing proximally. 4. Circumflex artery: Large caliber vessel, which gives rise to two tiny lateral branches and a small caliber posterolateral branch. There is a critical greater than 90% lesion with a segment of 60% to 70% stenosis distally. 5. Right coronary artery: Large caliber dominant vessel, which gives rise to a large caliber posterior descending artery and large caliber posterolateral branch. Mild atherosclerosis 10% to 20% narrowing present in the right coronary artery. 6. Left ventricle: Mildly elevated left ventricular filling pressure without gradient across the aortic valve. IMPRESSION: Angiographically, the patient has severe two-vessel coronary artery disease. There is mildly elevated left ventricular filling pressure without gradient across the aortic valve. Given the patient's [id number] myocardial infarction presentation, percutaneous intervention to the LAD and distal circumflex artery was performed. We will defer intervention to the ramus branch for later day if persistent angina-like symptoms. PERCUTANEOUS INTERVENTION: The left coronary artery was [...] patient received 180 mg Brilinta in the cathode ray tube salvage processor. Aggrastat bolus and infusion were also administered. The Angiomax infusion was continued. The radial artery sheath was removed and the access site successfully compressed using TR band. /[id number] Oscar Hodge MD SSL/AQ / SSL / MODL /[id number] CC: Yvan Coffey MD Electronically signed by [facility], [facility] Conversion Commercial Mortgage Broker Cerner at 12/21/2022 4:33 PM CDT documented in this encounter Plan of Treatment Upcoming Encounters Date Type Department Care Team (Late st Contact Info) Description 12/24/2025 3:00 PM EDT Office Visit [address] [phone] Elton Faust MD [address] [place] [address] documented as of this encounter Visit Diagnoses Not on filedocumented in this encounter Care Teams Search Engine Marketing Strategist Relationship Specialty Start Date End Date Yvan Coffey MD [address] [facility] [address] [place] [address] PCP - General Internal Medicine 08/13/22 documented as of this encounter
--- OUTSIDE RECORDS SUMMARY | 2025-02-13 11:29 | XMS_ITS | Encounter Summary ---
Author Organization [employer] Address [address] [place] [address] Care Team Providers Care Professional Security Officer Name Role Phone Yvan Coffey MD Primary Care Provider [phone] Encounter Details Date Type Department Care Team (Late st Contact Info) Description 03/28/2022 Transcribed Document [facility] [place] [facility] [place] [address] ProviderYahir MD [address] [place] [address] Social History Tobacco Use Types Packs/Day Years Used Date Smoking Tobacco: Never Assessed Sex and Gender Information Value Date Recorded Sex Assigned at Not on file Legal Sex Male 3:58 PM CDT Gender Identity Not on file Sexual Orientation Not on file documented as of this encounter Miscellaneous Notes * Cerner Conversion Note - Yahir ProviderMD - 03/28/2022 5:00 AM CDT Broset Violence Assessment Entered On: 03/28/2022 5:51 EDT Performed On: 03/28/2022 5:50 EDT by NAIF ALVARADO RN Broset Violence Assessment Broset Violence Checklist of Symptoms : None Broset Violence Symptoms Subtotal : 0 Broset Violence Symptoms Indicator : Low risk (0) NAIF ALVARADO RN - 03/28/2022 5:50 EDT Electronically signed by Kate Gibson Conversion Vice President Of Brand Management Cerner at 12/21/2022 4:45 PM CDT documented in this encounter Plan of Treatment Upcoming Encounters Date Type Department Care Team (Late st Contact Info) Description 12/24/2025 3:00 PM EDT Office Visit [facility] [address] [phone] Elton Faust MD [address] [id number] documented as of this encounter Visit Diagnoses Not on filedocumented in this encounter Care Teams Professional Security Officer Relationship Specialty Start Date End Date Yvan Coffey MD [address] [address] PCP - General Internal Medicine 08/13/22 documented as of this encounter
--- OUTSIDE RECORDS SUMMARY | 2025-02-13 11:29 | XMS_ITS | Encounter Summary ---
Author Organization [employer] Address [address] [place] [address] Care Team Providers Care Commercial Door Installer Name Role Phone Yvan Coffey MD Primary Care Provider [phone] Encounter Details Date Type Department Care Team (Late st Contact Info) Description 06/08/2020 Transcribed Document [facility] [place] [address] ProvideraYhir MD [address] [place] [phone] Social History Tobacco Use Types Packs/Day Years Used Date Smoking Tobacco: Never Assessed Sex and Gender Information Value Date Recorded Sex Assigned at Not on file Legal Sex Male 3:58 PM CDT Gender Identity Not on file Sexual Orientation Not on file documented as of this encounter Miscellaneous Notes * [employer]ner Conversion Note - Historical ProviderMD - 06/08/2020 9:45 AM CDT Consult Phone Call Documentation Entered On: 06/08/2020 12:47 EDT Performed On: 06/08/2020 9:45 EDT by Leslie Blair Phone Call for Consults Consult Phone Call/Page Attempt : First call Leslie Blair - 06/08/2020 12:47 EDT documented in this encounter Plan of Treatment Upcoming Encounters Date Type Department Care Team (Late st Contact Info) Description 12/24/2025 3:00 PM EDT Office Visit [address] [phone] Elton Faust MD [address] [facility] [address] [place] [address] documented as of this encounter Visit Diagnoses Not on filedocumented in this encounter Care Teams Commercial Door Installer Relationship Specialty Start Date End Date Yvan Coffey MD [address] [address] PCP - General Internal Medicine 08/13/22 documented as of this encounter
--- OUTSIDE RECORDS SUMMARY | 2025-02-13 11:29 | XMS_ITS | Encounter Summary ---
Author Organization [employer] Address [address] [place] [address] Care Team Providers Care Dyer Helper Name Role Phone Yvan Coffey MD Primary Care Provider [phone] Encounter Details Date Type Department Care Team (Late st Contact Info) Description 03/28/2022 Transcribed Document [facility] [place] [facility] [place] [address] ProviderYahir MD [address] [place] [id number] Social History Tobacco Use Types Packs/Day Years Used Date Smoking Tobacco: Never Assessed Sex and Gender Information Value Date Recorded Sex Assigned at Not on file Legal Sex Male 3:58 PM CDT Gender Identity Not on file Sexual Orientation Not on file documented as of this encounter Miscellaneous Notes * Cerner Conversion Note - Yahir ProviderMD - 03/28/2022 11:20 AM CDT [facility] [place] [address] JAY TORRES :1955 Visit Time:03/28/2022 Your Visit Summary Your Care Team Primary Provider: PATO CAVANAUGH Secondary Provider: Your Diagnosis Chest pain, Chest pain Chest pain Epigastric pain Pleural thickening SOB (shortness of breath) Medical Information You may obtain a copy [...] do next Follow-Up Appointments Follow Up with DEN QUIÑONEZ When Within 2 to 3 days Comments Call for follow up appointment Call in the AM Return if condition worsens Where: [address] [facility] [address] [place] [address]- [phone] Business (1) Follow Up with YVAN COFFEY When Within 2 to 3 days Comments Call for follow up appointment Call in the AM Return if condition worsens Where: [address] [place] [address]- [phone] (1) Allergies heparin (Heparin-induced thrombocytopenia with thrombosis, Heparin-induced thrombocytopenia with thrombosis) Brilinta (SOB - Shortness of breath) Immunizations This Visit No Immunizations Found Medications What How Much When Instructions Next Dose albuterol (ProAir HFA 90 mcg/ inh inhalation aerosol) 2 Puff(s) Inhalation Every 6 Hours as needed for Shortness of Breath Pickup at [place] [id number] acetaminophen-oxyCODONE (acetaminophen-oxyCODONE 325 mg-10 mg oral tablet) [...] as needed for for nausea/vomiting Pharmacy Information [facility]: [address] [place], [place] [id number] [phone] The home medications listed are only as [...] This Visit (last charted value for your 03/28/2022 visit) Hematology 03/28/2022 5:30 AM WBC: 10.7 K/uL -- Normal range between ( 3.6 and 9.5 ) RBC: 4.73 Million/uL -- Normal range between ( 4.20 and 5.70 ) Hct: 43.3 % -- Normal range between ( 40.1 and 51.0 ) Hgb: 14.5 g/dL -- Normal range between ( 13.5 and 17.3 ) Platelet Count: 207 K/uL -- Normal range between ( 163 and 369 ) MCH: 30.7 pg -- Normal range between ( 25.6 and 32.2 ) MCHC: 33.5 Gram/dL -- Normal range between ( 32.2 and 36.5 ) MCV: 91.5 fL -- Normal range between ( 79.0 and 94.8 ) Slide Review: No Eos %: 2.7 % -- Normal range between ( 0.0 and 7.0 ) [place] #: 0.69 K/uL -- Normal range between ( 0.16 and 1.00 ) Eos #: 0.29 x10(3)/uL -- Normal range between ( 0.00 and 0.80 ) [place] %: 6.5 % -- Normal range between ( 3.0 and 9.0 ) Baso %: 0.5 % -- Normal range between ( 0.0 and 1.5 ) Baso #: 0.05 x10(3)/uL -- Normal range between ( 0.00 and 0.20 ) RDW: 12.3 % -- Normal range between ( 11.7 and 14.9 ) Neut %: 69.8 % -- Normal range between ( 34.0 and 71.0 ) Neut #: 7.47 K/uL -- Normal range between ( 1.56 and 6.13 ) Lymph %: 20.3 % -- Normal range between ( 19.3 and 53.1 ) Lymph #: 2.17 x10(3)/uL -- Normal range between ( 1.00 and 3.90 ) MPV: 10.9 fL -- Normal range between ( 9.4 and 12.4 ) IG#: 0.02 x10(3)/uL -- Normal range between ( 0.00 and 0.05 ) IG%: 0.20 % -- Normal range between ( 0.00 and 0.60 ) Urinalysis 03/28/2022 5:57 AM Urine Nitrite: Negative Urine Leukocyte Esterase: Negative Urine Appearance: Clear Urine Glucose Dipstick: Normal Urine Blood Dipstick: Negative Urine Urobilinogen Dipstick: Normal EU/dL Urine Protein Dipstick: Negative Urine Color: Light-Yellow Urine Ketones Dipstick: Negative Urine pH Dipstick: 6.0 -- Normal range between ( 6.0 and 8.0 ) Urine Bilirubin Dipstick: Negative Urine Specific Adrian: 1.007 -- Normal range between ( 1.005 and 1.030 ) Urine Type.: U CleanCatch Urine Culture if Indicated: Not Indicated General Chemistry 03/28/2022 5:30 AM Creatinine Level: 1.30 mg/dL -- Normal range between ( 0.70 and 1.30 ) Sodium Level: 139 mmol/L -- Normal range between ( 136 and 146 ) Potassium Level: 4.3 mmol/L -- Normal range between ( 3.5 and 5.1 ) Chloride Level: 107 mmol/L -- Normal range between ( 102 and 112 ) Carbon Dioxide Level: 26 mmol/L -- Normal range between ( 21 and 32 ) Anion Gap: 10 -- Normal range between ( 9 and 20 ) Bilirubin Total: 0.6 mg/dL -- Normal range between ( 0.2 and 1.2 ) A/G Ratio: 1.3 -- Normal range between ( 1.1 and 2.5 ) ALT: 20 Units/Liter -- Normal range between ( 16 and 61 ) AST: 18 Units/Liter -- Normal range between ( 5 and 37 ) Globulin: 3.0 Gram/dL -- Normal range between ( 1.5 and 4.5 ) Alk Phos: 54 Units/Liter -- Normal range between ( 27 and 136 ) Bun/Creatinine: 13.1 -- Normal range between ( 8.0 and 20.0 ) Calcium Level: 9.7 mg/dL -- Normal range between ( 8.4 and 10.1 ) eGFR : >60 mL/min/1.73m2 eGFR NonAfrican: 56 mL/min/1.73m2 Glucose Level: 124 mg/dL -- Normal range between ( 74 and 106 ) Blood Urea Nitrogen: 17 mg/dL -- Normal range between ( 7 and 22 ) Protein Total: 6.9 Gram/dL -- Normal range between ( 6.4 and 8.2 ) Albumin Level: 3.9 Gram/dL -- Normal range between ( 3.4 and 5.0 ) Lipase Level: 61 Units/Liter -- Normal range between ( 73 and 393 ) Cardiac Specific Markers 03/28/2022 8:10 AM Troponin I High Sensitivity: 4.5 pg/mL -- Normal range between ( 3.0 and 58.8 ) 03/28/2022 5:30 AM ProBNP: 140 pg/mL -- Normal range between ( 0 and 125 ) Coagulation 03/28/2022 5:30 AM D Dimer Quant: 0.62 mg/L FEU -- Normal range between ( 0.19 and 0.58 ) Computed Tomography 03/28/2022 7:[address] Abdomen Pelvis WO: CT Abdomen Pelvis WO CTA Chest PE Protocol: CTA Chest PE Protocol Education Materials How to Use an Incentive Spirometer An incentive spirometer is a tool that measures how well you are filling your lungs with each breath. Learning to take long, deep breaths using this tool can help you keep your lungs clear and active. This may help to reverse or lessen your chance of developing breathing (pulmonary) problems, especially infection. You may be asked to use a spirometer: ??? After a surgery. ??? If you have a lung problem or a history of smoking. ??? After a long period of time when you have been unable to move or be active. If the spirometer includes an indicator to show the highest number that you have reached, your health care provider or respiratory therapist will help you set a goal. Keep a log of your progress as told by your health care provider. What are the risks? Breathing too quickly may cause dizziness or cause you to pass out. Take your time so you do not get dizzy or light-headed. ??? If you are in pain, you may need to take pain medicine before doing incentive spirometry. It is harder to take a deep breath if you are having pain. How to use your incentive spirometer 1. Sit up on the edge of your bed or on a chair. 2. Hold the incentive spirometer so that it is in an upright position. 3. Before you use the spirometer, breathe out normally. 4. Place the mouthpiece in your mouth. Make sure your lips are closed tightly around it. 5. Breathe in slowly and as deeply as you can through your mouth, causing the piston or the ball to rise toward the top of the chamber. 6. Hold your breath for 3???5 seconds, or for as long as possible. ??? If the spirometer includes a gymnastics coach or instructor indicator, use this to guide you in breathing. Slow down your breathing if the indicator goes above the marked areas. 7. Remove the mouthpiece from your mouth and breathe out normally. The piston or ball will return to the bottom of the chamber. 8. Rest for a few seconds, then repeat the steps 10 or more times. ??? Take your time and take a few normal breaths between deep breaths so that you do not get dizzy or light-headed. ??? Do this every 1???2 hours when you are awake. 9. If the spirometer includes a goal marker to show the highest number you have reached (best effort), use this as a goal to work toward during each repetition. 10. After each set of 10 deep breaths, cough a few times. This will help to make sure that your lungs are clear. ??? If you have an incision on your chest or abdomen from surgery, place a pillow or a rolled-up towel firmly against the incision when you cough. This can help to reduce pain while taking deep breaths and coughing. General tips ??? When you are able to get out of bed: ? Walk around often. ? Continue to take deep breaths and cough in order to clear your lungs. ??? Keep using the incentive spirometer until your health care provider says it is okay to stop using it. If you have been in the hospital, you may be told to keep using the spirometer at home. Contact a health care provider if: ??? You are having difficulty using the spirometer. ??? You have trouble using the spirometer as often as instructed. ??? Your pain medicine is not giving enough relief for you to use the spirometer as told. ??? You have a fever. Get help right away if: ??? You develop shortness of breath. ??? You develop a cough with bloody mucus from the lungs. ??? You have fluid or blood coming from an incision site after you cough. Summary ??? An incentive spirometer is a tool that can help you learn to take long, deep breaths to keep your lungs clear and active. ??? You may be asked to use a spirometer after a surgery, if you have a lung problem or a history of smoking, or if you have been inactive for a long period of time. ??? Use your incentive spirometer as instructed every 1???2 hours while you are awake. ??? If you have an incision on your chest or abdomen, place a pillow or a rolled-up towel firmly against your incision when you cough. This will help to reduce pain. ??? Get help right away if you have shortness of breath, you cough up bloody mucus, or blood comes from your incision when you cough. This information is not intended to replace advice given to you by your health care provider. Make sure you discuss any questions you have with your health care provider. Document Revised: 11/10/2020 Document Reviewed: 11/10/2020 [employer] Patient Education ?? 2020 [employer] Pleurodynia Pleurodynia is sudden, severe pain in the chest and abdomen that is caused by complications from a viral infection. Pleurodynia may also be called epidemic pleurodynia or [place] disease. In most cases, pleurodynia goes away on its own in 2???5 days. What are the causes? This condition is usually caused by a virus called coxsackievirus B. In rare cases, other viruses may cause pleurodynia. These include coxsackievirus A or echoviruses. Coxsackievirus B spreads easily from person to person (is contagious). It can be spread through: ??? Coughing. ??? Sneezing. ??? Close physical contact with an infected person. ??? Contact with the stool of an infected person. What increases the risk? This condition is more likely to develop in: ??? Children. ??? People that live in places where there are poor public health conditions (sanitation). ??? People that live in places where there is overcrowding. What are the signs or symptoms? The main symptom of this condition is severe chest pain that makes breathing painful. The pain is usually on one side of the body, along the lower ribs. The pain starts suddenly and may last from a few seconds to 1 minute. You might feel pain again a few minutes or hours later. These brief periods of pain usually come and go for 2???5 days. In some cases, pain may continue to come and go for as long as a month. Other symptoms of pleurodynia may include: ??? Abdominal pain. ??? Fever. ??? Headache. ??? Sore throat. ??? Feeling tired (fatigue). ??? Pain when pressing on the chest or belly. ??? Dry cough. ??? Nausea or vomiting. ??? Diarrhea. ??? Rash. ??? Testicle pain in men. How is this diagnosed? This condition is diagnosed based on: ??? Your medical history. ??? A physical exam. ??? Tests, such as: ? A throat swab. ? Stool tests. You may need to give a stool sample to your health care provider. ? Blood tests. ? Chest X-rays. How is this treated? There is no specific treatment for this condition. However, symptoms go away within days or weeks. In the meantime, your health care provider may recommend medicine to help relieve pain and fever. Follow these instructions at home: Medicines ??? Take [id number] and prescription medicines only as told by your health care provider. ??? If your child has pleurodynia, do not give your child aspirin because of the association with Barbie's syndrome. General instructions ??? Rest at home as told by your health care provider. ??? Return to your normal activities as told by your health care provider. Ask your health care provider what activities are safe for you. ??? Do not use any products that contain nicotine or tobacco, such as cigarettes, e-cigarettes, and chewing tobacco. If you need help quitting, ask your health care provider. ??? Drink enough fluid to keep your urine pale yellow. ??? Keep all follow-up visits as told by your health care provider. This is important. How is this prevented? Wash your hands often to prevent the virus from spreading. If soap and water are not available, use alcohol-based hand patient office rep. ??? Make sure that other people in your household also wash their hands often. ??? Use a bleach-based household die cleaner to clean and disinfect commonly used items and surfaces often. ??? Do not share personal items such as toothbrushes and eating utensils. Contact a health care provider if: ??? Your symptoms last longer than 5 days. ??? You have pain that does not get better with medicine. Get help right away if: ??? You have severe chest pain that is getting worse. ??? You have difficulty breathing. ??? You have a sudden, severe headache and a stiff neck. Summary ??? Pleurodynia is sudden, severe pain in the chest and abdomen that is caused by complications from a viral infection. It is usually caused by a virus called coxsackievirus B. ??? Coxsackievirus B spreads easily from person to person (is contagious). ??? There is no specific treatment for this condition. However, symptoms go away within days or weeks. ??? Follow instructions from your health care provider about rest, medicines, activity, and drinking enough fluids. Keep all follow-up visits. This information is not intended to replace advice given to you by your health care provider. Make sure you discuss any questions you have with your health care provider. Document Revised: 12/13/2019 Document Reviewed: 06/21/2019 [employer] Patient Education ?? 2020 [employer] Emergency Awareness and Preventative Care STROKE is [...] Assistance with quitting is available by contacting 8-053-UBAD-NOW. This is a free resource providing counseling, [...] was given the opportunity to ask questions. Patient/Systems Applications Programming Lead Name: Patient/Systems Applications Programming Lead Signature: Relationship to Patient: Clinician/Hospital Systems Applications Programming Lead Signature: Please Provide a Telephone Number Where You Can Be Reached: Is it Permissible To Leave a Message? Date: documented in this encounter Plan of Treatment Upcoming Encounters Date Type Department Care Team (Late st Contact Info) Description 12/24/2025 3:00 PM EDT Office Visit [address] [address] Elton Faust MD [address] [place] [address], [place] [address] documented as of this encounter Visit Diagnoses Not on filedocumented in this encounter Care Teams Dyer Helper Relationship Specialty Start Date End Date Yvan Coffey MD [address] [facility] [address] [place] [address] PCP - General Internal Medicine 08/13/22 documented as of this encounter
--- OUTSIDE RECORDS SUMMARY | 2025-02-13 11:29 | XMS_ITS | Encounter Summary ---
Author Organization [facility] Address [address] [place] [address] Care Team Providers Care Sawmill Moulder Operator Name Role Phone Yvan Coffey MD Primary Care Provider [phone] Encounter Details Date Type Department Care Team (Late st Contact Info) Description 06/08/2020 Transcribed Document [facility] [place] Family [place] [facility] [place] [address] ProviderYahir MD [address] [place] [address] Social History Tobacco Use Types Packs/Day Years Used Date Smoking Tobacco: Never Assessed Sex and Gender Information Value Date Recorded Sex Assigned at Not on file Legal Sex Male 3:58 PM CDT Gender Identity Not on file Sexual Orientation Not on file documented as of this encounter Miscellaneous Notes * Cerner Conversion Note - Yahir Bullard MD - 06/08/2020 11:05 AM CDT Patient: JAY TORRES Age: 64 years Sex: Male : 1955 Associated Diagnoses: None Author: EUGENIA HERNANDEZ MD Basic Information Source of history: Self. Present at bedside: Family member. Referral source: Self. History limitation: None. Chief Complaint 06/08/2020 4:52 EDT c/o cp that radiates to back and right arm @ 0200 upon waking up. ems arrived and BP was in the 200's systolic. h/o ARDS, DVT. History of Present Illness Pleasant 64 y/o WM w/ acute onset chest pain at 2am this morning--awoke him from sleep, radiated to his mid L back and L scapula and to his jaw. Pain persisted so came to the ER w/ his . Pain associated w/ sob. For the past month, pt has had cp w/ activity, but resolved w/ rest. Recently, though his cp has come on out of the blue even without activity. No numbness or tingling. No palpitations or orthopnea or pnd. pt notes some heartburn, but this is chronic. In the ER, got sl nitro and ASA, which relieved his pain. currently, pt is chest pain free and feels fine. at bedside. Review of Systems Constitutional: Fatigue, No fever, No chills. Eye: Negative. Ear/Nose/Mouth/Throat: Negative. Respiratory: Shortness of breath. Cardiovascular: No palpitations, No peripheral edema, No syncope Chest pain: Midsternal. Gastrointestinal: Nausea. Genitourinary: No dysuria, No hematuria. Hematology/Lymphatics: Negative. Endocrine: No excessive thirst. Immunologic: Not immunocompromised. Musculoskeletal: Back pain: In the middle of the back, The pain is moderate. Integumentary: Negative. Neurologic: Alert and oriented X4, No headache. Psychiatric: No anxiety, No depression. 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., No qualifying data available , No qualifying data available Current medications: (Selected) Inpatient Medications Ordered Core.125 mg, Oral, BID Cymbalta: 20 mg, Oral, Daily DuoNeb 0.5 mg-2.5 mg/3 mL inhalation solution: 3 mL, Nebulized Inhalation, RT_Q6H, PRN: Shortness of Breath MiraLax: 17 Gram, Oral, Daily, PRN: Constipation Mylanta: 30 mL, Oral, Q6H, PRN: Heartburn Masterson 10 mg-325 mg oral tablet: 1 Tab, Oral, Q4H, PRN: Pain Normal Saline Flush: 10 mL, IV Push, Q12H Normal Saline Flush: 10 mL, IV Push, Q12H Normal Saline Flush: 10 mL, IV Push, See Comment, PRN: IV Use Phenergan: 6.25 mg, IntraVENous, Q6H, PRN: Nausea Sodium Chloride 0.9% intravenous solution 1,000 mL: 50 mL/Hr, IntraVENous Tylenol: 650 mg, Oral, Q4H, PRN: Pain (Mild 1-3) aspirin: 325 mg, Oral, 1-Time aspirin: 81 mg, Oral, Daily atorvastatin: 80 mg, Oral, At Bedtime cloNIDine: 0.1 mg, Oral, Q4H, PRN: Hypertension gabapentin: 600 mg, Oral, BID hydrALAZINE: 10 mg, IV Push, Q4H, PRN: Hypertension lisinopril: 5 mg, Oral, Daily pantoprazole: 20 mg, Oral, Daily tamsulosin: 0.4 mg, Oral, At Bedtime Documented Medications Documented Cymbalta: 20 mg, Oral, Daily, 0 Refill(s) Masterson 10 mg-325 mg oral tablet: 1 Tab, Oral, Q4H, PRN: for pain, 0 Refill(s) gabapentin: 600 mg, Oral, BID, 0 Refill(s) pantoprazole: 20 mg, Oral, Daily, 0 Refill(s) tamsulosin 0.4 mg oral capsule: 1 Cap, Oral, At Bedtime, 30 Cap, 0 Refill(s), Medications (21) Active Scheduled: (11) #NaCl 0.9% *FLUSH* inj 10 mL 10 mL, IV Push, Q12H #NaCl 0.9% *FLUSH* inj 10 mL 10 mL, IV Push, Q12H aspirin 81 mg chew tab 81 mg 1 Tab, Oral, Daily aspirin EC 325 mg tab 325 mg 1 Tab, Oral, 1-Time atorvastatin 40 mg tab 80 mg 2 Tab, Oral, At Bedtime carvedilol 3.125 mg tab 3.125 mg 1 Tab, Oral, BID DULoxetine DR 20 mg cap 20 mg 1 Cap, Oral, Daily gabapentin 600 mg tab 600 mg 1 Tab, Oral, BID lisinopril 5 mg tab 5 mg 1 Tab, Oral, Daily pantoprazole EC 20 mg tab 20 mg 1 Tab, Oral, Daily tamsulosin CR 0.4 mg cap 0.4 mg 1 Cap, Oral, At Bedtime Continuous: (1) NaCl 0.9% 1,000 mL 1,000 mL, IntraVENous, 50 mL/Hr PRN: (9) #NaCl 0.9% *FLUSH* inj 10 mL 10 mL, IV Push, See Comment acetaminophen 325 mg tab 650 mg 2 Tab, Oral, Q4H acetaminophen/HYDROcodone 325/10 mg tab 1 Tab, Oral, Q4H al hydrox/mag hydrox/simeth 30 mL liq 30 mL, Oral, Q6H albuterol-ipratropium inh 3 mL 3 mL, Nebulized Inhalation, RT_Q6H cloNIDine 0.1 mg tab 0.1 mg 1 Tab, Oral, Q4H hydrALAZINE 20 mg/1 mL inj 10 mg 0.5 mL, IV Push, Q4H polyethylene glycol 3350 pwd 17 g pkt 17 Gram 1 Packet, Oral, Daily promethazine 25 mg/1 mL inj 6.25 mg 0.25 mL, IntraVENous, Q6H , Home Medications (5) Active Cymbalta 20 mg, Oral, Daily gabapentin 600 mg, Oral, BID Masterson 10 mg-325 mg oral tablet 1 Tab, PRN, Oral, Q4H pantoprazole 20 mg, Oral, Daily tamsulosin 0.4 mg oral capsule 0.4 mg = 1 Cap, Oral, At Bedtime Problem list: Medical ARDS - Adult respiratory distress syndrome / SNOMED CT 174179894 / Confirmed DVT - Deep vein thrombosis / SNOMED CT 5705939147 / Confirmed Cory filter, device / SNOMED CT 0441453386 / Confirmed 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 / SNOMED CT 6303125415 / Confirmed Pneumonia / SNOMED CT 974088153 / Confirmed, Active Problems (7) ARDS - Adult respiratory distress syndrome Diverticula, colon DVT - Deep vein thrombosis Cory filter, device 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 Patient requiring acute dialysis Pneumonia Histories Past Medical History: Active 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 (1171253396) Pneumonia (768605475) ARDS - Adult respiratory distress syndrome (039893193) DVT - Deep vein thrombosis (0048464081) Cory filter, device (6721723585), diverticulitis requiring partial colectomy Family History: No family history items have [...] 04:52) 97.2 (JUN 08 04:52) 97.2 (JUN 08:52) Mon HR 66 (JUN 08 10:30) 62 (JUN 08 06:00) 80 (JUN 08 05:05) Periph HR 68 (JUN 08 04:52) 68 (JUN 08 04:52) 68 (JUN 08 04:52) Resp Rate 20 (JUN 08 10:30) L 12 (JUN 08 04:55) H 27 (JUN 08 07:30) SBP H 147 (JUN 08 10:30) 108 (JUN 08 08:00) H 183 (JUN 08 04:52) DBP 86 (JUN 08 10:30) 74 (JUN 08 09:30) H 107 (JUN 08 04:52) MAP 111 (JUN 08 10:30) 88 (JUN 08 08:00) 138 (JUN 08 04:55) SpO2 95 (JUN 08 10:30) 94 (JUN 08 05:05) 99 (JUN 08 04:55) General: Alert and oriented, No acute distress. Eye: Pupils are equal, round and reactive to light, Extraocular movements are intact, Normal conjunctiva. HENT: Normocephalic, Normal hearing, Oral mucosa is moist. Neck: Supple, Non-tender, No jugular venous distention, No lymphadenopathy. Respiratory: Lungs are clear to auscultation, Respirations are non-labored, Breath sounds are equal, Symmetrical chest wall expansion, No chest wall tenderness. Cardiovascular: Normal rate, Regular rhythm, No murmur, Good pulses equal in all extremities, No edema. Gastrointestinal: Soft, Non-tender, Non-distended, Normal bowel sounds, No organomegaly. Genitourinary: No costovertebral angle tenderness. Lymphatics: No lymphadenopathy neck, axilla, groin. Musculoskeletal: Normal range of motion, Normal strength, No tenderness, No swelling, No deformity. Integumentary: Warm, Dry, Intact, No pallor. Neurologic: Alert, Oriented, Normal motor function, No focal deficits, Cranial Nerves II-XII are grossly intact. Psychiatric: Cooperative, Appropriate mood & affect. Review / Management Results review: Labs (Last four charted values) [...] C 0.767 (JUN 08) <0.015 (JUN 08) , JUN 08 05:11 139 107 19 / 98 4.1 26 1.30 \ JUN 08 05:11 \ 16.4 / 8.3 183 / 48.5 \. Radiology results Radiology Results (Last 48 hours) [id number] -- 06/08/2020 09:09 CR Chest 1 Vw [...] Dr. Mohinder Martin.Transcribed by Benoit Ceja (R). 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 Hodge Time spent: 55min documented in this encounter Plan of Treatment Upcoming Encounters Date Type Department Care Team (Late st Contact Info) Description 12/24/2025 3:00 PM EDT Office Visit [address] [address] Elton Faust MD [address] [place] [address] documented as of this encounter Visit Diagnoses Not on filedocumented in this encounter Care Teams Sawmill Moulder Operator Relationship Specialty Start Date End Date Yvan Coffey MD [address] [facility] [place] [address] PCP - General Internal Medicine 08/13/22 documented as of this encounter
--- OUTSIDE RECORDS SUMMARY | 2025-02-13 11:30 | XMS_ITS | Encounter Summary ---
Author Organization [employer] [facility] Address [address] [place] [address] Care Team Providers Care Artist Suspect Name Role Phone Yvan Coffey MD Primary Care Provider [phone] Encounter Details Date Type Department Care Team (Late st Contact Info) Description 03/28/2022 Transcribed Document [facility] [place] [facility] [address] ProviderYahir MD [address] [place] [address] Social History Tobacco Use Types Packs/Day Years Used Date Smoking Tobacco: Never Assessed Sex and Gender Information Value Date Recorded Sex Assigned at Not on file Legal Sex Male 3:58 PM CDT Gender Identity Not on file Sexual Orientation Not on file documented as of this encounter Miscellaneous Notes * Cerner Conversion Note - Yahir ProviderMD - 03/28/2022 5:00 AM CDT Golden Suicide Severity Rating Scale (C-SSRS) Entered On: 03/28/2022 5:51 EDT Performed On: 03/28/2022 5:50 EDT by NAIF ALVARADO RN Golden Suicide Severity Rating Scale (C-SSRS) CSSRS Past Month Wish to be : No CSSRS Past Month Suicidal Thoughts : No CSSRS Lifetime Suicide Behavior : No Suicide Severity Rating Score : 0 Suicide Severity Rating : No Additional Care Required at this time NAIF ALVARADO RN - 03/28/2022 5:50 EDT documented in this encounter Plan of Treatment Upcoming Encounters Date Type Department Care Team (Late st Contact Info) Description 12/24/2025 3:00 PM EDT Office Visit [address] [address] Elton Faust MD [address] [place] [address] documented as of this encounter Visit Diagnoses Not on filedocumented in this encounter Care Teams Artist Suspect Relationship Specialty Start Date End Date Yvan Coffey MD [address] [facility] [address] [place] [address] PCP - General Internal Medicine 08/13/22 documented as of this encounter
--- OUTSIDE RECORDS SUMMARY | 2025-02-13 11:30 | XMS_ITS | Encounter Summary ---
Author Organization [facility] Address [address] [place] [address] Care Team Providers Care Children'S Lunchroom Supervisor Name Role Phone Yvan Coffey MD Primary Care Provider [phone] Encounter Details Date Type Department Care Team (Late st Contact Info) Description 05/14/2022 Transcribed Document [facility] [place] [address] ProviderYahir MD [address] [place] [address] Social History Tobacco Use Types Packs/Day Years Used Date Smoking Tobacco: Never Assessed Sex and Gender Information Value Date Recorded Sex Assigned at Not on file Legal Sex Male 3:58 PM CDT Gender Identity Not on file Sexual Orientation Not on file documented as of this encounter Miscellaneous Notes * Cerner Conversion Note - Yahir ProviderMD - 05/14/2022 9:56 AM CDT [facility] Endo PACU Summary Primary Physician: BABAR TALBOT MD-JASMIN Finalized Date/Time: 05/14/22 10:53:05 Pt. Name: JAY TORRES /Sex: 1955 Male Med Rec #: [id number] Physician: BABAR TALBOT MD-JASMIN Financial #: [id number] Pt. Type: O Room/Bed: END/ Admit/Disch: 05/14/22 08:15:00 - Institution: [facility] PACU Case Times Entry 1 In PACU I 05/14/22 10:25:00 Ready for PACU 05/14/22 10:49:00 Discharge Discharge from PACU 05/14/22 10:49:00 I Last Modified By: JAYSHREE BLUE RN, Registered Nurse 05/14/22 10:53:00 [facility] Endo PACU Case Times Audit 05/14/22 10:53:00 Neck Cutter: JOSELO Modifier: TIFFANYCOLEMAN <+> 1 Ready for PACU Discharge <+> 1 Discharge from PACU I Finalized By: JAYSHREE BLUE RN, Registered Nurse Document Signatures Signed By: JAYSHREE BLUE RN, Registered Nurse 05/14/22 10:53 Electronically signed by Arthur [facility] Conversion Floating Derrick Operator Cerner at 12/21/2022 4:47 PM CDT documented in this encounter Plan of Treatment Upcoming Encounters Date Type Department Care Team (Late st Contact Info) Description 12/24/2025 3:00 PM EDT Office Visit [address] [address] Elton Faust MD [address] [place] [address] documented as of this encounter Visit Diagnoses Not on filedocumented in this encounter Care Teams Children'S Lunchroom Supervisor Relationship Specialty Start Date End Date Yvan Coffey MD [address] [address] PCP - General Internal Medicine 08/13/22 documented as of this encounter
--- OUTSIDE RECORDS SUMMARY | 2025-02-13 11:30 | XMS_ITS | Encounter Summary ---
Author Organization [employer] Address [address] [place] [address] Care Team Providers Care Diazo Technician Name Role Phone Yvan Coffey MD Primary Care Provider [phone] Encounter Details Date Type Department Care Team (Late st Contact Info) Description 05/14/2022 Transcribed Document [facility] [place] [facility] [place] [address] ProviderYahir MD [facility] [address] Social History Tobacco Use Types [...] Bullard MD - 05/14/2022 10:07 AM CDT [facility] [place] [address] JAY TORRES :1955 Visit Time:05/14/2022 What to do next Instructions From Your Care Team Diet after Discharge: Resume usual diet as tolerated, Do not drink any alcoholic beverages, Activity after Discharge: Rest and relax today, No strenuous activity Driving after Discharge: Do not drive for 24 hours May Return to Work/School: Tomorrow Notify Provider of: Questions or Concerns, pain, bleeding or fever of 101 Copy of procedure report given to patient If biopsies were taken, office will call or mail results within 7-10 days Follow-Up Appointments Follow Up with BABAR TALBOT MD-JASMIN When Only if needed Where: [address] [facility] [address] [place] [address]- Medications What How Much When Instructions Next Dose acetaminophen-oxyCODONE (acetaminophen-oxyCODONE 325 mg-10 mg oral tablet) 1 Tablet(s) Oral Three Times A Day as needed for for pain albuterol (ProAir HFA 90 mcg/ inh inhalation aerosol) 2 Puff(s) Inhalation Every 6 Hours as needed for Shortness of Breath aspirin (aspirin 81 mg oral tablet, chewable) [...] release tablet) 1 Tablet(s) Oral Every Day Take your medications faithfully. Do NOT skip [...] of unused and medications per pharmacy guidance. Education Materials General Anesthesia, Adult General anesthesia is the [...] including vitamins, herbs, eye drops, creams, and xlmd-hdd-dmsnwjn medicines. ??? Any problems you or family [...] Up to 2 hours before the procedure ??? you may continue to drink clear liquids, such as water, clear fruit juice, black coffee, and plain tea. Eating and drinking restrictions Follow instructions from your health care provider about eating and drinking, which may include: ??? 8 hours before the procedure ??? stop eating heavy meals or foods such as meat, fried foods, or fatty foods. ??? 6 hours before the procedure ??? stop eating light meals or foods, such as toast or cereal. ??? 6 hours before the procedure ??? stop drinking milk or drinks that contain milk. ??? 2 hours before the procedure ??? stop drinking clear liquids. Medicines Ask your health care provider about: ??? Changing or stopping your regular medicines. This is especially important if you are taking diabetes medicines or blood thinners. ??? Taking medicines such as aspirin and ibuprofen. These medicines can thin your blood. Do not take these medicines unless your health care provider tells you to take them. ??? Taking magb-qjj-tdazhwe medicines, vitamins, herbs, and supplements. Do not take these during the week before your procedure unless your health care provider approves them. General instructions ??? Starting 3???6 weeks before the procedure, do not use [...] provider. Document Revised: 05/04/2021 Document Reviewed: 12/03/2020 [employer] Patient Education ?? 2021 [employer] Instructions for after Colonoscopy 1. Try sips [...] Tuesday-Tuesday 7:00 am to 3:00 pm at [facility] is [...] Assistance with quitting is available by contacting 8-142-MDAM-NOW. This is a free resource providing counseling, [...] and how to prevent infections, visit www.cdc.gov/sepsis. Test Results Laboratory or Other Results This Visit (last charted value for your 05/14/2022 visit) No Laboratory or Other Results This Visit Patient Name:JAY TORRES I have received this information and was given the opportunity to ask questions. Patient/Colorist Name: Patient/Colorist Signature: Relationship to Patient: Clinician/Hospital Colorist Signature: Date: Electronically signed by Arthur, [facility] Conversion Pharmacy Buyer Cerner at 12/21/2022 4:49 PM CDT documented in this encounter Plan of Treatment Upcoming Encounters Date Type Department Care Team (Late st Contact Info) Description 12/24/2025 3:00 PM EDT Office Visit [address] [phone] Elton Faust MD [address] [place] [address] documented as of this encounter Visit Diagnoses Not on filedocumented in this encounter Care Teams Diazo Technician Relationship Specialty Start Date End Date Yvan Coffey MD [address] [facility] [address] [place] [address] PCP - General Internal Medicine 08/13/22 documented as of this encounter
--- OUTSIDE RECORDS SUMMARY | 2025-02-13 11:30 | XMS_ITS | Encounter Summary ---
Author Organization [employer] [facility] Address [address] [place] [address] Care Team Providers Care Strand And Binder Controller Name Role Phone Yvan Cofefy MD Primary Care Provider [phone] Encounter Details Date Type Department Care Team (Late st Contact Info) Description 05/14/2022 Transcribed Document [facility] [place] [facility] [address] ProviderYahir MD [facility] [address] Social History Tobacco Use Types [...] Bullard MD - 05/14/2022 10:07 AM CDT [facility] [address] JAY TORRES :1955 Visit Time:05/14/2022 [...] MD-JASMIN When Only if needed Where: [address] [facility] [address] [place] [address]- Medications What How Much When Instructions Next [...] including vitamins, herbs, eye drops, creams, and nbmi-bcq-sbjxwfm medicines. ??? Any problems you or family [...] tells you to take them. ??? Taking fqeh-dge-agoeyda medicines, vitamins, herbs, and supplements. Do not [...] provider. Document Revised: 05/04/2021 Document Reviewed: 12/03/2020 [employer] Patient Education ?? 2021 [employer] Instructions for after Colonoscopy 1. Try [...] Assistance with quitting is available by contacting 2-130-XEGD-NOW. This is a free resource providing counseling, [...] was given the opportunity to ask questions. Patient/Certified Wellness Program Manager Name: Patient/Certified Wellness Program Manager Signature: Relationship to Patient: Clinician/Hospital Certified Wellness Program Manager Signature: Date: Electronically signed by Arthur, [facility] Conversion Senior Ux Developer Cerner at 12/21/2022 4:47 PM CDT documented in this encounter Plan of Treatment Upcoming Encounters Date Type Department Care Team (Late st Contact Info) Description 12/24/2025 3:00 PM EDT Office Visit [address] [phone] Elton Faust MD [address] [place] [address] documented as of this encounter Visit Diagnoses Not on filedocumented in this encounter Care Teams Strand And Binder Controller Relationship Specialty Start Date End Date Yvan Coffey MD [address] [facility] [address] [place] [address] PCP - General Internal Medicine 08/13/22 documented as of this encounter
--- OUTSIDE RECORDS SUMMARY | 2025-02-13 11:30 | XMS_ITS | Encounter Summary ---
Author Organization [employer] Address [address] [place] [address] Care Team Providers Care Asset Management Lead Name Role Phone Yvan Coffey MD Primary Care Provider [phone] Encounter Details Date Type Department Care Team (Late st Contact Info) Description 05/14/2022 Transcribed Document [facility] Family Medicine [facility] [place] [address] ProviderYahir MD [address] [place] [address] Social History Tobacco Use Types Packs/Day Years Used Date Smoking Tobacco: Never Assessed Sex and Gender Information Value Date Recorded Sex Assigned at Not on file Legal Sex Male 3:58 PM CDT Gender Identity Not on file Sexual Orientation Not on file documented as of this encounter Miscellaneous Notes * Cerner Conversion Note - Yahir ProviderMD - 05/14/2022 9:56 AM CDT [facility] Endo IntraOp Summary Primary Physician: BABAR TALBOT MD-JASMIN Finalized Date/Time: 05/14/22 10:16:37 Pt. Name: JAY TORRES /Sex: 1955 Male Med Rec #: [id number] Physician: BABAR TALBOT MD-JASMIN Financial #: [id number] Pt. Type: O Room/Bed: END/ Admit/Disch: 05/14/22 08:15:00 - Institution: [facility] Endo - Case Attendance Entry 1 Entry 2 Entry 3 Case Attendee BABAR TALBOT MD-JASMIN PUGH, JERSON HOWELL Jonathan, Rn Flex I Role Performed Surgeon/Proceduralist, VISUAL COORDINATOR/Nurse Scrap Drop Operator Post Anesthesia Nurse, First First Time In 05/14/22 09:50:00 05/14/22 09:50:00 05/14/22 09:50:00 Time Out 05/14/22 10:18:00 05/14/22 10:18:00 05/14/22 10:18:00 Procedure Esophagogastroduodenosco Esophagogastroduodenosco Esophagogastroduodenosco py, Colonoscopy, py, Colonoscopy, py, Colonoscopy, Gastric Biopsy, Colon Gastric Biopsy, Colon Gastric Biopsy, Colon Polypectomy Polypectomy Polypectomy Other Attendee Superficial Wound Closed By: Last Modified By: Jose Lopez Rn Bowen, Jonathan, Rn Bowen, Jonathan, Rn Flex I 05/14/22 10:16:15 Flex I 05/14/22 10:16:15 Flex I 05/14/22 10:16:15 Entry 4 Case Attendee ABBEY BREWER MD-ANS Role Performed Anesthesiologist of Record Time In 05/14/22 09:50:00 Time Out 05/14/22 10:18:00 Procedure Esophagogastroduodenosco py, Colonoscopy, Gastric Biopsy, Colon Polypectomy Other Attendee Superficial Wound Closed By: Last Modified By: Jose Lopez Rn Flex I 05/14/22 10:16:15 [facility] Endo - Case Attendance Audit 05/14/22 10:16:15 Button And Buckle Maker: [id number] Modifier: [id number] 1 <+> Time Out 1 <*> Procedure Esophagogastroduodenoscopy, Colonoscopy, Gastric Biopsy, Colon Polypectomy 2 <+> Time Out 2 <*> Procedure Esophagogastroduodenoscopy, Colonoscopy, Gastric Biopsy, Colon Polypectomy 3 <+> Time Out 3 <*> Procedure Esophagogastroduodenoscopy, Colonoscopy, Gastric Biopsy, Colon Polypectomy 4 <+> Time Out 4 <*> Procedure Esophagogastroduodenoscopy, Colonoscopy, Gastric Biopsy, Colon Polypectomy 05/14/22 10:15:40 Button And Buckle Maker: [id number] Modifier: [id number] 1 <*> Procedure Esophagogastroduodenoscopy, Colonoscopy, Gastric Biopsy 2 <*> Procedure Esophagogastroduodenoscopy, Colonoscopy, Gastric Biopsy 3 <*> Procedure Esophagogastroduodenoscopy, Colonoscopy, Gastric Biopsy 4 <*> Procedure Esophagogastroduodenoscopy, Colonoscopy, Gastric Biopsy 05/14/22 10:00:41 Button And Buckle Maker: [id number] Modifier: [id number] 1 <+> Time In 1 <*> Procedure Esophagogastroduodenoscopy, Colonoscopy 2 <+> Time In 2 <*> Procedure Esophagogastroduodenoscopy, Colonoscopy 3 <+> Time In 3 <*> Procedure Esophagogastroduodenoscopy, Colonoscopy 4 <+> Time In 4 <*> Procedure Esophagogastroduodenoscopy, Colonoscopy 05/14/22 09:50:48 Button And Buckle Maker: [id number] Modifier: [id number] <+> 2 Case Attendee <+> 2 Role Performed <+> 2 Procedure <+> 3 Case Attendee <+> 3 Role Performed <+> 3 Procedure <+> 4 Case Attendee <+> 4 Role Performed <+> 4 Procedure [facility] Endo - Case times Entry 1 Patient In Room Time 05/14/22 09:50:00 Out Room Time 05/14/22 10:18:00 Anesthesia Start Time 05/14/22 09:50:00 Stop Time 05/14/22 10:15:00 Anesthesia Ready 05/14/22 09:50:00 Surgery / Procedure Times Start Time 05/14/22 09:56:00 Stop Time 05/14/22 10:15:00 Last Modified By: Jose Lopez Rn Flex I 05/14/22 10:16:13 [facility] Endo - Case times Audit 05/14/22 10:16:13 Button And Buckle Maker: [id number] Modifier: [id number] <+> 1 Out Room Time <+> 1 Stop Time <+> 1 Stop Time 05/14/22 09:56:47 Button And Buckle Maker: [id number] Modifier: [id number] <+> 1 Start Time [facility] Endo - Cultures and Spec Summary Entry 1 Cultrures and Specimens Specimen Ordered: Yes Test(s) Routine/Path-Lab Requested/Final Disposition Last Modified By: Jose Lopez Rn Flex I 05/14/22 10:04:00 [facility] Endo - Delays Entry 1 Delay Reason Other Duration 0 Minute(s) Last Modified By: Jose Lopez Rn Flex I 05/14/22 09:51:12 [facility] Endo - Departure from OR Entry 1 Integumentary Assessment Integumentary WDL Assessment WDL Transfer/Handoff Transfer to PACU Phase I Post-op Transport Stretcher/Gurney Via Patient Transport Jose Lopez Rn Accompanied by LEXY Parada DEVON, CRNA-ANS Last Modified By: Jose Lopez Rn Flex I 05/14/22 09:51:15 [facility] Endo - Endoscopy Details Entry 1 Abdomen Procedure Soft, Non-Tender, Soft Assessment Procedure Abdomen 05/14/22 09:51:00 Assessment D/T Radio Frequency Ablation Abdominal Pressure Last Modified By: Jose Lopez Rn Flex I 05/14/22 09:51:30 [facility] Endo - Fire Risk Assessment Entry 1 Fire Info Surgical Site or 1- Yes Incision Above the Xyphoid Open O2 Source 1- Yes (Mask or Cannula) Available Ignition 1- Yes (ESU, Laser, Light Source) Fire Risk 3 Assessment Score Fire Score Fire Risk Yes Assessment Complete Fire Risk Jose Lopez Rn Assessment Verified Flex By Fire Risk 05/14/22 09:51:00 Assessment Verified Date/Time Fire Risk High Risk Protocol Yes Implemented Standard Fire Yes Safety Precautions Followed Last Modified By: Jose Lopez Rn Flex I 05/14/22 09:51:34 [facility] Endo - General Case Hospice Rn 1 Case Information OR Endo 01 [facility] Case Level 1 Room Verified Yes Wound Class No Incision Specialty General Anesthesia Type General ASA Class 3 Diagnosis Preop Diagnosis ABD PAIN/BLOATING Postop Same As Preop No Postop Diagnosis ABD PAIN/BLOATING, HH, ANTRUM BX, GE JUNCTION BX, CHRONIC ESOPHAGITIS, Wound Class Definitions Last Modified By: Jose Lopez Rn Flex I 05/14/22 10:02:42 [facility] Endo - General Case Data Audit 05/14/22 10:02:42 Button And Buckle Maker: [id number] Modifier: [id number] 1 <*> Postop Diagnosis ABD PAIN/BLOATING [facility] Endo - Intraoperative Assessment Entry 1 Valid History / Yes Physical in Chart Preoperative Yes Checklist Reviewed/Evaluated Patient is Latex No Sensitive Level of WDL Consciousness (WDL = Alert, Oriented to Person, Place, and Time) Last Modified By: Jose Lopez Rn Flex I 05/14/22 09:52:38 [facility] Endo - Intraoperative Equipment Entry 1 Equipment Intraop Monitoring Electrocardiogram Three lead placement (ECG) Electrode Placement Blood Pressure Arm, left upper Location Pulse Oximeter Hand, right Probe Site Antiembolic Devices Scopes Flexible Endoscopes Gastroscope Used Scope Serial C/M Number/Identificatio n Number Photo/Video Documentation Photo Yes Video No Last Modified By: Jose Lopez Rn Flex I 05/14/22 09:52:55 [facility] Endo - Patient Positioning Entry 1 Procedure Esophagogastroduodenosco py, Colonoscopy, Gastric Biopsy, Colon Polypectomy Body Position Lateral, right side up Left Arm Position Resting at side Right Arm Position Resting at side Left Leg Position Other Right Leg Position Other Position Comments Right leg over left leg, uncrossed Feet Uncrossed Yes Pressure Points Yes Checked Positioned By Jose Lopez Rn Flex I, LYNDA PUGH CRNA-ANS Position Verified Positioning Yes Verified by Surgeon Last Modified By: Jose Lopez Rn Flex I 05/14/22 10:15:41 [facility] Endo - Patient Positioning Audit 05/14/22 10:15:41 Button And Buckle Maker: [id number] Modifier: [id number] 1 <*> Procedure Esophagogastroduodenoscopy, Colonoscopy, Gastric Biopsy 05/14/22 10:00:41 Button And Buckle Maker: [id number] Modifier: [id number] 1 <*> Procedure Esophagogastroduodenoscopy, Colonoscopy [facility] Endo - Sign In Entry 1 Patient, Site, Yes Procedure Identified Surgical Consent Yes Confirmed Surgical Site N/A Marked by person performing procedure Airway Hypothermia Risk No Warming Measures No Taken Last Modified By: Jose Lopez Rn Flex I 05/14/22 09:53:20 [facility] Endo - Sign Out Entry 1 RN Confirmation Surgical Yes Procedure(s) Identified Instrument, Sponge N/A and Sharps Counts Correct/Documented Equipment Problems N/A Documented Specimen Labeled Yes Correctly Urinary Catheter N/A Documented in IView Wound Yes classification reviewed, verified and updated post case in both the General Case Data and Procedure segments Safety Checklist Yes Elements Complete? RN Sign Out Jose Lopez Rn Signature Flex I RN Sign Out 05/14/22 10:18:00 Signature Date/Time Plan of Care Outcome - Fire Risk OUTCOME STATEMENT: Goal met Patient is free from injury related to surgical fire Plan of Care Outcome - Pt Positioning OUTCOME STATEMENT: Goal met Absence of signs and symptoms of positioning injury. Plan of Care Outcome - Skin Prep OUTCOME STATEMENT: Goal met Intraoperative care is consistent with measures to prevent infection Plan of Care Outcome - Xray/Images OUTCOME STATEMENT: N/A Absence of observable signs or symptoms of radiation injury Plan of Care Outcome - Counts OUTCOME STATEMENT: N/A Absence of signs and symptoms of injury related to extraneous objects Last Modified By: Jose Lopez Rn Flex I 05/14/22 10:16:32 [facility] Endo - Surgical Procedures Entry 1 Entry 2 Entry 3 Procedure Esophagogastroduodenosco Colonoscopy Gastric Biopsy py Modifiers Additional Procedure Description Primary Procedure Yes No No Primary Surgeon BABAR TALBOT MD-SUR HARRIS, JOHN M, MD-SUR HARRIS, JOHN M, MD-SUR Start 05/14/22 09:56:00 05/14/22 09:56:00 05/14/22 09:56:00 Stop 05/14/22 10:15:00 05/14/22 10:15:00 05/14/22 10:15:00 Physician [facility] 05/14/22 10:09:00 Cecum Reached Anesthesia Type MAC MAC MAC Specialty General General General Wound Class No Incision No Incision No Incision Last Modified By: Jose Lopez Rn Bowen, Jonathan, Rn Bowen, Jonathan, Rn Flex I 05/14/22 10:16:33 Flex I 05/14/22 10:16:33 Flex I 05/14/22 10:16:33 Entry 4 Procedure Colon Polypectomy Modifiers Additional Procedure Description Primary Procedure No Primary Surgeon BABAR TALBOT MD-SUR Start 05/14/22 09:56:00 Stop 05/14/22 10:15:00 Physician [facility] 05/14/22 10:09:00 Cecum Reached Anesthesia Type MAC Specialty General Wound Class No Incision Last Modified By: Jose Lopez Rn Flex I 05/14/22 10:16:33 [facility] Endo - Surgical Procedures Audit 05/14/22 10:16:33 Button And Buckle Maker: [id number] Modifier: [id number] <+> 1 Stop <+> 2 Stop <+> 3 Stop <+> 4 Stop 05/14/22 10:15:37 Button And Buckle Maker: [id number] Modifier: [id number] <+> 4 Procedure <+> 4 Primary Procedure <+> 4 Primary Surgeon <+> 4 Specialty <+> 4 Start <+> 4 Wound Class <+> 4 Anesthesia Type <+> 4 Physician States Cecum Reached 05/14/22 10:09:36 Button And Buckle Maker: [id number] Modifier: [id number] 2 <*> Procedure Colonoscopy 2 <+> Physician States Cecum Reached 05/14/22 10:00:12 Button And Buckle Maker: [id number] Modifier: [id number] <+> 1 Start <+> 2 Start <+> 3 Procedure <+> 3 Primary Procedure <+> 3 Primary Surgeon <+> 3 Specialty <+> 3 Start <+> 3 Wound Class <+> 3 Anesthesia Type 05/14/22 09:53:37 Button And Buckle Maker: [id number] Modifier: [id number] 1 <*> Procedure Esophagogastroduodenoscopy 1 <+> Wound Class 2 <*> Procedure Colonoscopy 2 <+> Wound Class [facility] Endo - Time Out Entry 1 Procedure to be Esophagogastroduodenosco Performed py, Colonoscopy, Gastric Biopsy, Colon Polypectomy Time Out Time Out Pause Time 05/14/22 09:54:00 All activity Yes suspended (unless life threatening emergency) Team Verbally Correct patient Confirms Information identity, Consent form is present and accurate, Agreement on the procedure to be done, Correct patient position, Performed before each procedure if multiple procedures, Reconcile problems if responses among team members differ Antibiotic N/A Prophylaxis Administered Or In Progress Within the Last 60 Minutes Beta Cuauhtemoc N/A Administered Venous N/A Thromboembolism Prophylaxis Required Anticipated Critical Events Surgeon None expected Last Modified By: Jose Lopze Rn Flex I 05/14/22 10:15:41 [facility] Endo - Time Out Audit 05/14/22 10:15:41 Button And Buckle Maker: [id number] Modifier: [id number] 1 <*> Procedure to be Performed Esophagogastroduodenoscopy, Colonoscopy, Gastric Biopsy 05/14/22 10:00:42 Button And Buckle Maker: [id number] Modifier: [id number] 1 <*> Procedure to be Performed Esophagogastroduodenoscopy, Colonoscopy Case Comments <None> Finalized By: Jose Lopez Rn Flex I Document Signatures Signed By: Jose Lopez Rn Flex I 05/14/22 10:16 Electronically signed by [facility] Conversion [employer] Feeder Cerner at 12/21/2022 4:35 PM CDT documented in this encounter Plan of Treatment Upcoming Encounters Date Type Department Care Team (Late st Contact Info) Description 12/24/2025 3:00 PM EDT Office Visit [address] [address] Elton Faust MD [address] [place] [address] documented as of this encounter Visit Diagnoses Not on filedocumented in this encounter Care Teams Asset Management Lead Relationship Specialty Start Date End Date Yvan Coffey MD [address] [address] PCP - General Internal Medicine 08/13/22 documented as of this encounter
[2025-02-13 12:02] VITALS: BP 103/69; PULSE 67; RESP 14; O2SAT 95; BMI 35.2
--- NOTE | 2025-02-13 12:21 | EXP.PAIN.SOA ---
[facility] Disclaimer: The information contained in this section may have been updated after the patient was seen, as this information can be updated by other users. Medical History (Updated 02/13/25 @ 12:24 by Janay Del Rio APRN) Elevated cholesterol Enlarged prostate Hypertension HIT (heparin-induced thrombocytopenia) Surgical History H/O colectomy History of heart artery stent Social History Smoking Status: Unknown if ever smoked alcohol intake: never current occupational status: other Travel in the last 8 weeks?: None PM Subjective & Objective Subjective Subjective:: Patient is a pleasant 69-year-old male who presents today for worsening pain and follow-up on EMG. Today he rates his pain a 7 out of 10. Patient denies any new falls or injuries. He does state he is having increased pain along the left side and goes into his left hip and buttocks area. Patient denies any radiating symptoms to his legs. Patient does state the pain is interfering with his ability perform activities of daily living such as cooking and cleaning and he would like to see about additional injection therapy as it has helped significantly in the past. Patient does also make mention that he never heard from Dr. Perez regarding the findings of his EMG testing. His Diego has been reviewed and is appropriate. Review of Systems: General: No recent weight changes, no fever, no sleep disturbances Respiratory: No cough, no shortness of air, no recurring pulmonary infections Cardiovascular/peripheral vascular: No chest pain, no palpitations, no edema, no shortness of breath Gastrointestinal: No new onset incontinence, normal bowel movements reported Genitourinary: No new onset incontinence Musculoskeletal: Left-sided low back pain, left hip pain, left buttocks pain Psychiatric: [Normal mood/affect] Neurological: [Denies weakness in extremities], [denies balance issues] Pain at rest (0-10 scale): 7 Objective Objective:: Physical Exam: General: Alert and oriented x3, no acute distress, pleasant and cooperative Lungs: Respirations even and unlabored, symmetrical chest expansion Eyes: PERRL Musculoskeletal: Flexion and extension of lumbar [spine] somewhat guarded secondary to pain, [antalgic gait noted] point tenderness along left SI with positive left Jamie's, David's, Gaenslen's, compression and distraction exam Neurological: Speech clear, no gross sensory deficit Has patient had previous pain injection?: No Conservative treatment options previously tried: Home exercise plan Length of treatment: Longer than 12 weeks Meds Home Medications and Allergies Home Medications ?Medication ?Instructions ?Recorded ?Confirmed ?Type clopidogrel 75 mg tablet 75 mg PO DAILY heart stents 03/26/24 02/13/25 History doxazosin 8 mg tablet 8 mg PO DAILY prostate 03/26/24 02/13/25 History gabapentin 600 mg tablet 600 mg PO BID 03/26/24 02/13/25 History lisinopril 5 mg tablet 5 mg PO DAILY 03/26/24 02/13/25 History oxycodone-acetaminophen 7.5 mg-325 1 tab PO TID 03/26/24 02/13/25 History mg tablet rosuvastatin 20 mg tablet 20 mg PO DAILY Cholesterol 03/26/24 02/13/25 History New Prescriptions to Start Prescriptions: Allergies Allergy/AdvReac Type Severity Reaction Status Date / Time heparin AdvReac Severe Verified 03/26/24 14:59 Assessment and Plan *Assessment and plan (1) Sacroiliitis: Status: Acute Category: Medical Code(s): M46.1 - Sacroiliitis, not elsewhere classified (2) Left hip pain: Status: Acute Category: Medical Code(s): M25.552 - Pain in left hip Plan Patient is experiencing worsening pain along the low back and left hip. They did have limited range of motion of the lumbar spine along with point tenderness along left SI joints and a left bilateral Jamie's, David's, Gaenslen's, compression and distraction exam. I did discuss with the patient that I do believe they would benefit from left SI injections. Risk and benefits were discussed with the patient and they would like to proceed forward with this option. Patient has tried and failed conservative therapy including oral medications, heat and ice, topicals, physical therapy and continued at home stretching exercise for longer than 12 weeks that was physician guided. Patient has been experiencing this pain for longer than 3 months. This will be a diagnostic SI injection with less than 1 mL of solution to be injected. If he does get significant improvement we will plan on repeating the injection when his pain does return with the possibility of a SI fusion in future. Patient will be scheduled for left SI injection under fluoroscopy. I did review over with the patient regarding his EMG findings that did mention the possibility of lumbosacral radiculopathy involving the S1-S2 likely sciatic nerve. I did discuss with the patient that we will continue to monitor his improvement with this SI injection and in future if he is having more radicular symptoms that we can see about possible epidural. Patient agrees with this plan of care. Patient has been instructed to contact the clinic with any concerns before the next appointment. Dr. Funez has reviewed this note and agrees with this plan of care. This note was dictated using voice recognition software and make contain errors or omissions. All injections are used with Lidocaine or Bupivacaine and dexamethasone unless diagnostic in which no steroids are used.
== END 2025-02-13 23:59 | disposition home or self-care (01) ==
LOC: SC.PAIN 11:25
PROVIDERS: PCP Internal Medicine; Visit Provider Nurse Practitioner Family
DX: M46.1 Sacroiliitis, not elsewhere classified (principal)
CPT/HCPCS: 99212; G0463

== ENCOUNTER 2025-03-12 14:10 | Day surgery (SDC) | payer MEDICARE, SELFPAY ==
[2025-03-12 14:21] VITALS: BP 130/82; PULSE 66; RESP 18; O2SAT 96; BMI 35.6
--- NOTE | 2025-03-12 14:46 | EXP.PAIN.PRO ---
Procedure Date: 03/12/25 Time: 14:45 Anesthesiologist:: Keaton Wayne CRNA Complications:: None Pre-procedure Diagnosis:: Left sacroiliitis Post-procedure Diagnosis:: Same. Indications for Procedure:: Patient is a pleasant 69-year-old male who comes our clinic today for a diagnostic left sacroiliac joint injection of local anesthetic. Patient describes left lumbar back pain off the midline to the left. Also, left posterior hip pain. Difficulty transitioning from sitting to standing. Difficulty with ambulation due to the left posterior hip pain. He rates his pain 6/10. Procedure Details:: Procedure: Left sacroiliac injection under fluoroscopy Informed consent was obtained and the risk and benefits of the procedure were explained to the patient.~ The patient was taken to the procedure room and noninvasive monitors were placed including noninvasive blood pressure cuff and pulse oximeter.~ The patient was placed prone on the procedure table.~ The~ left hip was cleansed using Betadine as a cleansing solution.~ C-arm fluorosocpy was used to view the left SI joint.~ The skin and subcutaneous tissues were anesthetized using Lidocaine 1.5% and a 25-gauge needle.~ After this, a 22-gauge spinal needle was inserted under fluoroscopic guidance into the inferior aspect of the left SI joint.~ Omnipaque dye was injected and a good spread was seen throughout the joint.~ After this, approximately 5 mL of bupivacaine 0.25% and 3 cc of 1% lidocaine was injected into the left sacroiliac joint. ~ The patient tolerated the procedure well with no complications.~ The patient was observed in the Pain Clinic for a period of 30-45 minutes, then discharged home neurologically intact.~ Plan and Disposition:: Patient was reevaluated 5 minutes post procedure. He reports 100% pain relief in his left posterior hip. Patient was discharged without incident.
[2025-03-12] MEDS: BUPIVACAINE 0.25% 10ML INJ 25 MG IJ (14:47)
[2025-03-12 14:48] VITALS: BP 126/73; PULSE 62; RESP 18; O2SAT 94
[2025-03-12] MEDS: LIDOCAINE 1% 5ML PF VIAL 5 ML (14:48)
[2025-03-12 14:49] VITALS: BP 126/73; PULSE 62; RESP 18; O2SAT 94
[2025-03-12 15:08] VITALS: BP 130/73; PULSE 63; RESP 18; O2SAT 97
== END 2025-03-12 15:08 | disposition home or self-care (01) ==
PROVIDERS: PCP Internal Medicine; Visit Provider Nurse Anesthetist, Certified Registered
DX: M46.1 Sacroiliitis, not elsewhere classified (principal); E78.00 Pure hypercholesterolemia, unspecified; I10 Essential (primary) hypertension; N40.0 Benign prostatic hyperplasia without lower urinary tract symptoms; Z79.02 Long term (current) use of antithrombotics/antiplatelets; Z79.891 Long term (current) use of opiate analgesic; Z79.899 Other long term (current) drug therapy
CPT/HCPCS: G0260; J0665; J2003

== ENCOUNTER 2025-03-21 13:41 | Outpatient (POV) | payer MEDICARE, SELFPAY ==
--- OUTSIDE RECORDS SUMMARY | 2025-03-21 13:47 | XMS_ITS | Encounter Summary ---
Author Organization Personally ([place], [place], [place], [place]) Address [address] [place] [address] Care Team Providers Care Room Service Attendant Name Role Phone Yvan Coffey MD Primary Care Provider Encounter Details Date Type Department Care Team (Late st Contact Info) Description 06/10/2020 Transcribed Document [facility] [place] [facility] [place] [address] ProviderYahir MD [address] [place] [address] Social History Tobacco Use Types Packs/Day Years Used Date Smoking Tobacco: Never Assessed Sex and Gender Information Value Date Recorded Sex Assigned at Not on file Legal Sex Male 3:58 PM CDT Gender Identity Not on file Sexual Orientation Not on file documented as of this encounter Miscellaneous Notes * Cerner Conversion Note - Yahir Bullard MD - 06/10/2020 1:57 PM CDT Nursing Discharge Summary Entered On: 06/10/2020 13:57 EDT Performed On: 06/10/2020 13:57 EDT by ERASMO BLUE, electric switch tester Documentation Discharge Date/Time : 06/10/2020 13:45 EDT Patient Disposition, General : Discharge Discharge To : Home with ambulatory/outpatient follow-up Education Comment : ERASMO Forde, RN - 06/10/2020 13:57 EDT Electronically signed by [facility] Conversion Meat Team Lead Cerner at 12/21/2022 4:38 PM CDT documented in this encounter Plan of Treatment Upcoming Encounters Date Type Department Care Team (Late st Contact Info) Description 12/24/2025 3:00 PM EDT Office Visit [address] [address] Elton Faust MD [address] [place] [id number] documented as of this encounter Visit Diagnoses Not on filedocumented in this encounter Care Teams Room Service Attendant Relationship Specialty Start Date End Date Yvan Coffey MD [address] [address] PCP - General Internal Medicine 08/13/22 documented as of this encounter
--- OUTSIDE RECORDS SUMMARY | 2025-03-21 13:47 | XMS_ITS | Encounter Summary ---
Author Organization [employer] ([place], [place], [place], [place]) Address [address] [place] [address] Care Team Providers Care Supervisor Gear Repair Name Role Phone Yvan Coffey MD Primary Care Provider Encounter Details Date Type Department Care Team (Late st Contact Info) Description 06/10/2020 Transcribed Document [facility] [place] [address] ProviderYahir MD [address] [place] [address] Social History Tobacco Use Types Packs/Day Years Used Date Smoking Tobacco: Never Assessed Sex and Gender Information Value Date Recorded Sex Assigned at Not on file Legal Sex Male 3:58 PM CDT Gender Identity Not on file Sexual Orientation Not on file documented as of this encounter Miscellaneous Notes * Cerner Conversion Note - Yahir ProviderMD - 06/10/2020 12:09 PM CDT Stroke/Warfarin [...] Description 12/24/2025 3:00 PM EDT Office Visit [address] [place] [phone] Elton Faust MD [address] [address] documented as of this encounter Visit Diagnoses Not on filedocumented in this encounter Care Teams Supervisor Gear Repair Relationship Specialty Start Date End Date Yvan Coffey MD [address] [facility] [address] [place] [address] PCP - General Internal Medicine 08/13/22 documented as of this encounter
--- OUTSIDE RECORDS SUMMARY | 2025-03-21 13:47 | XMS_ITS | Encounter Summary ---
Author Organization [employer] ([place], [place], [place], [place]) Address [address] [place] [address] Care Team Providers Care Pool Servicer Name Role Phone Yvan Coffey MD Primary Care Provider [phone] Encounter Details Date Type Department Care Team ( Contact Info) Description 06/10/2020 Transcribed Document [facility] [place] [facility] [place] [address] ProviderYahir MD [address] [place] [address] Social History Tobacco Use Types Packs/Day Years Used Date Smoking Tobacco: Never Assessed Sex and Gender Information Value Date Recorded Sex Assigned at Not on file Legal Sex Male 3:58 PM CDT Gender Identity Not on file Sexual Orientation Not on file documented as of this encounter Miscellaneous Notes * Cerner Conversion Note - Yahir ProviderMD - 06/10/2020 2:00 AM CDT Baking Assistant Details Entered On: 06/10/2020 4:39 EDT Performed [...] Encounters Date Type Department Care Team (Late Contact Info) Description 12/24/2025 3:00 PM EDT Office Visit [address] [address] Elton Faust MD [address] [place] [address] documented as of this encounter Visit Diagnoses Not on filedocumented in this encounter Care Teams Pool Servicer Relationship Specialty Start Date End Date Yvan Coffey MD 28[address] [facility] [address] [place] [address] PCP - General Internal Medicine 08/13/22 documented as of this encounter
--- OUTSIDE RECORDS SUMMARY | 2025-03-21 13:47 | XMS_ITS | Encounter Summary ---
Author Organization [employer] ([place], [place], [place], [place]) Address [address] [place] [address] Care Team Providers Care Adjunct Psychology Instructor Name Role Phone Yvan Coffey MD Primary Care Provider Encounter Details Date Type Department Care Team (Late st Contact Info) Description 06/10/2020 Transcribed Document [facility] [place] [address] [place] [address] ProviderYahir MD [address] [place], [place] [address] Social History Tobacco Use Types Packs/Day Years Used Date Smoking Tobacco: Never Assessed Sex and Gender Information Value Date Recorded Sex Assigned at Not on file Legal Sex Male 3:58 PM CDT Gender Identity Not on file Sexual Orientation Not on file documented as of this encounter Miscellaneous Notes * Cerner Conversion Note - Yahir Bullard MD - 06/10/2020 12:09 PM CDT Nursing Discharge [...] Description 12/24/2025 3:00 PM EDT Office Visit [address] [phone] Elton Faust MD [address] [place], [place] [id number] documented as of this encounter Visit Diagnoses Not on filedocumented in this encounter Care Teams Adjunct Psychology Instructor Relationship Specialty Start Date End Date Yvan Coffey MD [address] [address] PCP - General Internal Medicine 08/13/22 documented as of this encounter
--- OUTSIDE RECORDS SUMMARY | 2025-03-21 13:48 | XMS_ITS | Encounter Summary ---
Author Organization [employer] ([place], [place], [place], [place]) Address [address] [place] [address] Care Team Providers Care Textile Examiner Name Role Phone Yvan Coffey MD Primary Care Provider [phone] Encounter Details Date Type Department Care Team (Late st Contact Info) Description 06/10/2020 Transcribed Document [facility] [place] [address] [place] [address] ProviderYahri MD 123 [place] [address] Social History Tobacco Use Types Packs/Day Years Used Date Smoking Tobacco: Never Assessed Sex and Gender Information Value Date Recorded Sex Assigned at Not on file Legal Sex Male 3:58 PM CDT Gender Identity Not on file Sexual Orientation Not on file documented as of this encounter Miscellaneous Notes * Cerner Conversion Note - Yahir Bullard MD - 06/10/2020 4:00 AM CDT Height and [...] Source : Stated Height Entry Format : [place] Height, Feet : 5 ft Height, Inches : 8 Inch Clinical Height : 172.72 cm Body Surface Area (BSA), Routine : 2.21 m2 Body Mass Index (BMI), Routine : 36.54 kg/m2 Elaine Phillips RN - 06/10/2020 6:30 EDT documented in this encounter Plan of Treatment Upcoming Encounters Date Type Department Care Team (Late st Contact Info) Description 12/24/2025 3:00 PM EDT Office Visit [address] [address] Elton Faust MD [address] [place] [address] documented as of this encounter Visit Diagnoses Not on filedocumented in this encounter Care Teams Textile Examiner Relationship Specialty Start Date End Date Yvan Coffey MD [address] [address] PCP - General Internal Medicine 08/13/22 documented as of this encounter
--- OUTSIDE RECORDS SUMMARY | 2025-03-21 13:49 | XMS_ITS | Encounter Summary ---
Author Organization [employer] ([place], [place], [place], [place]) Address [address] [place] [address] Care Team Providers Care Hematology Nurse Educator Name Role Phone Yvan Coffey MD Primary Care Provider [phone] Encounter Details Date Type Department Care Team (Late st Contact Info) Description 10/16/2021 Transcribed Document [facility] [place] [address] [place] [address] ProviderYahir MD [address] [place] [address] Social History Tobacco Use Types Packs/Day Years Used Date Smoking Tobacco: Never Assessed Employment Answer Date Recorded Help finding and keeping a job Not on file 0 09/23/2023 Family and Community Support Answer Jair e Recorded Help with Day to Day Activities Not on file 09/23/2023 Feeling Lonely or Isolated Not on file 09/23 Educational Attainment Answer Date Alejandro rded Speak language other than New Zealander at home Not on file 09/23/2023 Want help with school or training Not on file 09/23/2023 Substance Use Answer Date Recorded Used prescription meds for non-medical reasons N ot on file 09/23/2023 Used illegal drugs past 12 months Not on file 09/23/2023 Sex and Gender Information Value Date Recorded Sex Assigned at Not on file Legal Sex Male 3:58 PM CDT Gender Identity Not on file Sexual Orientation Not on file COVID-19 Exposure Response Date Recorded In the last 10 days, have yo u been in contact with someone who was confirmed or suspected to have Coronavirus/COVID-19? No / Unsure 01/19/2023 2:18 PM EDT documented as of this encounter Miscellaneous Notes * Cerner Conversion Note - Historical Provider, - 10/16/2021 11:10 PM HOSE SUSPENDER CUTTER ED Assessment Entered On: 10/16/2021 23:56 EST [...] Communication Barrier : None Primary Language : [place]ander Any Spiritual/Cultural Needs or Requests : No [...] Updated: 04/26/2013 05:55:45 EDT by VASILIY FLORES, RN) Substance Abuse: Drug Use Hx: No. Use in Last 12 Months: No. (Last Updated: 04/26/2013 05:56:12 EDT by VASILIY FLORES, RN) Cardiovascular ASMT, ED Cardiovascular Assessment WDL [...] Blood clots, Bloody Urine Color : Red Brina Lee RN-PATIENT CARE BEDSIDE NON-EXEMPT - 10/16/2021 23:49 EST Musculoskeletal Musculoskeletal Assessment WDL : Brina Wang RN-PATIENT CARE BEDSIDE NON-EXEMPT - 10/16/2021 23:49 EST Integumentary Assessment Skin Description : Normal for ethnicity Skin Temperature : Warm Integumentary Assessment WDL : WDL Brina Lee RN-PATIENT CARE BEDSIDE NON-EXEMPT - 10/16/2021 23:49 EST Neurologic ASMT, ED Neurologic Assessment WDL : WDL Neurological Symptoms : None Level of Consciousness : Alert, Awake Affect/Behavior : Appropriate, Calm, Cooperative Orientation : Oriented x 4 Brina Lee RN-PATIENT CARE BEDSIDE NON-EXEMPT - 10/16/2021 23:49 EST Electronically signed by [facility] Conversion Inspector Of Weights And Measures Cerner at 12/21/2022 4:43 PM CDT documented in this encounter Plan of Treatment Upcoming Encounters Date Type Department Care Team (Late st Contact Info) Description 12/24/2025 3:00 PM EDT Office Visit [address] [address] Elton Faust MD [address] [place] [address] documented as of this encounter Visit Diagnoses Not on filedocumented in this encounter Care Teams Hematology Nurse Educator Relationship Specialty Start Date End Date Yvan Coffey MD [address] [facility] [address] [place] [address] PCP - General Internal Medicine 08/13/22 documented as of this encounter
--- OUTSIDE RECORDS SUMMARY | 2025-03-21 13:49 | XMS_ITS | Encounter Summary ---
Author Organization [employer] ([place], [place], [place], [place]) Address [address] [place] [address] Care Team Providers Care Nurse Practitioner Physician Assistant Name Role Phone Yvan Coffey MD Primary Care Provider [phone] Encounter Details Date Type Department Care Team (Late st Contact Info) Description 10/16/2021 Transcribed Document [facility] [place] [address] [place] [address] ProviderYahir MD [address] [place] [address] Social History Tobacco Use Types [...] Date Alejandro rded Speak language other than Irish at home Not on file 09/23/2023 Want [...] - Historical Provider, - 10/16/2021 11:10 PM BICYCLE RACER ED Triage Entered On: 10/16/2021 23:19 EST Performed On: 10/16/2021 23:15 EST by Caro Bay RN ED Triage Across the Room Chief Complaint : Pt from home with c/o hematuria. States he had prostate biopsy today and got home and has been having difficulty urinating, reports passing clots when he is able to void anything. Triage Date/Time : 10/16/2021 23:15 EST Caro Bay RN - 10/16/2021 23:15 EST DCP GENERIC CODE Tracking Acuity : 3 - Urgent Tracking Group : [facility] ED Caro Bay RN - 10/16/2021 23:15 EST Mode of Arrival : Ambulatory Transported to ED by : Private vehicle To Room Via : Ambulate Accompanied By : Spouse ED Vital Signs : Document Height & Weight : Document ED Allergies : Document ED Reason for Visit : Document Tetanus Immunization : Unknown Fingernail Sculptor Needed : No Caro Bay RN - [...] Heparin-induced thrombocytopenia with thrombosis ; Created By: CONTRIBUTOR_SYSTEM HIST_CERSANTOS; Reaction Status: Active ; Category: Drug ; Substance: heparin ; Type: Allergy ; Severity: Severe ; Updated By: CONTRIBUTOR_SYSTEM HIST_CERSANTOS; Reviewed Date: 06/08/2020 11:08 EDT Diagnosis Control ED (As Of: 10/16/2021 23:19:22 EST) Problems(Active) ARDS - Adult respiratory distress syndrome (SNOMED CT :344567955 ) Name of Problem: ARDS - Adult respiratory distress syndrome ; Recorder: SADIE AGOSTO RN; Confirmation: Confirmed ; Classification: Medical ; Code: [id number] ; Contributor System: [employer] ; Last Updated: 02/21/2014 15:18 EDT ; Life Cycle Date: 04/26/2013 ; Life Cycle Status: Active ; Vocabulary: SNOMED CT Diverticula, colon (SNOMED CT :8730260756 ) Name of Problem: Diverticula, colon ; Recorder: DANIEL BRANCH RN; Confirmation: Confirmed ; Classification: Patient Stated ; Code: [id number] ; Contributor System: [employer] ; Last Updated: 12/01/2015 9:12 EDT ; Life Cycle Date: 12/01/2015 ; Life Cycle Status: Active ; Vocabulary: SNOMED CT DVT - Deep vein thrombosis (SNOMED CT :8691624778 ) Name of Problem: DVT - Deep vein thrombosis ; Recorder: SADIE AGOSTO RN; Confirmation: Confirmed ; Classification: Medical ; Code: [id number] ; Contributor System: [employer] ; Last Updated: 02/19/2014 11:29 EDT ; Life Cycle Date: 04/26/2013 ; Life Cycle Status: Active ; Vocabulary: SNOMED CT [place] filter, device (SNOMED CT :7240419445 ) Name of Problem: [place] filter, device ; Recorder: SADIE AGOSTO RN; Confirmation: Confirmed ; Classification: Medical ; Code: [id number] ; Contributor System: [employer] ; Last Updated: 02/21/2014 14:44 EDT ; Life Cycle Date: 04/26/2013 ; Life Cycle Status: Active ; Vocabulary: SNOMED CT 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 (SNOMED CT :3732932238 ) Name of Problem: 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 ; Recorder: SADIE AGOSTO RN; Confirmation: Confirmed ; Classification: Medical ; Code: 1281123887 ; Contributor System: [employer] ; Last Updated: 02/21/2014 14:56 EDT ; Life Cycle Date: 04/26/2013 ; Life Cycle Status: Active ; Vocabulary: SNOMED CT History of obstructive sleep apnea (IMO :51956238 ) Name of Problem: History of obstructive sleep apnea ; Recorder: HUGH, SYSTEM; Confirmation: Confirmed ; Classification: Medical ; Code: 03867313 ; Last Updated: 06/08/2020 22:53 EDT ; Life Cycle Date: 06/08/2020 ; Life Cycle Status: Active ; Vocabulary: IMO Patient requiring acute dialysis (SNOMED CT :2094262556 ) Name of Problem: Patient requiring acute dialysis ; Recorder: DANIEL BRANCH RN; Confirmation: Confirmed ; Classification: Patient Stated ; Code: 2617657817 ; Contributor System: [employer] ; Last Updated: 12/01/2015 9:23 EDT ; Life Cycle Date: 12/01/2015 ; Life Cycle Status: Active ; Vocabulary: SNOMED CT ; Comments: 12/01/2015 9:23 - DANIEL BRANCH RN 3 years Pneumonia (SNOMED CT :187606490 ) Name of Problem: Pneumonia ; Recorder: SADIE AGOSTO RN; Confirmation: Confirmed ; Classification: Medical ; Code: 424388894 ; Contributor System: [employer] ; Last Updated: 02/14/2014 19:26 EDT ; Life Cycle Date: 04/26/2013 ; Life Cycle Status: Active ; Vocabulary: SNOMED CT Diagnoses(Active) Hematuria Date: 10/16/2021 ; Diagnosis Type: Reason For Visit ; Confirmation: Complaint of ; Clinical Dx: Hematuria ; Classification: Medical ; Clinical Service: Non-Specified ; Code: PNED ; Probability: 0 ; Diagnosis Code: [id number] ED Height and Weight Height Source : Stated Height Entry Format : [place] Height, Feet : 5 ft(Converted to: 152 cm, 60 Inch) Height, Inches : 7 Inch(Converted to: 0 ft 7 Inch, 17.78 cm) Clinical Height : 170.18 cm Weight Source, ED : Critical estimated dosing weight Weight Entry Format : [place] Weight, Pounds : 234 lb Clinical Dosing Weight : 106.36 kg Body Surface Area (BSA) : 2.16 m2 Body Mass Index : 36.7 kg/m2 (HI) [place] Body Weight (IBW) : 65.16 kg Caro Bay RN - 10/16/2021 23:15 EST Electronically signed by [facility] Conversion Coffee Shop Aide Cerner at 12/21/2022 4:30 PM CDT documented in this encounter Plan of Treatment Upcoming Encounters Date Type Department Care Team (Late st Contact Info) Description 12/24/2025 3:00 PM EDT Office Visit [address] [address] Elton Faust MD [address] [place] [address] documented as of this encounter Visit Diagnoses Not on filedocumented in this encounter Care Teams Nurse Practitioner Physician Assistant Relationship Specialty Start Date End Date Yvan Coffey MD [address] [address] PCP - General Internal Medicine 08/13/22 documented as of this encounter
--- OUTSIDE RECORDS SUMMARY | 2025-03-21 13:49 | XMS_ITS | Encounter Summary ---
Author Organization [employer] ([place], [place], [place], [place]) Address [address] [place] [address] Care Team Providers Care Chair Spring Assembler Name Role Phone Yvan Coffey MD Primary Care Provider [phone] Encounter Details Date Type Department Care Team (Late st Contact Info) Description 06/10/2020 Transcribed Document [facility] [place] [facility] [place] [address] ProviderYahir MD [address] [place], [place] [address] Social History Tobacco Use Types Packs/Day Years [...] and water are not available, use hand meat puller. ? Change your dressing as told by [...] contrast dye from your body. ??? Take eisc-eth-tgyksvt and prescription medicines only as told by [...] 03/10/2006 Document Revised: 08/04/2018 Document Reviewed: 07/27/2017 Elsevier Patient Education ? 2020 [employer] Heart-Healthy Eating Plan Many factors influence [...] Fats and oils Meat fat, or shortening. Cotton butter, hydrogenated oils, palm oil, coconut oil, [...] 05/31/2009 Document Revised: 09/29/2018 Document Reviewed: 09/29/2018 [employer]ix Patient Education ? 2020 [employer]. Emergency Medicine Heart Attack The heart is [...] may be called a myocardial infarction, or [place]. It is also known as acute coronary [...] these instructions at home: Medicines ??? Take plmk-zwx-xhjcpaz and prescription medicines only as told by [...] 08/22/2006 Document Revised: 11/29/2019 Document Reviewed: 12/03/2019 [employer] Patient Education ? 2020 [employer]. Neurology Radial Site Care This sheet gives [...] these instructions at home: Medicines ??? Take myco-axn-aaaecct and prescription medicines only as told by your health care provider. Insertion site care ??? Follow instructions from your health care provider about how to take care of your insertion site. Make sure you: ? Wash your hands with soap and water before you change your bandage (dressing). If soap and water are not available, use hand meat puller. ? Change your dressing as told by [...] 09/24/2011 Document Revised: 09/27/2018 Document Reviewed: 09/27/2018 [employer] Patient Education ? 2019 [employer]. documented in this encounter Plan of Treatment Upcoming Encounters Date Type Department Care Team (Late st Contact Info) Description 12/24/2025 3:00 PM EDT Office Visit [address] [phone] Elton Faust MD [address] [place] [address] documented as of this encounter Visit Diagnoses Not on filedocumented in this encounter Care Teams Chair Spring Assembler Relationship Specialty Start Date End Date Yvan Coffey MD [address] [facility] [address] [place] [address] PCP - General Internal Medicine 08/13/22 documented as of this encounter
--- OUTSIDE RECORDS SUMMARY | 2025-03-21 13:49 | XMS_ITS | Encounter Summary ---
Author Organization [employer] ([place], [place], [place], [place]) Address [address] [place] [address] Care Team Providers Care Push Button Switch Assembler Name Role Phone Yvan Coffey MD Primary Care Provider [phone] Encounter Details Date Type Department Care Team (Late st Contact Info) Description 06/10/2020 Transcribed Document [facility] [place] [facility] [place] [address] ProviderYahir MD [address] [place], [place] [id number] Social History Tobacco Use Types Packs/Day Years Used Date Smoking Tobacco: Never Assessed Sex and Gender Information Value Date Recorded Sex Assigned at Not on file Legal Sex Male 3:58 PM CDT Gender Identity Not on file Sexual Orientation Not on file documented as of this encounter Miscellaneous Notes * Cerner Conversion Note - Yahir Bullard MD - 06/10/2020 12:17 PM CDT Final Discharge Planning Entered On: 06/10/2020 12:18 EDT Performed On: 06/10/2020 12:17 EDT by MAKENNA HANKINS RN-Inventory Worker Final Discharge Planning Discharge Arrangements : Patient Post-Acute Information Patient Name: JAY TORRES Gender: Male : [birth year] Age: 64 Years [place] Referral(s): Service: Organization: Business Address: Phone Number: [facility] [address] [place], [address] Important Medicare Message Reviewed With [...] : Yes Discharge To Care Management : Home/Residential/Nursing Home or Self Care -01 MAKENNA HANKINS RN-Inventory Worker - 06/10/2020 12:17 EDT Final Narrative Note Final Narrative Note : cardiac rehab referral made to [facility] no other dc needs. pt will dc home with . MAKENNA HANKINS RN-Inventory Worker - 06/10/2020 12:17 EDT Electronically signed by [facility] Conversion Assembly Mechanic Cerner at 12/21/2022 4:59 PM CDT documented in this encounter Plan of Treatment Upcoming Encounters Date Type Department Care Team (Late st Contact Info) Description 12/24/2025 3:00 PM EDT Office Visit [address] [address] Elton Faust MD [address] [place] [address] documented as of this encounter Visit Diagnoses Not on filedocumented in this encounter Care Teams Push Button Switch Assembler Relationship Specialty Start Date End Date Yvan Coffey MD [address] [facility] [address] [place] [address] PCP - General Internal Medicine 08/13/22 documented as of this encounter
--- OUTSIDE RECORDS SUMMARY | 2025-03-21 13:49 | XMS_ITS | Encounter Summary ---
Author Organization [employer] ([place], [place], [place], [place]) Address [address] [place] [address] Care Team Providers Care Automotive Collision Estimator Name Role Phone Yvan Coffey MD Primary Care Provider [phone] Encounter Details Date Type Department Care Team (Late st Contact Info) Description 06/10/2020 Transcribed Document [facility] [place] [facility] [place] [address] ProviderYahir MD [address] [place] [address] Social History Tobacco Use Types Packs/Day Years Used Date Smoking Tobacco: Never Assessed Sex and Gender Information Value Date Recorded Sex Assigned at Not on file Legal Sex Male 3:58 PM CDT Gender Identity Not on file Sexual Orientation Not on file documented as of this encounter Miscellaneous Notes * Cerner Conversion Note - Yahir ProviderMD - 06/10/2020 5:00 AM CDT Chart [...] 12/24/2025 3:00 PM EDT Office Visit [address] [place] [phone] Elton Faust MD [address] [address] documented as of this encounter Visit Diagnoses Not on filedocumented in this encounter Care Teams Automotive Collision Estimator Relationship Specialty Start Date End Date Yvan Coffey MD [address] [facility] [address] [place] [address] PCP - General Internal Medicine 08/13/22 documented as of this encounter
--- OUTSIDE RECORDS SUMMARY | 2025-03-21 13:49 | XMS_ITS | Encounter Summary ---
Author Organization [employer] ([place], [place], [place]) Address [address] [place] [address] Care Team Providers Care Digital Specialist Name Role Phone Tom Coffey MD Primary Care Provider [phone] Encounter Details Date Type Department Care Team (Late st Contact Info) Description 06/10/2020 Transcribed Document [facility] [place] [address] [place] [address] ProviderYahir MD [address] [place] [address] Social History Tobacco Use Types [...] Bullard MD - 06/10/2020 12:42 PM CDT [facility] [place] [address] CJ TORRES :1955 Visit Time:06/09/2020 Your Visit Summary Your Care Team Admitting Physician - JAMMIE ALVAREZ MD-INT Attending Physician - JAMMIE ALVAREZ MD-INT Primary Care Physician - TOM COFFEY MD-INT Referring Physician - AMAURY JAMES MD-EMR Your Diagnosis Chest pain, Chest pain Chest pain Hypertension Non-ST elevation (NSTEMI) myocardial infarction, Non-ST elevation (NSTEMI) myocardial infarction, Non-ST elevation WA (NSTEMI) Discharge Vitals Temperature 37.1 ??C Heart Rate (Monitored) 62 Respiratory Rate 16 Blood Pressure 122/66 What to do next Instructions From Your Care Team Please STOP taking the home medication doxazosin. Discharge Activity: Discharge Activity: Activity as tolerated Diet: Discharge Diet: Heart healthy diet Follow-Up Appointments Follow Up with KOFI BAXTER When 07/01/2020 11:00 AM EDT Comments with JENNIFER Hernandez Where: [address] [facility] [address] [place] [address]- Business (1) Follow Up with TOM COFFEY When 06/18/2020 02:15 PM EDT Where: [address] [place] [address]- x8 Business (1) Follow Up with [facility] When Within 6 weeks Comments Office to call with appoint/instructions Where: [address] [facility], [address] [place] [address]- Medications What How Much When [...] may be called a myocardial infarction, or WA. It is also known as acute coronary [...] these instructions at home: Medicines ??? Take llyd-jfs-kjgxhpf and prescription medicines only as told by [...] 08/22/2006 Document Revised: 11/29/2019 Document Reviewed: 12/03/2019 Elsevier Patient Education ?? 2020 Elsevier Inc. Angiogram, [...] and water are not available, use hand manager administration. ? Change your dressing as told by [...] contrast dye from your body. ??? Take xnle-dlv-owqzahi and prescription medicines only as told by [...] 03/10/2006 Document Revised: 08/04/2018 Document Reviewed: 07/27/2017 ElseTrackway Patient Education ?? 2020 SST Inc. (Formerly ShotSpotter). Heart-Healthy Eating Plan Many factors influence your [...] Fats and oils Meat fat, or shortening. [place] butter, hydrogenated oils, palm oil, coconut oil, [...] 05/31/2009 Document Revised: 09/29/2018 Document Reviewed: 09/29/2018 Windeln.de Patient Education ?? 2020 SST Inc. (Formerly [employer]Spotter). Radial Site Care This sheet gives you [...] these instructions at home: Medicines ??? Take prgr-cym-cvvmpfb and prescription medicines only as told by your health care provider. Insertion site care ??? Follow instructions from your health care provider about how to take care of your insertion site. Make sure you: ? Wash your hands with soap and water before you change your bandage (dressing). If soap and water are not available, use hand manager administration. ? Change your dressing as told by [...] 09/24/2011 Document Revised: 09/27/2018 Document Reviewed: 09/27/2018 Windeln.de Patient Education ?? 2020 SST Inc. (Formerly [employer]ter). carvedilol (DIANA ve dil ole) Coreg, Coreg [...] may report side effects to FDA at 2-443-JNL-2904. What other drugs will affect carvedilol? Sometimes it is not safe to use certain medications at the same time. Some drugs can affect your blood levels of other drugs you take, which may increase side effects or make the medications less effective. Other drugs may affect carvedilol, including prescription and wvyh-zgs-okkovum medicines, vitamins, and herbal products. Tell your [...] to ensure that the information provided by [employer]. ('Multum') is accurate, up-to-date, and complete, but no guarantee is made to that effect. Drug information contained herein may be time sensitive. Ke[employer]otion information has been compiled for use by healthcare practitioners and consumers in the [place] and therefore Keem[employer] does not warrant that uses outside of the [place] are appropriate, unless specifically indicated otherwise. HealcerionProductivs drug information does not endorse drugs, diagnose patients or recommend therapy. Glazeons drug information is an informational resource designed [...] effective or appropriate for any given patient. Ke[employer] does not assume any responsibility for any aspect of healthcare administered with the aid of information Ke[employer] provides. The information contained herein is not intended to cover all possible uses, directions, precautions, warnings, drug interactions, allergic reactions, or adverse effects. If you have questions about the drugs you are taking, check with your doctor, nurse or pharmacist. Copyright 1613-1473 [employer]. Version: 16.01. Revision Date: 12/28/2018. lisinopril (lyse [place] oh pril) Silvia Funk Zestril What is the most important information [...] have an allergic reaction if you are -[place]. Call your doctor at once if you [...] may report side effects to FDA at 5-806-NBZ-0349. What other drugs will affect lisinopril? Tell [...] drugs may affect lisinopril, including prescription and zzxn-tsc-ghasmdv medicines, vitamins, and herbal products. Not all [...] to ensure that the information provided by [employer]. ('Multum') is accurate, up-to-date, and complete, but no guarantee is made to that effect. Drug information contained herein may be time sensitive. Keemotion information has been compiled for use by healthcare practitioners and consumers in the [place] and therefore Keemotion does not warrant that uses outside of the [place] are appropriate, unless specifically indicated otherwise. Glazeons drug information does not endorse drugs, diagnose patients or recommend therapy. Glazeons drug information is an informational resource designed [...] effective or appropriate for any given patient. [employer] does not assume any responsibility for any aspect of healthcare administered with the aid of information Keemotion provides. The information contained herein is not intended to cover all possible uses, directions, precautions, warnings, drug interactions, allergic reactions, or adverse effects. If you have questions about the drugs you are taking, check with your doctor, nurse or pharmacist. Copyright 3195-7216 [employer]. Version: 15.03. Revision Date: 06/26/2019. atorvastatin (a [...] may report side effects to FDA at 3-449-EQN-4093. What other drugs will affect atorvastatin? Certain [...] drugs may affect atorvastatin, including prescription and edwm-xsn-jybktne medicines, vitamins, and herbal products. Not all [...] to ensure that the information provided by [employer]. ('Healcerionum') is accurate, up-to-date, and complete, but no guarantee is made to that effect. Drug information contained herein may be time sensitive. Keemotion information has been compiled for use by healthcare practitioners and consumers in the [place] and therefore Keemotion does not warrant that uses outside of the [place] are appropriate, unless specifically indicated otherwise. Glazeons drug information does not endorse drugs, diagnose patients or recommend therapy. Glazeons drug information is an informational resource designed [...] effective or appropriate for any given patient. [employer] does not assume any responsibility for any aspect of healthcare administered with the aid of information Keemotion provides. The information contained herein is not intended to cover all possible uses, directions, precautions, warnings, drug interactions, allergic reactions, or adverse effects. If you have questions about the drugs you are taking, check with your doctor, nurse or pharmacist. Copyright 5058-5645 [employer]. Version: .. Revision Date: 06/01/2019. clopidogrel (kloe PID oh [...] may report side effects to FDA at 7-883-AHV-7317. What other drugs will affect clopidogrel? Certain other medicines may increase your risk of bleeding, including aspirin. Avoid taking aspirin unless your doctor tells you to. Tell your doctor about all your other medicines, especially: ?? any other medicines to treat or prevent blood clots; ?? a stomach acid flatbed driver such as omeprazole, Nexium, or Prilosec; ?? an antidepressant; ?? an opioid medication; ?? a blood thinner--warfarin, Coumadin, Jantoven; or ?? NSAIDs (nonsteroidal anti-inflammatory drugs)--ibuprofen (Advil, Motrin), naproxen (Aleve), celecoxib, diclofenac, indomethacin, meloxicam, and others. This list is not complete. Other drugs may affect clopidogrel, including prescription and jnxn-dwv-cjfnspb medicines, vitamins, and herbal products. Not all [...] to ensure that the information provided by [employer]. ('Multum') is accurate, up-to-date, and complete, but no guarantee is made to that effect. Drug information contained herein may be time sensitive. Keemotion information has been compiled for use by healthcare practitioners and consumers in the [place] and therefore Keemotion does not warrant that uses outside of the [place] are appropriate, unless specifically indicated otherwise. Glazeons drug information does not endorse drugs, diagnose patients or recommend therapy. Glazeons drug information is an informational resource designed [...] effective or appropriate for any given patient. Ke[employer] does not assume any responsibility for any aspect of healthcare administered with the aid of information [facility] provides. The information contained herein is not intended to cover all possible uses, directions, precautions, warnings, drug interactions, allergic reactions, or adverse effects. If you have questions about the drugs you are taking, check with your doctor, nurse or pharmacist. Copyright 8016-2614 Berta [employer]. Version: 17.01. Revision Date: 09/27/2019. Emergency Awareness [...] Assistance with quitting is available by contacting 2-848-NJGZ-NOW. This is a free resource providing counseling, [...] it Starts What is a heart attack? Electronically signed by Kate Gibson Conversion Director Of Health Care Marketing Berta at 12/21/2022 4:51 PM CDT documented in this encounter Plan of Treatment Upcoming Encounters Date Type Department Care Team (Late st Contact Info) Description 12/24/2025 3:00 PM EDT Office Visit [facility] [address] [address] Elton Faust MD [address] [place] [address] documented as of this encounter Visit Diagnoses Not on filedocumented in this encounter Care Teams Digital Specialist Relationship Specialty Start Date End Date Tom Coffey MD [address] [place] [address] PCP - General Internal Medicine 08/13/22 documented as of this encounter
--- OUTSIDE RECORDS SUMMARY | 2025-03-21 13:49 | XMS_ITS | Encounter Summary ---
Author Organization [employer] ([place], [place], [place]) Address [address] [place] [address] Care Team Providers Care Drilling Machine Runner Name Role Phone Yvan Coffey MD Primary Care Provider [phone] Encounter Details Date Type Department Care Team (Late st Contact Info) Description 06/17/2020 Transcribed Document [facility] [place] [facility] [place] [address] ProviderYahir MD [address] [place] [address] Social History Tobacco Use Types [...] Comment : Cardiac Rehab Order faxed to [facility]. MARKELL DESAI - 06/17/2020 10:08 EDT documented in this encounter Plan of Treatment Upcoming Encounters Date Type Department Care Team (Late st Contact Info) Description 12/24/2025 3:00 PM EDT Office Visit [address] [place] [phone] Elton Faust MD [address] [address] documented as of this encounter Visit Diagnoses Not on filedocumented in this encounter Care Teams Drilling Machine Runner Relationship Specialty Start Date End Date Yvan Coffey MD [address] [facility] [address] [place] [address] PCP - General Internal Medicine 08/13/22 documented as of this encounter
--- OUTSIDE RECORDS SUMMARY | 2025-03-21 13:50 | XMS_ITS | Encounter Summary ---
Author Organization [employer] ([place], [place], [place], [place]) Address [address] [place] [address] Care Team Providers Care Straightener And Aligner Name Role Phone Yvan Coffey MD Primary Care Provider [phone] Encounter Details Date Type Department Care Team (Late st Contact Info) Description 06/09/2020 Transcribed Document [facility] [place] [address] [place] [address] ProviderYahir MD [address] [place] [address] Social History Tobacco Use Types Packs/Day Years Used Date Smoking Tobacco: Never Assessed Sex and Gender Information Value Date Recorded Sex Assigned at Not on file Legal Sex Male 3:58 PM CDT Gender Identity Not on file Sexual Orientation Not on file documented as of this encounter Miscellaneous Notes * Cerner Conversion Note - Yahir Bullard MD - 06/09/2020 4:00 AM CDT Height and [...] Source : Stated Height Entry Format : [place] Height, Feet : 5 ft Height, Inches [...] 12/24/2025 3:00 PM EDT Office Visit [address] [address] Elton Faust MD [address] [place] [address] documented as of this encounter Visit Diagnoses Not on filedocumented in this encounter Care Teams Straightener And Aligner Relationship Specialty Start Date End Date Yvan Coffey MD [address] [address] PCP - General Internal Medicine 08/13/22 documented as of this encounter
--- OUTSIDE RECORDS SUMMARY | 2025-03-21 13:50 | XMS_ITS | Data Portability ---
Author Organization [place] [facility] ADMIN Address [address] [place] [phone] Assessment No assessment recorded. Plan of Treatment Reminders Order Date Submit Date Provider Last Modified By Organization Details Last Modified Time Details Appointments None recorded. Lab influenza virus A + B + SARS-CoV-2 (COVID19) Ag panel, rapid IA, upper respiratory specimen 2021 022 [email or web address] Not available 17:50:13 Referral None recorded. Procedures None recorded. Surgeries None recorded. Imaging None recorded. Medication Orders ondansetron 4 mg disintegrat ing tablet 2021 [facility] [id number], [address] [place] [address], [address], 14:03:53 Patient TargetsNo targets recorded. Patient Instructions Encounter Date Encounter Id Patient Instructions Last Modified By Organization Details Last Modified Time 08/05/2022 [id number] coronavirus (covid-19): care instructions [email or web address] Not available [...] ve Not Available [facility] [address] [facility] [address], [place], [address], 08/05/2022 13:43:39 08/05/20 22 08/05/2022 influ paz virus A + B + SARS- CoV-2 (COVI D19) Ag panel , rapid IA, upper respi rator y speci men FLU B negati ve Not Available [facility] [address], [place], [address], 08/05/2022 13:43:39 08/05/20 22 08/05/2022 influ paz virus A + B + SARS- CoV-2 (COVI D19) Ag panel , rapid IA, upper respi rator y speci men SARS COV + SARS OV 2 positi ve Not Available [facility] [address], [place], [address], 08/05/2022 13:43:39 Result Notes None recorded. Medical [...] Address Organization Details Last Updated DateTime 2 395549. 49 g 101.1 [degF] 98 % 98 % 112 /min Ness Parra [facility] [place] 2 13:43:14 Social History None recorded. Functional Status None recorded. Mental Status None recorded. Family History Nothing Reported. Medical History No medical history recorded. Past Encounters Encounter ID Performer Location Encounter Start Date Encounter Closed Date Diagnosis/Indication Diagnosis SNOMED-CT Code Diagnosis ICD10 Code Diagnosis Note [id number] Sumi Johnson, DNP, ASSISTANT CREDIT MANAGER-C, CLINICAL TRIAL ASSOCIATE [facility] [address] [facility] [place] [address] 08/05/2022 12:05:28 08/05/2022 14:03:47 Fever 291492679 R50.9 COVID-19 782191509 U07.1 Health Concerns Section Related Observation LastModified by Organization Detai ls LastModified Time None Recorded Concern Status LastModified by Organization Details LastModified Time None Recorded Advance Directives Directive None Recorded Payers Insurance Date Sequence Insurance Name Policy Number Policy Richey Covered Member ID Richey Member ID Guarantor Name 08/05/2022 2 [employer] [id number] Cj Torres [id number] Cj Torres 08/05/2022 1 [place] Cj Torres [id number] Cj Torres Notes Date Note Type Note Provider [...] that he knows of. Sumi Johnson, BARTOLO, ASSISTANT CREDIT MANAGER-C, CLINICAL TRIAL ASSOCIATE [address] [facility], [place], [address], [facility] [place] 08/05/2022 14:04:08
--- OUTSIDE RECORDS SUMMARY | 2025-03-21 13:50 | XMS_ITS | Encounter Summary ---
Author Organization [employer] ([place], [place], [place], [place]) Address [address] [place] [address] Care Team Providers Care Maintenance Of Way Foreman Name Role Phone Yvan Coffey MD Primary Care Provider [phone] Encounter Details Date Type Department Care Team (Late st Contact Info) Description 06/09/2020 Transcribed Document [facility] [place] [facility] [place] [address] ProviderYahir MD [address] [place] [address] Social History Tobacco Use Types [...] 12/24/2025 3:00 PM EDT Office Visit [address] [place] [phone] Elton Faust MD [address] [address] documented as of this encounter Visit Diagnoses Not on filedocumented in this encounter Care Teams Maintenance Of Way Foreman Relationship Specialty Start Date End Date Yvan Coffey MD [address] [facility] [address] [place] [address] PCP - General Internal Medicine 08/13/22 documented as of this encounter
--- OUTSIDE RECORDS SUMMARY | 2025-03-21 13:50 | XMS_ITS | Encounter Summary ---
Author Organization [employer] ([place], [place], [place], [place]) Address [address] [place] [address] Care Team Providers Care Almond Huller Name Role Phone Yvan Coffey MD Primary Care Provider [phone] Encounter Details Date Type Department Care Team (Late st Contact Info) Description 06/09/2020 Transcribed Document [facility] [place] [facility] [place] [address] ProviderYahir MD [address] [place], [place] [address] Social History Tobacco Use Types Packs/Day Years Used Date Smoking Tobacco: Never Assessed Sex and Gender Information Value Date Recorded Sex Assigned at Not on file Legal Sex Male 3:58 PM CDT Gender Identity Not on file Sexual Orientation Not on file documented as of this encounter Miscellaneous Notes * Cerner Conversion Note - Yahir Bullard MD - 06/09/2020 2:54 PM CDT Final Discharge Planning Entered On: 06/09/2020 14:55 EDT Performed On: 06/09/2020 14:54 EDT by DARRELL DIOR Rn-Campaign Consultant Final Discharge Planning Discharge Arrangements : Patient Post-Acute Information Patient Name: JAY TORRES Gender: Male : [birth year] Age: 64 Years No Post-Acute Placement(s) Listed No Post-Acute Service(s) Listed No [place] Referral(s) Listed Important Medicare Message Reviewed With : Patient Important Medicare Message Reviewed D/T : 06/09/2020 15:45 EDT DARRELL DIOR, Rn-Campaign Consultant - 06/09/2020 14:54 EDT Electronically signed by [facility] Conversion Shipping Receiving Clerk Cerner at 12/21/2022 4:52 PM CDT documented in this encounter Plan of Treatment Upcoming Encounters Date Type Department Care Team (Late st Contact Info) Description 12/24/2025 3:00 PM EDT Office Visit [address] [phone] Elton Faust MD [address] [place] [address] documented as of this encounter Visit Diagnoses Not on filedocumented in this encounter Care Teams Almond Huller Relationship Specialty Start Date End Date Yvan Coffey MD [address] [facility] [address] [place] [address] PCP - General Internal Medicine 08/13/22 documented as of this encounter
--- OUTSIDE RECORDS SUMMARY | 2025-03-21 13:50 | XMS_ITS | Encounter Summary ---
Author Organization [employer] ([place], [place], [place], [place]) Address [address] [place] [address] Care Team Providers Care Parole Agent Name Role Phone Yvan Coffey MD Primary Care Provider [phone] Encounter Details Date Type Department Care Team (Late st Contact Info) Description 06/09/2020 Transcribed Document [facility] Radiology [address] [place] [address] Jewel Fontana MD [address] [place] [address] [place] [address] Social History Tobacco Use Types Packs/Day Years [...] Adult respiratory distress syndrome / SNOMED CT 319054171 / Confirmed DVT - Deep vein thrombosis / SNOMED CT 3563136618 / Confirmed Cory filter, device / SNOMED CT 7433533091 / Confirmed 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 / SNOMED CT 5892061542 / Confirmed History of obstructive sleep apnea / IMO [id number] / Confirmed Pneumonia / SNOMED CT 001248956 / Confirmed, Active Problems (8) ARDS - [...] 47.0 \ Radiology Results (Last 48 hours) [id number] -- 06/08/2020 09:09 CR Chest 1 Vw [...] EDT EUGENIA HERNANDEZ MD Discontinued Medications: acetaminophen-hydrocodone (Nunnelly 10 mg-325 mg oral tablet) 1 Tab, [...] 9:51:00 EDT, 06/08/20 9:51:00 EDT MARKELL ARMSTRONG, MEDICAL PHYSICS RESEARCHER-INT famotidine (Pepcid) 20 mg, Oral, Tab, BID, Routine, Start 06/08/20 9:46:00 EDT, 06/08/20 9:46:00 EDT EUGENIA HERNANDEZ MD lisinopril 5 mg, Oral, Tab, Daily, Routine, Start 06/08/20 10:05:00 EDT, 06/08/20 10:05:00 EDT JONO FRAZIER JR, PA-C lisinopril 2.5 mg, Oral, Tab, Daily, Routine, Start 06/09/20 9:00:00 EDT, 06/09/20 9:00:00 EDT MARKELL ARMSTRONG, MEDICAL PHYSICS RESEARCHER-INT ticagrelor (Brilinta) 90 mg, Oral, Tab, BID, [...] Description 12/24/2025 3:00 PM EDT Office Visit [address] [phone] Elton Faust MD [address] [place] [address] documented as of this encounter Visit Diagnoses Not on filedocumented in this encounter Care Teams Parole Agent Relationship Specialty Start Date End Date Yvan Coffey MD [address] [facility] [address] [place] [address] PCP - General Internal Medicine 08/13/22 documented as of this encounter
--- OUTSIDE RECORDS SUMMARY | 2025-03-21 13:50 | XMS_ITS | Encounter Summary ---
Author Organization [employer] ([place], [place], [place], [place]) Address [address] [place] [address] Care Team Providers Care Sack Sewer Name Role Phone Yvan Coffey MD Primary Care Provider [phone] Encounter Details Date Type Department Care Team (Late st Contact Info) Description 06/09/2020 Transcribed Document [facility] Family Medicine [address] [place] [address] ProviderYahir MD [address] [place] [address] Social History Tobacco Use Types Packs/Day Years Used Date Smoking Tobacco: Never Assessed Sex and Gender Information Value Date Recorded Sex Assigned at Not on file Legal Sex Male 3:58 PM CDT Gender Identity Not on file Sexual Orientation Not on file documented as of this encounter Miscellaneous Notes * Albertinaner Conversion Note - Yahir Bullard MD - 06/09/2020 12:23 PM CDT UM Authorization Entered On: 06/09/2020 12:23 EDT Performed On: 06/09/2020 12:23 EDT by Colleen Carranza Rn-Utilization Review Primary Insurance Authorization Authorization and Policy Numbers : Insurance 1 Health Plan: MEDICARE Policy Number: [id number] Authorization Number: Insurance 2 Health Plan: AETNA Policy Number: [id number] Authorization Number: Insurance Primary Name : MEDICARE Authorized Service Begin Date-Primary : 06/08/2020 EDT Historical Authorization Comments-Primary : No Authorization Comments Found Colleen Carranza Rn-Utilization Review - 06/09/2020 12:23 EDT Electronically signed by [facility] Conversion Solar Sales Representative And Assessor Cerner at 12/21/2022 4:33 PM CDT documented in this encounter Plan of Treatment Upcoming Encounters Date Type Department Care Team (Late st Contact Info) Description 12/24/2025 3:00 PM EDT Office Visit [address] [address] Elton Faust MD [address] [place] [address] documented as of this encounter Visit Diagnoses Not on filedocumented in this encounter Care Teams Sack Sewer Relationship Specialty Start Date End Date Yvan Coffey MD [address] [address] PCP - General Internal Medicine 08/13/22 documented as of this encounter
--- OUTSIDE RECORDS SUMMARY | 2025-03-21 13:50 | XMS_ITS | Encounter Summary ---
Author Organization [employer] ([place], [place], [place], [place]) Address [address] [place] [address] Care Team Providers Care Sales Marketing Director Name Role Phone Yvan Coffey MD Primary Care Provider [phone] Encounter Details Date Type Department Care Team (Late st Contact Info) Description 06/09/2020 Transcribed Document [facility] Cardiology [address] [place] [address] [place] [address] [place] [address] [address] [place] [id number] Social History Tobacco Use Types Packs/Day Years [...] MD-CAR Basic Information PCP: YVAN COFFEY MD-INT General Service Technician: None Subjective NAD. No complaints of chest [...] Normal strength, No deformity. Integumentary: Warm, Dry, [place], Intact, No rash. Neurologic: Alert, Oriented, No focal deficits. Psychiatric: Cooperative, Appropriate mood & affect. Results Review JUN 09 02:40 139 105 16 / 97 3.7 27 1.20 \ OCT 05 02:40 \ 15.8 / H 10.5 196 / 47.0 \ Cardiac Markers (Current Encounter/Past 24 Hours) CK MB 10.50 ng/mL HI 06/08/2020 22:04 CK 191 Units/Liter 06/08/2020 22:04 ProBNP 35 pg/mL 06/08/2020 05:27 Radiology Results (Last 48 hours) [id number] -- 06/08/2020 09:09 CR Chest 1 Vw [...] agree with the above final transcribed report. [facility] 06/08/2020 - Oscar Hodge MD PERCUTANEOUS INTERVENTION: [...] patient received 180 mg Brilinta in the tutorial laboratory supervisor. Aggrastat bolus and infusion were also administered. [...] 3-4 weeks. We will sign off. 06/08/2020 [facility] +/- PCI via R radial approach today. Risks and benefits discussed and pt wishes to proceed. Avoid heparin. Echo. Add ASA, statin, BB and ACEi. documented in this encounter Plan of Treatment Upcoming Encounters Date Type Department Care Team (Late st Contact Info) Description 12/24/2025 3:00 PM EDT Office Visit [address] [address] Elton Faust MD [address] [place] [phone] documented as of this encounter Visit Diagnoses Not on filedocumented in this encounter Care Teams Sales Marketing Director Relationship Specialty Start Date End Date Yvan Coffey MD [address] [facility] [address] [place] [address] PCP - General Internal Medicine 08/13/22 documented as of this encounter
--- OUTSIDE RECORDS SUMMARY | 2025-03-21 13:50 | XMS_ITS | Encounter Summary ---
Author Organization [employer] ([place], [place], [place], [place]) Address [address] [place] [address] Care Team Providers Care Electronics Technician Name Role Phone Yvan Coffey MD Primary Care Provider [phone] Encounter Details Date Type Department Care Team (Late st Contact Info) Description 10/16/2021 Transcribed Document [facility] [place] [address] [place] [address] ProviderYahir MD [address] [place] [address] Social History Tobacco Use Types [...] Date Alejandro rded Speak language other than Cape Verdean at home Not on file 09/23/2023 Want [...] Conversion Note - Historical Provider, - 10/16/2021 11:40 PM YEAST WASHER Patient: JAY TORRES Age: 66 years Sex: [...] % 21.5 % Lymph # 2.46 x10(3)/uL Keith % 9.9 % HI Keith # 1.13 K/uL HI Eos % 1.0 % Eos # 0.12 x10(3)/uL Baso % 0.6 % Baso # 0.07 x10(3)/uL Slide Review No IG# 0.08 x10(3)/uL HI IG% 0.70 % HI 10/16/2021 23:36 EST Urine Type. U CleanCatch Urine Color Red Urine Appearance Turbid Urine Specific [place] 1.013 Urine pH Dipstick 5.5 LOW Urine [...] 0:39 EST, Discharge to: Home. Prescriptions: Prescription Nailing Machine Feeder Pharmacy: Keflex 500 mg oral capsule (Prescribe): 1 Cap, Oral, Q12H, for 7 Day(s), 14 Cap, 0 Refill(s). Patient was given the following educational materials: Hematuria, Adult. Follow up with: YVAN COFEFY Within 2 to 3 days; LASHA BELTRÁN Within 2 to 3 days. Counseled: Patient, Family, Regarding diagnosis, Regarding diagnostic results, Regarding treatment plan, Regarding prescription, Patient indicated understanding of instructions. documented in this encounter Plan of Treatment Upcoming Encounters Date Type Department Care Team (Late st Contact Info) Description 12/24/2025 3:00 PM EDT Office Visit [address] [address] Elton Faust MD [address] [place] [address] documented as of this encounter Visit Diagnoses Not on filedocumented in this encounter Care Teams Electronics Technician Relationship Specialty Start Date End Date Yvan Coffey MD 2801 [facility] [address] [place] [address] PCP - General Internal Medicine 08/13/22 documented as of this encounter
--- OUTSIDE RECORDS SUMMARY | 2025-03-21 13:50 | XMS_ITS | Encounter Summary ---
Author Organization [employer] ([place], [place], [place], [place]) Address [address] [place] [address] Care Team Providers Care Floor Worker Name Role Phone Yvan Coffey MD Primary Care Provider Encounter Details Date Type Department Care Team (Late st Contact Info) Description 10/16/2021 Transcribed Document [facility] [place] [address] [place] [address] ProviderYahir MD [address] [place] [address] Social History Tobacco Use Types [...] Date Alejandro rded Speak language other than [place]guillan at home Not on file 09/23/2023 Want [...] - Historical Provider, - 10/16/2021 11:10 PM BRUSH FINISHER [place] Suicide Severity Rating Scale (C-SSRS) Entered On: 10/16/2021 23:37 EST Performed On: 10/16/2021 23:36 EST by Brina Lee RN-PATIENT CARE BEDSIDE NON-EXEMPT [place] Suicide Severity Rating Scale (C-SSRS) CSSRS Past Month Wish to be : No CSSRS Past Month Suicidal Thoughts : No CSSRS Lifetime Suicide Behavior : No Suicide Severity Rating Score : 0 Suicide Severity Rating : No Additional Care Required at this time Brina Lee RN-PATIENT CARE BEDSIDE NON-EXEMPT - 10/16/2021 23:36 EST Electronically signed by [facility] Conversion Cafeteria Server Cerner at 12/21/2022 4:59 PM CDT documented in this encounter Plan of Treatment Upcoming Encounters Date Type Department Care Team (Late st Contact Info) Description 12/24/2025 3:00 PM EDT Office Visit [address] [address] Elton Faust MD [address] [place] [address] documented as of this encounter Visit Diagnoses Not on filedocumented in this encounter Care Teams Floor Worker Relationship Specialty Start Date End Date Yvan Coffey MD 2801 [facility] [address] [place] [address] PCP - General Internal Medicine 08/13/22 documented as of this encounter
--- OUTSIDE RECORDS SUMMARY | 2025-03-21 13:50 | XMS_ITS | Encounter Summary ---
Author Organization [employer] ([place], [place], [place], [place]) Address [address] [place] [address] Care Team Providers Care Buggy Loader Name Role Phone Yvan Coffey MD Primary Care Provider [phone] Reason for Visit * Reason Comments Medication Refill Encounter Details Date Type Department Care Team (Late st Contact Info) Description 09/30/2023 Refill [facility] Cardiology [address] [place] [address] [place] [address] [place] [address] [address] [place] [address] Essential hypertension Social History Tobacco Use Types Packs/Day Years Used Date Smoking Tobacco: Never Smokeless Tobacco: Never Alcohol Use Standard Drinks/Week Comments Not Currently 0 (1 standard drink = 0.6 oz pur e alcohol) Employment Answer Date Recorded Help finding and keeping a job Not on file 0 09/23/2023 Family and Community Support Answer Jair e Recorded Help with Day to Day Activities Not on file 09/23/2023 Feeling Lonely or Isolated Not on file 09/23 Educational Attainment Answer Date Alejandro rded Speak language other than Norwegian at home Not on file 09/23/2023 Want [...] 12/24/2025 3:00 PM EDT Office Visit [address] [address] Elton Faust MD [address] [place] [address] documented as of this encounter Visit Diagnoses Diagnosis Essential hypertension Unspecified essential hypertension documented in this encounter Care Teams Buggy Loader Relationship Specialty Start Date End Date Yvan Coffey MD 2801 [facility] [address] [place] [address] PCP - General Internal Medicine 08/13/22 documented as of this encounter
--- OUTSIDE RECORDS SUMMARY | 2025-03-21 13:50 | XMS_ITS | Encounter Summary ---
Author Organization [employer] ([place], [place], [place], [place]) Address [address] [place] [address] Care Team Providers Care Inspector Scales Name Role Phone Yvan Coffey MD Primary Care Provider [phone] Encounter Details Date Type Department Care Team (Late st Contact Info) Description 06/09/2020 Transcribed Document [facility] Family Medicine [facility] [place] [address] ProviderYahir MD [address] [place] [address] Social History Tobacco Use Types Packs/Day Years Used Date Smoking Tobacco: Never Assessed Sex and Gender Information Value Date Recorded Sex Assigned at Not on file Legal Sex Male 3:58 PM CDT Gender Identity Not on file Sexual Orientation Not on file documented as of this encounter Miscellaneous Notes * Cerner Conversion Note - Yahir ProviderMD - 06/09/2020 2:00 AM CDT Residential Housekeeper Details Entered On: 06/09/2020 3:35 EDT Performed [...] Description 12/24/2025 3:00 PM EDT Office Visit [address] [address] Elton Faust MD [address] [place] [address] documented as of this encounter Visit Diagnoses Not on filedocumented in this encounter Care Teams Inspector Scales Relationship Specialty Start Date End Date Yvan Coffey MD [address] [address] PCP - General Internal Medicine 08/13/22 documented as of this encounter
--- OUTSIDE RECORDS SUMMARY | 2025-03-21 13:50 | XMS_ITS | Encounter Summary ---
Author Organization [employer] ([place], [place], [place], [place]) Address [address] [place] [address] Care Team Providers Care Manager Environmental Name Role Phone Yvan Coffey MD Primary Care Provider [phone] Encounter Details Date Type Department Care Team (Late st Contact Info) Description 06/09/2020 Transcribed Document [facility] Family Medicine [facility] [place] [address] ProviderYahir MD [address] [place], [place] [phone] Social History Tobacco Use Types Packs/Day Years Used Date Smoking Tobacco: Never Assessed Sex and Gender Information Value Date Recorded Sex Assigned at Not on file Legal Sex Male 3:58 PM CDT Gender Identity Not on file Sexual Orientation Not on file documented as of this encounter Miscellaneous Notes * Cerner Conversion Note - Yahir Bullard MD - 06/09/2020 2:53 PM CDT On Going Discharge Planning Entered On: 06/09/2020 14:54 EDT Performed On: 06/09/2020 14:53 EDT by DARRELL DIOR Rn-Medical Referral CoordinatorHorticultural Worker Progress Note Discharge Arrangements : Patient Post-Acute [...] Attend Multidisciplinary Rounds? : No DARRELL DIOR, Rn-Medical Referral Coordinator - 06/09/2020 14:53 EDT Narrative Progress Note Narrative Progress Note : DEYVI to LAD, ready for dc when cleared by Cards, home when BP controlled. DARRELL DIOR Rn-Medical Referral Coordinator - 06/09/2020 14:53 EDT Electronically signed by [facility] Conversion Sandwich Counter Attendant Cerner at 12/21/2022 4:49 PM CDT documented in this encounter Plan of Treatment Upcoming Encounters Date Type Department Care Team (Late st Contact Info) Description 12/24/2025 3:00 PM EDT Office Visit [address] [address] Elton Faust MD [address] [place] [address] documented as of this encounter Visit Diagnoses Not on filedocumented in this encounter Care Teams Manager Environmental Relationship Specialty Start Date End Date Yvan Coffey MD 2801 [facility] [address] [place] [address] PCP - General Internal Medicine 08/13/22 documented as of this encounter
--- OUTSIDE RECORDS SUMMARY | 2025-03-21 13:50 | XMS_ITS | Encounter Summary ---
Author Organization [employer] ([place], [place], [place], [place]) Address [address] [place] [address] Care Team Providers Care Security Guard Name Role Phone Yvan Coffey MD Primary Care Provider [phone] Encounter Details Date Type Department Care Team (Late st Contact Info) Description 10/16/2021 Transcribed Document [facility] [place] [address] [place] [address] ProviderYahir MD [address] [place] [address] Social History Tobacco Use Types [...] Date Alejandro rded Speak language other than Montenegrin at home Not on file 09/23/2023 Want [...] - Historical Provider, - 10/16/2021 11:10 PM FOOD STYLIST [place] Violence Assessment Entered On: 10/16/2021 23:36 EST Performed On: 10/16/2021 23:36 EST by Brina Lee RN-PATIENT CARE BEDSIDE NON-EXEMPT [place] Violence Assessment [place] Violence Checklist of Symptoms : None [place] Violence Symptoms Subtotal : 0 [place] Violence Symptoms Indicator : Low risk (0) Brina Lee RN-PATIENT CARE BEDSIDE NON-EXEMPT - 10/16/2021 23:36 EST Electronically signed by [facility] Conversion Automatic Silk Screen Printer Cerner at 12/21/2022 4:58 PM CDT documented in this encounter Plan of Treatment Upcoming Encounters Date Type Department Care Team (Late st Contact Info) Description 12/24/2025 3:00 PM EDT Office Visit [address] [address] Elton Faust MD [address] [place] [address] documented as of this encounter Visit Diagnoses Not on filedocumented in this encounter Care Teams Security Guard Relationship Specialty Start Date End Date Yvan Coffey MD 2801 [facility] [address] [place] [address] PCP - General Internal Medicine 08/13/22 documented as of this encounter
--- OUTSIDE RECORDS SUMMARY | 2025-03-21 13:52 | XMS_ITS | Clinical Summary ---
Author Organization [facility] Address [address] [id number] Care Team Providers Care Carpet Layer Helper Name Role Phone Uli Coffey MD Primary Care Provider [phone] Social History Tobacco Use Types Packs/Day Years [...] 2007 [facility]-Zoster Vaccines (1 of 2) 2007 [id number] Vaccine (1 - 20 24-25 season) 2024 [facility]-Influenza Vaccine (#1) 2025 [facility]-RSV Vaccine: 60+ Years o r [...] complete this topic Insurance MEDICARE Care Teams Carpet Layer Helper Relationship Specialty Start Date End Date Uli Coffey MD [address] [place] [address] PCP - General 01/16/21
--- OUTSIDE RECORDS SUMMARY | 2025-03-21 13:53 | XMS_ITS | Encounter Summary ---
Author Organization [employer] ([place], [place], [place], [place]) Address [address] [place] [address] Care Team Providers Care Platform Beater Name Role Phone Yvan Coffey MD Primary Care Provider [phone] Encounter Details Date Type Department Care Team (Late st Contact Info) Description 06/10/2020 Transcribed Document [facility] Radiology [address] [place] [address] Janeen Fontana MD [address] [place] [address] [place] [address] Social History Tobacco Use Types Packs/Day Years [...] YVAN COFFEY MD-INT Discharge Diagnosis NSTEMI S/P LHC DEYVI to LAD 06/08/2020 Hypertension 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 Chronic neuropathy Obesity Procedures LHC PCI to [facility] Hospital Course 64-year-old male with an unremarkable [...] Settings (Last) Oxygen Therapy Mode: Room air (10/06/20 08:58:00) Physical Exam Chest clear to auscultation bilaterally Discharge Disposition Home Discharge Follow Up YVAN COFFEY - 02:15 PM KOFI BAXTER - 11:00 AM [facility] - Within 6 weeks Discharge Medications (9) [...] Description 12/24/2025 3:00 PM EDT [facility] [address] [address] Elton Faust MD [address] [place] [address] documented as of this encounter Visit Diagnoses Not on filedocumented in this encounter Care Teams Platform Beater Relationship Specialty Start Date End Date Yvan Coffey MD [address] [place] [phone] PCP - General Internal Medicine 08/13/22 documented as of this encounter
--- OUTSIDE RECORDS SUMMARY | 2025-03-21 13:53 | XMS_ITS | Clinical Summary ---
Author Organization [facility] Address [address] [facility] [address] [place] [address] Phone Care Team Providers Care Sampler And Test Preparer Name Role Phone Milan Paez MD [ ] Conditions or Problems No information available. Medications No information available. Medications Administered No information available. Allergies, Adverse Reactions, Alerts No information available. Results No information available. Plan of Care No information available. Procedures No information available. Vital Signs No information available. Immunizations No information available. Advance Directives No information available.
--- OUTSIDE RECORDS SUMMARY | 2025-03-21 13:54 | XMS_ITS | Encounter Summary ---
Author Organization [employer] ([place], [place], [place], [place]) Address [address] [place] [address] Care Team Providers Care Outboard Motor Mechanic Name Role Phone Yvan Coffey MD Primary Care Provider [phone] Encounter Details Date Type Department Care Team (Late st Contact Info) Description 06/08/2020 Transcribed Document [facility] [place] [address] [place] [address] ProviderYahir MD [address] [place] [address] Social History Tobacco Use Types Packs/Day Years Used Date Smoking Tobacco: Never Assessed Sex and Gender Information Value Date Recorded Sex Assigned at Not on file Legal Sex Male 3:58 PM CDT Gender Identity Not on file Sexual Orientation Not on file documented as of this encounter Miscellaneous Notes * Cerner Conversion Note - Yahir Bullard MD - 06/08/2020 5:05 AM CDT Pain Assessment [...] 12/24/2025 3:00 PM EDT Office Visit [address] [phone] Elton Faust MD [address] [place] [address] documented as of this encounter Visit Diagnoses Not on filedocumented in this encounter Care Teams Outboard Motor Mechanic Relationship Specialty Start Date End Date Yvan Coffey MD [address] [facility] [address] [place] [address] PCP - General Internal Medicine 08/13/22 documented as of this encounter
--- OUTSIDE RECORDS SUMMARY | 2025-03-21 13:54 | XMS_ITS | Encounter Summary ---
Author Organization [employer] ([place], [place], [place], [place]) Address [address] [place] [address] Care Team Providers Care Film Composer Name Role Phone Yvan Coffey MD Primary Care Provider [phone] Encounter Details Date Type Department Care Team (Late st Contact Info) Description 06/08/2020 Transcribed Document [facility] [place] Family Medicine [address] [place] [address] ProviderYahir MD [address] [place], [place] [id number] Social History Tobacco Use Types Packs/Day Years Used Date Smoking Tobacco: Never Assessed Sex and Gender Information Value Date Recorded Sex Assigned at Not on file Legal Sex Male 3:58 PM CDT Gender Identity Not on file Sexual Orientation Not on file documented as of this encounter Miscellaneous Notes * [employer]ner Conversion Note - Yahir ProviderMD - 06/08/2020 4:48 AM CDT [place] Suicide Severity Rating Scale (C-SSRS) Entered On: 06/08/2020 5:04 EDT Performed On: 06/08/2020 5:01 EDT by NAIF ALVARADO RN [place] Suicide Severity Rating Scale (C-SSRS) CSSRS Past [...] Description 12/24/2025 3:00 PM EDT Office Visit [address] [address] Elton Faust MD [address] [place] [address] documented as of this encounter Visit Diagnoses Not on filedocumented in this encounter Care Teams Film Composer Relationship Specialty Start Date End Date Yvan Coffey MD [address] [facility] [address] [place] [address] PCP - General Internal Medicine 08/13/22 documented as of this encounter
--- OUTSIDE RECORDS SUMMARY | 2025-03-21 13:54 | XMS_ITS | Encounter Summary ---
Author Organization [employer] ([place], [place], [place], [place]) Address [address] [place] [address] Care Team Providers Care Credit Card Control Clerk Name Role Phone Yvan Coffey MD Primary Care Provider [phone] Reason for Visit * Reason Comments Medication Refill Encounter Details Date Type Department Care Team (Late st Contact Info) Description 07/06/2023 Refill [facility] Cardiology [address] [place] [address] [place] [address] [place] [address] [address] [place] [address] Coronary artery disease involving [place] coronary artery of [place] heart without angina pectoris (Primary Dx); Essential [...] Patient states pharmacy did not receive these 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 documented in this encounter Plan of Treatment Upcoming Encounters Date Type Department Care Team (Late st Contact Info) Description 12/24/2025 3:00 PM EDT Office Visit [facility] [address] [phone] Elton Faust MD [address] [address] documented as of this encounter Visit Diagnoses Diagnosis Coronary artery disease involving [place] coronary artery of [place] heart without angina pectoris- Primary Essential hypertension Unspecified essential hypertension documented in this encounter Care Teams Credit Card Control Clerk Relationship Specialty Start Date End Date Yvan Coffey MD [address] [facility] [address] [place] [address] PCP - General Internal Medicine 08/13/22 documented as of this encounter
--- OUTSIDE RECORDS SUMMARY | 2025-03-21 13:55 | XMS_ITS | Encounter Summary ---
Author Organization [employer] ([place], [place], [place], [place]) Address [address] [place] [address] Care Team Providers Care Plant Breeder Scientist Name Role Phone Yvan Coffey MD Primary Care Provider [phone] Encounter Details Date Type Department Care Team (Late st Contact Info) Description 06/08/2020 Transcribed Document [facility] [place] Family Medicine [address] [place] [address] ProviderYahir MD [address] [place], [place] [id number] Social History Tobacco Use Types Packs/Day Years Used Date Smoking Tobacco: Never Assessed Sex and Gender Information Value Date Recorded Sex Assigned at Not on file Legal Sex Male 3:58 PM CDT Gender Identity Not on file Sexual Orientation Not on file documented as of this encounter Miscellaneous Notes * Cerner Conversion Note - Yahir Bullard MD - 06/08/2020 4:58 AM CDT Pain Assessment Entered On: 06/08/2020 5:05 EDT Performed On: 06/08/2020 5:05 EDT by NAIF ALVARDAO RN Intervention Information: nitroglycerin Performed by NAIF [...] 12/24/2025 3:00 PM EDT Office Visit [address] [phone] Elton Faust MD [address] [place] [address] documented as of this encounter Visit Diagnoses Not on filedocumented in this encounter Care Teams Plant Breeder Scientist Relationship Specialty Start Date End Date Yvan Coffey MD [address] [facility] [address] [place] [address] PCP - General Internal Medicine 08/13/22 documented as of this encounter
--- OUTSIDE RECORDS SUMMARY | 2025-03-21 13:55 | XMS_ITS | Encounter Summary ---
Author Organization [employer] ([place], [place], [place], [place]) Address [address] [place] [address] Care Team Providers Care Powder Compounder Name Role Phone Yvan Coffey MD Primary Care Provider [phone] Encounter Details Date Type Department Care Team (Late st Contact Info) Description 06/08/2020 Transcribed Document [facility] [place] Family Medicine [facility] [place] [address] ProviderYahir MD [address] [place] [address] Social History Tobacco Use Types Packs/Day Years Used Date Smoking Tobacco: Never Assessed Sex and Gender Information Value Date Recorded Sex Assigned at Not on file Legal Sex Male 3:58 PM CDT Gender Identity Not on file Sexual Orientation Not on file documented as of this encounter Miscellaneous Notes * Cerner Conversion Note - Yahir ProviderMD - 06/08/2020 10:50 AM CDT ED [...] 06/08/2020 10:50 EDT Electronically signed by [facility] Conversion Prosthetic Assistant Cerner at 12/21/2022 4:46 PM CDT documented in this encounter Plan of Treatment Upcoming Encounters Date Type Department Care Team (Late st Contact Info) Description 12/24/2025 3:00 PM EDT Office Visit [address] [phone] Elton Faust MD [address] [place] [address] documented as of this encounter Visit Diagnoses Not on filedocumented in this encounter Care Teams Powder Compounder Relationship Specialty Start Date End Date Yvan Coffey MD [address] [facility] [address] [place] [address] PCP - General Internal Medicine 08/13/22 documented as of this encounter
--- OUTSIDE RECORDS SUMMARY | 2025-03-21 13:55 | XMS_ITS | Encounter Summary ---
Author Organization [employer] ([place], [place], [place], [place]) Address [address] [place] [address] Care Team Providers Care Piano Accompanist Name Role Phone Yvan Coffey MD Primary Care Provider [phone] Encounter Details Date Type Department Care Team (Late st Contact Info) Description 06/08/2020 Transcribed Document [facility] [place] Family Medicine [address] [place] [address] ProviderYahir MD [address] [place] [address] Social History Tobacco Use Types Packs/Day Years Used Date Smoking Tobacco: Never Assessed Sex and Gender Information Value Date Recorded Sex Assigned at Not on file Legal Sex Male 3:58 PM CDT Gender Identity Not on file Sexual Orientation Not on file documented as of this encounter Miscellaneous Notes * Cerner Conversion Note - Yahir Bullard MD - 06/08/2020 2:19 PM CDT Pain Assessment Entered On: 06/08/2020 17:40 EDT Performed On: 06/08/2020 15:29 EDT by IRINA FORREST, RN Intervention Information: acetaminophen-oxyCODONE Performed by IRINA FORREST, ISIS on 06/08/2020 14:29:00 EDT acetaminophen-oxyCODONE,1Tab Oral,Pain (Moderate 4-6) Pain Assessment Pain Assessment : Follow-up assessment Pain Scale Goal : 2 IRINA FORREST RN - 06/08/2020 17:39 EDT Electronically signed by [facility] Conversion Utility Pipe Layer Cerner at 12/26/2022 2:01 PM CDT documented in this encounter Plan of Treatment Upcoming Encounters Date Type Department Care Team (Late st Contact Info) Description 12/24/2025 3:00 PM EDT Office Visit [address] [phone] Elton Faust MD [address] [place] [address] documented as of this encounter Visit Diagnoses Not on filedocumented in this encounter Care Teams Piano Accompanist Relationship Specialty Start Date End Date Yvan Coffey MD [address] [facility] [address] [place] [address] PCP - General Internal Medicine 08/13/22 documented as of this encounter
--- OUTSIDE RECORDS SUMMARY | 2025-03-21 13:56 | XMS_ITS | Encounter Summary ---
Author Organization [employer] ([place], [place], [place], [place]) Address [address] [place] [address] Care Team Providers Care Campus Monitor Name Role Phone Yvan Coffey MD Primary Care Provider [phone] Encounter Details Date Type Department Care Team (Late st Contact Info) Description 06/08/2020 Transcribed Document [facility] [place] [facility] [address] ProviderYahir MD [address] [place] [address] Social History Tobacco Use Types Packs/Day Years [...] MD-CAR Basic Information PCP: YVAN COFFEY MD-INT Harness Builder: None Chief Complaint Acute onset chest pain [...] Oral, Daily gabapentin 600 mg, Oral, BID [place] 10 mg-325 mg oral tablet 1 Tab, PRN, Oral, Q4H pantoprazole 20 mg, Oral, Daily tamsulosin 0.4 mg oral capsule 0.4 mg = 1 Cap, Oral, At Bedtime Allergies: Allergic Reactions (Selected) 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., No qualifying data available Current medications: (Selected) Documented Medications Documented Cymbalta: 20 mg, Oral, Daily, 0 Refill(s) Hazleton 10 mg-325 mg oral tablet: 1 Tab, Oral, Q4H, PRN: for pain, 0 Refill(s) gabapentin: 600 mg, Oral, BID, 0 Refill(s) pantoprazole: 20 mg, Oral, Daily, 0 Refill(s) tamsulosin 0.4 mg oral capsule: 1 Cap, Oral, At Bedtime, 30 Cap, 0 Refill(s), No qualifying data available Problem list: All Problems ARDS - Adult respiratory distress syndrome / SNOMED CT 194690084 / Confirmed Patient requiring acute dialysis / SNOMED CT 1112701742 / Confirmed 3 years Diverticula, colon / SNOMED CT 1586448114 / Confirmed DVT - Deep vein thrombosis / SNOMED CT 2215038021 / Confirmed [place] filter, device / SNOMED CT 3124917202 / Confirmed 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 / SNOMED CT 4668922043 / Confirmed Pneumonia / SNOMED CT 390019326 / Confirmed, Active Problems (7) ARDS - [...] History: Active 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 (2225817044) Pneumonia (908621036) ARDS - Adult respiratory distress syndrome (267808233) DVT - Deep vein thrombosis (7853908351) [place] filter, device (7043296179) Family History: No family history items have [...] of motion, Normal strength. Integumentary: Warm, Dry, [place]. Neurologic: Alert, Oriented. Psychiatric: Cooperative, Appropriate mood [...] 24 Hours) Radiology Results (Last 48 hours) [id number] -- 06/08/2020 09:09 CR Chest 1 Vw [...] 12/24/2025 3:00 PM EDT Office Visit [address] [phone] Elton Faust MD [address] [place] [address] documented as of this encounter Visit Diagnoses Not on filedocumented in this encounter Care Teams Campus Monitor Relationship Specialty Start Date End Date Yvan Coffey MD [address] [place] [address] PCP - General Internal Medicine 08/13/22 documented as of this encounter
--- OUTSIDE RECORDS SUMMARY | 2025-03-21 13:56 | XMS_ITS | Encounter Summary ---
Author Organization [employer] ([place], [place], [place], [place]) Address [address] [place] [address] Care Team Providers Care Grease Press Helper Name Role Phone Yvan Coffey MD Primary Care Provider [phone] Encounter Details Date Type Department Care Team (Late st Contact Info) Description 06/08/2020 Transcribed Document [facility] [place] Family Medicine [address] [place] [address] ProviderYahir MD [address] [place] [address] Social History Tobacco Use Types Packs/Day Years Used Date Smoking Tobacco: Never Assessed Sex and Gender Information Value Date Recorded Sex Assigned at Not on file Legal Sex Male 3:58 PM CDT Gender Identity Not on file Sexual Orientation Not on file documented as of this encounter Miscellaneous Notes * Cerner Conversion Note - Yahir ProviderMD - 06/08/2020 12:37 PM CDT Valuables [...] 12/24/2025 3:00 PM EDT Office Visit [address] [place] [phone] Elton Faust MD [address] [place] [address] documented as of this encounter Visit Diagnoses Not on filedocumented in this encounter Care Teams Grease Press Helper Relationship Specialty Start Date End Date Yvan Coffey MD [address] [facility] [address] [place] [address] PCP - General Internal Medicine 08/13/22 documented as of this encounter
--- OUTSIDE RECORDS SUMMARY | 2025-03-21 13:56 | XMS_ITS | Data Portability ---
Author Organization QIAN CHRIS [facility] Address [address] [place] [address] Care Team Providers Care Rehabilitation Services Manager Name Role Phone ERINN YIFAN Primary Care Provider [phone] KOFI BAXTER Geosciences Professor BABAR TALBOT General Surgeon AMY QUINN Louver Door Assembler Assessment Encounter Date Assessment Date Assessment LastModified [...] develops new radicular or neurogenic claudication symptoms. [email or web address] Not available 02/10/2024 16:31:08 Plan of Treatment Reminders Order Date Submit Date Provider Last Modified By Organization Details Last Modified Time Details Appointments MALE RECHECK 2024 02:30P M LASHA BELTRÁN MD Not available Not available Not available Lab None recorded. Referral physical therapist referral 2023 024 [facility], [address] [place] [address] , Mahesh Flores, [place], [address], 05/24/2024 11:11:59 Procedures None recorded. Surgeries None recorded. Imaging None recorded. Medication Orders Medrol (Ty) 4 mg tablets in a dose pack 2023 024 [facility] [id number], [address] [place] [address], [address], 02/16/2024 14:31:59 Patient TargetsNo targets recorded. Patient Instructions Encounter Date Encounter Id Patient Instructions Last Modified By Organization Details Last Modified Time 07/23/2024 [id number] He would like to do prostate MRI prior to repeating. Not available 07/23/2024 18:24:56 09/24/2024 [id number] I offered him MRI/US fusion biopsy and [...] l spine , 4 or more view [address] [place] [address] Scott corrigan Name: FE corrigan : 1954 [...] s with extens ion. There is mild health science writer ior listhe sis of L1 on L2, [...] By: Nyla nicole MD on 9:51 AM [email or web address] [facility] [address] [place] [address], [phone], 01/23/2024 17:02:02 12/28/19 24 12/16/2023 CT, lumba r spine , w/o contr ast No observ ation record ed. BARCODE Not Available 2023 10:58:47 12/30/19 24 12/28/2023 CT, abdom en + pelvi s, w/ contr ast No observ ation record ed. [email or web address] Not Available 2023 10:21:08 01/10/20 24 01/10/2024 MRI, lumba r spine , w/o contr ast [address] [address] Scott corrigan Name: FE BETANCOURT N Scott corrigan : 1954 Scott corrigan Orderi ng Provid er: BARBIE Corrigan EXAM DATE: 2023 EXAM: MR LUMBAR W/O CONTRA ST HISTOR Y: 68-yea r-old male with low back pain and left hip pain. COMPAR FABI: 4/23/2 024 FINDIN GS: There is transi tional anatom y at the lumbos acral juncti on with sacral izatio n of L5 on the right. There is mild dextro curvat ure from T12 throug h L4, and mild focal levocu rvatur e at L4-L5. There is minima l anteri or listhe sis of L4 on L5, and minima l health science writer ior listhe sis of L1 on L2 [...] nicole MD on 01/10/20 24 7:06 PM [email or web address] [facility] [address] [facility], [place], [address], 02/07/2024 12:27:37 01/20/20 24 12/28/2023 CT, abdom en + pelvi s, w/ contr ast No observ ation record ed. BARCODE Not Available 2023 13:58:55 02/16/20 24 02/16/2024 XR, hip, unila teral , 2 or [address] [facility] [address] [place] [address] Scott corrigan Name: FE corrigan : 1954 [...] Nyla nicole MD on 024 3:00 PM [email or web address] [facility] [address] , [place], [address], 02/16/2024 15:54:57 08/27/20 24 08/27/2024 MRI, pelvi s, w/wo contr ast [facility] [address] [place] [address], [place] [address] Patien t Name: FE Guidry Scott t : 1954 Patien t Orderi ng Provid er: EARLENE BELTRÁN [...] st (1 x 10 mL bottle of [facility] [id number] [id number] ) IV. The patien t did [...] catego ry = 4/5 locate d in health science writer ior latera l right periph eral zone [...] PI-RAD S 4/5 lesion involv ing the health science writer ior latera l right inferi or gland periph eral zone 3. Semina l vesicl es unrema rkable 4. No defini te extrap rostat ic diseas e is noted Interp reted By: Babar Fernández MD Electr onical ly Signed By: Babar Fernández MD on 2023 3:08 PM INTERFACE [facility] [address] [place], [address], 08/27/2024 15:13:46 Result Notes Documentation Provider Name and Address Organization Details Recorded Time Xr, Hip, Unilateral, 2 Or 3 View : [facility] [address] [address] Patient Name: CJ TORRES Patient : 1955 Patient Ordering Provider: JESSICA MITCHELL EXAM DATE: 02/16/2024 EXAM: XR LT HIP UNILATERAL, 2 OR 3 VWS COMPARISON: None. HISTORY: Left hip pain. FINDINGS: No fracture is identified. There is minimal degenerative change in the left hip. There is minimal medial joint space loss. There is minimal marginal spurring. Limited visualization of the contralateral hip demonstrates minimal degenerative change. IMPRESSION: 1. There are minimal degenerative changes in the left hip. Interpreted By: Jacob Castillo MD ICA MITCHELL PA-C [address] [place] [address], [phone], [facility] 02/16/2024 15:54:57 Mri, Pelvis, W/wo Contrast : [address] [place] [address] Patient Name: CJ TORRES Patient : 1955 Patient Ordering Provider: LASHA BELTRÁN EXAM DATE: 08/27/2024 EXAM: MR PELVIS ATTN PROSTATE W/WO CONTRAST CLINICAL INFORMATION: Elevated PSA TECHNIQUE: A baseline serum creatinine with eGFR was obtained prior to injection of contrast medium due to the patients risk factors for KENZIE. Calculated eGFR at time of exam was GFR >90 Triplanar T2, axial DWI, ADC map, axial T1 pre- and dynamic postcontrast-enhanced images as well as axial T1 fat-sat imaging was performed after injection of 10 mL Gadavist (1 x 10 mL bottle of [facility] [id number]) IV. The patient did not require sedation for this exam. COMPARISON: None. FINDINGS: PROSTATE SIZE MEASUREMENTS: Prostate dimensions = 5 x 4.1 x 6.1 cm (T x AP x CC). QUALITY: Good PERIPHERAL ZONE: Overall, peripheral zone is normal in size and background signal characteristics, A suspicious focal lesion is seen as decibed below. PI-RADS category = 4/5 located in posterior lateral right peripheral zone at inferior gland level. Measurement = 12 mm. Seen best in image 18 of series 8001, 7006, 7007, and image 180 of series 8000. It is positive on T2 WI, ADC, DWI and DCE images. Description TRANSITION ZONE: Multiple, well delineated encapsulated nodules are seen consistent with BPH. No suspicious focal lesion is seen. CAPSULE AND NEIGHBORING STRUCTURES: No capsular invasion is identified. Neuro-vascular bundles are normal bilaterally. Seminal vesicles are normal. PELVIC LYMPH NODES: No pelvic lymphadenopathy. PELVIC BONES: No suspicious osseous lesion is seen. IMPRESSION: 1. Changes of BPH 2. PI-RADS 4/5 lesion involving the posterior lateral right inferior gland peripheral zone 3. Seminal vesicles unremarkable 4. No definite extraprostatic disease is noted Interpreted By: Babar Fernández MD Not Available [facility] 08/27/2024 15:13:46 Problems Name Problem SNOMED Code Status Onset Date Resolution Date Notes Provider Name and Address Organization Details Recorded Time Abdominal bloating 660690638 Active 024 [facility] 4 11:26:09 Prostate specific antigen above reference range 981131536 Active 024 Mary Beth Gary [facility] 4 11:26:09 Problem Notes None recorded. Procedures Surgical History Date Name Laterality Status Provider Name and Address Organization Details Recorded Time 2 Bladder Irrigation completed LASHA BELTRÁN MD [address] [place] [address], [phone] [address] 10/20/2021 08:52:34 2 biopsy of prostate completed LASHA BELTRÁN MD [address] [place] [address], [address] [place] [address] 10/20/2021 08:51:48 0 Cerumen removal - Instruments, Bilateral completed ENEDELIA CUI MD [address] [place] [address], [phone] [address] 10/16/2019 14:57:23 Other completed [facility]is [facility] 02/03/2017 15:35:15 Other completed LASHA BELTRÁN MD [address] [place] [address], [phone], [facility] 05/24/2022 16:52:34 Other completed Belkis [facility] 02/03/2017 15:35:53 Heart Surgery completed LASHA BELTRÁN MD [address] [place] [address], [phone], [facility] 08/17/2021 17:05:44 colonoscopy completed LASHA BELTRÁN MD [address] [place] [address], [phone], [facility] 05/24/2022 16:51:14 Imaging Results None recorded. Procedure Notes None recorded. Medical Equipment None Reported. Allergies Allergen ID Allergen Name Allergen Category Reaction Reaction Severity Criticality Documentation Date Start Date Code Code System Note Provider Name and Address Organization Details Recorded Time 760833 heparin medicatio n Not available Not available Not available 02/03/2017 5224 RxNorm Belkis White [facility] 7 15:25:15 Medications Name Sig Start [...] bromide 42 mcg (0.06 %) nasal spray Manly 2 sprays 3 times a day by [...] Updated DateTime 09/24/2024 172.72 cm 36.3 kg/m2 407107.58 g Ginette Chen [facility] 09/24/2024 13:02:11 Date Recorded Body height Body mass index (BMI) Body weight Provider Name and Address Organization Details Last Updated DateTime 01/19/2024 172.72 cm 36.3 kg/m2 543340.58 g Alicia Araya [facility] 01/19/2024 11:28:42 Date Recorded Body height Body mass index (BMI) Body weight Systolic And Diastolic Provider Name and Address Organization Details Last Updated DateTime 02/10/2024 172.72 cm 36.3 kg/m2 255589.58 g 122/72 mm[Hg] Abeba Cabrera [facility] 02/10/2024 10:20:26 Date Recorded Body height Body mass index (BMI) Body weight Provider Name and Address Organization Details Last Updated DateTime 02/16/2024 172.72 cm 36.3 kg/m2 077367.58 g Lolis Woodgab [facility] 02/16/2024 14:13:50 Date Recorded Body height Body mass index (BMI) Body weight Provider Name and Address Organization Details Last Updated DateTime 07/23/2024 172.72 cm 36.3 kg/m2 711262.58 g Mary Beth Vega [facility] 07/23/2024 11:26:14 Social History Question Answer Notes LastModified by [employer] Details LastModified Time Tobacco Smoking Status [facility]2017 15:34:14 Marital Status Informatio n not available 02/03/2017 What Was The Date Of Your Most Recent Tobacco Screening? 07/23/2024 [email or web address] Information not available 07/23/2024 Sex: Male Functional Status Question Answer Note LastModified by [employer] Details LastModified Time What is your level of alcohol consumption? None Information not available 02/03/2017 What is your occupation? retired from [employer] Information not available 02/03/2017 Mental Status None [...] History Condition Response Coronary Artery Disease N Gout N Other N Kidney Stones N Kidney Cyst N Enlarged Prostate Y Heart Arrhythmia N Erectile Dysfunction Y Head Trauma/Injury N Emphysema N Sexually Transmitted Disease N Depression N Pneumonia N Incontinence N Prostate Problems N Cancer Prostate N Paralysis N Anxiety Disorder N Hemorrhoids N Obesity N Arthritis Y Infertility N Acid Reflux (GERD) N Cancer N Hematuria N Stroke N Neck Injury N Previous Radiation Therapy? N Neurologic Disorder N Kidney Disease N Heart Conditions Y Kidney or Bladder Problems N Constipation Y Urinary Problems N Brain Injury N Ulcers N Prostate Hypertrophy [...] Disease N Parkinson's Disease N Chemotherapy N Transplant N Anemia N Multiple Sclerosis N Chest Pain N Back Pain Y Proteinuria N Heart Attack (UT) Y Mental Illness N Diabetes N Ovarian Cancer N Seizures/Epilepsy N Genitourinary problem(s) N Congestive Heart Failure (CHF) N Kidney Failure N Sleep Apnea Y Heart Disease N Bronchitis N Hypertension N Past Encounters Encounter ID Performer Location Encounter Start Date Encounter Closed Date Diagnosis/Indication Diagnosis SNOMED-CT Code Diagnosis ICD10 Code Diagnosis Note [id number] LASHA BELTRÁN MD UROLOGY [facility] [address] [place] [address] 02/03/2017 13:25:04 02/04/2017 08:56:42 Prostate specific antigen above reference range 434698121 R97.20 I recommend he has TRUS Bx, but he is reluctant to do. So we will check his free:total PSA. [id number] MD [facility] [address] [place] [address] 10/16/2019 14:11:13 10/21/2019 17:06:16 Impacted cerumen of bilateral ears 4796851026 860346 H61.23 Dysfunctio n of bilateral eustachian tubes 3721539493 200289 H69.93 Chronic rhinitis 5087017 6 J31.0 [id number] LASHA BELTRÁN MD UROLOGY [facility] [address] [place] [address] 08/17/2021 13:51:17 08/17/2021 14:56:49 Prostate specific antigen above reference range 646328364 R97.20 I recommed TRUS Bx and he consents to proceed, under MAC. [id number] LASHA BELTRÁN MD SURGERY SCHEDULE [address] [place] [address] 10/16/2021 12:00:06 10/16/2021 12:00:36 [id number] LASHA BELTRÁN MD UROLOGY [facility] [address] [place] [address] 10/19/2021 13:00:21 10/19/2021 13:37:32 Retention of urine 693857617 R33.9 [id number] LASHA BELTRÁN MD UROLOGY [facility] [address] [place] [address] 2 05/24/2022 13:51:44 05/24/2022 14:46:47 Screening for malignant neoplasm of prostate 860150313 Z12.5 [id number] BARBIE COYNE, MAGAZINE WRITER NEUROSURG [facility] [address] [facility] [place] [id number] 12/27/2023 08:00:37 12/28/2023 05:13:53 Lumbar radiculopathy 806425836 M54.16 Lumbar spondylosis 65484 0009 M47.896 [id number] LASHA BELTRÁN MD UROLOGY [facility] [address] [place] [address] 01/19/2024 10:58:32 01/19/2024 14:01:51 Prostate specific antigen above reference range 792732584 R97.20 Doesn't seem to be increasing , but slightly decreasing . WIll send biopsy for COnfirm MDx testing. Abdominal bloating 67983 9008 R14.0 I don't find a cause for this. [id number] CIRO GRIFFITH MD NEUROSURG [facility] [address] [facility] [place] [address] 02/10/2024 09:57:17 02/11/2024 05:05:34 Low back pain 134112912 M54.50 [id number] JESSICA MITCHELL PA-C [facility] [address] [place] [address] 02/16/2024 13:51:20 02/17/2024 04:42:48 Left-sided piriformis syndrome 7959541132 15440 M54.32 Assessment : left sided piriformis syndrome Plan: medrol dose pack, no NSAIDs due to plavix, formal PT referral faxed, we discussed piriformis syndrome extensivel y, discussed if no improvemen t with PT and home exercises I will have him follow up with Dr. Rangel for ultrasound piriformis injection if appropriat e based on her findingsf/ u as needed [id number] LASHA BELTRÁN MD UROLOGY [facility] [address] [place] [address] 07/23/2024 11:00:49 07/23/2024 13:05:25 Prostate specific antigen above reference range 985097715 R97.20 rising, needs repeat Bx. [id number] LASHA BELTRÁN MD UROLOGY [facility] [address] [place] [address] 09/24/2024 12:54:40 09/24/2024 13:29:28 Prostate specific antigen above reference range 188311249 R97.20 Health Concerns Section Related Observation LastModified by Organization Detai ls LastModified Time None Recorded Concern Status LastModified by Organization Details LastModified Time None Recorded Advance Directives Directive None Recorded Payers Insurance Date Sequence Insurance Name Policy Number Policy Richey Covered Member ID Richey Member ID Guarantor Name 09/24/2024 2 [employer] (MEDICARE SUPPLEMENT) [id number] Cj Torres [id number] Cj Torres 09/18/2024 1 [place] Cj Torres [id number] Cj Torres 01/19/2024 2 [employer] (POS) [id number] Cj Torres [id number] Cj Torres Notes Date Note Type Note [...] other complaints or concerns. LASHA BELTRÁN MD [address] [place] [address], [phone], [facility] 01/19/2024 20:02:09 4 text/html Cj Torres is a 68-year-old [...] his left hip pain. CIRO GRIFFITH MD [address] [place] [address], [phone], [facility] 02/10/2024 16:31:33 4 text/html 02/16/24 3-4 month history of LEFT hip pain. [...] because of his back. JESSICA MITCHELL PA-C [address] [place] [address], [address], [facility] 02/16/2024 14:39:31 4 text/html Vance is a 68 yo male who returns today after 6mos. He had an equivocal prostate biopsy 07/27. H is PSA has fluctuated in the interim, but most recently was 9.1 on 04/18/24. He is asymptomatic. COnfirm MDx is positive for methylation. LASHA BELTRÁN MD [address] [place] [address], [address], [facility] 07/23/2024 18:25:15 5 text/html Vance [...] dysuria or gross hematuria. LASHA BELTRÁN MD [address] [place] [address], [phone], [facility] 09/24/2024 16:19:13
--- OUTSIDE RECORDS SUMMARY | 2025-03-21 13:56 | XMS_ITS | Encounter Summary ---
Author Organization [employer] ([place], [place], [place], [place]) Address [address] [place] [address] Care Team Providers Care Radiation Engineer Name Role Phone Yvan Coffey MD Primary Care Provider [phone] Encounter Details Date Type Department Care Team (Late st Contact Info) Description 06/08/2020 Transcribed Document [facility] Family Medicine [facility] [place] [address] ProviderYahir MD [address] [place], [place] [id number] Social History Tobacco Use Types Packs/Day Years [...] 06/08/2020 8:28 EDT Electronically signed by Arthur [employer] Conversion Information Resource Consultant Cerner at 12/21/2022 4:51 PM CDT documented in this encounter Plan of Treatment Upcoming Encounters Date Type Department Care Team (Late st Contact Info) Description 12/24/2025 3:00 PM EDT Office Visit [address] [address] Elton Faust MD [address] [place] [address] documented as of this encounter Visit Diagnoses Not on filedocumented in this encounter Care Teams Radiation Engineer Relationship Specialty Start Date End Date Yvan Coffey MD [address] [facility] [address] [place] [address] PCP - General Internal Medicine 08/13/22 documented as of this encounter
--- OUTSIDE RECORDS SUMMARY | 2025-03-21 13:56 | XMS_ITS | Encounter Summary ---
Author Organization [employer] ([place], [place], [place], [place]) Address [address] [place] [address] Care Team Providers Care Development Educator Name Role Phone Yvan Coffey MD Primary Care Provider [phone] Encounter Details Date Type Department Care Team (Late st Contact Info) Description 06/08/2020 Transcribed Document [facility] [facility] [place] [address] ProviderYahir MD [address] [place], [place] [id number] Social History Tobacco Use Types Packs/Day Years [...] Sherry Emergency Contact #1 Phone Number : [phone] Emergency Contact #1 Relationship : Emergency Contact #2 : x Emergency Contact #2 Phone Number : x Emergency Contact #2 Relationship : x Software Applications Architect Needed : No Elaine Phillips RN - 06/08/2020 23:15 EDT Mode of Arrival on Unit : Ambulatory Legal Guardian : Spouse Support Person/Patient Secretary Specialist : Yes Support Person/Pt Rep Name : Sherry Support Person/Pt Rep Contact Information : [phone] Want Family/Rep/Phys Notified of Admit : No Chief Complaint : c/o cp that radiates to back and right arm @ 0200 upon waking up. ems arrived and BP was in the 200's systolic. h/o ARDS, DVT. Information Obtained From : Patient Primary Language : Guamanian Preferred Communication Mode : Verbal Communication Barrier : None Elaine Phillips RN - 06/08/2020 22:50 EDT Fall Risk Scales ABCs Fall Injury Risk Identification : None DUNLAP Hx Falls Immediate/Within 3 Months : No [place] Secondary Diagnosis : Yes DUNLAP Use of Ambulatory Aid : None DUNLAP IV Therapy or IV Access : Yes Chyna Gait/Transferring : Normal, bedrest, immobile Dunlap Mental Status : Oriented to own ability [place] Fall Risk Score : 35 DUNLAP Fall Scale Risk Level : 25-45 Medium Risk [place] Fall Interventions : Adequate lighting, Assistive devices [...] No. (Last Updated: 12/01/2015 09:21:29 EDT by BRANCH, CRYSTAL D, RN) Alcohol: Use in Last 12 Months: No. (Last Updated: 04/26/2013 05:55:45 EDT by VASILIY FLORES RN) Substance Abuse: Drug Use Hx: No. Use in Last 12 Months: No. (Last Updated: 04/26/2013 05:56:12 EDT by VASILIY FLORES, ISIS) Height and Weight, Clinical Dosing Height Source : Stated Height Entry Format : [place] Height, Feet : 5 ft(Converted to: 152 cm, 60 Inch) Height, Inches : 8 Inch(Converted to: 0 ft 8 Inch, 20.32 cm) Clinical Height : 172.72 cm Weight Source : Bed scale Weight Entry Format : [place] Clinical Dosing Weight : 109.09 kg Weight, Pounds : 240 lb Body Surface Area (BSA) : 2.21 m2 Body Mass Index : 36.6 kg/m2 (HI) [place] Body Weight : 67 kg Elaine Phillips [...] Elaine Phillips RN - 06/08/2020 22:52 EDT [place] Suicide Severity Rating Scale (C-SSRS) CSSRS Past [...] Elaine Phillips RN - 06/08/2020 22:52 EDT documented in this encounter Plan of Treatment Upcoming Encounters Date Type Department Care Team (Late st Contact Info) Description 12/24/2025 3:00 PM EDT Office Visit [facility] [address] [address] Elton Faust MD [address] [place] [address] documented as of this encounter Visit Diagnoses Not on filedocumented in this encounter Care Teams Development Educator Relationship Specialty Start Date End Date Yvan Coffey MD [address] [facility] [address] [place] [address] PCP - General Internal Medicine 08/13/22 documented as of this encounter
[2025-03-21 13:57] VITALS: BP 140/84; PULSE 62; RESP 18; O2SAT 94; BMI 35.6
--- OUTSIDE RECORDS SUMMARY | 2025-03-21 13:57 | XMS_ITS | Encounter Summary ---
Author Organization [employer] ([place], [place], [place], [place]) Address [address] [place] [address] Care Team Providers Care Agricultural Systems Specialist Name Role Phone Yvan Coffey MD Primary Care Provider [phone] Encounter Details Date Type Department Care Team (Late st Contact Info) Description 06/08/2020 Transcribed Document [facility] [place] [address] [place] [address] ProviderYahir MD [address] [place], [place] [id number] Social History Tobacco Use Types Packs/Day Years [...] Mylanta: 30 mL, Oral, Q6H, PRN: Heartburn [place] 10 mg-325 mg oral tablet: 1 Tab, [...] Cymbalta: 20 mg, Oral, Daily, 0 Refill(s) [place]year 10 mg-325 mg oral tablet: 1 Tab, [...] Oral, Daily gabapentin 600 mg, Oral, BID [place] 10 mg-325 mg oral tablet 1 Tab, PRN, Oral, Q4H pantoprazole 20 mg, Oral, Daily tamsulosin 0.4 mg oral capsule 0.4 mg = 1 Cap, Oral, At Bedtime Problem list: Medical ARDS - Adult respiratory distress syndrome / SNOMED CT 807930434 / Confirmed DVT - Deep vein thrombosis / SNOMED CT 8448570019 / Confirmed [place] filter, device / SNOMED CT 3710010793 / Confirmed 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 / SNOMED CT 1670229674 / Confirmed Pneumonia / SNOMED CT 028772555 / Confirmed, Active Problems (7) ARDS - Adult respiratory distress syndrome Diverticula, colon DVT - Deep vein thrombosis Cory filter, device 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 Patient requiring acute dialysis Pneumonia Histories Past Medical History: Active 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 (7685809420) Pneumonia (005861447) ARDS - Adult respiratory distress syndrome (169569424) DVT - Deep vein thrombosis (8131250337) Cory filter, device (7960660022), diverticulitis requiring partial colectomy Family History: No [...] 04:52) 97.2 (JUN 08 04:52) Mon HR 66 (JUN 08 10:30) 62 [...] Radiology results Radiology Results (Last 48 hours) [id number] -- 06/08/2020 09:09 CR Chest 1 Vw [...] Description 12/24/2025 3:00 PM EDT Office Visit [address] [address] Elton Faust MD [address] [place] [address] documented as of this encounter Visit Diagnoses Not on filedocumented in this encounter Care Teams Agricultural Systems Specialist Relationship Specialty Start Date End Date Yvan Coffey MD [address] [facility] [address] [place] [address] PCP - General Internal Medicine 08/13/22 documented as of this encounter
--- OUTSIDE RECORDS SUMMARY | 2025-03-21 13:57 | XMS_ITS | Encounter Summary ---
Author Organization [employer] ([place], [place], [place], [place]) Address [address] [place] [address] Care Team Providers Care Steward/Stewardess Smoke Room Name Role Phone Yvan Coffey MD Primary Care Provider [phone] Encounter Details Date Type Department Care Team (Late st Contact Info) Description 05/14/2022 Transcribed Document [facility] [place] [address] [place] [address] ProviderYahir MD [address] [place] [address] Social History Tobacco Use Types [...] Cerner Conversion Note - Historical Provider, - 05/14/2022 9:00 AM CDT [facility] Endo PreOp Summary Primary Physician: BABAR TALBOT MD-SUR Finalized Date/Time: 05/14/22 08:46:07 Pt. Name: JAY TORRES [place] /Sex: 1955 Male Med Rec #: [id number] Physician: BABAR TALBOT MD-SUR Financial #: [id number] Pt. Type: O Room/Bed: END/ Admit/Disch: 05/14/22 08:15:00 - Institution: [facility] PreOp Case Times Entry 1 In Preop 05/14/22 08:33:00 Ready for Holding n/a Room Patient Ready for 05/14/22 08:46:00 Surgery Patient Out of Preop 05/14/22 08:46:00 Patient Out of n/a Holding Room Last Modified By: DONOVAN PANTOJA RN 05/14/22 08:46:05 [facility] Endo PreOp Case Times Audit 05/14/22 08:46:05 Account Installation Specialist: VICTOR MANUEL Modifier: VICTOR MANUEL <+> 1 Patient Out of Preop <+> 1 Patient Ready for Surgery Finalized By: DONOVAN PANTOJA, RN Document Signatures Signed By: DONOVAN PANTOJA RN 05/14/22 08:46 Electronically signed by Arthur [facility] Conversion Brands Editor Cerner at 12/21/2022 4:50 PM CDT documented in this encounter Plan of Treatment Upcoming Encounters Date Type Department Care Team (Late st Contact Info) Description 12/24/2025 3:00 PM EDT Office Visit [address] [address] Elotn Faust MD [address] [place] [address] documented as of this encounter Visit Diagnoses Not on filedocumented in this encounter Care Teams Steward/Stewardess Smoke Room Relationship Specialty Start Date End Date Yvan Coffey MD [address] [place] [place] [id number] PCP - General Internal Medicine 08/13/22 documented as of this encounter
--- OUTSIDE RECORDS SUMMARY | 2025-03-21 13:57 | XMS_ITS | Encounter Summary ---
Author Organization [employer] ([place], [place], [place], [place]) Address [address] [place] [address] Care Team Providers Care Ceramic Engineering Professor Name Role Phone Yvan Coffey MD Primary Care Provider [phone] Encounter Details Date Type Department Care Team (Late st Contact Info) Description 06/08/2020 Transcribed Document [facility] [place] [address] [place] [address] ProviderYahir MD [address] [place] [address] Social History Tobacco Use Types Packs/Day Years Used Date Smoking Tobacco: Never Assessed Sex and Gender Information Value Date Recorded Sex Assigned at Not on file Legal Sex Male 3:58 PM CDT Gender Identity Not on file Sexual Orientation Not on file documented as of this encounter Miscellaneous Notes * Cerner Conversion Note - Yahir Bullard MD - 06/08/2020 4:48 AM CDT ED Triage Entered On: 06/08/2020 4:59 EDT Performed On: 06/08/2020 4:52 EDT by NAIF ALVARADO RN ED Triage Across the Room Chief Complaint : c/o cp that radiates to back and right arm @ 0200 upon waking up. ems arrived and BP was in the 200's systolic. h/o ARDS, DVT. Triage Date/Time : 06/08/2020 4:52 EDT NAIF ALVARADO RN - 06/08/2020 4:52 EDT DCP GENERIC CODE Tracking Acuity : 2 - Emergent Tracking Group : [facility] ED NAIF ALVARADO RN - 06/08/2020 4:52 EDT Mode of Arrival : Ambulatory Transported to ED by : Walk in To Room Via : Wheelchair Accompanied By : Spouse SPR[employer]ER [employer]SE[employer] Medications and Interventions : Document ED Vital [...] - Adult respiratory distress syndrome (SNOMED CT :842420632 ) Name of Problem: ARDS - Adult respiratory distress syndrome ; Recorder: SADIE AGOSTO RN; Confirmation: Confirmed ; Classification: Medical ; Code: 552759480 ; Contributor System: Branding Brand ; Last Updated: 02/21/2014 15:18 EDT ; Life Cycle Date: 04/26/2013 ; Life Cycle Status: Active ; Vocabulary: SNOMED CT Diverticula, colon (SNOMED CT :4456600040 ) Name of Problem: Diverticula, colon ; Recorder: DANIEL BRANCH RN; Confirmation: Confirmed ; Classification: Patient Stated ; Code: 5914356435 ; Contributor System: PowerChart ; Last Updated: 12/01/2015 9:12 EDT ; Life Cycle Date: 12/01/2015 ; Life Cycle Status: Active ; Vocabulary: SNOMED CT DVT - Deep vein thrombosis (SNOMED CT :6300826502 ) Name of Problem: DVT - Deep vein thrombosis ; Recorder: SADIE AGOSTO RN; Confirmation: Confirmed ; Classification: Medical ; Code: 1432380564 ; Contributor System: PowerChart ; Last Updated: 02/19/2014 11:29 EDT ; Life Cycle Date: 04/26/2013 ; Life Cycle Status: Active ; Vocabulary: SNOMED CT Cory filter, device (SNOMED CT :9421025845 ) Name of Problem: Cory filter, device ; Recorder: SADIE AGOSTO RN; Confirmation: Confirmed ; Classification: Medical ; Code: 6599962737 ; Contributor System: PowerChart ; Last Updated: 02/21/2014 14:44 EDT ; Life Cycle Date: 04/26/2013 ; Life Cycle Status: Active ; Vocabulary: SNOMED CT 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 (SNOMED CT :0996125917 ) Name of Problem: 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 ; Recorder: SADIE AGOSTO RN; Confirmation: Confirmed ; Classification: Medical ; Code: 2467809088 ; Contributor System: Smash TechnologiesChart ; Last Updated: 02/21/2014 14:56 EDT ; Life Cycle Date: 04/26/2013 ; Life Cycle Status: Active ; Vocabulary: SNOMED CT Patient requiring acute dialysis (SNOMED CT :0417845781 ) Name of Problem: Patient requiring acute dialysis ; Recorder: DANIEL BRANCH RN; Confirmation: Confirmed ; Classification: Patient Stated ; Code: 3257195796 ; Contributor System: PowerChart ; Last Updated: 12/01/2015 9:23 EDT ; Life Cycle Date: 12/01/2015 ; Life Cycle Status: Active ; Vocabulary: SNOMED CT ; Comments: 12/01/2015 9:23 - DANIEL BRANCH RN 3 years Pneumonia (SNOMED CT :693319825 ) Name of Problem: Pneumonia ; Recorder: SADIE AGOSTO RN; Confirmation: Confirmed ; Classification: Medical ; Code: 413430301 ; Contributor System: Branding Brand ; Last Updated: 02/14/2014 19:26 EDT ; Life Cycle Date: 04/26/2013 ; Life Cycle Status: Active ; Vocabulary: SNOMED CT Diagnoses(Active) Chest pain Date: 06/08/2020 ; Diagnosis Type: Reason For Visit ; Confirmation: Complaint of ; Clinical Dx: Chest pain ; Classification: Medical ; Clinical Service: Non-Specified ; Code: PNED ; Probability: 0 ; Diagnosis Code: [id number] ED Height and Weight Height Source : Stated Height Entry Format : [place] Height, Feet : 5 ft(Converted to: 152 cm, 60 Inch) Height, Inches : 8 Inch(Converted to: 0 ft 8 Inch, 20.32 cm) Clinical Height : 172.72 cm Weight Source, ED : Critical estimated dosing weight Weight Entry Format : [place] Weight, Pounds : 240 lb Clinical Dosing Weight : 109.09 kg Body Surface Area (BSA) : 2.21 m2 Body Mass Index : 36.6 kg/m2 (HI) [place] Body Weight (IBW) : 67.45 kg NAIF [...] 12/24/2025 3:00 PM EDT Office Visit [address] [address] Elton Faust MD [address] [place] [address] documented as of this encounter Visit Diagnoses Not on filedocumented in this encounter Care Teams Ceramic Engineering Professor Relationship Specialty Start Date End Date Yvan Coffey MD [address] [place] [address] PCP - General Internal Medicine 08/13/22 documented as of this encounter
--- OUTSIDE RECORDS SUMMARY | 2025-03-21 13:57 | XMS_ITS | Encounter Summary ---
Author Organization [employer] ([place], [place], [place], [place]) Address [address] [place] [address] Care Team Providers Care Electrical Supervisor Name Role Phone Yvan Coffey MD Primary Care Provider [phone] Encounter Details Date Type Department Care Team (Late st Contact Info) Description 06/08/2020 Transcribed Document [facility] [place] [facility] [place] [address] ProviderYahir MD [address] [place] [address] Social History Tobacco Use Types Packs/Day Years Used Date Smoking Tobacco: Never Assessed Sex and Gender Information Value Date Recorded Sex Assigned at Not on file Legal Sex Male 3:58 PM CDT Gender Identity Not on file Sexual Orientation Not on file documented as of this encounter Miscellaneous Notes * Cerner Conversion Note - Yahir ProviderMD - 06/08/2020 8:38 AM CDT Consult Phone Call Documentation Entered On: 06/08/2020 12:47 EDT Performed On: 06/08/2020 8:38 EDT by Leslie Blair Phone Call for Consults Consult Phone Call/Page Attempt : First call Leslie Blair - 06/08/2020 12:47 EDT Electronically signed by Kate Gibson Conversion Complex Human Resources Manager Cerner at 12/21/2022 4:33 PM CDT documented in this encounter Plan of Treatment Upcoming Encounters Date Type Department Care Team (Late st Contact Info) Description 12/24/2025 3:00 PM EDT Office Visit [address] [address] Elton Faust MD [address] [facility] 4th [place] [address] documented as of this encounter Visit Diagnoses Not on filedocumented in this encounter Care Teams Electrical Supervisor Relationship Specialty Start Date End Date Yvan Coffey MD [address] [address] PCP - General Internal Medicine 08/13/22 documented as of this encounter
--- OUTSIDE RECORDS SUMMARY | 2025-03-21 13:57 | XMS_ITS | Encounter Summary ---
Author Organization [employer] ([place], [place], [place], [place]) Address [address] [place] [address] Care Team Providers Care Button Tacker Name Role Phone Yavn Coffey MD Primary Care Provider [phone] Encounter Details Date Type Department Care Team (Late st Contact Info) Description 06/08/2020 Transcribed Document [facility] [place] [facility] [place] [address] Yahir Bullard MD [address] [place], [place] [address] Social History Tobacco Use Types Packs/Day Years [...] HEART CATHETERIZATION, PERCUTANEOUS INTERVENTION REPORT INDICATIONS: Non-ST PA. PROCEDURE PERFORMED: Standard left heart catheterization. TECHNIQUE: A 5/6-Croatian sheath was placed in the right radial [...] across the aortic valve. Given the patient's qnq-UD-gqinibvqb myocardial infarction presentation, percutaneous intervention to the [...] patient received 180 mg Brilinta in the feed mill lab technician. Aggrastat bolus and infusion were also administered. The Angiomax infusion was continued. The radial artery sheath was removed and the access site successfully compressed using TR band. /[id number] Oscar Hodge MD SSL/AQ / SSL / MODL /[id number] CC: Yvan Coffey MD Electronically signed by [facility] Conversion Railcar Brake Operator Cerner at 12/21/2022 4:33 PM CDT documented in this encounter Plan of Treatment Upcoming Encounters Date Type Department Care Team (Late st Contact Info) Description 12/24/2025 3:00 PM EDT Office Visit [address] [phone] Elton Faust MD [address] [place] [address] documented as of this encounter Visit Diagnoses Not on filedocumented in this encounter Care Teams Button Tacker Relationship Specialty Start Date End Date Yvan Coffey MD [address] [facility] [address] [place] [address] PCP - General Internal Medicine 08/13/22 documented as of this encounter
--- OUTSIDE RECORDS SUMMARY | 2025-03-21 13:57 | XMS_ITS | Encounter Summary ---
Author Organization [email or web address] ([place], [place], [place], [place]) Address [address] [place] [address] Care Team Providers Care Statement Services Representative Name Role Phone Yvan Coffey MD Primary Care Provider [phone] Encounter Details Date Type Department Care Team (Late st Contact Info) Description 06/08/2020 Transcribed Document [facility] [place] [facility] [address] ProviderYahir MD [address] [place] [address] Social History Tobacco Use Types Packs/Day Years Used Date Smoking Tobacco: Never Assessed Sex and Gender Information Value Date Recorded Sex Assigned at Not on file Legal Sex Male 3:58 PM CDT Gender Identity Not on file Sexual Orientation Not on file documented as of this encounter Miscellaneous Notes * Cerner Conversion Note - Yhair ProviderMD - 06/08/2020 9:45 AM CDT Consult [...] 12/24/2025 3:00 PM EDT Office Visit [address] [address] Elton Faust MD [address] [facility] 4th [place] [address] documented as of this encounter Visit Diagnoses Not on filedocumented in this encounter Care Teams Statement Services Representative Relationship Specialty Start Date End Date Yvan Coffey MD [address] [address] PCP - General Internal Medicine 08/13/22 documented as of this encounter
--- OUTSIDE RECORDS SUMMARY | 2025-03-21 13:57 | XMS_ITS | Encounter Summary ---
Author Organization [employer] ([place], [place], [place], [place]) Address [address] [place] [address] Care Team Providers Care Vending Attendant Name Role Phone Yvan Coffey MD Primary Care Provider [phone] Encounter Details Date Type Department Care Team (Late st Contact Info) Description 06/08/2020 Transcribed Document [facility] [place] [address] [place] [address] ProviderYahir MD [address] [place], [place] [address] Social History Tobacco Use Types Packs/Day Years [...] Associated Diagnoses: Hypertension; Chest pain; Non-ST elevation MN (NSTEMI) Author: AMAURY JAMES MD-EMR Basic Information [...] Cymbalta: 20 mg, Oral, Daily, 0 Refill(s) [place] 10 mg-325 mg oral tablet: 1 Tab, [...] Diverticula, colon DVT - Deep vein thrombosis [place] filter, device 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 [...] EDT Height Source Stated Height Entry Format [place] Height/Length, SYRIAN (ft) 5 ft Height/Length SYRIAN 8 Inch CLINICALHEIGHT 172.72 cm [place] Body Weight 67.45 kg Weight Source, ED Critical estimated dosing weight Weight Entry Format [place] Weight Barb[place] lb 240 lb CLINICALWEIGHT 109.09 kg Body [...] rhythm, No ST changes, no ectopy, normal WV & QRS intervals, EP Interp. Results review: [...] % 34.6 % Lymph # 2.86 x10(3)/uL Dolores % 11.7 % HI Dolores # 0.97 K/uL Eos % 3.7 % [...] Chest pain - Discharge, Medical Non-ST elevation MN (NSTEMI) - Admitting, Medical Plan Condition: Guarded. [...] Description 12/24/2025 3:00 PM EDT Office Visit [address] [address] Elton Faust MD [address] [place] [address] documented as of this encounter Visit Diagnoses Not on filedocumented in this encounter Care Teams Vending Attendant Relationship Specialty Start Date End Date Yvan Coffey MD [address] [facility] [address] [place] [address] PCP - General Internal Medicine 08/13/22 documented as of this encounter
--- OUTSIDE RECORDS SUMMARY | 2025-03-21 13:57 | XMS_ITS | Encounter Summary ---
Author Organization [employer] ([place], [place], [place], [place]) Address [address] [place] [address] Care Team Providers Care Administrative Support Technician Name Role Phone Yvan Coffey MD Primary Care Provider [phone] Reason for Visit * Reason Comments Medication Refill Encounter Details Date Type Department Care Team (Late st Contact Info) Description 10/20/2022 Refill [facility] Cardiology [address] [place] [address] Oscar Hodge MD [address] [facility] [address] [place] [address] Social History Tobacco Use Types Packs/Day Years [...] Description 12/24/2025 3:00 PM EDT Office Visit [facility] [address] [address] Elton Faust MD [address] [place] [address] documented as of this encounter Visit Diagnoses Not on filedocumented in this encounter Care Teams Administrative Support Technician Relationship Specialty Start Date End Date Yvan Coffey MD [address] [facility] [address] [place] [address] PCP - General Internal Medicine 08/13/22 documented as of this encounter
--- OUTSIDE RECORDS SUMMARY | 2025-03-21 13:58 | XMS_ITS | Encounter Summary ---
Author Organization [employer] ([place], [place], [place], [place]) Address [address] [place] [address] Care Team Providers Care Pediatric Orthodontist Name Role Phone Tom Coffey MD Primary Care Provider [phone] Encounter Details Date Type Department Care Team (Late st Contact Info) Description 10/17/2021 Transcribed Document [facility] [place] [address] [place] [address] ProviderYahir MD [address] [place] [address] Social History Tobacco Use Types [...] Date Alejandro rded Speak language other than Swazi at home Not on file 09/23/2023 Want [...] Cerner Conversion Note - Historical Provider, - 10/17/2021 12:41 AM 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 HELPER [facility] [place] [address] GREER CJ [place] :1955 Visit Time:10/16/2021 Your Visit Summary Your [...] do next Follow-Up Appointments Follow Up with LASHA BELTRÁN When Within 2 to 3 days Where: [address] [place] [address]- Business (1) Follow Up with TOM COFFEY When Within 2 to 3 days Where: [address] [facility] [address] [place] [address] [phone] Business (1) Allergies heparin (Heparin-induced thrombocytopenia with thrombosis, Heparin-induced thrombocytopenia with thrombosis) Brilinta (SOB - Shortness of breath) Immunizations This Visit No Immunizations Found Medications What How Much When Instructions Next Dose cephalexin (Keflex 500 mg oral capsule) 1 Capsule(s) Oral Every 12 hours Duration: 7 Day(s) Pickup at [place] [address] acetaminophen-oxyCODONE (acetaminophen-oxyCODONE 325 mg-10 mg oral tablet) [...] Information ANA MARTINEZ 779: [address] [place], [place] [id number] [phone] The home medications listed are only as [...] range between ( 0.0 and 7.0 ) [place] #: 1.13 K/uL -- Normal range between ( 0.16 and 1.00 ) Eos #: 0.12 x10(3)/uL -- Normal range between ( 0.00 and 0.80 ) [place] %: 9.9 % -- Normal range between [...] ) Urine Bilirubin Dipstick: Moderate Urine Specific Rison: 1.013 -- Normal range between ( 1.005 [...] these instructions at home: Medicines ??? Take moql-oid-tdjzhta and prescription medicines only as told by [...] the blood stops without treatment. ??? Take uzpg-eeb-imhamqv and prescription medicines only as told by your health care provider. ??? Drink enough fluid to keep your urine clear or pale yellow. This information is not intended to replace advice given to you by your health care provider. Make sure you discuss any questions you have with your health care provider. Document Revised: 01/16/2020 Document Reviewed: 09/24/2017 Elsevier Patient Education ?? 2020 Elsevier Inc. Emergency Awareness and Preventative Care STROKE [...] Assistance with quitting is available by contacting 4-498-YSGUNOW. This is a free resource providing counseling, support, and referral. Or you may contact your personal physician. CatchTheEye Suicide Prevention Lifeline: The National Suicide Prevention [...] CPR? There are two easy steps: Call 9-1-1 if you see a teen or adult [...] including: emergency, radiology, or pathology physicians. Patient Name:CJ TORRES I have received this information and was given the opportunity to ask questions. Patient/Tin Stacker Name: Patient/Tin Stacker Signature: Relationship to Patient: Clinician/Hospital Tin Stacker Signature: Please Provide a Telephone Number Where You Can Be Reached: Is it Permissible To Leave a Message? Date: Electronically signed by Arthur, Kate Conversion Quality Improvement Consultant Cerner at 12/21/2022 4:59 PM CDT documented in this encounter Plan of Treatment Upcoming Encounters Date Type Department Care Team (Late st Contact Info) Description 12/24/2025 3:00 PM EDT Office Visit [address] [address] Elton Faust MD [address] [place] [address] documented as of this encounter Visit Diagnoses Not on filedocumented in this encounter Care Teams Pediatric Orthodontist Relationship Specialty Start Date End Date Tom Coffey MD [address] [facility] [address] [place] [address] PCP - General Internal Medicine 08/13/22 documented as of this encounter
--- OUTSIDE RECORDS SUMMARY | 2025-03-21 13:58 | XMS_ITS | Encounter Summary ---
Author Organization [employer] ([place], [place], [place], [place]) Address [address] [place] [address] Care Team Providers Care Stogy Maker Name Role Phone Yvan Coffey MD Primary Care Provider [phone] Encounter Details Date Type Department Care Team (Late st Contact Info) Description 10/17/2021 Transcribed Document [facility] [place] [address] [place] [address] ProviderYahir MD [address] [place] [address] Social History Tobacco Use Types [...] Date Alejandro rded Speak language other than Malawian at home Not on file 09/23/2023 Want [...] Conversion Note - Historical Provider, - 10/17/2021 12:40 AM COIL CLEANER Electronically signed by Arthur [facility] Conversion Account Support Rep Cerner at 12/21/2022 4:50 PM CDT documented in this encounter Plan of Treatment Upcoming Encounters Date Type Department Care Team (Late st Contact Info) Description 12/24/2025 3:00 PM EDT Office Visit [address] [phone] Elton Faust MD [address] [place] [address] documented as of this encounter Visit Diagnoses Not on filedocumented in this encounter Care Teams Stogy Maker Relationship Specialty Start Date End Date Yvan Coffey MD [address] [facility] [address] [place] [address] PCP - General Internal Medicine 08/13/22 documented as of this encounter
--- OUTSIDE RECORDS SUMMARY | 2025-03-21 13:58 | XMS_ITS | Encounter Summary ---
Author Organization [employer] ([place], [place], [place], [place]) Address [address] [place] [address] Care Team Providers Care Liquid Floor And Wall Applier Name Role Phone Yvan Coffey MD Primary Care Provider [phone] Encounter Details Date Type Department Care Team (Late st Contact Info) Description 05/14/2022 Transcribed Document [facility] [place] Family Medicine [address] [place] [address] ProviderYahir MD [address] [place] [address] Social History Tobacco Use Types [...] Date Alejandro rded Speak language other than Yemeni at home Not on file 09/23/2023 Want [...] Conversion Note - Historical Provider, - 05/14/2022 10:07 AM CDT Patient Education [...] including vitamins, herbs, eye drops, creams, and fujg-gzu-xarbgpt medicines. ??? Any problems you or family [...] tells you to take them. ??? Taking ygsp-hso-qtsozha medicines, vitamins, herbs, and supplements. Do not [...] provider. Document Revised: 05/04/2021 Document Reviewed: 12/03/2020 [employer] Patient Education ? 2021 [employer] Electronically signed by Mariano Gibson Conversion Field Technical Support Consultant Cerner at 12/21/2022 4:51 PM CDT documented in this encounter Plan of Treatment Upcoming Encounters Date Type Department Care Team (Late st Contact Info) Description 12/24/2025 3:00 PM EDT Office Visit [address] [address] Elton Faust MD [address] [place] [address] documented as of this encounter Visit Diagnoses Not on filedocumented in this encounter Care Teams Liquid Floor And Wall Applier Relationship Specialty Start Date End Date Yvan Coffey MD [address] [facility] [address] [place] [address] PCP - General Internal Medicine 08/13/22 documented as of this encounter
--- OUTSIDE RECORDS SUMMARY | 2025-03-21 13:59 | XMS_ITS | Encounter Summary ---
Author Organization [employer] ([place], [place], [place], [place]) Address [address] [place] [address] Care Team Providers Care Single Needle Tufting Machine Operator Name Role Phone Yvan Coffey MD Primary Care Provider [phone] Encounter Details Date Type Department Care Team (Late st Contact Info) Description 03/28/2022 Transcribed Document [facility] [place] Family Medicine [address] [place] [address] ProviderYahir MD [address] [place] [address] Social History Tobacco Use Types [...] Date Alejandro rded Speak language other than Venezuelan at home Not on file 09/23/2023 Want [...] Cerner Conversion Note - Historical Provider, - 03/28/2022 5:00 AM CDT Broset Violence Assessment Entered On: 03/28/2022 5:51 EDT Performed On: 03/28/2022 5:50 EDT by NAIF ALVARADO RN Broset Violence Assessment Broset Violence Checklist of Symptoms : None Broset Violence Symptoms Subtotal : 0 Broset Violence Symptoms Indicator : Low risk (0) NAIF ALVARADO RN - 03/28/2022 5:50 EDT Electronically signed by Arthur [facility] Conversion Associate Director Finance Cerner at 12/21/2022 4:45 PM CDT documented in this encounter Plan of Treatment Upcoming Encounters Date Type Department Care Team (Late st Contact Info) Description 12/24/2025 3:00 PM EDT Office Visit [address] [address] Elton Faust MD [address] [place] [address] documented as of this encounter Visit Diagnoses Not on filedocumented in this encounter Care Teams Single Needle Tufting Machine Operator Relationship Specialty Start Date End Date Yvan Coffey MD [address] [facility] [address] [place] [address] PCP - General Internal Medicine 08/13/22 documented as of this encounter
--- OUTSIDE RECORDS SUMMARY | 2025-03-21 13:59 | XMS_ITS | Encounter Summary ---
Author Organization [employer] ([place], [place], [place], [place]) Address [address] [place] [address] Care Team Providers Care Kaiwhakahaere Name Role Phone Yvan Coffey MD Primary Care Provider [phone] Encounter Details Date Type Department Care Team (Late st Contact Info) Description 03/28/2022 Transcribed Document [facility] [place] Family Medicine [address] [place] [address] ProviderYahir MD [address] [place] [address] Social History Tobacco Use Types [...] Date Alejandro rded Speak language other than Namibian at home Not on file 09/23/2023 Want [...] Conversion Note - Historical Provider, - 03/28/2022 11:31 AM CDT ED Discharge [...] - 03/28/2022 11:31 EDT Electronically signed by Arthur [facility] Conversion Employee Benefits Director Cerner at 12/21/2022 4:33 PM CDT documented in this encounter Plan of Treatment Upcoming Encounters Date Type Department Care Team (Late st Contact Info) Description 12/24/2025 3:00 PM EDT Office Visit [address] [address] Elton Faust MD [address] [place] [address] documented as of this encounter Visit Diagnoses Not on filedocumented in this encounter Care Teams Kaiwhakahaere Relationship Specialty Start Date End Date Yvan Coffey MD [address] [facility] [address] [place] [address] PCP - General Internal Medicine 08/13/22 documented as of this encounter
--- OUTSIDE RECORDS SUMMARY | 2025-03-21 13:59 | XMS_ITS | Encounter Summary ---
Author Organization [employer] ([place], [place], [place], [place]) Address [address] [place] [address] Care Team Providers Care Demolition Hammer Operator Name Role Phone Yvan Coffey MD Primary Care Provider [phone] Encounter Details Date Type Department Care Team (Late st Contact Info) Description 10/17/2021 Transcribed Document [facility] [place] Family Medicine [address] [place] [address] ProviderYahir MD [address] [place] [address] Social History Tobacco Use Types [...] Date Alejandro rded Speak language other than Micronesian at home Not on file 09/23/2023 Want [...] - Historical Provider, - 10/17/2021 12:41 AM SERVICE TEAM LEADER ED Discharge Entered On: 10/17/2021 0:41 EST Performed On: 10/17/2021 0:41 EST by Najma Harrison NON EMP air duct mechanic Process Patient Disposition : Discharge Personal Belongings [...] 10/17/2021 0:41 EST Electronically signed by [facility] Conversion Edging Machine Operator Cerner at 12/21/2022 5:00 PM CDT documented in this encounter Plan of Treatment Upcoming Encounters Date Type Department Care Team (Late st Contact Info) Description 12/24/2025 3:00 PM EDT Office Visit [address] [address] Elton Faust MD [address] [place] [address] documented as of this encounter Visit Diagnoses Not on filedocumented in this encounter Care Teams Demolition Hammer Operator Relationship Specialty Start Date End Date Yvan Coffey MD [address] [facility] [address] [place] [address] PCP - General Internal Medicine 08/13/22 documented as of this encounter
--- OUTSIDE RECORDS SUMMARY | 2025-03-21 13:59 | XMS_ITS | Encounter Summary ---
Author Organization [employer] ([place], [place], [place], [place]) Address [address] [place] [address] Care Team Providers Care Family Resource Specialist Name Role Phone Yvan Coffey MD Primary Care Provider [phone] Encounter Details Date Type Department Care Team (Late st Contact Info) Description 03/28/2022 Transcribed Document [facility] [place] Family Medicine [address] [place] [address] ProviderYahir MD [address] [place] [address] Social History Tobacco Use Types [...] Date Alejandro rded Speak language other than Djiboutian at home Not on file 09/23/2023 Want [...] Conversion Note - Historical Provider, - 03/28/2022 6:38 AM CDT Patient: JAY [...] EDT Height Source Stated Height Entry Format [place] Height/Length, MONGOLIAN (ft) 5 ft Height/Length MONGOLIAN 8 Inch CLINICALHEIGHT 172.72 cm [place] Body Weight 67.45 kg Weight Source, ED Critical estimated dosing weight Weight Entry Format [place] Weight Djiboutian lb 234 lb CLINICALWEIGHT 106.36 kg Body [...] rhythm, No ST changes, no ectopy, normal NM & QRS intervals, EP Interp. Reexamination/ Reevaluation [...] the chest because when I spoke to minilab operator at 0706 machine to perform D-dimer was [...] 03/28/2022 07:00:00, PATO CAVANAUGH, DO-EMR. Prescriptions: Prescription Director Of Income Tax Pharmacy: ProAir HFA 90 mcg/inh inhalation aerosol [...] Description 12/24/2025 3:00 PM EDT Office Visit [address] [place] [address] Elton Faust MD [address] [place] [address] documented as of this encounter Visit Diagnoses Not on filedocumented in this encounter Care Teams Family Resource Specialist Relationship Specialty Start Date End Date Yvan Coffey MD [address] [facility] [address] [place] [address] PCP - General Internal Medicine 08/13/22 documented as of this encounter
--- OUTSIDE RECORDS SUMMARY | 2025-03-21 13:59 | XMS_ITS | Encounter Summary ---
Author Organization [employer] ([place], [place], [place], [place]) Address [address] [place] [address] Care Team Providers Care Byproducts Maker Name Role Phone Yvan Coffey MD Primary Care Provider [phone] Encounter Details Date Type Department Care Team (Late st Contact Info) Description 10/17/2021 Transcribed Document [facility] [place] [address] [place] [address] ProviderYahir MD [address] [place] [address] Social History Tobacco Use Types [...] Date Alejandro rded Speak language other than Cymraes at home Not on file 09/23/2023 Want [...] Conversion Note - Historical Provider, - 10/17/2021 1:01 AM DRAMATIC ART TEACHER ED Event Note Entered On: 10/17/2021 1:02 EST Performed On: 10/17/2021 1:01 EST by Najma Harrison NON EMP BUFFING MACHINE OPERATOR SEMIAUTOMATIC Event Note ED Event Date/Time : 10/17/2021 1:01 EST ED Description of Event : three way catheter irrigated and switched over to leg bag. no clots seen, cabrera draining, pale red/pink in color. Najma Harrison NON EMP RN - 10/17/2021 1:01 EST Electronically signed by Arthur [facility] Conversion Bladder Tier Cerner at 12/21/2022 4:57 PM CDT documented in this encounter Plan of Treatment Upcoming Encounters Date Type Department Care Team (Late st Contact Info) Description 12/24/2025 3:00 PM EDT Office Visit [address] [address] Elton Faust MD [address] [place] [address] documented as of this encounter Visit Diagnoses Not on filedocumented in this encounter Care Teams Byproducts Maker Relationship Specialty Start Date End Date Yvan Coffey MD [address] [facility] [address] [place] [address] PCP - General Internal Medicine 08/13/22 documented as of this encounter
--- OUTSIDE RECORDS SUMMARY | 2025-03-21 14:00 | XMS_ITS | Encounter Summary ---
Author Organization [employer] ([place], [place], [place], [place]) Address [address] [place] [address] Care Team Providers Care Hoister Name Role Phone Yvan Coffey MD Primary Care Provider [phone] Encounter Details Date Type Department Care Team (Late st Contact Info) Description 03/28/2022 Transcribed Document [facility] [place] Family Medicine [address] [place] [address] ProviderYahir MD [address] [place] [address] Social History Tobacco Use Types [...] Date Alejandro rded Speak language other than Gabonese at home Not on file 09/23/2023 Want [...] Conversion Note - Historical Provider, - 03/28/2022 11:19 AM CDT documented in this encounter Plan of Treatment Upcoming Encounters Date Type Department Care Team (Late st Contact Info) Description 12/24/2025 3:00 PM EDT Office Visit [address] [address] Elton Faust MD [address] [place] [address] documented as of this encounter Visit Diagnoses Not on filedocumented in this encounter Care Teams Hoister Relationship Specialty Start Date End Date Yvan Coffey MD [address] [facility] [address] [place] [address] PCP - General Internal Medicine 08/13/22 documented as of this encounter
--- OUTSIDE RECORDS SUMMARY | 2025-03-21 14:00 | XMS_ITS | Encounter Summary ---
Author Organization [employer] ([place], [place], [place], [place]) Address [address] [place] [address] Care Team Providers Care Criminal Justice Program Director Name Role Phone Yvan Coffey MD Primary Care Provider Encounter Details Date Type Department Care Team (Late st Contact Info) Description 05/14/[address] [facility] [place] [address] [place] [address] ProviderYahir MD [address] [place] [address] Social History Tobacco Use Types [...] Date Alejandro rded Speak language other than Palauan at home Not on file 09/23/2023 Want [...] Conversion Note - Historical Provider, - 05/14/2022 9:56 AM CDT [facility] Endo IntraOp Summary Primary Physician: BABAR TALBOT MD-SUR Finalized Date/Time: 05/14/22 10:16:37 Pt. Name: CJ TORRES [place] /Sex: 1955 Male Med Rec #: [id number] Physician: BABAR TALBOT MD-SUR Financial #: [id number] Pt. Type: O Room/Bed: END/ Admit/Disch: 05/14/22 08:15:00 - Institution: [facility] Endo - Case Attendance Entry 1 Entry 2 Entry 3 Case Attendee BABAR TALBOT MD-SUR BARNES, DEVON, CRNA-Jose Velez Rn Flex I Role Performed Surgeon/Proceduralist, VENDING MACHINE TECHNICIAN/Nurse Vending Machine Technician Jewel Cupping Machine Operator, First First Time In 05/14/22 09:50:00 05/14/22 [...] Jose Lopez Rn Flex I 05/14/22 10:16:15 [facility] Endo - Case Attendance Audit 05/14/22 10:16:15 Proposal Development Manager: [id number] Modifier: [id number] 1 <+> Time Out 1 <*> Procedure Esophagogastroduodenoscopy, Colonoscopy, Gastric Biopsy, Colon Polypectomy 2 <+> Time Out 2 <*> Procedure Esophagogastroduodenoscopy, Colonoscopy, Gastric Biopsy, Colon Polypectomy 3 <+> Time Out 3 <*> Procedure Esophagogastroduodenoscopy, Colonoscopy, Gastric Biopsy, Colon Polypectomy 4 <+> Time Out 4 <*> Procedure Esophagogastroduodenoscopy, Colonoscopy, Gastric Biopsy, Colon Polypectomy 05/14/22 10:15:40 Proposal Development Manager: [id number] Modifier: [id number] 1 <*> Procedure Esophagogastroduodenoscopy, Colonoscopy, Gastric Biopsy 2 <*> Procedure Esophagogastroduodenoscopy, Colonoscopy, Gastric Biopsy 3 <*> Procedure Esophagogastroduodenoscopy, Colonoscopy, Gastric Biopsy 4 <*> Procedure Esophagogastroduodenoscopy, Colonoscopy, Gastric Biopsy 05/14/22 10:00:41 Proposal Development Manager: [id number] Modifier: [id number] 1 <+> Time In 1 <*> Procedure Esophagogastroduodenoscopy, Colonoscopy 2 <+> Time In 2 <*> Procedure Esophagogastroduodenoscopy, Colonoscopy 3 <+> Time In 3 <*> Procedure Esophagogastroduodenoscopy, Colonoscopy 4 <+> Time In 4 <*> Procedure Esophagogastroduodenoscopy, Colonoscopy 05/14/22 09:50:48 Proposal Development Manager: [id number] Modifier: [id number] <+> 2 Case Attendee <+> 2 Role Performed <+> 2 Procedure <+> 3 Case Attendee <+> 3 Role Performed <+> 3 Procedure <+> 4 Case Attendee <+> 4 Role Performed <+> 4 Procedure [facility] Endo - Case times Entry 1 Patient In Room Time 05/14/22 09:50:00 Out Room Time 05/14/22 10:18:00 Anesthesia Start Time 05/14/22 09:50:00 Stop Time 05/14/22 10:15:00 Anesthesia Ready 05/14/22 09:50:00 Surgery / Procedure Times Start Time 05/14/22 09:56:00 Stop Time 05/14/22 10:15:00 Last Modified By: Jose Lopez Rn Flex I 05/14/22 10:16:13 [facility] Endo - Case times Audit 05/14/22 10:16:13 Proposal Development Manager: [id number] Modifier: [id number] <+> 1 Out Room Time <+> 1 Stop Time <+> 1 Stop Time 05/14/22 09:56:47 Proposal Development Manager: [id number] Modifier: [id number] <+> 1 Start Time [facility] Endo - Cultures and Spec Summary Entry 1 Cultrures and Specimens Specimen Ordered: Yes Test(s) Routine/Path-Lab Requested/Final Disposition Last Modified By: Jose Lopez Rn Flex I 05/14/22 10:04:00 [facility] Endo - Delays Entry 1 Delay Reason Other Duration 0 Minute(s) Last Modified By: Joes Lopez Rn Flex I 05/14/22 09:51:12 [facility] Endo - Departure from OR Entry 1 Integumentary Assessment Integumentary WDL Assessment WDL Transfer/Handoff Transfer to PACU Phase I Post-op Transport Stretcher/Tiffany Via Patient Transport Jose Lopez Rn Accompanied by LEXY Parada DEVON, CRNA-ANS Last Modified By: Jose Lopez Rn Flex I 05/14/22 09:51:15 [facility] Endo - Endoscopy Details Entry 1 Abdomen Procedure Soft, Non-Tender, Soft Assessment Procedure Abdomen 05/14/22 09:51:00 Assessment D/T Radio Frequency Ablation Abdominal Pressure Last Modified By: Jose Lopez Rn Flex I 05/14/22 09:51:30 [facility] Endo - Fire Risk Assessment Entry 1 Fire Info Surgical Site or 1- Yes Incision Above the Xyphoid Open O2 Source 1- Yes (Mask or Cannula) Available Ignition 1- Yes (ESU, Laser, Light Source) Fire Risk 3 Assessment Score Fire Score Fire Risk Yes Assessment Complete Fire Risk Jose Lopez Rn Assessment Verified Flex I By Fire Risk 05/14/22 09:51:00 Assessment Verified Date/Time Fire Risk High Risk Protocol Yes Implemented Standard Fire Yes Safety Precautions Followed Last Modified By: Jose Lopez Rn Flex I 05/14/22 09:51:34 [facility] Endo - General Case Form Grader Operator 1 Case Information OR Endo 01 [facility] Case Level 1 Room Verified Yes Wound Class No Incision Specialty General Anesthesia Type General ASA Class 3 Diagnosis Preop Diagnosis ABD PAIN/BLOATING Postop Same As Preop No Postop Diagnosis ABD PAIN/BLOATING, HH, ANTRUM BX, GE JUNCTION BX, CHRONIC ESOPHAGITIS, Wound Class Definitions Last Modified By: Jose Lopez Rn Flex I 05/14/22 10:02:42 [facility] Endo - General Case Data Audit 05/14/22 10:02:42 Proposal Development Manager: [id number] Modifier: [id number] 1 <*> Postop Diagnosis ABD PAIN/BLOATING [facility] Endo - Intraoperative Assessment Entry 1 Valid History / Yes Physical in Chart Preoperative Yes Checklist Reviewed/Evaluated Patient is Latex No Sensitive Level of WDL Consciousness (WDL = Alert, Oriented to Person, Place, and Time) Last Modified By: Jose Lopez Rn Flex I 05/14/22 09:52:38 [facility] Endo - Intraoperative Equipment Entry 1 Equipment Intraop Monitoring Electrocardiogram Three lead placement (ECG) Electrode Placement Blood Pressure Arm, left upper Location Pulse Oximeter Hand, right Probe Site Antiembolic Devices Scopes Flexible Endoscopes Gastroscope Used Scope Serial C/M Number/Identificatio n Number Photo/Video Documentation Photo Yes Video No Last Modified By: Jose Lopez Rn Flex I 05/14/22 09:52:55 [facility] Endo - Patient Positioning Entry 1 [...] Jose Lopez Rn Flex I 05/14/22 10:15:41 [facility] Endo - Patient Positioning Audit 05/14/22 10:15:41 Proposal Development Manager: [id number] Modifier: [id number] 1 <*> Procedure Esophagogastroduodenoscopy, Colonoscopy, Gastric Biopsy 05/14/22 10:00:41 Proposal Development Manager: [id number] Modifier: [id number] 1 <*> Procedure Esophagogastroduodenoscopy, Colonoscopy [facility] Endo - Sign In Entry 1 Patient, Site, Yes Procedure Identified Surgical Consent Yes Confirmed Surgical Site N/A Marked by person performing procedure Airway Hypothermia Risk No Warming Measures No Taken Last Modified By: Jose Lopez Rn Flex I 05/14/22 09:53:20 [facility] Endo - Sign Out Entry 1 [...] Jose Lopez Rn Flex I 05/14/22 10:16:32 [facility] Endo - Surgical Procedures Entry 1 Entry 2 Entry 3 Procedure Esophagogastroduodenosco Colonoscopy Gastric Biopsy py Modifiers Additional Procedure Description Primary Procedure Yes No No Primary Surgeon BABAR TALBOT MD-SUR HARRIS, JOHN M, MD-BABAR HDZ MD-JASMIN Start 05/14/22 09:56:00 05/14/22 09:56:00 05/14/22 09:56:00 Stop 05/14/22 10:15:00 05/14/22 10:15:00 05/14/22 10:15:00 Physician States 05/14/22 10:09:00 [place] Reached Anesthesia Type MAC MAC MAC Specialty General General General Wound Class No Incision No Incision No Incision Last Modified By: Jose Lopez Rn Bowen, Jonathan, Rn Bowen, Jonathan, Rn Flex I 05/14/22 10:16:33 Flex I 05/14/22 10:16:33 Flex I 05/14/22 10:16:33 Entry 4 Procedure Colon Polypectomy Modifiers Additional Procedure Description Primary Procedure No Primary Surgeon BABAR TALBOT MD-JASMIN Start 05/14/22 09:56:00 Stop 05/14/22 10:15:00 Physician States 05/14/22 10:09:00 [place] Reached Anesthesia Type MAC Specialty General Wound Class No Incision Last Modified By: Jose Lopez Rn Flex I 05/14/22 10:16:33 [facility] Endo - Surgical Procedures Audit 05/14/22 10:16:33 Proposal Development Manager: [id number] Modifier: [id number] <+> 1 Stop <+> 2 Stop <+> 3 Stop <+> 4 Stop 05/14/22 10:15:37 Proposal Development Manager: [id number] Modifier: [id number] <+> 4 Procedure <+> 4 Primary Procedure <+> 4 Primary Surgeon <+> 4 Specialty <+> 4 Start <+> 4 Wound Class <+> 4 Anesthesia Type <+> 4 Physician States [place] Reached 05/14/22 10:09:36 Proposal Development Manager: [id number] Modifier: [id number] 2 <*> Procedure Colonoscopy 2 <+> Physician States [place] Reached 05/14/22 10:00:12 Proposal Development Manager: [id number] Modifier: [id number] <+> 1 Start <+> 2 Start <+> 3 Procedure <+> 3 Primary Procedure <+> 3 Primary Surgeon <+> 3 Specialty <+> 3 Start <+> 3 Wound Class <+> 3 Anesthesia Type 05/14/22 09:53:37 Proposal Development Manager: [id number] Modifier: [id number] 1 <*> Procedure Esophagogastroduodenoscopy 1 <+> Wound Class 2 <*> Procedure Colonoscopy 2 <+> Wound Class [facility] Endo - Time Out Entry 1 [...] Surgeon None expected Last Modified By: Jose Lopez Rn Flex I 05/14/22 10:15:41 [facility] Endo - Time Out Audit 05/14/22 10:15:41 Proposal Development Manager: [id number] Modifier: [id number] 1 <*> Procedure to be Performed Esophagogastroduodenoscopy, Colonoscopy, Gastric Biopsy 05/14/22 10:00:42 Proposal Development Manager: [id number] Modifier: [id number] 1 <*> Procedure to be Performed Esophagogastroduodenoscopy, Colonoscopy Case Comments <None> Finalized By: Jose Lopez Rn Flex I Document Signatures Signed By: Jose Lopez Rn Flex I 05/14/22 10:16 Electronically signed by [facility] Conversion Stem Processing Machine Operator Cerner at 12/21/2022 4:35 PM CDT documented in this encounter Plan of Treatment Upcoming Encounters Date Type Department Care Team (Late st Contact Info) Description 12/24/2025 3:00 PM EDT Office Visit [address] [address] Elton Faust MD [address] [place] [address] documented as of this encounter Visit Diagnoses Not on filedocumented in this encounter Care Teams Criminal Justice Program Director Relationship Specialty Start Date End Date Yvan Coffey MD [address] [facility] [address] [place] [address] PCP - General Internal Medicine 08/13/22 documented as of this encounter
--- OUTSIDE RECORDS SUMMARY | 2025-03-21 14:00 | XMS_ITS | Encounter Summary ---
Author Organization [employer] ([place], [place], [place], [place]) Address [address] [place] [address] Care Team Providers Care Assembler Ping Pong Table Name Role Phone Yvan Coffey MD Primary Care Provider [phone] Encounter Details Date Type Department Care Team (Late st Contact Info) Description 05/14/2022 Transcribed Document [facility] [place] Family Medicine [address] [place] [address] ProviderYahir MD [address] [place] [address] Social History Tobacco Use Types [...] Date Alejandro rded Speak language other than Equatorial Guinean at home Not on file 09/23/2023 Want [...] Historical Provider, - 05/14/2022 10:07 AM CDT [facility] [place], [place] [id number] GREER JAY Richmond :1955 Visit Time:05/14/2022 What to do next [...] TALBOT MD-JASMIN When Only if needed Where: [address] [place] [address] [address] [place] [address]- Medications What How Much When Instructions Next [...] including vitamins, herbs, eye drops, creams, and divy-nit-flplqdw medicines. ??? Any problems you or family [...] tells you to take them. ??? Taking zgmh-xor-xfookhu medicines, vitamins, herbs, and supplements. Do not [...] provider. Document Revised: 05/04/2021 Document Reviewed: 12/03/2020 [employer] Patient Education ?? 2021 [employer] Instructions for after Colonoscopy 1. Try [...] Assistance with quitting is available by contacting 3-312-XZJBNOW. This is a free resource providing counseling, support, and referral. Or you may contact your personal physician. [employer] Suicide Prevention Lifeline: The National Suicide Prevention [...] was given the opportunity to ask questions. Patient/Clerical Coordinator Name: Patient/Clerical Coordinator Signature: Relationship to Patient: Clinician/Hospital Clerical Coordinator Signature: Date: documented in this encounter Plan of Treatment Upcoming Encounters Date Type Department Care Team (Late st Contact Info) Description 12/24/2025 3:00 PM EDT Office Visit [address] [address] Elton Faust MD [address] [address] documented as of this encounter Visit Diagnoses Not on filedocumented in this encounter Care Teams Assembler Ping Pong Table Relationship Specialty Start Date End Date Yvan Coffey MD [address] [place] [address] PCP - General Internal Medicine 08/13/22 documented as of this encounter
--- OUTSIDE RECORDS SUMMARY | 2025-03-21 14:00 | XMS_ITS | Encounter Summary ---
Author Organization [employer] ([place], [place], [place], [place]) Address [address] [place] [address] Care Team Providers Care Shower Maid Name Role Phone Yvan Coffey MD Primary Care Provider [phone] Encounter Details Date Type Department Care Team (Late st Contact Info) Description 05/14/2022 Transcribed Document [facility] [place] [address] [place] [address] ProviderYahir MD [address] [place] [address] Social History Tobacco Use Types [...] Date Alejandro rded Speak language other than [place]ao [place]omean at home Not on file 09/23/2023 Want [...] Historical Provider, - 05/14/2022 10:07 AM CDT [facility] [place], [place] [id number] GREER JAY Richmond :1955 Visit Time:05/14/2022 What [...] TALBOT MD-JASMIN When Only if needed Where: [address] [place] [address] [address] [place] [address]- Medications What How Much When Instructions Next [...] including vitamins, herbs, eye drops, creams, and snrl-xds-rmtkmfj medicines. ??? Any problems you or family [...] tells you to take them. ??? Taking jiac-pwd-tgkkwzs medicines, vitamins, herbs, and supplements. Do not [...] provider. Document Revised: 05/04/2021 Document Reviewed: 12/03/2020 [employer] Patient Education ?? 2021 [employer] Instructions for after Colonoscopy 1. Try [...] Assistance with quitting is available by contacting 9-626-IWRXNOW. This is a free resource providing counseling, support, and referral. Or you may contact your personal physician. [employer] Suicide Prevention Lifeline: The National Suicide Prevention [...] was given the opportunity to ask questions. Patient/Supply Assistant Name: Patient/Supply Assistant Signature: Relationship to Patient: Clinician/Hospital Supply Assistant Signature: Date: documented in this encounter Plan of Treatment Upcoming Encounters Date Type Department Care Team (Late st Contact Info) Description 12/24/2025 3:00 PM EDT Office Visit [address] [address] Elton Faust MD [address] [address] documented as of this encounter Visit Diagnoses Not on filedocumented in this encounter Care Teams Shower Maid Relationship Specialty Start Date End Date Yvan Coffey MD [address] [place] [address] PCP - General Internal Medicine 08/13/22 documented as of this encounter
--- OUTSIDE RECORDS SUMMARY | 2025-03-21 14:00 | XMS_ITS | Encounter Summary ---
Author Organization [employer] ([place], [place], [place], [place]) Address [address] [place] [address] Care Team Providers Care Harbor Boat Pilot Name Role Phone Yvan Coffey MD Primary Care Provider [phone] Encounter Details Date Type Department Care Team (Late st Contact Info) Description 03/28/2022 Transcribed Document [facility] [place] [address] [place] [address] ProviderYahir MD [address] [place] [address] Social History Tobacco Use Types [...] Date Alejandro rded Speak language other than Botswanan at home Not on file 09/23/2023 Want [...] Conversion Note - Historical Provider, - 03/28/2022 11:20 AM CDT [facility] [place] [id number] JAY TORRES :1955 Visit Time:03/28/2022 Your Visit [...] AM Return if condition worsens Where: [address] [facility] [address] [place] [phone] Business (1) Follow Up with YVAN COFFEY When Within 2 to 3 days Comments Call for follow up appointment Call in the AM Return if condition worsens Where: [address] [place] [address] [employer] Business (1) Allergies heparin (Heparin-induced thrombocytopenia with thrombosis, Heparin-induced thrombocytopenia with thrombosis) Brilinta (SOB - Shortness of breath) Immunizations This Visit No Immunizations Found Medications What How Much When Instructions Next Dose albuterol (ProAir HFA 90 mcg/ inh inhalation aerosol) 2 Puff(s) Inhalation Every 6 Hours as needed for Shortness of Breath Pickup at [place] [address] acetaminophen-oxyCODONE (acetaminophen-oxyCODONE 325 mg-10 mg oral tablet) [...] needed for for nausea/vomiting Pharmacy Information [facility] [address]: [address] [place], [place] [id number] [phone] The home medications listed are only as [...] range between ( 0.0 and 7.0 ) [place] #: 0.69 K/uL -- Normal range between ( 0.16 and 1.00 ) [place] #: 0.29 x10(3)/uL -- Normal range between ( 0.00 and 0.80 ) [place] %: 6.5 % -- Normal range between [...] ) Urine Bilirubin Dipstick: Negative Urine Specific [place]: 1.007 -- Normal range between ( 1.005 [...] possible. ??? If the spirometer includes a customer care team coach indicator, use this to guide you in [...] provider. Document Revised: 11/10/2020 Document Reviewed: 11/10/2020 [employer] Patient Education ?? 2020 [employer] Pleurodynia Pleurodynia is sudden, severe pain [...] these instructions at home: Medicines ??? Take yzor-tws-sxxarun and prescription medicines only as told by [...] water are not available, use alcohol-based hand tutor coordinator. ??? Make sure that other people in your household also wash their hands often. ??? Use a bleach-based household mold sheet cleaner to clean and disinfect commonly used [...] provider. Document Revised: 12/13/2019 Document Reviewed: 06/21/2019 [employer] Patient Education ?? 2020 [employer] Emergency Awareness and Preventative Care STROKE [...] Assistance with quitting is available by contacting 6-765-UHNRNOW. This is a free resource providing counseling, [...] including: emergency, radiology, or pathology physicians. Patient Name:TORRESJAY Richmond I have received this information and was given the opportunity to ask questions. Patient/Aerotriangulation Specialist Name: Patient/Aerotriangulation Specialist Signature: Relationship to Patient: Clinician/Hospital Aerotriangulation Specialist Signature: Please Provide a Telephone Number Where You Can Be Reached: Is it Permissible To Leave a Message? Date: Electronically signed by Arthur, [facility] Conversion Office Technology Professor Cerner at 12/21/2022 4:50 PM CDT documented in this encounter Plan of Treatment Upcoming Encounters Date Type Department Care Team (Late st Contact Info) Description 12/24/2025 3:00 PM EDT Office Visit [address] [phone] Elton Faust MD [address] [place] [address] documented as of this encounter Visit Diagnoses Not on filedocumented in this encounter Care Teams Harbor Boat Pilot Relationship Specialty Start Date End Date Yvan Coffey MD [address] [facility] [address] [place] [address] PCP - General Internal Medicine 08/13/22 documented as of this encounter
--- OUTSIDE RECORDS SUMMARY | 2025-03-21 14:00 | XMS_ITS | Encounter Summary ---
Author Organization [employer] ([place], [place], [place], [place]) Address [address] [place] [address] Care Team Providers Care Feedlot Manager Name Role Phone Yvan Coffey MD Primary Care Provider [phone] Encounter Details Date Type Department Care Team (Late st Contact Info) Description 03/29/2022 Transcribed Document [facility] [place] Family Medicine [address] [place] [address] ProviderYahir MD [address] [place] [address] Social History Tobacco Use Types [...] Date Alejandro rded Speak language other than Syrian at home Not on file 09/23/2023 Want [...] Cerner Conversion Note - Historical Provider, - 03/29/2022 3:12 PM CDT CR Chest 1 Vw Portable Ordered: 03/28/2022 Modified Reason for Exam: cp 03/28/2022 12:25 03/29/2022 15:12 (RANDY VALLE PA-C) Reviewed by Provider, No further action required X1CTA chest on this exam day?? show no infiltrate. Electronically signed by Arthur, [facility] Conversion Adjustment Supervisor Cerner at 12/21/2022 4:58 PM CDT documented in this encounter Plan of Treatment Upcoming Encounters Date Type Department Care Team (Late st Contact Info) Description 12/24/2025 3:00 PM EDT Office Visit [address] [address] Elton Faust MD [address] [place] [address] documented as of this encounter Visit Diagnoses Not on filedocumented in this encounter Care Teams Feedlot Manager Relationship Specialty Start Date End Date Yvan Coffey MD [address] [facility] [address] [place] [address] PCP - General Internal Medicine 08/13/22 documented as of this encounter
--- OUTSIDE RECORDS SUMMARY | 2025-03-21 14:00 | XMS_ITS | Encounter Summary ---
Author Organization [employer] ([place], [place], [place], [place]) Address [address] [place] [address] Care Team Providers Care Echocardiographer Name Role Phone Yvan Coffey MD Primary Care Provider [phone] Encounter Details Date Type Department Care Team (Late st Contact Info) Description 03/28/2022 Transcribed Document [facility] [place] [address] [place] [address] ProviderYahir MD [address] [place] [address] Social History Tobacco Use Types [...] Date Alejandro rded Speak language other than Rwandan at home Not on file 09/23/2023 Want [...] Historical Provider, - 03/28/2022 5:00 AM CDT ED Triage Entered On: 03/28/2022 5:08 EDT Performed On: 03/28/2022 5:05 EDT by NAIF ALVARADO RN ED Triage Across the Room Chief Complaint : pt reports midsternal chest tightness wrapping arund to back & sob x 2 days. worse tonight. h/o stents. also c//o bloating. Triage Date/Time : 03/28/2022 5:05 EDT NAIF ALVARADO RN - 03/28/2022 5:05 EDT DCP GENERIC CODE Tracking Acuity : 3 - Urgent Tracking Group : [facility] ED NAIF ALVARADO RN - 03/28/2022 5:05 [...] Heparin-induced thrombocytopenia with thrombosis ; Created By: Contributor_systemLJ; Reaction Status: Active ; Category: Drug ; Substance: heparin ; Type: Allergy ; Severity: Severe ; Updated By: Contributor_system HISTMESHA; Reviewed Date: 03/28/2022 5:07 EDT Diagnosis Control ED (As Of: 03/28/2022 05:08:15 EDT) Problems(Active) ARDS - Adult respiratory distress syndrome (SNOMED CT :274924524 ) Name of Problem: ARDS - Adult respiratory distress syndrome ; Recorder: SADIE AGOSTO RN; Confirmation: Confirmed ; Classification: Medical ; Code: [id number] ; Contributor System: [employer] ; Last Updated: 02/21/2014 15:18 EDT ; Life Cycle Date: 04/26/2013 ; Life Cycle Status: Active ; Vocabulary: SNOMED CT Diverticula, colon (SNOMED CT :4948505146 ) Name of Problem: Diverticula, colon ; Recorder: DANIEL BRANCH RN; Confirmation: Confirmed ; Classification: Patient Stated ; Code: 1545479305 ; Contributor System: [employer] ; Last Updated: 12/01/2015 9:12 EDT ; Life Cycle Date: 12/01/2015 ; Life Cycle Status: Active ; Vocabulary: SNOMED CT DVT - Deep vein thrombosis (SNOMED CT :4761777012 ) Name of Problem: DVT - Deep vein thrombosis ; Recorder: SADIE AGOSTO RN; Confirmation: Confirmed ; Classification: Medical ; Code: 9214280372 ; Contributor System: [employer] ; Last Updated: 02/19/2014 11:29 EDT ; Life Cycle Date: 04/26/2013 ; Life Cycle Status: Active ; Vocabulary: SNOMED CT Gilbert filter, device (SNOMED CT :5077888404 ) Name of Problem: Cory filter, device ; Recorder: SADIE AGOSTO RN; Confirmation: Confirmed ; Classification: Medical ; Code: 8418365403 ; Contributor System: [employer] ; Last Updated: 02/21/2014 14:44 EDT ; Life Cycle Date: 04/26/2013 ; Life Cycle Status: Active ; Vocabulary: SNOMED CT 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 (SNOMED CT :7373958442 ) Name of Problem: 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 ; Recorder: SADIE AGOSTO RN; Confirmation: Confirmed ; Classification: Medical ; Code: 6471430221 ; Contributor System: [employer] ; Last Updated: 02/21/2014 14:56 EDT ; Life Cycle Date: 04/26/2013 ; Life Cycle Status: Active ; Vocabulary: SNOMED CT History of obstructive sleep apnea (IMO :17839245 ) Name of Problem: History of obstructive sleep apnea ; Recorder: SYSTEM, SYSTEM; Confirmation: Confirmed ; Classification: Medical ; Code: 10370693 ; Last Updated: 06/08/2020 22:53 EDT ; Life Cycle Date: 06/08/2020 ; Life Cycle Status: Active ; Vocabulary: IMO Patient requiring acute dialysis (SNOMED CT :4819376791 ) Name of Problem: Patient requiring acute dialysis ; Recorder: DANIEL BRANCH RN; Confirmation: Confirmed ; Classification: Patient Stated ; Code: 4248377695 ; Contributor System: [employer] ; Last Updated: 12/01/2015 9:23 EDT ; Life Cycle Date: 12/01/2015 ; Life Cycle Status: Active ; Vocabulary: SNOMED CT ; Comments: 12/01/2015 9:23 - DANIEL BRANCH RN 3 years Pneumonia (SNOMED CT :216621681 ) Name of Problem: Pneumonia ; Recorder: SADIE AGOSTO RN; Confirmation: Confirmed ; Classification: Medical ; Code: 746099834 ; Contributor System: [employer] ; Last Updated: 02/14/2014 19:26 EDT ; Life Cycle Date: 04/26/2013 ; Life Cycle Status: Active ; Vocabulary: SNOMED CT Diagnoses(Active) Chest pain Date: 03/28/2022 ; Diagnosis Type: Reason For Visit ; Confirmation: Complaint of ; Clinical Dx: Chest pain ; Classification: Medical ; Clinical Service: Non-Specified ; Code: PNED ; Probability: 0 ; Diagnosis Code: [id number] ED Height and Weight Height Source : Stated Height Entry Format : [place] Height, Feet : 5 ft(Converted to: 152 cm, 60 Inch) Height, Inches : 8 Inch(Converted to: 0 ft 8 Inch, 20.32 cm) Clinical Height : 172.72 cm Weight Source, ED : Critical estimated dosing weight Weight Entry Format : [place] Weight, Pounds : 234 lb Clinical Dosing Weight : 106.36 kg Body Surface Area (BSA) : 2.19 m2 Body Mass Index : 35.7 kg/m2 (HI) [place] Body Weight (IBW) : 67.45 kg NAIF ALVARADO RN - 03/28/2022 5:05 EDT documented in this encounter Plan of Treatment Upcoming Encounters Date Type Department Care Team (Late st Contact Info) Description 12/24/2025 3:00 PM EDT Office Visit [address] [address] Elton Faust MD [address] [place] [address] documented as of this encounter Visit Diagnoses Not on filedocumented in this encounter Care Teams Echocardiographer Relationship Specialty Start Date End Date Yvan Coffey MD [address] [facility] [address] [place] [address] PCP - General Internal Medicine 08/13/22 documented as of this encounter
--- OUTSIDE RECORDS SUMMARY | 2025-03-21 14:00 | XMS_ITS | Encounter Summary ---
Author Organization [employer] ([place], [place], [place], [place]) Address [address] [place] [address] Care Team Providers Care Metal Burnisher Name Role Phone Yvan Coffey MD Primary Care Provider [phone] Encounter Details Date Type Department Care Team (Late st Contact Info) Description 03/28/2022 Transcribed Document [facility] [place] [address] [place] [address] ProviderYahir MD [address] [place] [address] Social History Tobacco Use Types [...] Date Alejandro rded Speak language other than [place]an at home Not on file 09/23/2023 [...] Historical Provider, - 03/28/2022 5:00 AM CDT [place] Suicide Severity Rating Scale (C-SSRS) Entered On: 03/28/2022 5:51 EDT Performed On: 03/28/2022 5:50 EDT by NAIF ALVARADO RN [place] Suicide Severity Rating Scale (C-SSRS) CSSRS Past Month Wish to be : No CSSRS Past Month Suicidal Thoughts : No CSSRS Lifetime Suicide Behavior : No Suicide Severity Rating Score : 0 Suicide Severity Rating : No Additional Care Required at this time NAIF ALVARADO RN - 03/28/2022 5:50 EDT Electronically signed by Arthur [facility] Conversion Licensed Optical Dispenser Cerner at 12/21/2022 4:52 PM CDT documented in this encounter Plan of Treatment Upcoming Encounters Date Type Department Care Team (Late st Contact Info) Description 12/24/2025 3:00 PM EDT Office Visit [address] [address] Elton Faust MD [address] [place] [address] documented as of this encounter Visit Diagnoses Not on filedocumented in this encounter Care Teams Metal Burnisher Relationship Specialty Start Date End Date Yvan Coffey MD [address] [facility] [address] [place], [place] [id number] PCP - General Internal Medicine 08/13/22 documented as of this encounter
--- OUTSIDE RECORDS SUMMARY | 2025-03-21 14:00 | XMS_ITS | Encounter Summary ---
Author Organization [employer] ([place], [place], [place], [place]) Address [address] [place] [address] Care Team Providers Care Binder Layer Name Role Phone Yvan Coffey MD Primary Care Provider [phone] Encounter Details Date Type Department Care Team (Late st Contact Info) Description 05/14/2022 Transcribed Document [facility] [place] Family [place] [address] [place] [address] ProviderYahir MD [address] [place] [address] Social History Tobacco Use Types [...] Date Alejandro rded Speak language other than Colombian at home Not on file 09/23/2023 Want [...] Historical Provider, - 05/14/2022 9:56 AM CDT [facility] PACU Summary Primary Physician: BABAR TALBOT MD-SUR Finalized Date/Time: 05/14/22 10:53:05 Pt. Name: GREER JAY Frgaoso /Sex: 1955 Male Med Rec #: [id number] Physician: BABAR TALBOT MD-SUR Financial #: [id number] Pt. Type: O Room/Bed: END/ Admit/Disch: 05/14/22 08:15:00 - Institution: [facility] PACU Case Times Entry 1 In PACU I 05/14/22 10:25:00 Ready for PACU 05/14/22 10:49:00 Discharge Discharge from PACU 05/14/22 10:49:00 I Last Modified By: JAYSHREE BLUE RN, Registered Nurse 05/14/22 10:53:[address] [facility] PACU Case Times Audit 05/14/22 10:53:00 Lease Analyst: TIFFANYCOLEMAN Modifier: TIFFANYCOLEMAN <+> 1 Ready for PACU Discharge <+> 1 Discharge from PACU I Finalized By: JAYSHREE BLUE RN, Registered Nurse Document Signatures Signed By: JAYSHREE BLUE RN, Registered Nurse 05/14/22 10:53 Electronically signed by [facility], [facility] Conversion Network Design Architect Cerner at 12/21/2022 4:47 PM CDT documented in this encounter Plan of Treatment Upcoming Encounters Date Type Department Care Team (Late st Contact Info) Description 12/24/2025 3:00 PM EDT Office Visit [address] [address] Elton Faust MD [address] [place] [address] documented as of this encounter Visit Diagnoses Not on filedocumented in this encounter Care Teams Binder Layer Relationship Specialty Start Date End Date Yavn Coffey MD [address] [place] [address] PCP - General Internal Medicine 08/13/22 documented as of this encounter
--- OUTSIDE RECORDS SUMMARY | 2025-03-21 14:00 | XMS_ITS | Encounter Summary ---
Author Organization [employer] ([place], [place], [place], [place]) Address [address] [place] [address] Care Team Providers Care Sports Marketer Name Role Phone Yvan Coffey MD Primary Care Provider [phone] Encounter Details Date Type Department Care Team (Late st Contact Info) Description 03/28/2022 Transcribed Document [facility] [place] [address] [place] [address] ProviderYahir MD [address] [place] [address] Social History Tobacco Use Types [...] Provider, - 03/28/2022 5:00 AM CDT ED Assessment Entered On: 03/28/2022 5:51 EDT Performed On: 03/28/2022 5:50 EDT by NAIF ALVARADO RN ED Quick Look Assessment Level of Consciousness : Alert, Awake Affect/Behavior : Appropriate, Calm, Cooperative Orientation : Oriented x 4 Skin Temperature : Warm Skin Description : Normal for ethnicity NAIF ALVARADO RN - 03/28/2022 5:50 EDT ED General-Functional Assess Information Obtained From : Patient Preferred Communication Mode : Verbal Communication Barrier : None Primary Language : Cymraes Any Spiritual/Cultural Needs or Requests : No [...] Rhythm : Regular Nail Bed Color : Effie Chest Pain : Yes NAIF ALVARADO RN [...] - 03/28/2022 5:50 EDT Electronically signed by [facility], [facility] Conversion Past Due Accounts Clerk Cerner at 12/21/2022 4:51 PM CDT documented in this encounter Plan of Treatment Upcoming Encounters Date Type Department Care Team (Late st Contact Info) Description 12/24/2025 3:00 PM EDT Office Visit [address] [address] Elton Faust MD [address] [place] [address] documented as of this encounter Visit Diagnoses Not on filedocumented in this encounter Care Teams Sports Marketer Relationship Specialty Start Date End Date Yvan Coffey MD [address] [facility] [address] [place] [address] PCP - General Internal Medicine 08/13/22 documented as of this encounter
--- NOTE | 2025-03-21 16:13 | EXP.PAIN.SOA ---
[facility] Disclaimer: The information contained in this section may have been updated after the patient was seen, as this information can be updated by other users. Medical History Elevated cholesterol Enlarged prostate Hypertension HIT (heparin-induced thrombocytopenia) Surgical History H/O colectomy History of heart artery stent Social History Smoking Status: Unknown if ever smoked alcohol intake: never current occupational status: other Travel in the last 8 weeks?: None PM Subjective & Objective Subjective Subjective:: Patient is a pleasant 69-year-old male who presents today for follow-up of his left diagnostic SI injection on 03/12/2025. Today he rates his pain in that location a 4 out of 10. He does state that he had about 80% relief that did last for about 3 hours. Past that point he has returned to his normal. Patient is having more complaints of low back pain that does radiate down into both his legs with numbness and tingling. Patient does have peripheral neuropathy. Patient does state that that pain is interfering with his ability perform activities of daily living such as cooking and cleaning. Patient is interested in possible additional injection therapy. He has continued conservative therapy with minimal changes. His Diego has been reviewed and is appropriate. Patient is prescribed compounded cream. Review of Systems: General: No recent weight changes, no fever, no sleep disturbances Respiratory: No cough, no shortness of air, no recurring pulmonary infections Cardiovascular/peripheral vascular: No chest pain, no palpitations, no edema, no shortness of breath Gastrointestinal: No new onset incontinence, normal bowel movements reported Genitourinary: No new onset incontinence Musculoskeletal: Low back pain, bilateral leg numbness tingling Psychiatric: [Normal mood/affect] Neurological: [Denies weakness in extremities], [denies balance issues] Pain at rest (0-10 scale): 5 Objective Objective:: Physical Exam: General: Alert and oriented x3, no acute distress, pleasant and cooperative Lungs: Respirations even and unlabored, symmetrical chest expansion Eyes: PERRL Musculoskeletal: Flexion and extension of lumbar [spine] somewhat guarded secondary to pain, [antalgic gait noted] positive leg raise Neurological: Speech clear, no gross sensory deficit Has patient had previous pain injection?: Yes Percent improvement in pain since last injection: 80% for 3 hours Conservative treatment options previously tried: Home exercise plan Length of treatment: Longer than 12 weeks Meds Home Medications and Allergies Home Medications ?Medication ?Instructions ?Recorded ?Confirmed ?Type clopidogrel 75 mg tablet 75 mg PO DAILY heart stents 03/26/24 03/21/25 History doxazosin 8 mg tablet 8 mg PO DAILY prostate 03/26/24 03/21/25 History gabapentin 600 mg tablet 600 mg PO BID 03/26/24 03/21/25 History lisinopril 5 mg tablet 5 mg PO DAILY 03/26/24 03/21/25 History oxycodone-acetaminophen 7.5 mg-325 1 tab PO TID 03/26/24 03/21/25 History mg tablet rosuvastatin 20 mg tablet 20 mg PO DAILY Cholesterol 03/26/24 03/21/25 History New Prescriptions to Start Prescriptions: Allergies Allergy/AdvReac Type Severity Reaction Status Date / Time heparin AdvReac Severe Verified 03/26/24 14:59 Assessment and Plan *Assessment and plan (1) Lumbar radiculopathy: Status: Acute Category: Medical Code(s): M54.16 - Radiculopathy, lumbar region (2) Lumbar spinal stenosis: Status: Acute Qualifiers: Neurogenic claudication status: with neurogenic claudication Qualified Code(s): M48.062 - Spinal stenosis, lumbar region with neurogenic claudication Category: Medical Code(s): M48.061 - Spinal stenosis, lumbar region without neurogenic claudication (3) Degenerative disc disease, lumbar: Status: Acute Category: Medical Code(s): M51.369 - Other intervertebral disc degeneration, lumbar region without mention of lumbar back pain or lower extremity pain (4) Spinal stenosis, lumbar region with neurogenic claudication: Status: Acute Category: Medical Code(s): M48.062 - Spinal stenosis, lumbar region with neurogenic claudication Plan Patient is experiencing worsening pain in his low back with numbness and tingling into his lower extremities. Patient did have limited range of motion of his lumbar spine with a positive leg raise. I did discuss with patient that I do believe they would benefit from a lumbar epidural steroid injection. Risk and benefits were discussed with patient and the patient would like to proceed forward with this plan of care. Patient is on blood thinners and we will reach out to his provider to confirm he can stop this medication prior to this injection.. Patient has tried and failed conservative therapy including oral medications, heat and ice, topicals and continued at home stretching exercise for longer than 12 weeks between injections. Patient has had chronic back pain for longer than 6 months. Patient did previously have a lumbar epidural back in July 2020 for that provided 60 to 70% relief and lasted longer than 3 months. We will schedule the patient for an LESI L5-S1 under fluoroscopy. We did also discuss in future that it still may be very beneficial for him to proceed forward with the lumbar decompression procedure. Patient's symptoms are still very consistent with spinal stenosis with neurogenic claudication symptoms. 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 We will follow-up with this in future. I will send in a 2-week dose of methocarbamol 500 mg 3 times daily. Patient did get posterior tibial nerve blocks in the past that did provide 70% improvement while they were nice and numb however ended up getting sick with a virus afterwards and made it harder to gauge how well these did long-term. Patient has been instructed to contact the clinic with any concerns before the next appointment. Dr. Funez has reviewed this note and agrees with this plan of care. This note was dictated using voice recognition software and make contain errors or omissions. All injections are used with Lidocaine, Bupivacaine and dexamethasone. Occasionally urine drug screen is needed to verify patient's compliance with our office pain contract. This is ordered based off specific treatments related to chronic pain with the potential to abuse certain medications.
== END 2025-03-21 23:59 | disposition home or self-care (01) ==
PROVIDERS: Visit Provider Nurse Practitioner Family
DX: M51.16 Intervertebral disc disorders with radiculopathy, lumbar region (principal); M48.062 Spinal stenosis, lumbar region with neurogenic claudication
CPT/HCPCS: 99212; G0463

== ENCOUNTER 2025-05-14 13:50 | Outpatient (POV) | payer MEDICARE, SELFPAY ==
--- OUTSIDE RECORDS SUMMARY | 2025-05-14 13:56 | XMS_ITS | Clinical Summary ---
Author Organization [facility] Address [address] [place] [address] Phone Care Team Providers Care It Security Specialist Name Role Phone Milan Paez MD [ [...]
--- OUTSIDE RECORDS SUMMARY | 2025-05-14 13:57 | XMS_ITS | Encounter Summary ---
Author Organization [facility] Address [address] [place] [address] Care Team Providers Care Sanitation Worker Name Role Phone Uli Coffey MD Primary Care Provider [phone] Reason for Visit * Reason Onset Date Comments Med Refill 06/08/2024 Encounter Details Date Type Department Care Team (Late st Contact Info) Description 06/08/2024 Refill [facility] [address] [facility] [address] [place] [address] Uli Coffey MD 120 [facility] [address] [place] [address] Neuropathy; Other chronic pain Social History Tobacco Use Types Packs/Day Years Used Date Smoking Tobacco: Never Smokeless Tobacco: Never Alcohol Use Standard Drinks/Week Comments No 0 (1 standard drink = 0.6 oz pur e alcohol) PHQ-2 Answer Date Recorded Retired PHQ-9: Brief Depression Severity Measure Score 0 08/02/2023 Hunger Vital Sign Answer Date Recorded Within the past 12 months, y ou worried that your food would run out before you got the money to buy more. Never true 06/30/20 20 Within the past 12 months, t he food you bought just didn't last and you didn't have money to get more. Never true 06/30/2020 PRAPARE - Transportation Answer Date Re corded In the past 12 months, has l ack of transportation kept you from medical appointments or from getting medications? No 06/06 In the past 12 months, has l ack of transportation kept you from meetings, work, or from getting things needed for daily living? No 06/30/2020 PHQ-2 Answer Date Recorded Retired PHQ-9: Brief Depression Severity Measure Score 0 04/19/2024 Sex and Gender Information Value Date Recorded Sex Assigned at Not on file Legal Sex Male 1:50 PM EDT Gender Identity Not on file Sexual Orientation Not on file documented as of this encounter Miscellaneous Notes * Telephone Encounter - Devi Frankel RegSched Rep - 06/08/2024 10:38 AM EDT Caller: Cj Torres Relationship: Self Best call back number: [phone] Requested Prescriptions: Requested Prescriptions Pending Prescriptions Disp Refills gabapentin (NEURONTIN) 600 MG tablet 180 tablet 0 Sig: Take 1 tablet by mouth 2 (Two) Times a Day. Pharmacy where request should be sent: [facility] MA[facility] DELIVERY - [facility] [address] - [phone] - [phone] FX Last office visit with prescribing clinician: 04/19/2024 Last telemedicine visit with prescribing clinician: Visit date not found Next office visit with prescribing clinician: 09/11/2024 Does the patient have less than a 3 day supply: [x] Yes [] No Would you like a call back once the refill request has been completed: [] Yes [x] No If the office needs to give you a call back, can they leave a voicemail: [] Yes [x] No Marysol Kimble 06/08/24 10:39 EDT documented in this encounter Plan of Treatment Upcoming Encounters Date Type Department Care Team (Late st Contact Info) Description 06/11/2025 2:15 PM EDT Office Visit [facility] [address] [place] [phone] Uli Coffey MD 120 [facility] [address] [place] [address] documented as of this encounter Visit Diagnoses Diagnosis Neuropathy Mononeuritis of unspecified site Other chronic pain documented in this encounter Care Teams Sanitation Worker Relationship Specialty Start Date End Date Uli Coffey MD [address] [place] [address] PCP - General 04/17/15 documented as of this encounter
--- OUTSIDE RECORDS SUMMARY | 2025-05-14 13:57 | XMS_ITS | Clinical Summary ---
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 Active lisinopril (PRINIVIL,ZESTRI L) 5 MG tablet Take 1 tablet by mouth 2 (two) times a day. Active carvedilol (COREG) 12.5 MG tablet Take 1 tablet by mouth 2 (Two) Times a Day With Meals. Active rosuvastatin (Crestor) 20 MG tabletIndication s:Coronary artery disease of [place] artery of [place] heart with stable angina pectoris Take 1 tablet by mouth Every Night. 90 tablet 3 3 Active fluticasone (FLONASE) 50 MCG/ACT nasal spray 1 spray by Each Nare route 2 (Two) Times a Day. 18 g 1 4 Active promethazine (PHENERGAN) 25 MG tabletIndication s:Diverticulosis of large intestine without hemorrhage,Gastr oesophageal reflux disease without esophagitis,Neur opathy,Enlarged prostate,Chronic kidney disease, unspecified CKD stage,Chronic pain syndrome,Other depression,Essen tial hypertension,Oth er chronic pain,Encounter for screening for malignant neoplasm of prostate TAKE 1 TABLET BY MOUTH EVERY 8 HOURS NEEDED FOR NAUSEA AND/OR VOMITING 30 tablet 2 4 Active gabapentin (NEURONTIN) 600 MG tabletIndication s:Neuropathy,Oth er chronic pain Take 1 tablet by mouth 2 (Two) Times a Day. 180 tablet 5 Active pantoprazole (PROTONIX) 40 MG EC tabletIndication s:Gastroesophage al reflux disease without esophagitis Take 1 tablet by mouth Daily. 90 tablet 3 5 Active doxazosin (CARDURA) 8 MG tabletIndication s:Essential hypertension,Enl arged prostate Take 1 tablet by mouth Every Night. 90 tablet 3 5 Active oxyCODONE-acetam inophen (Percocet) 7.5-325 MG per tablet Take 1 tablet by mouth Every 6 (Six) Hours As Needed for Moderate Pain. 120 tablet 5 Active oxyCODONE-acetam inophen (Percocet) 7.5-325 MG per tablet Take 1 tablet by mouth Every 6 (Six) Hours As Needed for Moderate Pain. 120 tablet 5 05/03/20 25 Discontinu ed(Reorder ) Active Problems Problem Noted Date Diagnosed Date Acute nasopharyngitis 09/14/2024 Generalized abdominal pain 12/01/2023 Chronic superficial gastritis without bleeding 0 05/18/2022 Overview (05/18/2022): 05/27 EGD Primary osteoarthritis involving multiple joints 12/31/2021 Right lower quadrant abdominal pain 03/03/2021 Coronary artery disease invo lving [place] coronary artery of [place] heart 06/18/2020 Overview (08/27/2020): 06/24 with DEYVI to LAD Bilateral impacted cerumen 09/11/2019 Morbidly obese 05/29/2019 Essential hypertension 11/17/2017 Chronic pain 02/09/2016 Chronic kidney disease 02/09/2016 Depression 02/09/2016 Diverticulosis of large intestine without hemorr joanne 02/09/2016 Enlarged prostate 02/09/2016 Gastroesophageal reflux disease without esophagi tis 02/09/2016 Overview (02/09/2016): Description: with hx of esophageal stricture s/p dilation Neuropathy 02/09/2016 Resolved Problems Problem Noted Date Diagnosed Date Resolved Date Acute bronchitis due to othe r specified organisms 08/18/2018 11/20/2018 Boil of buttock 11/24/2017 02/16/2018 Presence of inferior vena cava filter 03/22/2016 05/13/2016 Sinusitis, acute frontal 02/09/201605/2017 Encounters Date Type Department Care Team Description 05/03/2025 Refill [facility] [address] [place] [address] Uli Coffey MD 04/10/2025 Refill [facility] [address] [place] [address] Uli Cfofey MD Neuropathy; Other chronic pain; Gastroesophageal reflux disease without esophagitis; Essential hypertension; Enlarged prostate 04/05/2025 Refill [facility] [address] [place] [address] Uli Coffey MD 03/07/2025 Refill [facility] [address] [place] [address] Uli Coffey MD from Last 3 Months Family History Medical History Relation Name Comments Heart disease Father Hypertension Father Diabetes Mother Heart disease Mother Relation Name Status Comments Father Mother Social History Tobacco Use Types Packs/Day Years Used Date Smoking Tobacco: Never Smokeless Tobacco: Never Tobacco Cessation:Counseling Given: Not Answered Alcohol Use Standard Drinks/Week Comments No 0 [...] living? No 06/30/2020 PHQ-2 Answer Date Recorded Patient Health Questionnaire-2 Score 0 09/14/2024 Sex and Gender Information Value Date Recorded Sex Assigned at Not on file Legal Sex Male 1:50 PM EDT Gender Identity Not on file Sexual Orientation Not on file Last Filed Vital Signs Vital Sign Reading Time Taken Comments Blood Pressure 124/74 02/06/2025 2:15 PM EDT Pulse 78 02/06/2025 2:15 PM EDT Temperature 36.1 C (96.9 F) 07/08/2022 1:06 PM EDT Respiratory Rate 18 11/11/2016 10:30 AM EST Oxygen Saturation 97% 02/06/2025 2:15 PM EDT Inhaled Oxygen Concentration - - Weight 105 kg (232 lb) 02/06/2025 2:15 PM EDT Height 171.5 cm (5' 7.52 ) 02/06/2025 2:15 PM ED T Body Mass Index 35.78 02/06/2025 2:15 PM EDT Plan of Treatment Upcoming Encounters Date Type Department Care Team (Late st Contact Info) Description 06/11/2025 2:15 PM EDT Office Visit [facility] [address] [address] Uli Coffey MD [address] [facility] [address] [place] [address] Health Maintenance Due Date Last Done Comments Pneumococcal Vaccine 50+ (1 of 2 - PCV) 1976 TDAP/TD VACCINES (1 - Tdap) 1976 ZOSTER VACCINE (1 of 2) 2007 HEPATITIS C SCREENING 01/09/2016 COVID-19 Vaccine (1 - 2023-2 5 season) 2025 INFLUENZA VACCINE 06/05/2025 ANNUAL WELLNESS VISIT 09/14/2025 09/14/2024 , 08/02/2023, 07/08/2022, Additional history exists COLONOSCOPY Discontinued 05/14/2022, 10/06, 10/18/2016, Additional history exists Medical Devices Implanted Type Area Animal Keeper Head Device Identifier Shelf Expiration Date Model / Serial / Lot Mesh Ventralight St [employer] [address] 4.5in - [id number] Implanted:Qty: 1 on 11/11/2016 by Milan Salmeron MD at [facility] Implant N/A: Abdomen DAVOL (DIV [employer]) 07/02/2018 [id number] / / [id number] Procedures Procedure Name Priority Date/Time Associated Diagnosis Comments SCANNED - COLONOSCOPY 10/18/2016 from Last 3 Months or Most Recently Relevant to Health Maintenance Results * SCANNED - COLONOSCOPY (10/18/2016) us Uli Coffey MD CHART REVIEW TABS Final R esult from Last 3 Months or Most Recently Relevant to Health Maintenance Insurance MEDICARE A & B [facility] [employer] AND [facility] Care Teams Grader Patrol Relationship Specialty Start Date End Date Uli Coffey MD [address] [place] [address] PCP - General 04/17/15
--- OUTSIDE RECORDS SUMMARY | 2025-05-14 13:57 | XMS_ITS | Encounter Summary ---
Author Organization [facility] Address [address] [place] [address] Care Team Providers Care Chemical Research Engineer Name Role Phone Uli Coffey MD Primary Care Provider [phone] Reason for Visit * Reason Onset Date Comments Med Refill 05/03/2025 Encounter Details Date Type Department Care Team (Late st Contact Info) Description 05/03/[address] [facility] [address] [facility] [address] [place] [address] Uli Coffey MD 120 [facility] [address] [place] [address] Social History Tobacco Use Types Packs/Day Years [...] encounter Miscellaneous Notes * Telephone Encounter - Corazon Last RegSched Rep - 05/03/2025 3:59 PM EDT Caller: Cj Torres Relationship: Self Best call back number: [phone] Requested Prescriptions: Requested Prescriptions Pending Prescriptions Disp Refills oxyCODONE-acetaminophen (Percocet) 7.5-325 MG per tablet 120 tablet 0 Sig: Take 1 tablet by mouth Every 6 (Six) Hours As Needed for Moderate Pain. Pharmacy where request should be sent: [facility] [id number] [phone] [facility] [phone] Last office visit with prescribing clinician: 02/06/2025 Last telemedicine visit with prescribing clinician: Visit date not found Next office visit with prescribing clinician: 06/11/2025 Additional details provided by patient: PATIENT HAS TWO DAYS LEFT Does the patient have less than a 3 day supply: [x] Yes [] No Would you like a call back once the refill request has been completed: [] Yes [x] No If the office needs to give you a call back, can they leave a voicemail: [x] Yes [] No Marysol Gil 05/03/25 15:59 EDT documented in this encounter Plan of Treatment Upcoming Encounters Date Type Department Care Team (Late st Contact Info) Description 06/11/2025 2:15 PM EDT Office Visit [facility] [address] [place] [address] Uli Coffey MD [address] [facility] [address] [place] [address] documented as of this encounter Visit Diagnoses Not on filedocumented in this encounter Care Teams Chemical Research Engineer Relationship Specialty Start Date End Date Uli Coffey MD [address] [facility] [address] [place] [address] PCP - General 04/17/15 documented as of this encounter
--- OUTSIDE RECORDS SUMMARY | 2025-05-14 13:57 | XMS_ITS | Encounter Summary ---
Author Organization [facility] Address [address] [place] [address] Care Team Providers Care Sand Technologist Name Role Phone Uli Coffey MD Primary Care Provider [phone] Reason for Visit * Reason Onset Date Comments Med Refill 04/10/2025 Encounter Details Date Type Department Care Team (Late st Contact Info) Description 04/10/2025 Refill [facility] [address] [facility] [address] [place] [address] Uli Coffey MD 120 [facility] [address] [place] [address] Neuropathy; Other chronic pain; Gastroesophageal reflux disease without esophagitis; Essential hypertension; Enlarged prostate Social History Tobacco Use Types Packs/Day Years [...] encounter Miscellaneous Notes * Telephone Encounter - Margarita Salinas RegSched Rep - 04/10/2025 11:50 AM EDT Caller: Cj Torres Relationship: Self Best call back number: [phone] Requested Prescriptions: Requested Prescriptions Pending Prescriptions Disp Refills gabapentin (NEURONTIN) 600 MG tablet 180 tablet 0 Sig: Take 1 tablet by mouth 2 (Two) Times a Day. pantoprazole (PROTONIX) 40 MG EC tablet 90 tablet 3 Sig: Take 1 tablet by mouth Daily. doxazosin (CARDURA) 8 MG tablet 90 tablet 3 Sig: Take 1 tablet by mouth Every Night. Pharmacy where request should be sent: [facility] MAIL DELIVERY - [facility] [address] - [phone] - [phone] FX Last office visit with prescribing clinician: 02/06/2025 Last telemedicine visit with prescribing clinician: Visit date not found Next office visit with prescribing clinician: 06/11/2025 Additional details provided by patient: 1 WEEK OF MEDICATION ON HAND Does the patient have less than a 3 day supply: [x] Yes [] No Would you like a call back once the refill request has been completed: [x] Yes [] No If the office needs to give you a call back, can they leave a voicemail: [] Yes [] No Marysol Copeland 04/10/25 11:52 EDT documented in this encounter Plan of Treatment Upcoming Encounters Date Type Department Care Team (Late st Contact Info) Description 06/11/2025 2:15 PM EDT Office Visit [facility] [address] [facility] [address] [place] [address] Uli Coffey MD 120 [facility] [address] [place] [address] documented as of this encounter Visit Diagnoses Diagnosis Neuropathy Mononeuritis of unspecified site Other chronic pain Gastroesophageal reflux disease without esophagitis Esophageal reflux Essential hypertension Unspecified essential hypertension Enlarged prostate Hypertrophy of prostate without urinary obstruction and other lower urinary tract symptoms (LUTS) documented in this encounter Care Teams Sand Technologist Relationship Specialty Start Date End Date Uli Coffey MD [address] [facility] [address] [place] [address] PCP - General 04/17/15 documented as of this encounter
--- OUTSIDE RECORDS SUMMARY | 2025-05-14 13:57 | XMS_ITS | Clinical Summary ---
Author Organization [facility] Address [address] [place] [address] Care Team Providers Care Results Technician Name Role Phone Uli Coffey MD Primary Care Provider [phone] Social History Tobacco Use Types Packs/Day Years [...] Date Last Done Comments [facility]-Depression Screening 1957 [facility]-/Child/Adol SDOH Screenings 1957 [facility]- SDOH Screenings 1975 [facility]-Adult SDOH Screenings 1975 [facility]-DTaP,Tdap,and Td Vaccine s (1 - Tdap) 1976 CT Colonography 2002 Colonoscopy 2002 FIT-DNA 2002 FIT 2002 FOBT 2002 Sigmoidoscopy 2002 [facility]-Colorectal Cancer Screening 2002 [facility]-Pneumococcal Vaccine: 50 + Years (1 of 1 - PCV) 2007 [facility]-Zoster Vaccines (1 of 2) 2007 [id number] Vaccine (1 - 20 24-25 season) 2025 [facility]-Influenza Vaccine (#1) 2025 [facility]-RSV Vaccine: 60+ [...] complete this topic Insurance MEDICARE Care Teams Results Technician Relationship Specialty Start Date End Date Uli Coffey MD [address] [place] [address] PCP - General 01/16/21
--- OUTSIDE RECORDS SUMMARY | 2025-05-14 13:57 | XMS_ITS | Clinical Summary ---
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 04/26/2023 Active clopidogrel (PLAVIX) 75 MG tablet Take 1 tablet by mouth daily. 09/23/2023 Active doxazosin (CARDURA) 4 MG tablet Take 4 mg by mouth daily. Active fluticasone (FLONASE) 50 MCG/ACT nasal spray Instill 1 spray into nose 2 (two) times daily. 09/13/2023 Active gabapentin (NEURONTIN) 600 MG tablet Take 600 mg by mouth 2 (two) times daily. 06/13/2023 Active oxyCODONE-aceta minophen (PERCOCET) 7.5-325 MG Take 1 tablet by mouth. 04/22/2023 Active pantoprazole (PROTONIX) 40 MG tablet Take 40 mg by mouth daily. 07/06/2023 Active polyethylene glycol (GLYCOLAX) 17 g packet Miralax 17 gram oral powder packet Take by oral route. Active promethazine (PHENERGAN) 25 MG tablet Take 25 mg by mouth. 10/06/2022 Active rosuvastatin (CRESTOR) 20 MG tablet Take 20 mg by mouth daily. 06/17/2023 Active lisinopril (PRINIVIL) 5 MG tablet Take 1 tablet by mouth daily. 12/06/2022 Active Active Problems Problem Noted Date Diagnosed Date Epidural lipomatosis 07/11/2024 Lumbar stenosis with neurogenic claudication 02/2024 Spondylolisthesis at L4-L5 level 07/11/2024 Lumbar radiculopathy 07/11/2024 Social History Tobacco Use Types Packs/Day Years Used Date Smoking Tobacco: Never Smokeless Tobacco: Never Tobacco Cessation:Counseling Given: Not Answered Alcohol Use Standard Drinks/Week Comments Never 0 (1 standard drink = 0.6 oz pur e alcohol) Sex and Gender Information Value Date Recorded Sex Assigned at Not on file Legal Sex Male 2:20 PM EDT Gender Identity Not on file Sexual Orientation Not on file Last Filed Vital Signs Vital Sign Reading Time Taken Comments Blood Pressure - - Pulse - - Temperature - - Respiratory Rate - - Oxygen Saturation - - Inhaled Oxygen Concentration - - Weight 108.4 kg (239 lb) 07/11/2024 8:50 AM EST Height 172.7 cm (5' 8 ) 07/11/2024 8:50 AM EST Body Mass Index 36.34 07/11/2024 8:50 AM EST Plan of Treatment Health Maintenance Due Date Last Done Comments CT Colonography 1957 Colonoscopy 1957 Colorectal Cancer Screening 1957 FIT-DNA 1957 FIT 1957 FOBT 1957 Hepatitis C Screening 1955 Medicare Annual Wellness Vis it (AWV) 1957 Sigmoidoscopy 1957 Tdap/Td Vaccine >11 yo (1 - Tdap) 1976 Pneumococcal Vaccines >50 yo (1 of 1 - PCV) 2007 Shingles (Shingrix) (1 of 2) 2007 Abdominal Aortic Aneurysm (A AA) Screen 2022 Annual SDOH Screening 09/05/2024 Influenza Vaccine (#1) 2025 Haemophilus Influenzae Type B (Hib) Vaccine Aged Out No longer eligible b ased on patient's age to complete this topic Hepatitis A (HepA) Vaccine Aged Out N o longer eligible based on patient's age to complete this topic Hepatitis B (HepB) Vaccine Aged Out N o longer eligible based on patient's age to complete this topic Meningococcal ACWY Aged Out No longer eligible based on patient's age to complete this topic Polio (IPV) Aged Out No longer eligi ble based on patient's age to complete this topic Rotavirus (RV) Vaccine Aged Out No lo nger eligible based on patient's age to complete this topic Insurance [facility]IC[facility] Address: [address] [address] [place] [address] Care Teams Systems Operator Relationship Specialty Start Date End Date None, Physician PCP - General 06/20/24
--- OUTSIDE RECORDS SUMMARY | 2025-05-14 13:57 | XMS_ITS | Patient Health Record ---
Author Organization [facility], [facility] . Address [address] [place] [address] Care Team Providers Care Steel Roller Name Role Phone LISE ISRAEL, Dr. COKER Unavailable [phone] Uli Coffey Unavailable Unavailable Allergies Allergen (clinical drug ingredient) Drug/Non Drug Allergy documented on EMR Reaction Allergy Type Onset Date Status heparin Heparin Sodium (uncoded) OTHER: THROMBOCYTOPENIA Allergy Active Reason For Referral No Information Medications Medication SIG (Take, Route, Frequency, Duration) Notes Start Date End Date Status Amitriptyline HCl 25 MG 1 tablet Orally Once a day pt currently not taking Not-Taking Protonix 40 MG 1 packet Orally Once a day Active Cymbalta 60 MG 1 capsule Orally Once a day Active Flomax 0.4 MG 1 capsule Orally Once a day Active Percocet 10-325 MG 1 tablet as needed Orally every 6 hrs Active Gabapentin 600 MG 1 tablet Orally BID Active Social History Tobacco Use: Social History Observation Description Date Details (start date - stop date) Never Smoker NA - NA Tobacco Use/Smoking Question Answer Notes Status: nonsmoker Alcohol Screen (Audit-C) Question Answer Notes Did you have a drink containing alcohol in the p ast year? No Points 0 Problems Problem Type SNOMED Code ICD Code Onset Dates Problem Status W/U Status Risk Notes Problem Anemia (552256222) Anemia, unspecified (D64.9) Active confirmed Migrated:ANEMIA Problem Obstructive sleep apnea syndrome (disorder) (23505505) Obstructive sleep apnea (adult) (pediatric) (G47.33) Active confirmed He is using the CPAP therapy on daily basis. Problem Acute renal failure syndrome (72606783) Acute kidney failure, unspecified (N17.9) Active confirmed acute tubular necrosis secondary to sepsis, renal functions recovered after a long period of dialysis. His serum creatinine is plateaued at 1.2 over the last 5 years. I advised him to consider taking the flu shots and pneumonia vaccine on regular basis. Problem Chronic kidney disease stage 3 (disorder) (054364841) Chronic kidney disease, stage 3 (moderate) (N18.3) Active confirmed Secondary to acute tubular necrosis partially recovered. Serum creatinine has been stable over the last 5 years at 1.2 mg/dL. He should avoid any nephrotoxic medications especially nonsteroidal anti-inflammatori es Problem Lower urinary tract symptoms due to benign prostatic hypertrophy (9600368023447 1) Enlarged prostate with lower urinary tract symptoms (N40.1) Active confirmed He is feeling much better and the symptoms resolved on Flomax therapy. Problem Hypertension (91691786) HTN (hypertension ) (I10) Active confirmed The blood pressure has been high in the office over the last 2 visits. I advised him again about lifestyle modifications of low salt diet, weight reduction and regular exercise. He understands the importance of this problem and promised to carry on with the lifestyle modification. He will see his primary care physician Dr. Mcdaniels next month or 2 and I advised him to keep a log sheet of his blood pressure checks. He may require to be on antihypertensive medications if the above modifications are not effective. Plan Of Treatment No Information Insurance Providers Payer Name Payer Address Payer Phone Subscriber Number Group Number Insured Name Patient Relationship to Insured Coverage Start Date Coverage End Date [place] [address] [place] [address] [id number] Cj Torres Self - patient is the insured [facility] [address] [address] [place], [place] [id number] Cj Torres Self - patient is the insured Medical (General) History Medical History History ICD Code Chronic kidney disease, stage III (moder ate) N18.3 Hypertensive chronic kidney disease with stage 1 through stage 4 chronic kidney disease, or unspecified chronic kidney disease I12.9 Acute kidney failure N17.9 ADITYA (obstructive sleep apnea) G47.33 Anemia D64.9 Obesity E66.9 Surgical History Surgery Date(Month/Year) tracheostomy green field filter colectomy lt knee repair
--- OUTSIDE RECORDS SUMMARY | 2025-05-14 13:57 | XMS_ITS | Encounter Summary ---
Author Organization [facility] Address [address] [place] [address] Care Team Providers Care Desktop Support Associate Name Role Phone Uli Coffey MD Primary Care Provider [phone] Reason for Visit * Reason Onset Date Comments Med Refill 04/05/2025 Encounter Details Date Type Department Care Team (Late st Contact Info) Description 04/05/2025 Refill [facility] [address] [facility] [address] [place] [address] Uli Coffey MD [address] [facility] [address] [place] [address] Social History Tobacco Use Types [...] Encounter - Margarita Salinas RegSched Rep - 04/05/2025 4:09 PM EDT Caller: Cj Torres Relationship: Self Best call back number: [phone] Requested Prescriptions: Requested Prescriptions Pending Prescriptions Disp Refills oxyCODONE-acetaminophen (Percocet) 7.5-325 MG per tablet 120 tablet 0 Sig: Take 1 tablet by mouth Every 6 (Six) Hours As Needed for Moderate Pain. Pharmacy where request should be sent: [facility] [id number] [address] [phone] [facility] [phone] Last office visit with prescribing clinician: 02/06/2025 Last telemedicine visit with prescribing clinician: Visit date not found Next office visit with prescribing clinician: 06/11/2025 Additional details provided by patient: 1 DAY OF MEDICATION ON HAND Does the patient have less than a 3 day supply: [x] Yes [] No Would you like a call back once the refill request has been completed: [] Yes [] No If the office needs to give you a call back, can they leave a voicemail: [] Yes [] No Marysol Copeland 04/05/25 16:10 EDT documented in this encounter Plan of Treatment Upcoming Encounters Date Type Department Care Team (Late st Contact Info) Description 06/11/2025 2:15 PM EDT Office Visit [facility] [address] [phone] Uli Coffey MD [address] [facility] [address] [place] [address] documented as of this encounter Visit Diagnoses Not on filedocumented in this encounter Care Teams Desktop Support Associate Relationship Specialty Start Date End Date Uli Coffey MD [address] [place] [address] PCP - General 04/17/15 documented as of this encounter
[2025-05-14 14:14] VITALS: BP 128/89; PULSE 66; RESP 16; O2SAT 94; BMI 36.3
[2025-05-14 14:26] VITALS: BP 121/91; PULSE 63; RESP 18; O2SAT 95
[2025-05-14] MEDS: DEXAMETHASONE 10MG/ML 1ML VIAL 10 MG (14:26)
[2025-05-14 14:27] VITALS: BP 121/91; PULSE 63; RESP 18; O2SAT 95
--- NOTE | 2025-05-14 14:28 | EXP.PAIN.PRO ---
Procedure Date: 05/14/25 Time: 14:15 Anesthesiologist:: Enrrique Wayne CRNA Complications:: None Pre-procedure Diagnosis:: Degenerative disc lumbar spine multilevels. Lumbar radiculopathy Post-procedure Diagnosis:: Same. Indications for Procedure:: Patient is a very pleasant 69-year-old male who comes our clinic today for lumbar epidural steroid injection. Patient describes low lumbar back pain as constant, dull, aching. Patient rates his pain 7/10. Procedure Details:: Procedure: Lumbar epidural steroid injection under fluoroscopy Informed consent was obtained and the risks and benefits of the procedure were explained to the patient. The patient was taken to the procedure room and noninvasive monitors placed, including noninvasive blood pressure cuff and pulse oximeter. The back was viewed using C-arm Fluoroscopy and prepped using Chloraprep as a cleansing solution and the L4-L5 interspace was palpated. Skin and subcutaneous tissues were anesthetized using lidocaine 1.5% and a 25-gauge needle. After this, an 18-gauge Touhy epidural needle was placed into the L4-L5 interspace and advanced using fluoroscopic guidance and loss of resistance to air until the epidural space was encountered. After confirmation of needle placement in the epidural space, with dye, a solution containing normal saline, 3 mL and dexamethasone 10 mg were incrementally injected into the lumbar epidural space. The patient tolerated the procedure well with no complications. The patient was observed in the Pain Clinic and then discharged home neurologically intact. Plan and Disposition:: Patient was discharged without incident.
[2025-05-14 14:35] VITALS: BP 128/84; PULSE 65; RESP 18; O2SAT 95
== END 2025-05-14 14:35 | disposition home or self-care (01) ==
PROVIDERS: Visit Provider Nurse Anesthetist, Certified Registered
DX: M54.16 Radiculopathy, lumbar region (principal)
CPT/HCPCS: 62323; J1100